=== PATIENT | male | born 1965 | race Caucasian/White ===

== ENCOUNTER 2018-05-27 08:09 | Emergency (ER) | payer MEDICAID, SELFPAY ==
[2018-05-27 08:10] VITALS: BP 185/105; PULSE 107; RESP 16; TEMP 36.8; O2SAT 99; BMI 22.3
--- NOTE | 2018-05-27 08:27 | ED.DCSUM_ITS ---
- ER Visit Summary Date of Service: 05/27/18 Chief Complaint: Bumps on ankle and elbows History of Present Illness: The patient is a 52 M who presents because of bumps on his ankle and elbows for approximate 1 week. He denies any other complaints or symptoms. He does have history of hypertension. He has not seen a physician in 4 years. He has not taken any medication in 2 years. He states his doctor is affiliated with the [facility]. He denies fever, chills night sweats. Denies weight gain or weight loss. He denies any ocular, visual or auditory symptoms. He denies chest pain, palpitations orthopnea PND. He denies dyspnea or dyspnea on exertion. Does have cough. He denies abdominal pain, nausea vomiting diarrhea. Denies constipation. He denies any dysuria, frequency, urgency or hematuria. He denies any myalgias, arthralgias. He denies back pain or neck pain. Physical Examination: Blood pressure is 185/105 and heart rate is 105. Patient appears in no distress. Head is atraumatic normocephalic. Pupils are equal round reactive. Extraocular muscles are intact. TMs are pearly white with landmarks noted. Nares patent with no drainage. Posterior pharynx without erythema or exudate. Uvula is midline. There is no dysphonia or dysphasia. Trachea is midline. There is no stridor with auscultation of the neck. Heart is regular without murmur, gallop or rub. S1 and S2 are normal. Lungs are clear to auscultation with good movement of air bilaterally. Abdomen is soft nontender with no palpable cell mass. There is no abdominal bruit. Patient is alert and oriented ?3. Motor is 5 over 5. Sensory is intact. DTRs are symmetric with no clonus or Babinski sign. Cranial 2 through 12 are intact. Cerebellar testing is normal. Patient does have fine bumps. His findings are consistent with folliculitis. He apparently has been in a hot tub. He has not been in the public hot tub, however. Test Results: BMP is remarkable slight elevation in CO2 of 33. UA is unremarkable. Emergency Department Course and Treatment: Because he has not seen a physician in 4 years and blood pressure is elevated will obtain a BMP and UA to evaluate for endorgan injury. And if creatinine is elevated will not prescribe TREMAYNE inhibitor. Treatment Plan: Prescription for lisinopril 10 mg and follow-up in 1-2 weeks [facility] Disposition: Discharged to home Impression: 1. Hypertension asymptomatic secondary noncompliance 2. Folliculitis This note was generated with [employer] dictation software. It may contain incorrect words, spelling, and punctuation that were not noted in review of the chart prior to signing ED Disposition - Plan for ED Patient: Disposition: Home or Assisted Living Chief Complaint: Lower Extremity Injury Instructions: ED HTN Established, ED Folliculitis Prescriptions: Lisinopril [Zestril] 10 mg PO DAILY #30 tab Dicloxacillin Sodium 500 mg PO Q6H 7 Days #28 cap [facility] Provider[facility] - 1-2 Weeks
[2018-05-27 08:42] LABS: Bacteria 0 SEEN /hpf (None Seen); Mucous, Urine 0 SEEN /hpf (<or=2+)
[2018-05-27 08:46] LABS: Color, Urine Yellow (Yellow); Glucose, Dipstick Normal (Normal); Ketone-Dipstick Negative (Negative); Leukocyte Esterase-Dipstick 25 /ul (Negative); Nitrite-Dipstick Negative (Negative); Occult Blood-Urine Negative /ul (Negative); Protein-Dipstick Negative (Negative); Urine Bilirubin Dipstick Negative (Negative); Urine Clarity Clear (Clear); Urine Urobilinogen Normal (Normal)
[2018-05-27 08:51] LABS: Anion Gap 7 (5-15); BUN 7 mg/dL (7-18); BUN/Creat Ratio 9.4 RATIO (10-20); Calcium,Total 9.7 mg/dL (8.5-10.1); Chloride 101 mmol/L (98-107); Creatinine, Serum 0.74 mg/dL (0.70-1.30); EST Glomerular Filtration Rate 116 mL/min (>60); Est Glom Filt Rate - Afr Amer 140 mL/min (>60); Estimated Creatinine Clearance 95.18 ml/min; Glucose 101 mg/dL (74-106); Potassium 3.9 mmol/L (3.5-5.1); Sodium Level 141 mmol/L (136-145)
[2018-05-27] MEDS: Lisinopril 10 MG Tablet PO (08:51)
[2018-05-27 09:04] LABS: White Blood Cells 0-5 SEEN /hpf (0-5)
[2018-05-27 09:05] LABS: Red Blood Cells-Urine 0 SEEN /hpf (0-5); Squamous Epithelial Cells - UA 0-5 SEEN /hpf (0-5)
== END 2018-05-27 09:29 | disposition home or self-care (01) ==
PROVIDERS: Emergency Provider Emergency Medicine
DX: I10 Essential (primary) hypertension (principal); Z91.14 Patient's other noncompliance with medication regimen; L73.9 Follicular disorder, unspecified; R05 Cough; Z72.0 Tobacco use
CPT/HCPCS: 80048; 81001; 99283

== ENCOUNTER 2022-08-26 13:40 | Inpatient (IN) | payer OTHER, SELFPAY ==
[2022-08-26] VITALS (15 sets, daily range): BP systolic 94–112; BP diastolic 49–63; PULSE 71–91; RESP 16–20; TEMP 36.6–37.9; O2SAT 94–100; BMI 22.3; BMI 20.8
--- NOTE | 2022-08-26 14:32 | EX.ED.DYSGE1 ---
HPI History of Present Illness Chief Complaint: Dizziness Narrative Narrative: 56-year-old male with no documented past medical history. Here for shortness of breath, dizziness for last 3 weeks. The patient states he has been having exertional shortness of breath accompanied by dizziness for the last several weeks. He states his symptoms are constant, severe, worse with exertion. Denies any chest pain. The patient denies recent surgery in the last 4 weeks or immobilization in the last 3 days, denies previous diagnosis of DVT or PE, hemoptysis, unilateral leg swelling or malignancy with treatment the last 6 months. No estrogen use noted. Patient notes he drinks alcohol daily, drinks vodka, approximately 20% of a bottle per day. Denies any vomiting or diarrhea. Denies any bleeding diathesis. Patient notes he takes aspirin but no blood thinners. Denies any melena or hematochezia. PFSH PFSH Medical History no medical history Home Medications dicloxacillin 500 mg capsule 500 mg PO Q6H 7 days #28 caps 05/27/18 [Rx Last Taken Unknown] lisinopril 10 mg tablet 10 mg PO DAILY #30 tabs 05/27/18 [Rx Last Taken Unknown] Allergy/AdvReac Type Severity Reaction Status Date / Time No Known Allergies Allergy Verified 08/26/22 13:42 Surgical History no surgical history Social History Smoking Status: Current every day smoker tobacco type: cigarettes ROS ROS ED ROS Narrative Constitutional: Denies fever HEENT: Denies sore throat Neck: Denies neck pain Cardiovascular: Denies chest pain, syncope, endorses dizziness Respiratory: Endorses shortness of breath GI: Denies nausea vomiting or abdominal pain : Denies changes in urinary habits Musculoskeletal: Denies muscle or joint pain Neurologic: Denies numbness weakness or loss of sensation Skin denies rash EXAM Physical Exam Narrative Exam Narrative: Nursing triage notes reviewed, Vital signs reviewed Constitutional: please see mdm HENT: MMM Eyes: Pupils equal round and reactive to light, Extraocular muscles intact Neck: No stridor, no JVD, full neck ROM Lungs: Clear to auscultation, No wheezing or rales. No increased work of breathing, no conversational dyspnea, no accessory muscle use, no nasal flaring. No respiratory distress noted Heart: Regular rate and rhythm, No murmurs, No rubs and No gallops, 2+ distal pulses (radial, femoral, posterior tibial) in all extremities Abdomen: Soft, there is no tenderness, rigidity, rebound or guarding, no obvious peritoneal signs, no palpable pulsatile abdominal masses, no auscultated abdominal bruit : No CVAT Extremities: No edema Neuro: Alert and oriented x3, neuro exam at baseline, cranial nerves II through XII are intact. No pain with extraocular muscle movement. There is negative test of skew. Normal speech. 5 of 5 strength in upper and lower extremities in flexion extension. Intact sensation to light touch in upper and lower extremity dermatomes. No truncal or extremity ataxia. No dysdiadochokinesia. Normal gait. 2+ reflexes. No meningeal signs. Negative Babinski. NIH of 0 Skin: No rash or lesions noted Const Vital Signs: 08/26/22 13:40 08/26/22 13:58 08/26/22 15:19 Temperature 97.8 F Temperature Source Temporal Pulse Rate 87 Respiratory Rate 18 Respiratory Effort Short of Breath Respiratory Pattern Normal Blood Pressure 112/49 L Blood Pressure Mean 70 Pulse Ox 100 Oxygen Delivery Method Room Air Room Air MDM MDM MDM Narrative Medical decision making narrative: 56-year-old male here for dizziness, dyspnea. The patient was initially hemodynamically stable, afebrile, nontoxic-appearing. Exam with No focal cardiopulmonary without focal neurologic deficits. No focal cardiopulmonary abnormalities noted on exam. Rectal exam without obvious melena. I obtained a broad lab and imaging work-up to further elucidate the etiology of the patient's complaints. Specifically ACS, arrhythmia, pneumonia, myocardial ischemia, anemia, electrolyte abnormalities, dehydration. CBC with severe anemia. BMP with hypokalemia likely secondary to daily alcohol abuse. Replaced hypokalemia orally. At this point is sent for type and screen prepared for 3 unit blood transfusion called to hospitalist for admission. Risk and benefits of blood transfusion were discussed with the patient. He agreed to have blood transfusion. EKG without evidence of myocardial ischemia or arrhythmia. Troponin unremarkable. BNP mildly elevated consistent with volume overload. Discussed with hospitalist who accepted the patient's case. Patient be admitted for anemia, blood transfusion and monitoring. Lab Data Attestation: I reviewed the patient's lab results. Lab results narrative: CBC without leukocytosis, severe anemia, no thrombocytopenia BMP without evidence of significant electrolyte abnormalities, no anion gap, no acute kidney injury Troponin is negative, no evidence of myocardial ischemia. Labs: Laboratory Results - last 24 hr 08/26/22 08/26/22 08/26/22 15:27 15:27 15:27 WBC 7.6 RBC 1.93 L Hgb 4.4 L* Hct 16.0 L MCV 82.9 MCH 22.8 L MCHC 27.5 L RDW Std Deviation 64.7 H RDW Coeff of Shauna 21.7 H Plt Count 343 MPV 10.0 Immature Gran % (Auto) 0.800 Neut % (Auto) 87.5 H Lymph % (Auto) 5.1 L [place] % (Auto) 6.0 Eos % (Auto) 0.1 Baso % (Auto) 0.5 Absolute Neuts (auto) 6.7 Absolute Lymphs (auto) 0.39 L Nucleated RBC % 0.3 Differential Comment SCANNED Diff Path Review May foll Polychromasia RARE Hypochromasia 3+ Anisocytosis 2+ Target Cells 1+ Schistocytes RARE Sodium 135 L Potassium 2.9 L Chloride 95 L Carbon Dioxide 25.0 Anion Gap 15 BUN 12 Creatinine 0.72 Estim Creat Clear Calc 93.27 Est GFR (MDRD) Af Amer 143 Est GFR (MDRD) Non-Af 118 BUN/Creatinine Ratio 16.6 Glucose 71 L Calcium 8.9 Troponin I High Sens 15 B-Natriuretic Peptide 177.0 H Radiography Diagnostic Testing: Clinical Impression(s) from Imaging Studies Chest X-Ray 08/26/22 15:30 IMPRESSION: Increased markings at the left lung base suggestive of atelectasis and/or early infiltrate. Follow-up recommended. Electronically Signed: Freddy Perez MD at 15:50 EDT , EKG Initial EKG: Comments: EKG with normal sinus rhythm, left axis deviation, no STEMI Discharge Plan Triage Chief Complaint: Dizziness ED Provider: Meek Keating Dx/Rx/DC Orders Clinical Impression: Anemia, Alcohol abuse, Acute hypokalemia Prescriptions: No Action dicloxacillin 500 MG capsule 500 mg PO Q6H 7 Days Qty: 28 0RF lisinopril 10 MG tablet 10 mg PO DAILY Qty: 30 0RF [facility] [[facility] Provider] -
--- NOTE | 2022-08-26 14:58 | EKG12_ITS ---
Test Reason : DIZZY Blood Pressure : / mmHG Vent. Rate : 081 BPM Atrial Rate : 081 BPM P-R Int : 160 ms QRS Dur : 094 ms QT Int : 414 ms P-R-T Axes : 046 -05 009 degrees QTc Int : 480 ms Normal sinus rhythm Nonspecific ST abnormality Prolonged QT Abnormal ECG Confirmed by MERVAT TERRY, HERBERT ([id number]), school photograph editor RYLEE DOW ([id number]) on 08/30/2022 2:42:12 P M Referred By: Confirmed By:BASSEM CROWELL MD
[2022-08-26] MEDS: 0.9% Normal Saline 1,000 ML 1000 ML IV (15:27)
[2022-08-26] MEDS: Aspirin 81 MG TAB.CHEW 324 MG PO (15:27)
--- NOTE | 2022-08-26 15:30 | RAD_ITS ---
STUDY: X-RAY CHEST REASON FOR EXAM: Male, 56 years old. Chest pain TECHNIQUE: Single AP portable view of the chest. COMPARISON: None. FINDINGS: EKG electrodes are seen. Hyperinflation. Increased markings at the left lung base suggestive of a either atelectasis and/or infiltrate. There is no demonstrated pleural abnormality. Normal size heart. Normal mediastinum and jorge. There is prominence of the pulmonary hilar arteries without peripheral pulmonary vascular congestion, suggesting pulmonary hypertension. Normal visualized aortic arch and descending thoracic aorta. Normal visualized thoracic spine. Normal visualized ribs, clavicles, and shoulders. There is no demonstrated abnormality of the visualized soft tissue structures of the upper abdomen. RAD/Chest 1 View (Portable) IMPRESSION: Increased markings at the left lung base suggestive of atelectasis and/or early infiltrate. Follow-up recommended. Electronically Signed: Freddy Perez MD at 15:50 EDT ,
[2022-08-26 15:50] LABS: Absolute Lymphocyte Count 0.39 X10^3/uL (0.83-4.51); Absolute Neutrophil Count 6.7 X10^3/uL (2.0-7.7); Basophil# 0.04 X10^3/uL; Basophil% 0.5 % (0-1); Eosinophil# 0.01 X10^3/uL; Eosinophils% 0.1 % (0-5); Lymphocyte # 0.39 X10^3/ul (0.83-4.51); Lymphocyte % 5.1 % (19-41); Mean Corp Hgb Conc 27.5 g/dL (32-36); Mean Corpuscular Hgb 22.8 pg (27.0-32.0); Mean Corpuscular Volume 82.9 fL (80-94); Monocyte# 0.46 X10^3/uL; NRBC Flagged by Analyzer 0.3 % (0-5); Neutrophil # 6.67 X10^3/uL (2.7-7.7); Neutrophil % 87.5 % (47-70); POSITIVE COUNT YES; POSITIVE DIFFERENTIAL YES; POSITIVE MORPHOLOGY YES; Platelet Count 343 K/mm3 (150-450); RBC Distribution Width CV 21.7 % (11.6-14.6); RBC Distribution Width SD 64.7 fl (35.1-43.9); Red Blood Count 1.93 M/mm3 (4.6-6.2); White Blood Count 7.6 K/mm3 (4.4-11.0)
[2022-08-26 16:01] LABS: Differential Indicated SCAN CRITERIA MET; Hemoglobin 4.4 g/dL (13.0-16.5)
[2022-08-26 16:08] LABS: Anion Gap 15 (5-15); BUN 12 mg/dL (7-18); BUN/Creat Ratio 16.6 RATIO (10-20); Calcium,Total 8.9 mg/dL (8.5-10.1); Chloride 95 mmol/L (98-107); Creatinine, Serum 0.72 mg/dL (0.70-1.30); EST Glomerular Filtration Rate 118 mL/min (>60); Est Glom Filt Rate - Afr Amer 143 mL/min (>60); Estimated Creatinine Clearance 93.27 ml/min; Glucose 71 mg/dL (74-106); Potassium 2.9 mmol/L (3.5-5.1); Sodium Level 135 mmol/L (136-145); Troponin-I HS 15 pg/mL (3.0-78.0)
[2022-08-26 16:18] LABS: Anisocytosis 2+; Differential Comment SCANNED; Hypochromasia 3+; Polychromasia RARE; Schistocytes RARE
[2022-08-26 16:19] LABS: Target Cells 1+
[2022-08-26] MEDS: Potassium Chloride Oral Tablet 20 MEQ 40 MEQ PO (17:01)
[2022-08-26 18:26] LABS: Ferritin 11 ng/mL (26-388); Iron 29 ug/dL (65-175); Iron Binding Capacity,Total 443 ug/dL (250-450)
--- NOTE | 2022-08-26 18:27 | PCM.HP.STD ---
HPI - General General Date of Admission: 08/26/22 HPI Narrative MARVIN IZQUIERDO, is a 56 M who presents to the hospital with lightheadedness and shortness of breath. He is found to be severely anemic with a hemoglobin of 4.4. He denies any signs of a GI bleed, he denies any hematemesis or bright or dark red blood in his stools. Hemoccult in the ER was unremarkable. He does have a significant current history of alcoholism, he drinks a pint of vodka every day and he has no interest in going through rehab at this time. He currently states that he feels fine as long as is not trying to move, that elicits the shortness of breath and the dizziness. [facility] Medical History (Updated 08/26/22 @ 18:06 by Clarissa Harmon RN) Alcohol abuse Anemia Hypertension Smoker Substance abuse Medical History no medical history Home Medications dicloxacillin 500 mg capsule 500 mg PO Q6H 7 days #28 caps 05/27/18 [Rx Last Taken Unknown] lisinopril 10 mg tablet 10 mg PO DAILY #30 tabs 05/27/18 [Rx Last Taken Unknown] Allergy/AdvReac Type Severity Reaction Status Date / Time No Known Allergies Allergy Verified 08/26/22 13:42 Family History (Updated 08/26/22 @ 18:[address] Memo Gamez MD) Other Heart disease Surgical History no surgical history no surgical history Social History Smoking Status: Current every day smoker tobacco type: cigarettes ROS Constitutional Constitutional: Denies chills, fatigue, fever(s) or malaise Eyes Eyes: Denies blurry vision ENT HEENT: Denies headache(s) or nasal discharge Cardiovascular Cardiovascular: Reports lightheadedness; Denies chest pain, dyspnea on exertion or syncope Respiratory/Chest Respiratory/Chest: Reports shortness of breath with exertion; Denies cough or shortness of breath at rest Gastrointestinal Gastrointestinal: Denies constipation, diarrhea, nausea or vomiting Genitourinary Genitourinary: Denies dysuria Neurologic Neurologic: Reports dizziness; Denies focal weakness, numbness or tremor(s) Psychiatric Psychiatric: Denies anxiety or depression Vital Signs Vital Signs Vital Signs: 08/26/22 13:40 08/26/22 13:58 08/26/22 15:19 Temperature 97.8 F Temperature Source Temporal Pulse Rate 87 Respiratory Rate 18 Respiratory Effort Short of Breath Respiratory Pattern Normal Blood Pressure 112/49 L Blood Pressure Mean 70 Blood Pressure Source Blood Pressure Position Blood Pressure Location Pulse Ox 100 Oxygen Delivery Method Room Air Room Air 08/26/22 15:40 08/26/22 17:40 08/26/22 17:56 Temperature 98.3 F Temperature Source Temporal Pulse Rate 71 71 Respiratory Rate 18 16 16 Respiratory Effort Respiratory Pattern Blood Pressure 107/57 L 107/57 L Blood Pressure Mean 73 73 Blood Pressure Source Blood Pressure Position Blood Pressure Location Pulse Ox 95 94 Oxygen Delivery Method Room Air Room Air 08/26/22 18:21 Temperature 100.0 F H Temperature Source Oral Pulse Rate 86 Respiratory Rate 17 Respiratory Effort Respiratory Pattern Blood Pressure 100/56 L Blood Pressure Mean 70 Blood Pressure Source Monitor Blood Pressure Position Semi-Fowlers Blood Pressure Location Right Arm Pulse Ox 97 Oxygen Delivery Method Room Air Weight Weight: 121 lb 4.068 oz Body Mass Index (BMI) 20.8 Physical Exam Narrative And general: Alert, Oriented x3, Cooperative, No apparent distress HEENT: Atraumatic, PERRLA, EOMI, Normocephalic, pale Oral: Moist Mucosa Neck: Supple, No JVD Lungs: Clear to auscultation, Normal air movement, No rhonchi, No wheeze, No rales Cardiovascular: Regular rate, Regular Rhythm, Normal S1, Normal S2, No murmurs Abdomen: Soft, Non Tender, Non-Distended, No Hepato-splenomegaly Extremities: No edema, Capillary Refill Less than 3 Seconds Skin: No rashes, No breakdown Musculoskeletal: No Tenderness to Palpation of Joints or Extremities Neurological: Cranial nerves II-XII grossly intact, Motor Exam 5/5 strength throughout, Sensory exam intact to light touch and pain Psych/Mental Status: Normal Affect, Appropriate Results Lab / Micro Data Result Diagrams: 08/26/22 15:27 08/26/22 15:27 Labs: Laboratory Results - last 24 hr 08/26/22 15:27: WBC 7.6, RBC 1.93 L, Hgb 4.4 L*, Hct 16.0 L, MCV 82.9, MCH 22.8 L, MCHC 27.5 L, RDW Std Deviation 64.7 H, RDW Coeff of Shauna 21.7 H, Plt Count 343, MPV 10.0, Immature Gran % (Auto) 0.800, Neut % (Auto) 87.5 H, Lymph % (Auto) 5.1 L, [place] % (Auto) 6.0, Eos % (Auto) 0.1, Baso % (Auto) 0.5, Absolute Neuts (auto) 6.7, Absolute Lymphs (auto) 0.39 L, Nucleated RBC % 0.3, Differential Comment SCANNED, Diff Path Review May foll, Polychromasia RARE, Hypochromasia 3+, Anisocytosis 2+, Target Cells 1+, Schistocytes RARE 08/26/22 15:27: Sodium 135 L, Potassium 2.9 L, Chloride 95 L, Carbon Dioxide 25.0, Anion Gap 15, BUN 12, Creatinine 0.72, Estim Creat Clear Calc 93.27, Est GFR (MDRD) Af Amer 143, Est GFR (MDRD) Non-Af 118, BUN/Creatinine Ratio 16.6, Glucose 71 L, Calcium 8.9, Troponin I High Sens 15 08/26/22 15:27: B-Natriuretic Peptide 177.0 H 08/26/22 15:27: Iron 29 L, TIBC 443, Ferritin 11 L, Folate 5.10 08/26/22 16:10: Blood Type O POSITIVE, Antibody Screen NEGATIVE 08/26/22 16:10: Crossmatch See Detail Micro: Microbiology 08/26/22 16:35 Stool Stool Occult Blood ([facility]ER) - Final Radiology Impression Chest X-Ray 08/26/22 15:30 IMPRESSION: Increased markings at the left lung base suggestive of atelectasis and/or early infiltrate. Follow-up recommended. Electronically Signed: Freddy Perez MD at 15:50 EDT , Assessment & Plan Assessment/Plan (1) Anemia: (2) Alcohol abuse: PLAN: Plan 1. Anemia likely iron deficiency versus marrow toxicity from alcohol abuse ? No signs of a GI bleed, he denies any GI bleeding and Hemoccult was negative ? We will continue with twice daily PPI at this time ? Folic acid is normal, vitamin B12 is pending ? Iron studies show a low iron with elevated/normal TIBC and a low ferritin ? We will continue with 3 units of blood transfusion today we will follow-up CBC in the morning 2. Alcohol abuse ? She drinks a pint of vodka a day ? She has no interest in rehab ? We will continue with the [facility] protocols with Ativan DVT: SCDs Charges/Coding Visit Charges Inpatient E&M: 03612 Init Hosp L2
[2022-08-26 19:17] LABS: Vitamin B12 571 pg/mL (211-911)
[2022-08-26] MEDS: MELATONIN 3 MG TABLET PO (21:00)
[2022-08-27] VITALS (19 sets, daily range): BP systolic 109–136; BP diastolic 62–72; PULSE 69–79; RESP 14–20; TEMP 36.9–37.7; O2SAT 96–100
--- NOTE | 2022-08-27 01:56 | NURSING ---
Pt vitals were taken at 2343 , 0043 and blood ended 0140 for second bag of blood. Pt vitals remained stable. Error occurred with TAR and didn't save vitals when documented at those times.
[2022-08-27 07:24] LABS: Anion Gap 9 (5-15); BUN 12 mg/dL (7-18); Calcium,Total 8.8 mg/dL (8.5-10.1); Chloride 95 mmol/L (98-107); Creatinine, Serum 0.75 mg/dL (0.70-1.30); EST Glomerular Filtration Rate 113 mL/min (>60); Est Glom Filt Rate - Afr Amer 137 mL/min (>60); Estimated Creatinine Clearance 83.52 ml/min; Glucose 95 mg/dL (74-106); Potassium 3.5 mmol/L (3.5-5.1); Sodium Level 132 mmol/L (136-145)
[2022-08-27 08:05] LABS: AST(SGOT) 44 U/L (15-37); Alanine Aminotransfer ALT/SGPT 42 U/L (16-61); Albumin, Serum 3.1 g/dL (3.2-5.0); Alkaline Phosphatase 77 U/L (45-117); Bilirubin, Direct 0.36 mg/dL (0.00-0.30); Globulin 3.3 g/dL (2.2-4.2); Protein, Total 6.4 g/dL (6.4-8.2)
[2022-08-27 08:53] LABS: Absolute Lymphocyte Count 0.62 X10^3/uL (0.83-4.51); Absolute Neutrophil Count 5.2 X10^3/uL (2.0-7.7); Basophil# 0.03 X10^3/uL; Basophil% 0.4 % (0-1); Eosinophil# 0.04 X10^3/uL; Eosinophils% 0.5 % (0-5); Hematocrit 26.4 % (40-54); Hemoglobin 8.6 g/dL (13.0-16.5); Lymphocyte # 0.62 X10^3/ul (0.83-4.51); Lymphocyte % 8.5 % (19-41); Mean Corp Hgb Conc 32.6 g/dL (32-36); Mean Corpuscular Hgb 26.7 pg (27.0-32.0); Mean Platelet Vol. 10.1 fl (6.2-12.0); Monocyte# 1.31 X10^3/uL; NRBC Flagged by Analyzer 0.4 % (0-5); Neutrophil # 5.24 X10^3/uL (2.7-7.7); Neutrophil % 72.1 % (47-70); Platelet Count 261 K/mm3 (150-450); RBC Distribution Width CV 16.9 % (11.6-14.6); Red Blood Count 3.22 M/mm3 (4.6-6.2); White Blood Count 7.3 K/mm3 (4.4-11.0)
[2022-08-27] MEDS: 0.9% Saline Lock 10 ML Syringe IV ×2 (09:06→20:41)
--- NOTE | 2022-08-27 10:19 | PCM.PN.HOSP ---
Subjective Subjective Follow-up on acute severe anemia/chronic alcohol abuse: Patient was seen and examined. He denied any hematochezia or melena. He was transfused 3 units of packed RBCs. Repeat hemoglobin is 8.6. Denies any chest pain or dizziness or palpitations. Objective Data Objective Data Vital Signs: Vital Signs Temp Pulse Resp BP Pulse Ox O2 Del Method 99.1 F 70 14 136/68 H 96 Room Air 08/27/22 08:33 08/27/22 08:51 08/27/22 08:33 08/27/22 08:33 08/27/22 08:33 08/27/22 08:33 Oxygen Delivery Method Room Air Weight: 55 kg Body Mass Index (BMI) 20.8 Intake & Output: Intake and Output for Last 24 Hours 08/25/22 08/26/22 08/27/22 23:59 23:59 23:59 Intake Total 1510 / 1510 1150 / 1150 Balance 1510 / 1510 1150 / 1150 Lab / Micro Data Result Diagrams: 08/27/22 08:40 08/27/22 04:17 Labs: Laboratory Results - last 24 hr 08/26/22 15:27: WBC 7.6, RBC 1.93 L, Hgb 4.4 L*, Hct 16.0 L, MCV 82.9, MCH 22.8 L, MCHC 27.5 L, RDW Std Deviation 64.7 H, RDW Coeff of Shauna 21.7 H, Plt Count 343, MPV 10.0, Immature Gran % (Auto) 0.800, Neut % (Auto) 87.5 H, Lymph % (Auto) 5.1 L, [place] % (Auto) 6.0, Eos % (Auto) 0.1, Baso % (Auto) 0.5, Absolute Neuts (auto) 6.7, Absolute Lymphs (auto) 0.39 L, Nucleated RBC % 0.3, Differential Comment SCANNED, Diff Path Review May foll, Polychromasia RARE, Hypochromasia 3+, Anisocytosis 2+, Target Cells 1+, Schistocytes RARE 08/26/22 15:27: Sodium 135 L, Potassium 2.9 L, Chloride 95 L, Carbon Dioxide 25.0, Anion Gap 15, BUN 12, Creatinine 0.72, Estim Creat Clear Calc 93.27, Est GFR (MDRD) Af Amer 143, Est GFR (MDRD) Non-Af 118, BUN/Creatinine Ratio 16.6, Glucose 71 L, Calcium 8.9, Troponin I High Sens 15 08/26/22 15:27: B-Natriuretic Peptide 177.0 H 08/26/22 15:27: Vitamin B12 571 08/26/22 15:27: Iron 29 L, TIBC 443, Ferritin 11 L, Folate 5.10 08/26/22 16:10: Blood Type O POSITIVE, Antibody Screen NEGATIVE 08/26/22 16:10: Crossmatch See Detail 08/27/22 04:17: Sodium 132 L, Potassium 3.5, Chloride 95 L, Carbon Dioxide 28.0, Anion Gap 9, BUN 12, Creatinine 0.75, Estim Creat Clear Calc 83.52, Est GFR (MDRD) Af Amer 137, Est GFR (MDRD) Non-Af 113, BUN/Creatinine Ratio 16.0, Glucose 95, Calcium 8.8 08/27/22 04:17: Sodium Cancelled, Potassium Cancelled, Chloride Cancelled, Carbon Dioxide Cancelled, Anion Gap Cancelled, BUN Cancelled, Creatinine Cancelled, Est GFR (MDRD) Af Amer Cancelled, Est GFR (MDRD) Non-Af Cancelled, BUN/Creatinine Ratio Cancelled, Glucose Cancelled, Calcium Cancelled, Total Bilirubin 1.20 H, Direct Bilirubin 0.36 H, AST 44 H, ALT 42, Alkaline Phosphatase 77, Total Protein 6.4, Albumin 3.1 L, Globulin 3.3, Albumin/Globulin Ratio Cancelled 08/27/22 08:40: WBC 7.3, RBC 3.22 L, Hgb 8.6 L, Hct 26.4 L, MCV 82.0, MCH 26.7 L, MCHC 32.6 D, RDW Std Deviation 50.0 H, RDW Coeff of Shauna 16.9 H, Plt Count 261, MPV 10.1, Immature Gran % (Auto) 0.500, Neut % (Auto) 72.1 H, Lymph % (Auto) 8.5 L, [place] % (Auto) 18.0 H, Eos % (Auto) 0.5, Baso % (Auto) 0.4, Absolute Neuts (auto) 5.2, Absolute Lymphs (auto) 0.62 L, Nucleated RBC % 0.4 Micro: Microbiology 08/26/22 16:35 Stool Stool Occult Blood ([facility]) - Final Radiography Diagnostic Testing: Radiology Impression Chest X-Ray 08/26/22 15:30 IMPRESSION: Increased markings at the left lung base suggestive of atelectasis and/or early infiltrate. Follow-up recommended. Electronically Signed: Freddy Perez MD at 15:50 EDT , Physical Exam Narrative Physical exam: General: Alert, Oriented x3, Cooperative, No apparent distress HEENT: Atraumatic Oral: Moist Mucosa Neck: Supple Lungs: Diminished to auscultation Cardiovascular: HS I+II, regular, no murmurs Abdomen: Bowel Sounds Present, Soft, Non Tender Extremities: No edema Skin: No rashes, No breakdown Neurological: Grossly intact Psych/Mental Status: Appropriate Assessment & Plan Assessment/Plan (1) Anemia: (2) Alcohol abuse: (3) Acute hypokalemia: PLAN: Plan 1. Acute severe symptomatic anemia, iron deficiency anemia,unclear etiology for now FOBT is negative. Vitamin B12, folate are unremarkable s/p 3 units of pRBCs; repeat Hb is 8.6 Will consult GI, continue on IV PPI twice daily 2. Hypokalemia, replaced, recheck in am 3. Chronic alcohol abuse, continue to monitor for withdrawal 4. Hypertension, controlled, continue on atenolol 5. DVT PPx- SCDs Charges/Coding Visit Charges Inpatient E&M: 38759 Subs Hosp L2
--- NOTE | 2022-08-27 10:35 | CASEMGMT ---
RN DEANNA Face to Face with patient for initial transition planning/care coordination assessment. RN CM introduced self and role at [facility]. Patient lying in bed, alert and oriented. Patient willing to participate in assessment and is able to answer all questions appropriately. Care providers, pharmacy, and demographics verified. Patient wishes to discharge home, denies need for home health at this time. Patient states he has no further needs or concerns at this time. CM to follow for discharge planning needs that may arise. PCP: Nadia Segura at [facility] Specialists: none Preferred Pharmacy: [place], [facility] retail at discharge [place] Living Will/HPOA: none LNOK: none Living Arrangements: Patient lives alone in a mobile home with 3 steps and railing to enter the home. Patient states he is independent at home. Transportation: self, [facility] van DME/HHC: Patient denies DME in the home. Patient denies previous HHC or SNF. Disposition Plan: Patient to discharge home with family support and follow-up plans in place. Karla KAMARA, RN, CM
[2022-08-27 15:14] LABS: Pathologist Review Reviewed
--- NOTE | 2022-08-27 18:05 | CON.PCM_ITS ---
Assessment & Plan Assessment/Plan (1) Anemia: PLAN: The differential diagnosis for his anemia does include acute on chronic blood loss anemia secondary to angiodysplasia, neoplasia, peptic ulcer disease, telangiectasia, gastric antral vascular ectasia, Gaurav's erosions. He should undergo an upper and lower endoscopy and possible capsule endoscopy. He was explained alternatives, risk, benefits include not withstanding bleeding, in fection, sepsis, perforation, need for emergent . He will have an ASA of 1. HPI Consult Data Date of Consult: 08/27/22 HPI Narrative HPI Narrative: MARVIN IZQUIERDO, is a 56 M who presents with no documented past medical history.? Here for shortness of breath, dizziness for last 3 weeks.? The patient states he has been having exertional shortness of breath accompanied by dizziness for the last several weeks.? He states his symptoms are constant, severe, worse with exertion.? Denies any chest pain.? The patient denies recent surgery in the last 4 weeks or immobilization in the last 3 days, denies previous diagnosis of DVT or PE, hemoptysis, unilateral leg swelling or malignancy with treatment the last 6 months.? No estrogen use noted .? Patient notes he drinks alcohol daily, drinks vodka, approximately 20% of a bottle per day.? Denies any vomiting or diarrhea.? Denies any bleeding diathesis. ? Patient notes he takes aspirin but no blood thinners.? Denies any melena or hematochezia. He has no previous diagnosis of cirrhosis. In the ED he was noted to have a hemoglobin of 4.4 and received 4 units of packed red blood cell transfusion his hemoglobin is up to 8.7. [facility] Medical History (Updated 08/26/22 @ 18:06 by Clarissa Harmon RN) Alcohol abuse Anemia Hypertension Smoker Substance abuse Medical History no medical history Home Medications atenolol 25 mg tablet 25 mg PO DAILY BP 08/27/22 [History Last Taken 08/26/22 25 mg] Allergy/AdvReac Type Severity Reaction Status Date / Time No Known Allergies Allergy Verified 08/26/22 13:42 Family History (Updated 08/26/22 @ 18:[address] Memo Gamez MD) Other Heart disease Surgical History no surgical history Social History Smoking Status: Current every day smoker tobacco type: cigarettes ROS Constitutional Constitutional: Denies chills, fatigue, fever(s) or malaise Eyes Eyes: Denies blurry vision ENT HEENT: Denies headache(s) or nasal discharge Cardiovascular Cardiovascular: Reports lightheadedness; Denies chest pain, dyspnea on exertion or syncope Respiratory/Chest Respiratory/Chest: Reports shortness of breath with exertion; Denies cough or s hortness of breath at rest Gastrointestinal Gastrointestinal: Denies constipation, diarrhea, nausea or vomiting Genitourinary Genitourinary: Denies dysuria Neurologic Neurologic: Reports dizziness; Denies focal weakness, numbness or tremor(s) Psychiatric Psychiatric: Denies anxiety or depression Physical Exam Narrative Physical exam: General: Alert, Oriented x3, Cooperative, No apparent distress HEENT: Atraumatic Oral: Moist Mucosa Neck: Supple Lungs: Diminished to auscultation Cardiovascular: HS I+II, regular, no murmurs Abdomen: Bowel Sounds Present, Soft, Non Tender Extremities: No edema Skin: No rashes, No breakdown Neurological: Grossly intact Psych/Mental Status: Appropriate Lab / Micro Data Result Diagrams: 08/27/22 08:40 08/27/22 04:17 Labs: Laboratory Results - last 24 hr 08/26/22 15:27: Diff Path Review Reviewed 08/26/22 15:27: Vitamin B12 571 08/26/22 15:27: Iron 29 L, TIBC 443, Ferritin 11 L, Folate 5.10 08/26/22 16:10: Crossmatch See Detail 08/27/22 04:17: Sodium 132 L, Potassium 3.5, Chloride 95 L, Carbon Dioxide 28.0, Anion Gap 9, BUN 12, Creatinine 0.75, Estim Creat Clear Calc 83.52, Est GFR (MDRD) Af Amer 137, Est GFR (MDRD) Non-Af 113, BUN/Creatinine Ratio 16.0, Glucose 95, Calcium 8.8 08/27/22 04:17: Sodium Cancelled, Potassium Cancelled, Chloride Cancelled, Carbon Dioxide Cancelled, Anion Gap Cancelled, BUN Cancelled, Creatinine Cancelled, Est GFR (MDRD) Af Amer Cancelled, Est GFR (MDRD) Non-Af Cancelled, BUN/Creatinine Ratio Cancelled, Glucose Cancelled, Calcium Cancelled, Total Bilirubin 1.20 H, Direct Bilirubin 0.36 H, AST 44 H, ALT 42, Alkaline Phosphatase 77, Total Protein 6.4, Albumin 3.1 L, Globulin 3.3, Albumin/Globulin Ratio Cancelled 08/27/22 08:40: WBC 7.3, RBC 3.22 L, Hgb 8.6 L, Hct 26.4 L, MCV 82.0, MCH 26.7 L , MCHC 32.6 D, RDW Std Deviation 50.0 H, RDW Coeff of Shauna 16.9 H, Plt Count 261, MPV 10.1, Immature Gran % (Auto) 0.500, Neut % (Auto) 72.1 H, Lymph % (Auto) 8.5 L, [place] % (Auto) 18.0 H, Eos % (Auto) 0.5, Baso % (Auto) 0.4, Absolute Neuts (auto) 5.2, Absolute Lymphs (auto) 0.62 L, Nucleated RBC % 0.4 Micro: Microbiology 08/26/22 16:35 Stool Stool Occult Blood (SAWYER) - Final Charges/Coding Visit Charges Inpatient E&M: 21393 Init Hosp L2
--- NOTE | 2022-08-27 18:05 | NURSING ---
Reviewed charting with Sunitha Short RN
[2022-08-27] MEDS: DiphenhydrAMINE 25 MG Capsule PO (18:26)
[2022-08-27] MEDS: Polyethylene Glycol 3350 BOWEL PREP PO (20:33)
[2022-08-27] MEDS: Bisacodyl 5 MG Tablet 20 MG PO (20:34)
[2022-08-28] VITALS (21 sets, daily range): BP systolic 119–147; BP diastolic 64–98; PULSE 61–85; RESP 14–18; TEMP 36.6–37.7; O2SAT 96–100; BMI 20.8
--- NOTE | 2022-08-28 | GASB_PTH ---
PATIENT: MARVIN IZQUIERDO LOC: [facility] U#:[id number] AGE/SX: 56/M ROOM: [facility] RE08/26/[address]: Dr. Jeri Rosas MD : 1965 BED: 1 DIS: 08/29/2022 SPEC #: [id number] RECD: 08/29/22 07:08 STATUS: SHADIA STALLWORTH #: [id number] MOISÉS: 08/28/22 00:[address]: Adam Rea DEPT: SURGICAL PATHOLOGY RECD BY: Richy Lopez ENTERED: 08/29/22 08:48 SP TYPE: Gastric Bx OTHR DR: MD Dr. Memo Valles MD [facility] Tissues: A - Gastric mucous membrane B - Duodenum, NOS C - Sigmoid colon biopsy Procedures: Surgery Specimen Level IV Comments: @ Ordering doctor for SUIV edited from to @ by MARY at 08/29/22936 @ Submitting doctor edited from to @ by RGOOD at 08/29/2237 HEADER OPERATION: Colonoscopy, EGD with gold probe cautery and biopsies (MAC) PRE-OP DIAGNOSIS: Anemia TISSUE SUBMITTED: A ? Gastric antral ulcer biopsy, B ? Duodenum biopsy, C ? Sigmoid polyp biopsy MICROSCOPIC DIAGNOSIS A. Gastric antral ulcer, biopsy: Mild chronic gastritis and mild architectural change. See comment. B. Duodenum, biopsy: Gastric metaplasia. C. Sigmoid colon polyp, biopsy: Fragments of tubular adenoma. AM:tiara 08/30/2022 COMMENT A. A distinct ulceration is not identified. Clinical correlation is suggested. The results of immunohistochemistry for Helicobacter pylori will be reported separately ([id number]). MICROSCOPIC DESCRIPTION Slides are reviewed. GROSS DESCRIPTION A - Received in fixative is one container labeled with the patient's name and designated gastric ulcer. The specimen consists of two irregular fragments of light edward soft tissue that in aggregate measure 0.6 x 0.6 x 0.1 cm. The specimen is totally submitted in one cassette. B - Received in fixative is one container labeled with the patient's name and designated duodenum biopsy. The specimen consists of multiple irregular fragments of light edward soft tissue that in aggregate measure 1 x 0.3 x 0.1 cm. The specimen is totally submitted in one cassette. C - Received in fixative is one container labeled with the patient's name and designated sigmoid polyp biopsy. The specimen consists of two irregular fragments of light edward soft tissue that in aggregate measure 0.5 x 0.3 x 0.1 cm. The specimen is totally submitted in one cassette. / AM:tiara 08/29/2022 TC:3 CPT: 03300 x3
--- NOTE | 2022-08-28 05:02 | NURSING ---
Documentation reviewed with Nani KAT
[2022-08-28 05:34] LABS: Absolute Lymphocyte Count 1.12 X10^3/uL (0.83-4.51); Absolute Neutrophil Count 3.6 X10^3/uL (2.0-7.7); Basophil# 0.02 X10^3/uL; Basophil% 0.3 % (0-1); Eosinophil# 0.12 X10^3/uL; Hemoglobin 8.8 g/dL (13.0-16.5); Lymphocyte # 1.12 X10^3/ul (0.83-4.51); Lymphocyte % 18.8 % (19-41); Mean Corp Hgb Conc 31.4 g/dL (32-36); Mean Corpuscular Hgb 25.9 pg (27.0-32.0); Mean Corpuscular Volume 82.4 fL (80-94); Mean Platelet Vol. 10.6 fl (6.2-12.0); Monocyte# 1.05 X10^3/uL; Monocyte% 17.6 % (0-10); NRBC Flagged by Analyzer 0 % (0-5); Neutrophil # 3.61 X10^3/uL (2.7-7.7); Neutrophil % 60.8 % (47-70); Platelet Count 293 K/mm3 (150-450); RBC Distribution Width CV 17.2 % (11.6-14.6); RBC Distribution Width SD 50.5 fl (35.1-43.9)
[2022-08-28 05:54] LABS: Anion Gap 10 (5-15); BUN 6 mg/dL (7-18); BUN/Creat Ratio 10.3 RATIO (10-20); Calcium,Total 9.1 mg/dL (8.5-10.1); Chloride 100 mmol/L (98-107); Creatinine, Serum 0.58 mg/dL (0.70-1.30); EST Glomerular Filtration Rate 151 mL/min (>60); Est Glom Filt Rate - Afr Amer 183 mL/min (>60); Glucose 106 mg/dL (74-106); Potassium 3.2 mmol/L (3.5-5.1); Sodium Level 137 mmol/L (136-145)
[2022-08-28 06:23] LABS: International Normalized Ratio 1.1; Prothrombin Time (Protime)PT. 13.5 SECONDS (11.7-14.9)
[2022-08-28 06:24] LABS: Partial Thromboplast Time 30.2 Seconds (24.1-36.2)
[2022-08-28] MEDS: Potassium Chloride Oral Tablet 20 MEQ 40 MEQ PO (08:26)
[2022-08-28] MEDS: Atenolol 25 MG Tablet PO (08:27)
--- NOTE | 2022-08-28 15:24 | NURSING ---
Updated pre-op checklist. Patient off floor for procedure @ 1415.
[2022-08-28] MEDS: Lactated Ringers 1,000 ML 15 ML IV (16:30)
--- NOTE | 2022-08-28 16:39 | PCM.PN.HOSP ---
Subjective Subjective Follow-up on acute severe anemia/chronic alcohol abuse: Patient was seen and examined. Patient is going for EGD and colonoscopy today. He denied any new complaints. Objective Data Objective Data Vital Signs: Vital Signs Temp Pulse Resp BP Pulse Ox O2 Del Method 99.8 F H 65 18 140/77 H 98 Room Air 08/28/22 14:52 08/28/22 15:39 08/28/22 14:52 08/28/22 14:52 08/28/22 14:52 08/28/22 14:52 Oxygen Delivery Method Room Air Weight: 55 kg Body Mass Index (BMI) 20.8 Intake & Output: Intake and Output for Last 24 Hours 08/26/22 08/27/22 08/28/22 23:59 23:59 23:59 Intake Total 1510 / 1510 1870 / 3870 2160 / 2160 Balance 1510 / 1510 1870 / 3870 2160 / 2160 Lab / Micro Data Result Diagrams: 08/28/22 04:01 08/28/22 04:01 Labs: Laboratory Results - last 24 hr 08/28/22 04:01: PT 13.5, INR 1.1, APTT 30.2 08/28/22 04:01: WBC 6.0, RBC 3.40 L, Hgb 8.8 L, Hct 28.0 L, MCV 82.4, MCH 25.9 L, MCHC 31.4 L, RDW Std Deviation 50.5 H, RDW Coeff of Shauna 17.2 H, Plt Count 293, MPV 10.6, Immature Gran % (Auto) 0.500, Neut % (Auto) 60.8, Lymph % (Auto) 18.8 L, [place] % (Auto) 17.6 H, Eos % (Auto) 2.0, Baso % (Auto) 0.3, Absolute Neuts (auto) 3.6, Absolute Lymphs (auto) 1.12, Nucleated RBC % 0 08/28/22 04:01: Sodium 137, Potassium 3.2 L, Chloride 100, Carbon Dioxide 27.0, Anion Gap 10, BUN 6 L, Creatinine 0.58 L, Estim Creat Clear Calc 108.00, Est GFR (MDRD) Af Amer 183, Est GFR (MDRD) Non-Af 151, BUN/Creatinine Ratio 10.3, Glucose 106, Calcium 9.1 Micro: Microbiology 08/26/22 16:35 Stool Stool Occult Blood (SAWYER) - Final Physical Exam Narrative Physical exam: General: Alert, Oriented x3, Cooperative, No apparent distress HEENT: Atraumatic Oral: Moist Mucosa Neck: Supple Lungs: Diminished to auscultation Cardiovascular: HS I+II, regular, no murmurs Abdomen: Bowel Sounds Present, Soft, Non Tender Extremities: No edema Skin: No rashes, No breakdown Neurological: Grossly intact Psych/Mental Status: Appropriate Assessment & Plan Assessment/Plan (1) Anemia: (2) Alcohol abuse: (3) Acute hypokalemia: PLAN: Plan 1. Acute severe symptomatic anemia, iron deficiency anemia,unclear etiology for now FOBT is negative. Vitamin B12, folate are unremarkable s/p 3 units of pRBCs; repeat Hb is 8.8 GI consulted?going for EGD and colonoscopy Continue on IV PPI twice daily 2. Hypokalemia, replaced, recheck in am 3. Chronic alcohol abuse, continue to monitor for withdrawal 4. Hypertension, controlled, continue on atenolol 5. DVT PPx- SCDs Charges/Coding Visit Charges Inpatient E&M: 87886 Subs Hosp L2
--- NOTE | 2022-08-28 16:45 | IMM_PTH ---
PATIENT: MARVIN IZQUIERDO LOC: [facility] U#:[id number] AGE/SX: 56/M ROOM: [facility] RE08/26/[address]: Dr. Jeri Rosas MD : 1965 BED: 1 DIS: 08/29/2022 SPEC #: [id number] RECD: 08/29/22 09:35 STATUS: SHADIA REQ #: [id number] MOISÉS: 08/28/22 16:[address]: Adam Rea DEPT: IMMUNOHISTOCHEMISTRY RECD BY: Galina Maguire ENTERED: 08/29/22 09:36 SP TYPE: IMMUNO OTHR DR: MD Dr. Memo Valles MD [facility] Tissues: A - Stomach, NOS Procedures: H Pylori (initial) PHYSICIAN & INSTITUTION [place] [address] SPECIMEN INFORMATION: Tissue Source: A ? Gastric antral ulcer Clinical Info: Anemia Specimen Number: [id number] CPT code: 70503 METHODOLOGY: Deparaffinized sections of prefer/formalin-fixed tissue or PAP/DQ stained slides are incubated with monoclonal/polyclonal antibodies/oligonucleotide probes. Localization is made via biotin free immunoperoxidase method. Appropriate controls are performed and reacted as expected. Results on target cell population are indicated in the following table: RESULTS: ANTIBODY / CLONE RESULT Block A H Pylori (polyclonal) negative These tests were developed and their performance characteristics determined by [facility]. They may not have been cleared or approved by the U.S. Food and Drug Administration. The FDA has determined that such clearance or approval is not necessary. The above immunohistochemical/dualISH markers are ordered and reviewed by the Pathologist. INTERPRETATION: A. Gastric antral ulcer, biopsy: Negative for Helicobacter pylori organisms. AM:tiara 08/30/2022
--- NOTE | 2022-08-28 17:25 | OP.EGD_ITS ---
Patient Name: Dylan Mendoza Procedure Date: 08/28/2022 3:22 PM Date of : 1965 Age: 56 Procedure: Upper GI endoscopy Indications: Iron deficiency anemia Providers: Adam Rea DO Medicines: Monitored Anesthesia Care Patient Profile: This is a 56 year old male. Refer to note in patient chart for documentation of history and physical. Patient has symptoms shortness of breath and fatigue and discovered to have a hemoglobin of 4.4. Complications: No immediate complications. Procedure: Pre-Anesthesia Assessment: - Prior to the procedure, a History and Physical was performed, and patient medications and allergies were reviewed. The patient is competent. The risks and benefits of the procedure and the sedation options and risks were discussed with the patient. All questions were answered and informed consent was obtained. Patient identification and proposed procedure were verified by the physician in the pre-procedure area. Mental Status Examination: alert and oriented. Airway Examination: normal oropharyngeal airway and neck mobility. Respiratory Examination: clear to auscultation. CV Examination: normal. Prophylactic Antibiotics: The patient does not require prophylactic antibiotics. Prior Anticoagulants: The patient has taken no previous anticoagulant or antiplatelet agents. ASA Grade Assessment: III - A patient with severe systemic disease. After reviewing the risks and benefits, the patient was deemed in satisfactory condition to undergo the procedure. The anesthesia plan was to use monitored anesthesia care (MAC). Immediately prior to administration of medications, the patient was re-assessed for adequacy to receive sedatives. The heart rate, respiratory rate, oxygen saturations, blood pressure, adequacy of pulmonary ventilation, and response to care were monitored throughout the procedure. The physical status of the patient was re-assessed after the procedure. After obtaining informed consent, the endoscope was passed under direct vision. Throughout the procedure, the patient's blood pressure, pulse, and oxygen saturations were monitored continuously. The pediatric colonoscope was introduced through the mouth, and advanced to the second part of duodenum. The upper GI endoscopy was accomplished without difficulty. The patient tolerated the procedure well. Scope In: 4:50:21 PM Scope Out: 4:59:20 PM Total Procedure Duration Time 0 hours 8 minutes 59 seconds Findings: The examined esophagus was normal. One 5 mm bleeding angiodysplastic lesion was found on the greater curvature of the stomach. Coagulation for hemostasis using heater probe was successful. Estimated blood loss was minimal. One non-bleeding cratered gastric ulcer with no stigmata of bleeding was found in the gastric antrum. The lesion was 6 mm in largest dimension. Biopsies were taken with a cold forceps for histology. Verification of patient identification for the specimen was done. Estimated blood loss was minimal. Patchy moderate inflammation characterized by congestion (edema), erosions and granularity was found in the duodenal bulb and in the first portion of the duodenum. Biopsies were taken with a cold forceps for histology. Verification of patient identification for the specimen was done. Estimated blood loss was minimal. Impression: - Normal esophagus. 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 Treated with a heater probe. - Non-bleeding gastric ulcer with no stigmata of bleeding. Biopsied. - Duodenitis. Biopsied. Recommendation: - [facility]. - Resume regular diet today. - Use Protonix (pantoprazole) 40 mg PO BID for 8 weeks. -Check IgA level and celiac profile as his duodenum is suspicious for villous atrophy secondary to celiac disease which would also explain iron deficiency anemia. - Continue present medications. Procedure Code(s): --- Professional --- 68524, 59, Esophagogastroduodenoscopy, flexible, transoral; with control of bleeding, any method 24894, 51, Esophagogastroduodenoscopy, flexible, transoral; with biopsy, single or multiple CPT copyright 2017 [employer]. All rights reserved. The codes documented in this report are preliminary and upon senior mechanical technician review may be revised to meet current compliance requirements. Adam Rea DO 08/28/2022 5:25:24 PM This report has been signed electronically. Number of Addenda: 0 Note Initiated On: 08/28/2022 3:22 PM
--- NOTE | 2022-08-28 17:25 | OP.CCLET_ITS ---
08/28/2022 [facility] Re : Upper GI endoscopy procedure for Dylan [facility] This procedure was performed on Sunday, August 28, 2022. My impressions and recommendations are as follows: Impressions : - Normal esophagus. 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 Treated with a heater probe. - Non-bleeding gastric ulcer with no stigmata of bleeding. Biopsied. - Duodenitis. Biopsied. Recommendations : - [facility]. - Resume regular diet today. - Use Protonix (pantoprazole) 40 mg PO BID for 8 weeks. -Check IgA level and celiac profile as his duodenum is suspicious for villous atrophy secondary to celiac disease which would also explain iron deficiency anemia. - Continue present medications. My findings are described in the full procedure note, which is enclosed. If I can be of further assistance, please feel free to contact me at . Sincerely, Adam Rea, 08/28/2022 5:25:24 PM This report has been signed electronically.
--- NOTE | 2022-08-28 17:51 | OP.CCLET_ITS ---
08/28/2022 [facility] Re : Colonoscopy procedure for Dylan [facility] This procedure was performed on Sunday, August 28, 2022. My impressions and recommendations are as follows: Impressions : - One 5 mm polyp in the sigmoid colon, removed with a cold biopsy forceps and removed with a cold snare. Resected and retrieved. 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 Treated with a heater probe. Recommendations : - [facility]. - Resume previous diet. - Continue present medications. - Await pathology results. - Repeat colonoscopy in 5 years for surveillance. My findings are described in the full procedure note, which is enclosed. If I can be of further assistance, please feel free to contact me at . Sincerely, Adam Friend, 08/28/2022 5:50:55 PM This report has been signed electronically.
--- NOTE | 2022-08-28 17:51 | OP.COLON_ITS ---
Patient Name: Dylan Mendoza Procedure Date: 08/28/2022 4:59 PM Date of : 1965 Age: 56 Procedure: Colonoscopy Indications: Iron deficiency anemia Providers: Adam Rea DO Medicines: Monitored Anesthesia Care Patient Profile: This is a 56 year old male. Refer to note in patient chart for documentation of history and physical. Patient has symptoms. This is a 56 year old male. Last Colonoscopy: more than 10 years ago. Complications: No immediate complications. Procedure: Pre-Anesthesia Assessment: - Prior to the procedure, a History and Physical was performed, and patient medications and allergies were reviewed. The patient is competent. The risks and benefits of the procedure and the sedation options and risks were discussed with the patient. All questions were answered and informed consent was obtained. Patient identification and proposed procedure were verified by the physician in the pre-procedure area. Mental Status Examination: alert and oriented. Airway Examination: normal oropharyngeal airway and neck mobility. Respiratory Examination: clear to auscultation. CV Examination: normal. Prophylactic Antibiotics: The patient does not require prophylactic antibiotics. Prior Anticoagulants: The patient has taken no previous anticoagulant or antiplatelet agents. ASA Grade Assessment: III - A patient with severe systemic disease. After reviewing the risks and benefits, the patient was deemed in satisfactory condition to undergo the procedure. The anesthesia plan was to use monitored anesthesia care (MAC). Immediately prior to administration of medications, the patient was re-assessed for adequacy to receive sedatives. The heart rate, respiratory rate, oxygen saturations, blood pressure, adequacy of pulmonary ventilation, and response to care were monitored throughout the procedure. The physical status of the patient was re-assessed after the procedure. After I obtained informed consent, the scope was passed under direct vision. Throughout the procedure, the patient's blood pressure, pulse, and oxygen saturations were monitored continuously. The pediatric colonoscope was introduced through the anus and advanced to the cecum, identified by appendiceal orifice and ileocecal valve. The colonoscopy was performed without difficulty. The patient tolerated the procedure well. The quality of the bowel preparation was good. Scope In: 5:03:13 PM Scope Out: 5:15:50 PM Total Procedure Duration Time 0 hours 12 minutes 37 seconds Findings: The perianal and digital rectal examinations were normal. A 5 mm polyp was found in the sigmoid colon. The polyp was sessile. The polyp was removed with a cold biopsy forceps. The polyp was removed with a cold snare. Resection and retrieval were complete. Verification of patient identification for the specimen was done. Estimated blood loss was minimal. The distal ileum contained two small angiodysplastic lesions with bleeding. Coagulation for hemostasis using heater probe was successful. Estimated blood loss was minimal. Impression: - One 5 mm polyp in the sigmoid colon, removed with a cold biopsy forceps and removed with a cold snare. Resected and retrieved. 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 Treated with a heater probe. Recommendation: - [facility]. - Resume previous diet. - Continue present medications. - Await pathology results. - Repeat colonoscopy in 5 years for surveillance. Procedure Code(s): --- Professional --- 67257, 59, Colonoscopy, flexible; with control of bleeding, any method 43289, Colonoscopy, flexible; with removal of tumor(s), polyp(s), or other lesion(s) by snare technique CPT copyright 2017 [employer]. All rights reserved. The codes documented in this report are preliminary and upon fisher sponge hooking review may be revised to meet current compliance requirements. Adam Rea DO 08/28/2022 5:50:55 PM This report has been signed electronically. Number of Addenda: 0 Note Initiated On: 08/28/2022 4:59 PM
--- NOTE | 2022-08-28 18:55 | NURSING ---
Reviewed charting with Sunitha Short RN
[2022-08-29] VITALS (7 sets, daily range): BP systolic 115–136; BP diastolic 72–78; PULSE 60–83; RESP 15–16; TEMP 36.9–37.2; O2SAT 96–97
[2022-08-29 06:04] LABS: Absolute Lymphocyte Count 1.06 X10^3/uL (0.83-4.51); Absolute Neutrophil Count 6.2 X10^3/uL (2.0-7.7); Basophil# 0.03 X10^3/uL; Basophil% 0.4 % (0-1); Eosinophil# 0.18 X10^3/uL; Eosinophils% 2.1 % (0-5); Hematocrit 28.5 % (40-54); Hemoglobin 8.7 g/dL (13.0-16.5); Lymphocyte # 1.06 X10^3/ul (0.83-4.51); Lymphocyte % 12.6 % (19-41); Mean Corp Hgb Conc 30.5 g/dL (32-36); Mean Corpuscular Volume 85.1 fL (80-94); Mean Platelet Vol. 10.2 fl (6.2-12.0); Monocyte# 0.99 X10^3/uL; Monocyte% 11.7 % (0-10); NRBC Flagged by Analyzer 0 % (0-5); Neutrophil # 6.15 X10^3/uL (2.7-7.7); Neutrophil % 72.8 % (47-70); Platelet Count 288 K/mm3 (150-450); RBC Distribution Width CV 17.7 % (11.6-14.6); RBC Distribution Width SD 54.4 fl (35.1-43.9); Red Blood Count 3.35 M/mm3 (4.6-6.2); White Blood Count 8.4 K/mm3 (4.4-11.0)
[2022-08-29 06:48] LABS: AST(SGOT) 36 U/L (15-37); Alanine Aminotransfer ALT/SGPT 40 U/L (16-61); Albumin, Serum 3.2 g/dL (3.2-5.0); Alkaline Phosphatase 69 U/L (45-117); Anion Gap 7 (5-15); BUN 4 mg/dL (7-18); BUN/Creat Ratio 5.8 RATIO (10-20); Bilirubin, Direct 0.19 mg/dL (0.00-0.30); Calcium,Total 9.1 mg/dL (8.5-10.1); Chloride 103 mmol/L (98-107); Creatinine, Serum 0.69 mg/dL (0.70-1.30); EST Glomerular Filtration Rate 124 mL/min (>60); Est Glom Filt Rate - Afr Amer 150 mL/min (>60); Estimated Creatinine Clearance 90.78 ml/min; Globulin 3.4 g/dL (2.2-4.2); Glucose 113 mg/dL (74-106); Potassium 3.8 mmol/L (3.5-5.1); Protein, Total 6.6 g/dL (6.4-8.2); Sodium Level 135 mmol/L (136-145)
[2022-08-29] MEDS: Atenolol 25 MG Tablet PO (09:52)
[2022-08-29] MEDS: 0.9% Saline Lock 10 ML Syringe IV (09:52)
--- NOTE | 2022-08-29 11:26 | PCM.DC ---
Discharge Instructions Diet Discharge Diet: - (Gluten free diet) Activity Discharge Activity: Return to Normal Activity Follow Up Care Test Results: Test results from this visit will be discussed in further detail at your follow-up appointment, if applicable. Discharge Plan Admission Admit Date/Time: 08/26/22 16:49 Primary Reason for Your Visit: Acute severe anemia Attending Provider: Jeri Rosas Primary Care Provider: [facility] Consulting Providers: Memo Gamez Instructions Additional Instructions / Restrictions: Continue on oral iron with stool softners. You are strongly advised to be on a gluten free diet. Follow-up with your PCP within 1 week. Follow-up with Dr. Rea in 3 weeks Discharge Orders/Prescriptions Prescriptions: New pantoprazole 40 mg tablet,delayed release (DR/EC) 40 mg PO BID 30 Days Qty: 60 0RF ferrous sulfate [Iron (ferrous sulfate)] 325 mg (65 mg iron) tablet 325 mg PO BID 30 Days Qty: 60 0RF ascorbic acid (vitamin C) [Vitamin C] 500 mg tablet 500 mg PO DAILY 30 Days Qty: 30 0RF sennosides-docusate sodium [Senokot-S] 8.6-50 mg tablet 1 tab-cap PO BID PRN (Reason: constipation) 30 Days Qty: 60 0RF Continued atenolol 25 mg Tablet 25 mg PO DAILY Referrals / Follow Up: [facility] [Primary Care Provider] - In 1 Week Disposition Disposition (needs filled in before D/C Order can be placed): Home, Self Care
--- NOTE | 2022-08-29 11:34 | DS.PCM_ITS ---
Providers Date of Admission: 08/26/22 Date of Discharge: 08/29/22 Primary Care Physician: [facility] Consultations 08/27/22 08:17 Consult: Gastroenterology Routine Consulting Provider: [facility] Reason for Consult: Acute iron def anemia/probable GI bleed EMERGENT Consult: No MD Notified: Yes Date Notified: 08/27/22 Time Notified: 09:07 Method of Notification: Text Reason For Visit: GI BLEED Diagnosis Discharge Diagnosis (1) Anemia: Status: Acute Code(s): D64.9 - Anemia, unspecified (2) Alcohol abuse: Status: Acute Code(s): F10.10 - Alcohol abuse, uncomplicated (3) Acute hypokalemia: Status: Acute Code(s): E87.6 - Hypokalemia Plan 1. Acute severe symptomatic anemia, iron deficiency anemia,unclear etiology 2. Hypokalemia 3. Chronic alcohol abuse 4. Hypertension Medications at Discharge Home Medications atenolol 25 mg tablet 25 mg PO DAILY BP 08/27/22 ascorbic acid (vitamin C) 500 mg tablet (Vitamin C) 500 mg PO DAILY 30 days #30 tabs 08/29/22 ferrous sulfate 325 mg (65 mg iron) tablet (Iron (ferrous sulfate)) 325 mg PO BID 30 days #60 tabs 08/29/22 pantoprazole 40 mg tablet,delayed release 40 mg PO BID 30 days #60 tabs 08/29/22 sennosides 8.6 mg-docusate sodium 50 mg tablet (Senokot-S) 1 tab-cap PO BID PRN constipation 30 days #60 tabs 08/29/22 Hospital Course Operations None Procedures Colonoscopy (08/28/22) and EGD (08/28/22) Summary of Care Provided Minutes Spent on Discharge: 40 Hospital Course: 56-year-old male with past medical history of chronic alcohol abuse who comes in with complaints of lightheadedness and shortness of breath. Patient was found to be severely anemic with hemoglobin of 4.4 in the ED. He denied any hematemesis, hematochezia or melena stools. Stool for occult blood in the ED was unremarkable. Patient was admitted to the [facility] floor and was transfused with 3 units of pa cked RBCs. His iron profile was indicated of iron deficiency anemia. GI was consulted. He underwent EGD on 08/28/2022 which showed 1 bleeding angiodysplastic lesion in the stomach, treated with a heater probe. Nonbleeding gastric ulcer with no stigmata of bleeding, biopsied, duodenitis, biopsied. Patient was felt to have features in the duodenum suspicious for villous atrophy secondary to celiac disease. 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 Celiac disease profile and IgA levels were taken. Patient will need to follow- up with GI in the outpatient within 3 weeks. He received IV Venofer x1. He was discharged on PPI twice daily. He was asked to follow-up with his primary care doctor within 1 week. He was strongly advised to stop drinking alcohol. He was discharged home also on oral iron with stool softeners. Physical Exam Narrative Physical exam: General: Alert, Oriented x3, Cooperative HEENT: Atraumatic Oral: Moist Mucosa Neck: Supple Lungs: Diminished to auscultation Cardiovascular: HS I+II, regular, no murmurs Abdomen: Bowel Sounds Present, Soft, Non Tender Extremities: No edema Skin: No rashes, No breakdown Neurological: Grossly intact Psych/Mental Status: Appropriate Weight / BMI Weight Weight: 55 kg Body Mass Index (BMI) 20.8 ABG / Lab / Microbiology Data Result Diagrams: 08/29/22 05:45 08/29/22 05:45 Laboratory: Laboratory Results - last 24 hr 08/29/22 05:45: Sodium 135 L, Potassium 3.8, Chloride 103, Carbon Dioxide 25.0, Anion Gap 7, BUN 4 L, Creatinine 0.69 L, Estim Creat Clear Calc 90.78, Est GFR (MDRD) Af Amer 150, Est GFR (MDRD) Non-Af 124, BUN/Creatinine Ratio 5.8 L, Glucose 113 H, Calcium 9.1, Total Bilirubin 0.40, Direct Bilirubin 0.19, AST 36, ALT 40, Alkaline Phosphatase 69, Total Protein 6.6, Albumin 3.2, Globulin 3.4 08/29/22 05:45: WBC 8.4, RBC 3.35 L, Hgb 8.7 L, Hct 28.5 L, MCV 85.1, MCH 26.0 L , MCHC 30.5 L, RDW Std Deviation 54.4 H, RDW Coeff of Shauna 17.7 H, Plt Count 288, MPV 10.2, Immature Gran % (Auto) 0.400, Neut % (Auto) 72.8 H, Lymph % (Auto) 12.6 L, [place] % (Auto) 11.7 H, Eos % (Auto) 2.1, Baso % (Auto) 0.4, Absolute Neuts (auto) 6.2, Absolute Lymphs (auto) 1.06, Nucleated RBC % 0 Microbiology: Microbiology 08/26/22 16:35 Stool Stool Occult Blood ([facility]) - Final D/C Instructions Discharge Diet: - (Gluten free diet) Meaningful Use Info Meaningful Use Diagnoses (Choose all that apply): None applicable Discharge Plan Admission Admit Date/Time: 08/26/22 16:49 Primary Reason for Your Visit: Acute severe anemia Attending Provider: Jeri Rosas Primary Care Provider: [place] Consulting Providers: Memo Gamez Instructions Additional Instructions / Restrictions: Continue on oral iron with stool softners. You are strongly advised to be on a gluten free diet. Follow-up with your PCP within 1 week. Follow-up with Dr. Rea in 3 weeks Discharge Orders/Prescriptions Prescriptions: New pantoprazole 40 mg tablet,delayed release (DR/EC) 40 mg PO BID 30 Days Qty: 60 0RF ferrous sulfate [Iron (ferrous sulfate)] 325 mg (65 mg iron) tablet 325 mg PO BID 30 Days Qty: 60 0RF ascorbic acid (vitamin C) [Vitamin C] 500 mg tablet 500 mg PO DAILY 30 Days Qty: 30 0RF sennosides-docusate sodium [Senokot-S] 8.6-50 mg tablet 1 tab-cap PO BID PRN (Reason: constipation) 30 Days Qty: 60 0RF Continued atenolol 25 mg Tablet 25 mg PO DAILY Referrals / Follow Up: Adam Rea DO [Med Staff - Active Staff] - See Referral Note (within 3 weeks ) [facility] [Primary Care Provider] - In 1 Week Disposition Disposition (needs filled in before D/C Order can be placed): Home, Self Care Charges/Coding Visit Charges Inpatient E&M: 27700 Disch Hosp
--- NOTE | 2022-08-29 11:49 | CASEMGMT ---
Pt states no concerns with going home at time of discharge. Pt has been independent in room. Lupis KAT CM
[2022-08-30 15:08] LABS: Endomysial Antibody IgA Negative (Negative)
[2022-08-30 15:15] LABS: Immunoglobulin A 379 mg/dL (90-386)
[2022-08-31 09:48] LABS: Immunoglobulin A 389 mg/dL (90-386); t-Transglutaminase IgA <2 U/mL (0-3)
== END 2022-08-29 14:21 | disposition home or self-care (01) | DRG 379 ==
LOC: ED 16:43 → PCU 17:19
PROVIDERS: Anesthesiology; Internal Medicine Gastroenterology; Admitting Provider Family Medicine; Emergency Provider Emergency Medicine; Visit Provider Internal Medicine
PROC: 0DJD8ZZ Inspection of Lower Intestinal Tract, Via Natural or Artificial Opening Endoscopic (ICD-10-PCS; CPT 45378; principal; 2022-08-28 16:40)
DX: K31.811 Angiodysplasia of stomach and duodenum with bleeding (principal); K55.21 Angiodysplasia of colon with hemorrhage; E87.6 Hypokalemia; F10.10 Alcohol abuse, uncomplicated; D50.9 Iron deficiency anemia, unspecified; D12.5 Benign neoplasm of sigmoid colon; F17.210 Nicotine dependence, cigarettes, uncomplicated; I10 Essential (primary) hypertension; K29.80 Duodenitis without bleeding; K29.50 Unspecified chronic gastritis without bleeding; K31.A0 Gastric intestinal metaplasia, unspecified; Y90.9 Presence of alcohol in blood, level not specified; K25.9 Gastric ulcer, unspecified as acute or chronic, without hemorrhage or perforation; K90.0 Celiac disease; Z79.899 Other long term (current) drug therapy
CPT/HCPCS: 36415; 71045; 80048; 80076; 82274; 82607; 82728; 82746; 82784; 83516; 83540; 83550; 83880; 84484; 85025; 85610; 85730; 86255; 86850; 86900; 86901; 86920; 88305; 88342; 93005; 99285; J7040; J7050; J7120; P9016; A4216; J2405; J2916

== ENCOUNTER → 2023-04-01 | Outpatient (CLI) | payer OTHER, SELFPAY ==
--- NOTE | 2023-04-01 06:47 | CT_ITS ---
STUDY: CT CHEST, ABDOMEN T PELVIS WITH CONTRAST REASON FOR EXAM: Male, 57 years old. WEIGHT LOSS RADIATION DOSAGE (If Supplied By Facility): CTDIvol = ( 7.58 ) mGy, DLP = ( 486.74 ) mGycm TECHNIQUE: Transaxial imaging was performed following intravenous administration of Oral and amp; IV Gastrografin and amp; 75mL Isovue-370. Multiplanar coronal and sagittal images were reformatted. Individualized dose optimization techniques were used for this CT. COMPARISON: FINDINGS: CHEST The lungs are normal. There is no demonstrated pleural abnormality. There are calcifications of the coronary arteries. Normal mediastinum. Normal hilar regions. Normal unenhanced pulmonary arteries. There are peripheral calcifications of the aorta arch and descending thoracic aorta. There are multi-level degenerative changes of the thoracic spine. ABDOMEN There is decreased attenuation of the liver consistent with steatosis. There is a well-circumscribed round calcific appearing focus within the left hepatic lobe which may reflect a granuloma or may be vascular. Normal gallbladder and extrahepatic biliary system. Normal spleen. Normal pancreas. Normal bilateral adrenal glands. There are right renal cysts. Normal left kidney. Normal visualized stomach. Normal small intestine. Normal colon. The appendix is visualized and appears normal. There is diffuse atherosclerotic calcification of the abdominal aorta, without a demonstrated aneurysm. Normal inferior vena cava. Normal retroperitoneum. PELVIS Normal urinary bladder. There is no pelvic fluid. There is no pelvic lymphadenopathy or mass lesion. There is diffuse atherosclerotic calcification of the pelvic arteries. Normal abdominal wall. There are diffuse degenerative changes of the visualized lumbar spine. CT/CT Chest, Abd, Pel w/Contrast IMPRESSION: Fatty infiltration of the liver. Atherosclerosis. Degenerative changes of the thoracic and lumbar spine. Electronically Signed: Kiarra Guerrero MD at 11:34 EDT ,
[2023-04-01 10:30] LABS: CREATININE FINGERSTICK < 0.90 mg/dL (0.70-1.30); EGFR FINGERSTICK > 60 mL/min (>60)
== END | disposition home or self-care (01) ==
DX: R63.4 Abnormal weight loss (principal)
CPT/HCPCS: 71260; 74177; Q9967

== ENCOUNTER 2023-07-14 09:02 | Emergency (ER) | payer OTHER, SELFPAY ==
[2023-07-14 09:03] VITALS: BP 152/103; PULSE 105; RESP 22; TEMP 36.4; O2SAT 99; BMI 20.6
--- NOTE | 2023-07-14 10:00 | EX.ED.DYSGE1 ---
HPI History of Present Illness Chief Complaint: Shortness of Breath Informant: patient Onset/Context/Timing Onset: Days Context: Gradual Onset Timing: Continuous Quality: Off balance Location: Generalized Worsened by: Standing, movement Relieved by: Sitting Narrative Narrative: Patient presents with lightheaded feeling that has been getting worse over the past few days. Patient states he feels off balance. Patient states it is worse with standing and movement. Patient states it is better with sitting. Patient admits to some rhinorrhea and a mild cough. Patient denies any sputum production. Patient denies any fevers or chills. Patient denies any headaches. Patient denies any hearing changes or tinnitus. Patient states she has been having a flareup of his eczema which has been causing him to scratch to the point that he starts having some bleeding. [facility] Medical History Alcohol abuse Anemia Hypertension Smoker Substance abuse Home Medications atenolol 25 mg tablet 25 mg PO DAILY BP 08/27/22 [History Last Taken 08/26/22 25 mg] ascorbic acid (vitamin C) 500 mg tablet (Vitamin C) 500 mg PO DAILY 30 days #30 tabs 08/29/22 [Rx Last Taken Unknown] ferrous sulfate 325 mg (65 mg iron) tablet (Iron (ferrous sulfate)) 325 mg PO BID 30 days #60 tabs 08/29/22 [Rx Last Taken Unknown] pantoprazole 40 mg tablet,delayed release 40 mg PO BID 30 days #60 tabs 08/29/22 [Rx Last Taken Unknown] sennosides 8.6 mg-docusate sodium 50 mg tablet (Senokot-S) 1 tab-cap PO BID PRN constipation 30 days #60 tabs 08/29/22 [Rx Last Taken Unknown] diazepam 2 mg tablet 2 mg PO TID PRN PRN Vertigo #10 TABLETS 07/14/23 [Rx Last Taken Unknown] Allergy/AdvReac Type Severity Reaction Status Date / Time No Known Allergies Allergy Verified 08/26/22 13:42 Family History Other Heart disease Social History Smoking Status: Current every day smoker tobacco type: cigarettes ROS ROS ED Constitutional Constitutional ED: Denies chills or fever(s) Eyes Eyes: Denies blurry vision or change in vision ENT ENT ED: Reports rhinorrhea; Denies sore throat Cardiovascular Cardiovascular: Denies chest pain or palpitations Respiratory/Chest Respiratory/Chest: Reports cough; Denies dyspnea Gastrointestinal Gastrointestinal: Denies nausea or vomiting Genitourinary Genitourinary ED: Denies dysuria or hematuria Musculoskeletal Musculoskeletal: Reports back pain and neck pain Integumentary Reports rash; Denies abscess Neurologic Neurologic: Denies headache(s) or weakness Allergic/Immunologic Allergic/Immunologic ED: Denies mouth swelling or urticaria EXAM Physical Exam Const Vital Signs: 07/14/23 09:03 07/14/23 10:35 07/14/23 11:21 Temperature 97.6 F L Temperature Source Temporal Pulse Rate 105 H Pulse Rate [Lying] 70 Pulse Rate [Sitting (for 1 minute prior to obtaining)] 78 Pulse Rate [Standing (for 1 minute prior to obtaining)] 60 Respiratory Rate 22 H Respiratory Effort Normal Blood Pressure 152/103 H Blood Pressure [Lying] 154/86 H Blood Pressure [Sitting (for 1 minute prior to obtaining)] 158/89 H Blood Pressure [Standing (for 1 minute prior to obtaining)] 159/86 H Blood Pressure Mean 119 Blood Pressure Mean [Lying] 108 Blood Pressure Mean [Sitting (for 1 minute prior to obtaining)] 112 Blood Pressure Mean [Standing (for 1 minute prior to obtaining)] 110 Pulse Ox 99 Oxygen Delivery Method Room Air Room Air Positive well nourished and well developed General Appearance ED: well developed and NAD HEENT Reports moist mucous membranes Eyes PERRL and EOMs intact bilaterally Eyes Narrative: There is some mild nystagmus with right lateral gaze. Neck supple and no JVD Resp normal respiratory effort and clear to auscultation bilaterally Cardio regular rate, regular rhythm and no murmurs GI normal to inspection, nondistended, normoactive bowel sounds and non-tender Palpation: soft Extremity normal to inspection General Extremety ED: Negative for edema or tenderness General Extremity: Negative for edema Neuro oriented x3, CN's II-XII intact bilaterally and no sensory deficits noted Sensorium / Orientation: alert Motor Exam: strength 5/5 throughout Psych mental status grossly normal MDM MDM MDM Narrative Medical decision making narrative: Differential diagnosis includes anemia, dehydration, electrolyte abnormality, stroke, intracranial bleeding, vertigo, and labyrinthitis. CBC will be obtained to assess for leukocytosis and anemia. Basic metabolic profile will be obtained to assess for electrolyte abnormality and renal function. CT scan of the brain will be obtained to assess for stroke and intracranial bleeding. Lab Data Attestation: I reviewed the patient's lab results. Lab results narrative: CBC was reviewed. There is a stable anemia with a hemoglobin of 10.5 and hematocrit 32.9. Platelets were normal. Basic metabolic profile was reviewed and was within normal limits. COVID-19 rapid antigen was reviewed and was within normal limits. Influenza A and influenza B antigens were reviewed and were within normal limits. Labs: Laboratory Results - last 24 hr 07/14/23 10:15 WBC 3.7 L RBC 3.59 L Hgb 10.5 L Hct 32.9 L MCV 91.6 MCH 29.2 MCHC 31.9 L RDW Std Deviation 75.4 H RDW Coeff of Shauna 22.5 H Plt Count 260 MPV 9.4 Immature Gran % (Auto) 0.500 Neut % (Auto) 64.5 Lymph % (Auto) 19.0 [place] % (Auto) 9.5 Eos % (Auto) 5.7 H Baso % (Auto) 0.8 Absolute Neuts (auto) 2.4 Absolute Lymphs (auto) 0.70 L Nucleated RBC % 0 Differential Comment SCANNED Hypochromasia 1+ Anisocytosis 2+ Microcytosis 1+ Macrocytosis 1+ Target Cells RARE Sodium 140 Potassium 3.5 Chloride 108 H Carbon Dioxide 25.0 Anion Gap 7 BUN 9 Creatinine 0.76 Estim Creat Clear Calc 80.71 Est GFR (MDRD) Af Amer 135 Est GFR (MDRD) Non-Af 111 BUN/Creatinine Ratio 11.9 Glucose 144 H Calcium 8.8 Radiography Diagnostic Testing: Clinical Impression(s) from Imaging Studies Brain CT 07/14/23 10:04 IMPRESSION: Chronic involutional changes of the brain. A lacuna is seen in the insular cortex of the right temporal lobe. Electronically Signed: Freddy Perez MD at 11:23 EDT , CT scan of the brain was obtained. There is no acute intracranial abnormality. This was interpreted by the radiologist and was also independently reviewed by myself. Treatment and Re-Evaluation :: Patient was given IV fluids and meclizine here. Orthostatic vital signs were reviewed and were within normal limits. Patient states he still felt somewhat lightheaded on reevaluation. Patient drove himself to the emergency department. Patient wants to go home. Patient was given a prescription for Valium to take as needed for dizziness. Patient was instructed to follow-up with his primary care physician in 5 to 7 days. Patient understood and was agreeable with the plan. All questions were answered. Discharge Plan Triage Chief Complaint: Shortness of Breath ED Provider: Nolan Redman Dx/Rx/DC Orders Clinical Impression: Lightheadedness, Vertigo Instructions: ED Vertigo, Unspecified Prescriptions: New diazepam [diazepam] 2 mg tablet 2 mg PO TID PRN PRN (Reason: Vertigo) Qty: 10 0RF No Action atenolol 25 mg Tablet 25 mg PO DAILY pantoprazole 40 mg tablet,delayed release (DR/EC) 40 mg PO BID 30 Days Qty: 60 0RF ferrous sulfate [Iron (ferrous sulfate)] 325 mg (65 mg iron) tablet 325 mg PO BID 30 Days Qty: 60 0RF ascorbic acid (vitamin C) [Vitamin C] 500 mg tablet 500 mg PO DAILY 30 Days Qty: 30 0RF sennosides-docusate sodium [Senokot-S] 8.6-50 mg tablet 1 tab-cap PO BID PRN (Reason: constipation) 30 Days Qty: 60 0RF [facility] [Primary [facility] Provider[facility] - 3-5 Days Disposition Disposition: Home, Self Care
--- NOTE | 2023-07-14 10:04 | CT_ITS ---
STUDY: CT BRAIN WITHOUT CONTRAST REASON FOR EXAM: Male, 57 years old. Headache. Lightheadedness. RADIATION DOSAGE (If Supplied By Facility): CTDIvol = ( 44.99 ) mGy, DLP = ( 779.24 ) mGycm TECHNIQUE: Transaxial CT imaging of the brain was performed without administration of intravenous contrast material. Individualized dose optimization techniques were used for this CT. COMPARISON: No relevant priors. FINDINGS: Normal soft tissue structures. Normal calvarium. There is mild cerebral atrophy with widening of the extra-axial spaces and ventricular dilatation. Normal white matter tracts of the cerebral hemispheres. Small lacunae in the anterior cortex of the right temporal lobe. The age of this cannot be determined on a single examination. Normal brainstem. Normal cerebellum. There is no intracranial hemorrhage. There are no findings of an acute ischemic infarction. Atherosclerotic calcification of the cavernous portions of the internal carotid arteries bilaterally. Normal visualized paranasal sinuses. CT/Brain/Head without Contrast IMPRESSION: Chronic involutional changes of the brain. A lacuna is seen in the insular cortex of the right temporal lobe. Electronically Signed: Freddy Perez MD at 11:23 EDT ,
[2023-07-14 10:26] LABS: Absolute Neutrophil Count 2.4 X10^3/uL (2.0-7.7); Basophil# 0.03 X10^3/uL; Basophil% 0.8 % (0-1); Eosinophil# 0.21 X10^3/uL; Eosinophils% 5.7 % (0-5); Hematocrit 32.9 % (40-54); Hemoglobin 10.5 g/dL (13.0-16.5); Mean Corp Hgb Conc 31.9 g/dL (32-36); Mean Corpuscular Hgb 29.2 pg (27.0-32.0); Mean Corpuscular Volume 91.6 fL (80-94); Mean Platelet Vol. 9.4 fl (6.2-12.0); Monocyte# 0.35 X10^3/uL; Monocyte% 9.5 % (0-10); NRBC Flagged by Analyzer 0 % (0-5); Neutrophil # 2.37 X10^3/uL (2.7-7.7); Neutrophil % 64.5 % (47-70); POSITIVE MORPHOLOGY YES; Platelet Count 260 K/mm3 (150-450); RBC Distribution Width CV 22.5 % (11.6-14.6); RBC Distribution Width SD 75.4 fl (35.1-43.9); Red Blood Count 3.59 M/mm3 (4.6-6.2); White Blood Count 3.7 K/mm3 (4.4-11.0)
[2023-07-14] MEDS: Meclizine HCl 25 MG Tablet PO (10:31)
[2023-07-14] MEDS: 0.9% Normal Saline (1000mL) 1,000 ML 1000 ML IV (10:32)
[2023-07-14 10:35] VITALS: O2SAT 99
[2023-07-14 10:35] LABS: Differential Indicated SCAN CRITERIA MET
[2023-07-14 10:41] LABS: Anion Gap 7 (5-15); BUN 9 mg/dL (7-18); BUN/Creat Ratio 11.9 RATIO (10-20); Calcium,Total 8.8 mg/dL (8.5-10.1); Chloride 108 mmol/L (98-107); Creatinine, Serum 0.76 mg/dL (0.70-1.30); EST Glomerular Filtration Rate 111 mL/min (>60); Est Glom Filt Rate - Afr Amer 135 mL/min (>60); Estimated Creatinine Clearance 80.71 ml/min; Glucose 144 mg/dL (74-106); Potassium 3.5 mmol/L (3.5-5.1); Sodium Level 140 mmol/L (136-145)
[2023-07-14 11:04] LABS: Anisocytosis 2+; Differential Comment SCANNED; Hypochromasia 1+; Macrocytosis 1+; Microcytosis 1+
[2023-07-14 11:05] LABS: Target Cells RARE
[2023-07-14 11:21] VITALS: BP 154/86; BP 158/89; BP 159/86; PULSE 60; PULSE 70; PULSE 78
[2023-07-14 13:00] VITALS: RESP 16
== END 2023-07-14 13:21 | disposition home or self-care (01) ==
PROVIDERS: Emergency Provider Emergency Medicine; Visit Provider Emergency Medicine
DX: R42 Dizziness and giddiness (principal); F17.210 Nicotine dependence, cigarettes, uncomplicated
CPT/HCPCS: 70450; 80048; 85025; 87428; 99284

== ENCOUNTER 2025-05-25 10:28 | Observation (INO) | payer OTHER, SELFPAY ==
[2025-05-25] VITALS (11 sets, daily range): BP systolic 148–170; BP diastolic 73–101; PULSE 97–133; RESP 10–28; TEMP 36.6–38; O2SAT 91–98; BMI 20.5; BMI 20.3
--- NOTE | 2025-05-25 10:53 | CT_ITS ---
EXAM: BRAIN/HEAD WITHOUT CONTRAST CLINICAL HISTORY: 59 y/o M with LIGHTHEADEDNESS, FALL. COMPARISON: CT head 07/14/2023. TECHNIQUE: Routine CT imaging of the head without IV contrast. Additional multiplanar reformats were obtained. Dose reduction techniques were used including intermediate exposure control (AEC),iterative reconstruction technique, and/or mA and/or KV dose adjustments based on patient's size. FINDINGS: The ventricles, sulci and cisterns are normal for patient age. There is no evidence of acute intracranial hemorrhage or herniation. There is no midline shift, mass effect, or extra-axial collection. Mild scattered supratentorial white matter hypodensities, compatible with patient age. 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 The griffin and white matter interfaces are otherwise maintained. The orbits, visualized paranasal sinuses and mastoids are unremarkable. No acute calvarial fracture or scalp hematoma. CT/Brain/Head without Contrast IMPRESSION: No acute intracranial findings. Chronic findings as described. Reading Location: [id number]
--- NOTE | 2025-05-25 10:54 | EKG12_ITS ---
Test Reason : Blood Pressure : */* mmHG Vent. Rate : 106 BPM Atrial Rate : 106 BPM P-R Int : 146 ms QRS Dur : 90 ms QT Int : 352 ms P-R-T Axes : 61 -9 54 degrees QTcB Int : 467 ms Sinus tachycardia Otherwise normal ECG Confirmed by MERVAT TERRY, HERBERT ([id number]), newspaper copy editor GREGG BLOOM ([id number]) on 05/27/2025 1:14:30 PM Referred By: Confirmed By: HERBERT CROWELL MD
[2025-05-25] MEDS: 0.9% Normal Saline (1000mL) 1,000 ML 1000 ML IV (11:40)
--- NOTE | 2025-05-25 11:55 | RAD_ITS ---
PROCEDURE: CHEST PA AND LATERAL 05/25/2025 REASON FOR EXAM: LIGHTHEADEDNESS TECHNIQUE: CHEST PA AND LATERAL COMPARISON: CT chest, abdomen and pelvis 04/01/2023. Chest radiograph 08/26/2022. FINDINGS: Hardware: None. Heart: The heart size is normal. Mediastinum: The mediastinal contour is unremarkable. Lungs: Bibasilar atelectasis/scarring. No focal consolidation, pleural effusion or pneumothorax. Bones: Degenerative changes are identified within the thoracic spine. RAD/Chest PA and Lateral IMPRESSION: NO ACUTE FINDINGS. Reading Location: [id number]
--- NOTE | 2025-05-25 11:57 | EX.ED.DYSGE1 ---
HPI History of Present Illness Chief Complaint: Dizziness Narrative Narrative: Chief complaint and HPI: Episodic lightheadedness. 59-year-old male with past medical history of HTN, GERD presents for evaluation of episodic lightheadedness. [facility] Patient states over the last several days he has been having episodic lightheadedness with presyncopal symptoms. He states that it mostly occurs when he changes position. He states yesterday shortly after ambulating after a seating position he developed tunnel vision, lightheadedness, and fell. Did hit his head. Not on blood thinners. Denies any trauma from the fall. States at baseline he has bilateral swollen ankles which he [facility]. He denies any fever, chills, shortness of breath, chest pain, Bao pain, nausea, vomiting, dysuria. States overall he is a poor diet. Currently has bedbugs. Review of systems: See HPI Medications: As listed on the chart Allergies: As listed on the chart PFSH: Per chart Vital signs: As listed on the chart. Reviewed. Physical exam: Gen: A&O x3, NAD, bedbugs on the bed Head: Normocephalic, atraumatic Eyes: No sclera icterus, conjunctiva clear, PERRL ENT: Mildly dry mucous membranes face atraumatic, Neck: Trachea midline, No JVD, full range of motion, nontender CV: RRR, no murmurs, minimal nonpitting bilateral ankle/feet edema Resp: Lungs CTA BL, no w/r/c GI: Abd soft, non-distended, non-tender, no r/r/g Musc: Full ROM, no deformity, no midline spinal tenderness, no bony step-off Skin: Warm, dry Neuro: Alert, oriented, grossly intact, sensation intact Psych: Cooperative, appropriate mood and affect [facility] Medical History Alcohol abuse Anemia Hypertension Smoker Substance abuse Home Medications ?Medication ?Instructions ?Recorded ?Last Taken ?Type atenolol 25 mg tablet 25 mg PO DAILY BP 08/27/22 08/26/22 History 25 mg ascorbic acid (vitamin C) 500 mg 500 mg PO DAILY 30 days #30 tabs 08/29/22 Unknown Rx tablet (Vitamin C) ferrous sulfate 325 mg (65 mg 325 mg PO BID 30 days #60 tabs 08/29/22 Unknown Rx iron) tablet (Iron (ferrous sulfate)) pantoprazole 40 mg tablet,delayed 40 mg PO BID 30 days #60 tabs 08/29/22 Unknown Rx release sennosides 8.6 mg-docusate sodium 1 tab-cap PO BID PRN constipation 08/29/22 Unknown Rx 50 mg tablet (Senokot-S) 30 days #60 tabs diazepam 2 mg tablet 2 mg PO TID PRN PRN Vertigo #10 07/14/23 Unknown Rx TABLETS Allergy/AdvReac Type Severity Reaction Status Date / Time No Known Allergies Allergy Verified 05/25/25 10:31 Family History Other Heart disease Social History Smoking Status: Current every day smoker tobacco type: cigarettes EXAM Physical Exam Const Vital Signs: 05/25/25 10:29 05/25/25 11:45 05/25/25 12:11 Temperature 97.9 F Temperature Source Oral Pulse Rate 133 H 106 H 105 H Pulse Rate [Lying] Pulse Rate [Sitting (for 1 minute prior to obtaining)] Respiratory Rate 18 28 H 22 H Blood Pressure 161/101 H 170/95 H 155/73 H Blood Pressure [Lying] Blood Pressure [Sitting (for 1 minute prior to obtaining)] Blood Pressure Mean 121 120 100 Blood Pressure Mean [Lying] Blood Pressure Mean [Sitting (for 1 minute prior to obtaining)] Pulse Ox 91 98 95 Oxygen Delivery Method Room Air Room Air 05/25/25 12:18 05/25/25 13:00 05/25/25 14:00 Temperature Temperature Source Pulse Rate 102 H 111 H Pulse Rate [Lying] 101 H Pulse Rate [Sitting (for 1 minute prior to obtaining)] 117 H Respiratory Rate 14 20 H Blood Pressure 160/92 H 154/90 H Blood Pressure [Lying] 155/94 H Blood Pressure [Sitting (for 1 minute prior to obtaining)] 163/97 H Blood Pressure Mean 114 111 Blood Pressure Mean [Lying] 114 Blood Pressure Mean [Sitting (for 1 minute prior to obtaining)] 119 Pulse Ox 97 95 Oxygen Delivery Method Room Air Room Air 05/25/25 15:00 05/25/25 15:16 05/25/25 16:00 Temperature 98 F Temperature Source Pulse Rate 104 H 116 H 117 H Pulse Rate [Lying] Pulse Rate [Sitting (for 1 minute prior to obtaining)] Respiratory Rate 10 L 17 21 H Blood Pressure 155/100 H 155/100 H 159/93 H Blood Pressure [Lying] Blood Pressure [Sitting (for 1 minute prior to obtaining)] Blood Pressure Mean 118 118 115 Blood Pressure Mean [Lying] Blood Pressure Mean [Sitting (for 1 minute prior to obtaining)] Pulse Ox 96 98 95 Oxygen Delivery Method Room Air Room Air MDM MDM MDM Narrative Medical decision making narrative: 59-year-old male with past medical history of HTN, GERD presents for evaluation of episodic lightheadedness. [facility] Patient states over the last several days he has been having episodic lightheadedness with presyncopal symptoms. He states that it mostly occurs when he changes position. He states yesterday shortly after ambulating after a seating position he developed tunnel vision, lightheadedness, and fell. Did hit his head. Not on blood thinners. Denies any trauma from the fall. States at baseline he has bilateral swollen ankles which he [facility]. On presentation, patient was found to have bedbugs. He was decontaminated. Differential diagnosis includes but is not limited to orthostatic hypotension, dehydration, KATIE, electrolyte abnormality, UTI, PE, intracranial abnormality or bleed. EKG and chest x-ray reviewed see below. CT of the head shows no acute intracranial abnormality. Patient does have chronic changes for his age. He is stable previous infarcts. CBC without leukocytosis. Patient is stable anemia with hemoglobin of 12.1. D-dimer elevated 1.21. Cannot rule out PE. CTA chest ordered. BMP relatively unremarkable except for mild dehydration without KATIE. Troponin x 2 negative. BNP unremarkable. UA negative for UTI but positive for ketones, again consistent with mild dehydration. CTA of the chest negative for PE. Acute fractures of the left femoral neck, left inferior scapula and left lateral ribs. Numerous groundglass and part solid/part groundglass pulmonary nodules throughout the bilateral lungs. Findings are most compatible with pneumonitis/pneumonia however cannot rule out neoplasm. Will need follow-up CT scan. Patient is not endorsing any infectious type symptoms. He denies any fever, chills, URI symptoms, Cough. Not consistent with pneumonia. Denies any vomiting. Physical exam is not consistent with acute trauma. He has full range of motion of the left upper extremity. No swelling or tenderness. He has no tenderness to the left side of the chest or back. No ecchymosis. Suspect this is likely chronic in nature. Will get x-ray of the humerus to assess. X-ray of the humerus was personally viewed interpreted by me, ED physician. No acute fracture or dislocation. Radiology in agreement. Patient denies any alcohol or illicit drugs however HPI is not adding up to physical exam and complaints. Will add urine drug screen and alcohol level. Alcohol level elevated at 222. Urine drug screen positive for marijuana. On reevaluation, patient still endorsing lightheadedness. He is tachycardic. He refuses to ambulate due to his lightheadedness. Symptoms may be secondary to alcohol withdrawal as he later admitted to the hospitalist that he has not drank alcohol in almost 24 hours. Also made changes in his home medication. Given patient's inability to ambulate with frequent falls and tachycardia, he will warrant admission for continued observation. EKG: Interpreted by me/EM physician: EKG shows sinus tachycardia without acute ischemic changes. Heart rate 106 Diagnostic: Interpreted by me/EM physician: Chest x-ray without pneumonia, effusion, cardiomegaly, pneumothorax. Radiology in agreement. Impression: 1. Presyncope/lightheadedness 2. Fall 3. Tachycardia, multifactorial may be secondary to stopping Coreg versus alcohol withdrawal 4. Alcohol intoxication with history of alcohol abuse Lab Data Labs: Laboratory Results - last 24 hr 05/25/25 05/25/25 05/25/25 11:45 13:15 14:00 WBC 8.2 RBC 3.67 L Hgb 12.1 L Hct 36.0 L MCV 98.1 H MCH 33.0 H MCHC 33.6 RDW Std Deviation 64.7 H RDW Coeff of Shauna 17.8 H Plt Count 296 MPV 9.6 Immature Gran % (Auto) 0.500 Neut % (Auto) 74.8 H Lymph % (Auto) 12.3 L [place] % (Auto) 9.5 Eos % (Auto) 2.3 Baso % (Auto) 0.6 Absolute Neuts (auto) 6.2 Absolute Lymphs (auto) 1.01 Nucleated RBC % 0 D-Dimer Quant (PE/DVT) 1.21 H* Sodium 141 Potassium 3.6 Chloride 98 Carbon Dioxide 22.4 Anion Gap 20 H BUN 4 Creatinine 0.61 L Estim Creat Clear Calc 97.91 Est GFR (MDRD) Non-Af 109 BUN/Creatinine Ratio 6.4 L Glucose 81 Calcium 9.3 Troponin T High Sens 8 Troponin T Hi Sens 2 Hr 9 NT pro BNP II < 36 Urine Color Yellow Urine Clarity Clear Urine pH 6.0 Ur Specific [place] 1.020 Urine Protein 30 H Urine Glucose (UA) Normal Urine Ketones 50 H Urine Occult Blood Negative Urine Nitrite Negative Urine Bilirubin Negative Urine Urobilinogen Normal Ur Leukocyte Esterase Negative Urine RBC 0 SEEN Urine WBC 0 SEEN Ur Squamous Epith Cells 0 SEEN Urine Bacteria 0 SEEN Urine Mucus 0 SEEN Urine Opiates Screen NEGATIVE U Buprenorphine Qual NEGATIVE Ur Oxycodone Screen NEGATIVE Urine Methadone Screen NEGATIVE Urine Fentanyl Screen NEGATIVE Ur Barbiturates Screen NEGATIVE Ur Phencyclidine Scrn NEGATIVE Ur Amphetamines Screen NEGATIVE U Benzodiazepines Scrn NEGATIVE Urine Cocaine Screen NEGATIVE U Cannabinoids Screen PRESUMPTIVE POSITIVE Ethyl Alcohol 222.0 H Radiography Diagnostic Testing: Clinical Impression(s) from Imaging Studies Brain CT 05/25/25 10:53 IMPRESSION: No acute intracranial findings. Chronic findings as described. Reading Location: [facility] Chest X-Ray 05/25/25 11:55 IMPRESSION: NO ACUTE FINDINGS. Reading Location: [facility] Chest CTA 05/25/25 12:13 IMPRESSION: 1. No large central pulmonary embolism. 2. Acute fractures of the left humeral neck, left inferior scapula and left lateral ribs. 3. Numerous ground-glass and part solid, part ground-glass pulmonary nodules throughout the bilateral lungs. Findings are most compatible with pneumonitis/pneumonia, however pulmonary neoplasm could appear similar. Follow-up chest CT in 2-3 months is recommended to evaluate for stability/resolution. PET-CT will not be beneficial as infection and neoplasm both demonstrate FDG avidity. Reading Location: [facility] Humerus X-Ray 05/25/25 14:20 IMPRESSION: No acute fracture or dislocations. Mild degenerative changes of the left shoulder. No acute soft tissue abnormalities. Peripheral IV is noted within the antecubital fossa; otherwise no radiographic foreign body. Reading Location: [facility] [address] Discharge Plan Triage Chief Complaint: Dizziness ED Provider: Radu Martinez Dx/Rx/DC Orders Prescriptions: No Action atenolol 25 mg Tablet 25 mg PO DAILY pantoprazole 40 mg tablet,delayed release (DR/EC) 40 mg PO BID 30 Days Qty: 60 0RF ferrous sulfate [Iron (ferrous sulfate)] 325 mg (65 mg iron) tablet 325 mg PO BID 30 Days Qty: 60 0RF ascorbic acid (vitamin C) [Vitamin C] 500 mg tablet 500 mg PO DAILY 30 Days Qty: 30 0RF sennosides-docusate sodium [Senokot-S] 8.6-50 mg tablet 1 tab-cap PO BID PRN (Reason: constipation) 30 Days Qty: 60 0RF diazepam [diazepam] 2 mg tablet 2 mg PO TID PRN PRN (Reason: Vertigo) Qty: 10 0RF [facility] [place] [facility]errals[place] [facility] [Primary Care Provider] - Print Language: Singaporean
[2025-05-25 11:58] LABS: Hematocrit 36.0 % (40-54); Hemoglobin 12.1 g/dL (13.0-16.5); Immature Granulocytes Count 0.040 X10^3/uL (0.0-0.0); Mean Corp Hgb Conc 33.6 g/dL (32-36); Mean Corpuscular Volume 98.1 fL (80-94); Mean Platelet Vol. 9.6 fl (6.2-12.0); NRBC Flagged by Analyzer 0 % (0-5); Platelet Count 296 K/mm3 (150-450); RBC Distribution Width CV 17.8 % (11.6-14.6); RBC Distribution Width SD 64.7 fl (35.1-43.9); Red Blood Count 3.67 M/mm3 (4.6-6.2); White Blood Count 8.2 K/mm3 (4.4-11.0)
[2025-05-25 12:11] LABS: D-Dimer Quantitative (DVT/PE) 1.21 FEU/ug/m (0.27-0.49)
--- NOTE | 2025-05-25 12:12 | ED.RN ---
Critical D dimer of 1.21. Dr. Rain notified.
--- NOTE | 2025-05-25 12:13 | CT_ITS ---
PROCEDURE: CTA CHEST W/WO CONTRAST 05/25/2025 REASON FOR EXAM: PE TECHNIQUE: CTA axial imaging of the chest with intravenous contrast. Coronal and Sagittal reconstruction series were provided. 3D, 3D post processing, 3D reconstructions, Maximum intensity projection (MIPs) Volume rendering and Shaded surface rendering was provided. PATIENT PREPARATION: Per protocol CONTRAST: Isovue 370 VOLUME: 100mL One or more dose reduction techniques were used (e.g., Automated exposure control, adjustment of the mA and/or kV according to patient size, use of iterative reconstruction technique). RADIATION DOSE SUMMARY: DLP: 200 mGycm COMPARISON: CT chest, abdomen and pelvis 04/01/2023. FINDINGS: Hardware: None. Lymph nodes: No axillary, mediastinal or hilar lymphadenopathy. Visualization of the left axilla is limited by patient positioning. Heart: The heart is normal in size without pericardial effusion. The great vessels are normal in caliber. Moderate coronary artery, aortic valvular and thoracic aortic calcifications. Aberrant right subclavian artery, a normal variant. Pulmonary Vessels: No central filling defect within the segmental pulmonary arteries. Visualization of the more distal pulmonary arteries is limited by motion artifact. Lungs and Airways: The central airways are patent. Numerous scattered tiny ground-glass and part solid part ground-glass pulmonary nodules throughout the bilateral lungs, greatest in the inferior right upper lobe (for example series 2, image 141). Mild bronchiectasis. Emphysema and scattered areas of scarring. No pleural effusion or pneumothorax. Upper Abdomen: Hepatic steatosis. Left adrenal gland hyperplasia. Calcific plaque of the abdominal aorta. Bones: Acute, mildly comminuted fracture of the left humeral neck, left inferior scapular body (sagittal image 264), and left lateral ribs. Mild thoracic spondylosis. CT/CTA Chest W/WO Contrast IMPRESSION: 1. No large central pulmonary embolism. 2. Acute fractures of the left humeral neck, left inferior scapula and left lat eral ribs. 3. Numerous ground-glass and part solid, part ground-glass pulmonary nodules th roughout the bilateral lungs. Findings are most compatible with pneumonitis/pneumonia, however pulmonary neoplasm could appear similar. Follow-up chest CT in 2-3 months is recommended to evaluate for stability/resolution. PET-CT will not be beneficia l as infection and neoplasm both demonstrate FDG avidity. Reading Location: [facility]
[2025-05-25 12:23] LABS: Troponin T High Sensitivity 8 ng/L (<=22)
[2025-05-25 12:25] LABS: Anion Gap 20 (5-15); BUN 4 mg/dL (4-19); BUN/Creat Ratio 6.4 RATIO (10-20); Calcium,Total 9.3 mg/dL (7.6-11.0); Carbon Dioxide 22.4 mmol/L (21.0-32.0); Chloride 98 mmol/L (98-108); Estimated Creatinine Clearance 97.91 ml/min (50-250); Glucose 81 mg/dL (70-99); Potassium 3.6 mmol/L (3.3-5.1)
[2025-05-25 12:26] LABS: Pro- Brain NATRIURETIC PEPTIDE < 36 pg/mL (<=900)
[2025-05-25 13:58] LABS: Troponin T High Sens 2 HR 9 ng/L (<=22)
[2025-05-25 14:06] LABS: Mucous, Urine 0 SEEN /hpf (<or=2+); Red Blood Cells-Urine 0 SEEN /hpf (0-5); Squamous Epithelial Cells - UA 0 SEEN /hpf (0-5)
[2025-05-25 14:17] LABS: Color, Urine Yellow (Yellow); Glucose, Dipstick Normal (Normal); Ketone-Dipstick 50 mg/dl (Negative); Leukocyte Esterase-Dipstick Negative /ul (Negative); Nitrite-Dipstick Negative (Negative); Occult Blood-Urine Negative /ul (Negative); Protein-Dipstick 30 mg/dl (Negative); Specific Gravity, Urine 1.020 (1.002-1.030); Urine Bilirubin Dipstick Negative (Negative)
--- NOTE | 2025-05-25 14:20 | RAD_ITS ---
PROCEDURE: HUMERUS MIN 2 VIEWS 05/25/2025 REASON FOR EXAM: FRACTURE TECHNIQUE: HUMERUS MIN 2 VIEWS COMPARISON: None RAD/Humerus min 2 Views IMPRESSION: No acute fracture or dislocations. Mild degenerative changes of the left shoul mirta. No acute soft tissue abnormalities. Peripheral IV is noted within the antecubi oliverio fossa; otherwise no radiographic foreign body. Reading Location: [id number]
--- NOTE | 2025-05-25 15:18 | ED.RN ---
per dr. yeboah do not need to move IV.
[2025-05-25 15:19] LABS: Barbiturate Urine NEGATIVE (< 200 ng/mL); Benzodiazepine Urine NEGATIVE (< 200 ng/mL); PCP Urine NEGATIVE (< 25 ng/mL); THC Urine PRESUMPTIVE POSITIVE (< 50 ng/mL)
[2025-05-25 15:35] LABS: Alcohol, Blood (Medical)-Serum 222.0 mg/dL (<=10.0)
--- NOTE | 2025-05-25 16:09 | HP.PCM.HOS_ITS ---
HPI - General General Date of Admission: 05/25/25 Date of Service: 05/25/25 Chief Complaint: lightheadedness HPI Narrative MARVIN IZQUIERDO, is a 59-year-old male history of GERD, hypertension, alcohol use presented [facility] 05/25/2025 with several days of episodic lightheadedness that occur mostly with changes in position. Yesterday shortly after getting up from a seated position and ambulating he developed tunnel vision, lightheadedness, and subsequently fell. Denies hitting his head or any trauma from the fall. At baseline has swollen ankles [facility] Patient has a poor diet, there is a bedbug noted in the ED. In the ED temp 97.9, heart rate initially 133 with blood pressure 161/101, respiratory rate 18 pulse ox 91% on room air. Orthostats unable to be obtained due to patient being too concerned to stand. CBC in the ED with white blood cell count 8.2, hemoglobin 12.1. BMP with a sodium of 141, potassium 3.6, normal bicarb, anion gap reported at 20, BUN of 4 and creatinine 0.61. Troponin of 9 and proBNP less than 36. Brain CT with chronic findings but no acute findings. Chest x-ray with no acute findings. D-dimer 1.21 so patient had CTA which revealed fractures of left humeral neck, left inferior scapula, and left lateral ribs as well as numerous groundglass and part solid pulmonary nodules throughout bilateral lungs which could be pneumonitis/pneumonia but cannot rule out neoplasm and follow-up CT in 2 to 3 months was recommended. UA not suggestive of infection. Patient had no bruising or pain over any of the areas that reported fractures it was felt that these were more likely chronic in nature. Hospitalist contacted for admission. Patient evaluated at bedside, reports that he stopped his blood pressure medicine with a dose of 3.1253 days ago because he thought it was causing the swelling in his legs and since that time has been dizzy and lightheaded when he stands up to move around. Does not think this was happening before then. Did have syncopal episode yesterday when he stood up to move and he woke up on the ground, denies falling on his left side or any specific trauma. Denies any chest pain, shortness of breath, cough. Notes that he has some swelling in his lower extremities that he has been [facility] with and has been very bothersome to him. Of note patient has escalated his drinking recently and will drink up to half a gallon of vodka a day. Last drink was yesterday. He denies any focal tenderness on his arm, shoulder, or rib cage. Notes that he will intermittently get some pain in his ribs on both sides from trauma to ribs multiple times but this has not changed in the past 24 hours and is not having any right now [facility] Medical History Alcohol abuse Anemia Hypertension Smoker Substance abuse Home Medications ?Medication ?Instructions ?Recorded ?Last Taken ?Type atenolol 25 mg tablet 25 mg PO DAILY BP 08/27/22 1 History 25 mg ascorbic acid (vitamin C) 500 mg 500 mg PO DAILY 30 da ys #30 tabs 08/29/22 Unknown Rx tablet (Vitamin C) ferrous sulfate 325 mg (65 mg 325 mg PO BID 30 days #6 0 tabs 08/29/22 Unknown Rx iron) tablet (Iron (ferrous sulfate)) pantoprazole 40 mg tablet,delayed 40 mg PO BID 30 days #60 tabs 08/29/22 Unknown Rx release sennosides 8.6 mg-docusate sodium 1 tab-cap PO BID PRN constipation 08/29/22 Unknown Rx 50 mg tablet (Senokot-S) 30 days #60 tabs diazepam 2 mg tablet 2 mg PO TID PRN PRN Vertigo #10 07/14/23 Unknown Rx TABLETS Allergy/AdvReac Type Severity Reaction Status Date / Time No Known Allergies Allergy Verified 05/25/25 10:31 Family History Other Heart disease Social History Smoking Status: Current every day smoker tobacco type: cigarettes ROS ROS Narrative General: Denies fever/chills HENT: Denies headache, denies stuffy nose, denies sore throat EYES: Denies changes in vision Resp: Denies cough, denies shortness of breath Cardiac: Denies chest pain GI: Denies abdominal pain, denies changes in bowel, denies nausea/vomiting : Denies changes in urination Extremity: Some bilateral lower extremity swelling MSK: Denies weakness Neuro: Denies any numbness/tingling, lightheaded when he stands up Heme: Denies any bleeding or bruising Skin: Denies rashes Psychiatric: No complaints voiced Vital Signs Vital Signs Vital Signs: 05/25/25 10:29 05/25/25 11:45 05/25/25 12:11 Temperature 97.9 F Temperature Source Oral Pulse Rate 133 H 106 H 105 H Pulse Rate [Lying] Pulse Rate [Sitting (for 1 minute prior to obtaining)] Respiratory Rate 18 28 H 22 H Blood Pressure 161/101 H 170/95 H 155/73 H Blood Pressure [Lying] Blood Pressure [Sitting (for 1 minute prior to obtaining)] Blood Pressure Mean 121 120 100 Blood Pressure Mean [Lying] Blood Pressure Mean [Sitting (for 1 minute prior to obtaining)] Pulse Ox 91 98 95 Oxygen Delivery Method Room Air Room Air 05/25/25 12:18 05/25/25 13:00 05/25/25 14:00 Temperature Temperature Source Pulse Rate 102 H 111 H Pulse Rate [Lying] 101 H Pulse Rate [Sitting (for 1 minute prior to obtaining)] 117 H Respiratory Rate 14 20 H Blood Pressure 160/92 H 154/90 H Blood Pressure [Lying] 155/94 H Blood Pressure [Sitting (for 1 minute prior to obtaining)] 163/97 H Blood Pressure Mean 114 111 Blood Pressure Mean [Lying] 114 Blood Pressure Mean [Sitting (for 1 minute prior to obtaining)] 119 Pulse Ox 97 95 Oxygen Delivery Method Room Air Room Air 05/25/25 15:00 05/25/25 15:16 Temperature 98 F Temperature Source Pulse Rate 104 H 116 H Pulse Rate [Lying] Pulse Rate [Sitting (for 1 minute prior to obtaining)] Respiratory Rate 10 L 17 Blood Pressure 155/100 H 155/100 H Blood Pressure [Lying] Blood Pressure [Sitting (for 1 minute prior to obtaining)] Blood Pressure Mean 118 118 Blood Pressure Mean [Lying] Blood Pressure Mean [Sitting (for 1 minute prior to obtaining)] Pulse Ox 96 98 Oxygen Delivery Method Room Air Weight Weight: 54.431 kg Body Mass Index (BMI) 20.5 Physical Exam Narrative General: Alert, oriented, no apparent distress HEENT: Atraumatic, normocephalic Eyes: Anicteric, normal conjunctiva, extraocular movements grossly intact Neck: Supple Respiratory: normal respiratory effort Cardiovascular: Low-grade sinus tachycardia GI: Soft, nontender, nondistended Extremities: Trace bilateral lower extremity edema Musculoskeletal: Moving all extremities, does not have any focal tenderness on palpating arm, rib cage, shoulder/scapula. Noted with deep palpation may be a little bit in mid humerus but he said it was not pain he just noticed it more, no focal tenderness over ribs but when palpating whole rib cage said maybe he noticed it hurt a little bit however when palpating right side of rib cage he noted the same exact feeling, no pain whatsoever over shoulder or scapula Neuro: No overt focal neurological deficits, does appear shaky and tremulous Skin: No rashes appreciated, no bruising appreciated over humerus or ribs Psych: Cooperative Results Lab / Micro Data 05/25/25 11:45 05/25/25 11:45 Labs: Laboratory Results - last 24 hr 05/25/25 11:45: WBC 8.2, RBC 3.67 L, Hgb 12.1 L, Hct 36.0 L, MCV 98.1 H, MCH 33.0 H, MCHC 33.6, RDW Std Deviation 64.7 H, RDW Coeff of Shauna 17.8 H, Plt Count 296, MPV 9.6, Immature Gran % (Auto) 0.500, Neut % (Auto) 74.8 H, Lymph % (Auto) 12.3 L, [place] % (Auto) 9.5, Eos % (Auto) 2.3, Baso % (Auto) 0.6, Absolute Neuts (auto) 6.2, Absolute Lymphs (auto) 1.01, Nucleated RBC % 0, D-Dimer Quant (PE/DVT) 1.21 H*, Sodium 141, Potassium 3.6, Chloride 98, Carbon Dioxide 22.4, A nion Gap 20 H, BUN 4, Creatinine 0.61 L, Estim Creat Clear Calc 97.91, Est GFR (MDRD) Non-Af 109, BUN/Creatinine Ratio 6.4 L, Glucose 81, Calcium 9.3, Troponin T High Sens 8, NT pro BNP II < 36, Ethyl Alcohol 222.0 H 05/25/25 13:15: Troponin T Hi Sens 2 Hr 9 05/25/25 14:00: Urine Color Yellow, Urine Clarity Clear, Urine pH 6.0, Ur Specific [place] 1.020, Urine Protein 30 H, Urine Glucose (UA) Normal, Urine Ketones 50 H, Urine Occult Blood Negative, Urine Nitrite Negative, Urine Bilirubin Negative, Urine Urobilinogen Normal, Ur Leukocyte Esterase Negative, Urine RBC 0 SEEN, Urine WBC 0 SEEN, Ur Squamous Epith Cells 0 SEEN, Urine Bacteria 0 SEEN, Urine Mucus 0 SEEN, Urine Opiates Screen NEGATIVE, U Buprenorphine Qual NEGATIVE, Ur Oxycodone Screen NEGATIVE, Urine Methadone Screen NEGATIVE, Urine Fentanyl Screen NEGATIVE, Ur Barbiturates Screen NEGATIVE, Ur Phencyclidine Scrn NEGATIVE, Ur Amphetamines Screen NEGATIVE, U Benzodiazepines Scrn NEGATIVE, Urine Cocaine Screen NEGATIVE, U Cannabinoids Screen PRESUMPTIVE POSITIVE Imaging Radiology Impression Brain CT 05/25/25 10:53 IMPRESSION: No acute intracranial findings. Chronic findings as described. Reading Location: [facility] Chest X-Ray 05/25/25 11:55 IMPRESSION: NO ACUTE FINDINGS. Reading Location: [facility] Chest CTA 05/25/25 12:13 IMPRESSION: 1. No large central pulmonary embolism. 2. Acute fractures of the left humeral neck, left inferior scapula and left lateral ribs. 3. Numerous ground-glass and part solid, part ground-glass pulmonary nodules throughout the bilateral lungs. Findings are most compatible with pneumonitis/pneumonia, however pulmonary neoplasm could appear similar. Follow-up chest CT in 2-3 months is recommended to evaluate for stability/resolution. PET-CT will not be beneficial as infection and neoplasm both demonstrate FDG avidity. Reading Location: [facility] Humerus X-Ray 05/25/25 14:20 IMPRESSION: No acute fracture or dislocations. Mild degenerative changes of the left shoulder. No acute soft tissue abnormalities. Peripheral IV is noted within the antecubital fossa; otherwise no radiographic foreign body. Reading Location: [facility] Assessment & Plan Assessment/Plan (1) Syncope: PLAN: Plan #Syncopal episode w/ additional lightheadedness and presyncope -admit to telemetry -EGK sinus tach w/ rate 106, no acute ischemic changes -CT head chronic changes but no acute process - Unable to complete orthostatic vital signs as patient is concerned about standing -will obtain echo -Check TSH - Patient does note that the symptoms started after he stopped what sounded to be a low-dose of Coreg, query if he may be getting excessively tachycardic when he is up ambulating and that is causing his symptoms though cannot say definitively, workup as above, will consider restarting a beta-cristhian pending clinical course, think he is presently increasingly tachycardic due to alcohol withdrawal - Will hydrate patient with IV fluids, given his excessive alcohol intake suspect that he is relatively dehydrated, also seems to have poor p.o. intake - Will start thiamine and folate - Check B12 # Alcohol use disorder - Patient reports drinking up to half gallon of vodka a day, noted his last drink was yesterday however alcohol level at 1145 was 222 so either he has not drank since yesterday and had an even higher alcohol level or he did drink earlier today - Does not want detox however suspect his increasing blood pressure and heart rate are due to alcohol withdrawal - Will give a dose of Ativan and start CIWA with Ativan coverage # Rib, humerus, scapular fracture -Seen on CTA however patient with no corresponding pain or bruising as queried chronicity -There was no point tenderness on palpation, he noted some soreness on both sides of ribs but they were equal, no point tenderness over humerus and no pain in scapula -Patient does report multiple falls when he is drunk and history of hurting his ribs so given unclear chronicity - X-ray of humerus also did not note fracture #GERD -Continue PPI #Hypertension - May need to add back the low-dose of what sounded to be Coreg, will obtain echo and further workup as above first # Abnormal CT findings - No cough or shortness of breath/respiratory complaints that would make one think patient had pneumonia - Will need repeat CT scan in 2 to 3 months # Bedbugs - Patient reportedly decontaminated in the ED #Tobacco use -Advise cessation -Nicotine replacement available if desired #DVT ppx: SCDs Valencia Wen MD Charges/Coding Visit Charges Inpatient E&M: 23040 Init Hosp L2
--- NOTE | 2025-05-25 16:25 | PCA ---
[facility]ED [facility] AND FAXED [facility] INFO
--- NOTE | 2025-05-25 16:49 | CASEMGMT ---
Care Management Face to Face with patient for initial transition planning/care coordination assessment in the ED.? This lead technical writer introduced self and role at [facility]. Patient alert and oriented. Patient willing to participate in assessment and is able to answer all questions appropriately.? Care providers, pharmacy, and demographics verified. Admitting Diagnosis: ?Dizziness Other diagnosis history: ?Anemia, hypertension, substance abuse PCP[facility] [place] Specialists: ?none Preferred Pharmacy: [facility], [facility] pharmacy for hand picker Insurance: [place] Prescription Benefit: ?yes Living Will/HPOA: ?does not have completed LNOK: ?Cousin in [place], does not know name.? Living Arrangements: Lives alone in a mobile home, reports to being independent with ADLs and IADLs Transportation: ?patient drives DME: ?None HHC: ?None SNF/Rehab: ?None Community Resources: ?None Behavioral Health History: ?None Patient goals: Patient wishes to discharge home, denies need for home health care at this time. Patient denies any further needs or concerns at this time. Disposition Plan: admission to acute; RN CM/SW to follow for discharge planning needs that may arise. Tammi Fields, [employer], [employer]
--- NOTE | 2025-05-25 17:22 | ECHOD_ITS ---
Reason For Study Reason For Study: Near Syncope Procedure This was a 2D Doppler, Color Flow transthoracic echocardiogram. Exam performed portable in patient room. Left Ventricle Normal LV size. The estimated ejection fraction is 60 %. No regional wall motion abnormalities noted. Right Ventricle Normal RV size. Normal systolic function. Atria The left and right atria are normal. No doppler evidence for ASD. Mitral Valve There is no mitral valve stenosis. Trivial mitral valve insufficiency. Tricuspid Valve There is no tricuspid stenosis. Unable to estimate RV systolic pressure due to insufficient tricuspid regurgitant envelope. Aortic Valve Trisinus/trileaflet aortic valve. There is no aortic stenosis. No aortic valve insufficiency. Pulmonic Valve There is no pulmonic valvular stenosis. No pulmonic valve insufficiency. Great Vessels Normal sized aortic root. Pericardium/Pleural No pericardial effusion. MMode/2D Measurements & Calculations LVIDd: 4.3 cm IVSd: 1.1 cm Ao root diam: 3.4 cm LVIDs: 3.0 cm LVPWd: 1.2 cm RVDd: 3.6 cm FS: 30.4 % LAV(MOD-bp): 45.4 ml LVAd ap4: 22.5 cm2 LVAd ap2: 22.2 cm2 LAV(MOD-bp) Indexed: 28.8 ml/m2 LVLd ap4: 7.4 cm LVLd ap2: 7.6 cm LAV(MOD-sp2): 45.0 ml EDV(MOD-sp4): 56.8 ml EDV(MOD-sp2): 54.2 ml LAV(MOD-sp4): 39.2 ml EDV(sp4-el): 58.0 ml EDV(sp2-el): 54.8 ml LVAs ap4: 12.3 cm2 LVAs ap2: 12.0 cm2 LVLs ap4: 6.2 cm LVLs ap2: 6.5 cm ESV(MOD-sp4): 21.7 ml ESV(MOD-sp2): 19.2 ml ESV(sp4-el): 20.8 ml ESV(sp2-el): 18.9 ml EF(MOD-sp4): 61.7 % EF(MOD-sp2): 64.6 % EF(sp4-el): 64.1 % SV(MOD-sp4): 35.1 ml SV(MOD-sp2): 35.0 ml SV(sp4-el): 37.2 ml SI(MOD-sp4): 22.2 ml/m2 SI(MOD-sp2): 22.2 ml/m2 LA A4 area: 16.8 cm2 LA dimension(2D): 3.4 cm RA A4 area: 13.6 cm2 TAPSE: 2.2 cm Doppler Measurements & Calculations MV E max jd: 81.2 cm/sec Lat Peak E' Jd: 13.4 cm/sec Med Peak E' Jd: 9.1 cm/sec MV A max jd: 101.8 cm/sec E/E' lat: 6.0 E/E' med: 8.9 MV E/A: 0.80 Ao V2 max: 182.0 cm/sec LV V1 max: 124.3 cm/sec PA V2 max: 105.7 cm/sec Ao max P.3 mmHg LV V1 max P.2 mmHg Ao V2 mean: 124.0 cm/sec LV V1 mean P.0 mmHg Ao mean P.0 mmHg LV V1 mean: 96.1 cm/sec Ao V2 VTI: 35.4 cm LV V1 VTI: 26.3 cm AV (velocity ratio): 0.74 ECHO/Echo Complete Interpretation Summary The estimated ejection fraction is 60 %. Trivial mitral valve insufficiency. Ordering Physician: Valencia Wen Referring Physician: [facility] Performed By: Anabell Ariza RDCS
[2025-05-25] MEDS: 0.9% Normal Saline (1000mL) 1,000 ML 75 ML IV (18:16)
[2025-05-25] MEDS: MELATONIN 10 MG TABLET PO (23:28)
[2025-05-26] VITALS (7 sets, daily range): BP systolic 139–170; BP diastolic 76–93; PULSE 86–101; RESP 12–18; TEMP 36.8–37.6; O2SAT 95–98; BMI 20.7
[2025-05-26 06:20] LABS: Hematocrit 28.8 % (40-54); Hemoglobin 10.0 g/dL (13.0-16.5); Immature Granulocytes Count 0.040 X10^3/uL (0.0-0.0); Mean Corp Hgb Conc 34.7 g/dL (32-36); Mean Corpuscular Volume 96.6 fL (80-94); Mean Platelet Vol. 10.1 fl (6.2-12.0); NRBC Flagged by Analyzer 0 % (0-5); Platelet Count 189 K/mm3 (150-450); RBC Distribution Width CV 17.2 % (11.6-14.6); RBC Distribution Width SD 60.3 fl (35.1-43.9); Red Blood Count 2.98 M/mm3 (4.6-6.2); White Blood Count 6.5 K/mm3 (4.4-11.0)
[2025-05-26] MEDS: hydrOXYzine PAM 25 MG Capsule PO (06:41)
[2025-05-26] MEDS: 0.9% Normal Saline (1000mL) 1,000 ML 75 ML IV (06:42)
[2025-05-26 07:05] LABS: AST(SGOT) 65 U/L (<=37); Alanine Aminotransfer ALT/SGPT 36 U/L (<=46); Albumin, Serum 3.5 g/dL (3.4-4.8); Alkaline Phosphatase 123 U/L (40-129); Anion Gap 16 (5-15); BUN 5 mg/dL (4-19); BUN/Creat Ratio 9.3 RATIO (10-20); Calcium,Total 8.6 mg/dL (7.6-11.0); Carbon Dioxide 21.8 mmol/L (21.0-32.0); Chloride 96 mmol/L (98-108); Estimated Creatinine Clearance 120.48 ml/min (50-250); Globulin 2.6 g/dL (2.2-4.2); Glucose 87 mg/dL (70-99); Potassium 4.1 mmol/L (3.3-5.1); Vitamin B12 363 pg/mL (180-914)
[2025-05-26] MEDS: Thiamine Hydrochloride 100 MG Tablet PO (10:06)
--- NOTE | 2025-05-26 11:54 | PN_ITS ---
Subjective Subjective Patient seen and examined with his nurse by is bedside. He compalined of pain in his feet. He denied any clavicular or LUE pain despte the fractures. He denied any shakes or tremors. Review of systems is otherwise negative. Objective Data Objective Data Vital Signs: Vital Signs Temp Pulse Resp BP Pulse Ox O2 Del Method 98.7 F 101 H 16 139/76 H 98 Room Air 05/26/25 09:51 05/26/25 09:51 05/26/25 09:51 05/26/25 09:51 05/26/25 09:51 05/26/25 09:55 Oxygen Delivery Method Room Air Weight: 121 lb 0.54 oz Body Mass Index (BMI) 20.7 Intake & Output: Intake and Output for Last 24 Hours 05/24/25 05/25/25 05/26/25 23:59 23:59 23:59 Intake Total 1340 / 1340 932.5 / 932.5 Output Total 550 / 550 175 / 175 Balance 790 / 790 757.5 / 757.5 Lab / Micro Data 05/26/25 05:50 05/26/25 05:50 Labs: Laboratory Results - last 24 hr 05/25/25 11:45: WBC 8.2, RBC 3.67 L, Hgb 12.1 L, Hct 36.0 L, MCV 98.1 H, MCH 33.0 H, MCHC 33.6, RDW Std Deviation 64.7 H, RDW Coeff of Shauna 17.8 H, Plt Count 296, MPV 9.6, Immature Gran % (Auto) 0.500, Neut % (Auto) 74.8 H, Lymph % (Auto) 12.3 L, [place] % (Auto) 9.5, Eos % (Auto) 2.3, Baso % (Auto) 0.6, Absolute Neuts (auto) 6.2, Absolute Lymphs (auto) 1.01, Nucleated RBC % 0, D-Dimer Quant (PE/DVT) 1.21 H*, Sodium 141, Potassium 3.6, Chloride 98, Carbon Dioxide 22.4, A nion Gap 20 H, BUN 4, Creatinine 0.61 L, Estim Creat Clear Calc 97.91, Est GFR (MDRD) Non-Af 109, BUN/Creatinine Ratio 6.4 L, Glucose 81, Calcium 9.3, Troponin T High Sens 8, NT pro BNP II < 36, Ethyl Alcohol 222.0 H 05/25/25 13:15: Troponin T Hi Sens 2 Hr 9 05/25/25 14:00: Urine Color Yellow, Urine Clarity Clear, Urine pH 6.0, Ur Specific [place] 1.020, Urine Protein 30 H, Urine Glucose (UA) Normal, Urine Ketones 50 H, Urine Occult Blood Negative, Urine Nitrite Negative, Urine Bilirubin Negative, Urine Urobilinogen Normal, Ur Leukocyte Esterase Negative, Urine RBC 0 SEEN, Urine WBC 0 SEEN, Ur Squamous Epith Cells 0 SEEN, Urine Bacteria 0 SEEN, Urine Mucus 0 SEEN, Urine Opiates Screen NEGATIVE, U Buprenorphine Qual NEGATIVE, Ur Oxycodone Screen NEGATIVE, Urine Methadone Screen NEGATIVE, Urine Fentanyl Screen NEGATIVE, Ur Barbiturates Screen NEGATIVE, Ur Phencyclidine Scrn NEGATIVE, Ur Amphetamines Screen NEGATIVE, U Benzodiazepines Scrn NEGATIVE, Urine Cocaine Screen NEGATIVE, U Cannabinoids Screen PRESUMPTIVE POSITIVE 05/26/25 05:50: WBC 6.5, RBC 2.98 L, Hgb 10.0 L, Hct 28.8 L, MCV 96.6 H, MCH 33.6 H, MCHC 34.7, RDW Std Deviation 60.3 H, RDW Coeff of Shauna 17.2 H, Plt Count 189, MPV 10.1, Immature Gran % (Auto) 0.600, Neut % (Auto) 75.7 H, Lymph % (Auto) 11.9 L, [place] % (Auto) 10.9 H, Eos % (Auto) 0.6, Baso % (Auto) 0.3, Absolute Neuts (auto) 4.9, Absolute Lymphs (auto) 0.77 L, Nucleated RBC % 0, Sodium 134, Potassium 4.1, Chloride 96 L, Carbon Dioxide 21.8, Anion Gap 16 H, BUN 5, Creatinine 0.50 L, Estim Creat Clear Calc 120.48, Est GFR (MDRD) Non-Af 116, BUN/Creatinine Ratio 9.3 L, Glucose 87, Calcium 8.6, Total Bilirubin 0.71, AST 65 H, ALT 36, Alkaline Phosphatase 123, Total Protein 6.1, Albumin 3.5, Globulin 2.6, Albumin/Globulin Ratio 1.3, Vitamin B12 363, TSH 2.020 05/26/25 08:33: POC Glucose 122 H Radiography Diagnostic Testing: Radiology Impression Brain CT 05/25/25 10:53 IMPRESSION: No acute intracranial findings. Chronic findings as described. Reading Location: [facility] Chest X-Ray 05/25/25 11:55 IMPRESSION: NO ACUTE FINDINGS. Reading Location: [facility] Chest CTA 05/25/25 12:13 IMPRESSION: 1. No large central pulmonary embolism. 2. Acute fractures of the left humeral neck, left inferior scapula and left lateral ribs. 3. Numerous ground-glass and part solid, part ground-glass pulmonary nodules throughout the bilateral lungs. Findings are most compatible with pneumonitis/pneumonia, however pulmonary neoplasm could appear similar. Follow-up chest CT in 2-3 months is recommended to evaluate for stability/resolution. PET-CT will not be beneficial as infection and neoplasm both demonstrate FDG avidity. Reading Location: [facility] Humerus X-Ray 05/25/25 14:20 IMPRESSION: No acute fracture or dislocations. Mild degenerative changes of the left shoulder. No acute soft tissue abnormalities. Peripheral IV is noted within the antecubital fossa; otherwise no radiographic foreign body. Reading Location: [facility] Echocardiogram 05/25/25 17:22 Interpretation Summary The estimated ejection fraction is 60 %. Trivial mitral valve insufficiency. Ordering Physician: Valencia Wen Referring Physician: [facility] Performed By: Anabell Ariza RDCS Physical Exam Const alert, oriented x3 and no apparent distress General Appearance: cooperative HEENT normocephalic, head/scalp atraumatic, moist oral mucous membranes and oropharynx normal Eyes PERRL and EOMs intact bilaterally Neck no lymphadenopathy and supple Lymph Lymphatic: no lymphedema noted Resp normal respiratory effort, normal air movement and clear to auscultation bilaterally Cardio regular rate, regular rhythm, S1 normal heart sound, S2 normal heart sound and no murmurs GI normal to inspection, nondistended, normoactive bowel sounds, soft to palpation, non-tender and non-distended Extremity normal capillary refill, no clubbing, cyanosis or edema and no calf tenderness General Extremity: no tenderness to palpation of joints or extremities Skin General Skin Exam: no breakdown Neuro CN's II-XII intact bilaterally, no focal motor deficits and no sensory deficits noted Motor Exam: strength 5/5 throughout and general weakness Psych thought process normal and cooperative Appearance: appropriate Assessment & Plan Assessment/Plan (1) Syncope: (2) Alcohol abuse: PLAN: Plan #Syncope due to lightheadedness * Patient passed out yesterday after getting up from a seated position. He developed tunnel vision and lightheadedness and fell. * D-dimer was elevated but CT of the chest was negative. CTA chest revealed fractures of the left humeral neck, left inferior scapula and left lateral ribs as well as numerous groundglass and part solid pulmonary nodules throughout the bilateral lungs * Patient currently denies any dizziness or lightheadedness. PT OT on board. Fall precautions. * 2D echo done today showed EF of 60% with trivial mitral valve insufficiency. Check orthostatics. #Humeral and clavicular as well as left rib fractures: Due to mechanical fall. Patient currently has no pain or immobility from these. PT OT on board. Fall precautions. #History of alcohol use disorder and at risk of withdrawal * He drinks up to half a gallon of vodka daily. His last drink was the day of admission. Denies any current withdrawal symptoms. On alcohol withdrawal protocol with phenobarbital. * Monitor CIWA score. Adjunctive meds for symptomatic relief. * On thiamine, folic acid and Multi-Avtar. #Hypertension: * On atenolol but says is not taking it anymore. On clonidine as needed. The CIWA protocol which would help with elevated blood pressure which is as high as 170/84 but has mainly been in the 140s and 150s systolic. If remains elevated will add on all BP meds. #DVT prophylaxis: SCDs. Charges/Coding Visit Charges Inpatient E&M: 43942 Subs Hosp L2
[2025-05-26] MEDS: MELATONIN 10 MG TABLET PO (22:27)
[2025-05-27 04:54] VITALS: BP 158/99; PULSE 91; RESP 18; TEMP 37.4; O2SAT 96; BMI 20.1
[2025-05-27 07:08] LABS: Hematocrit 31.1 % (40-54); Hemoglobin 10.7 g/dL (13.0-16.5); Immature Granulocytes Count 0.040 X10^3/uL (0.0-0.0); Mean Corp Hgb Conc 34.4 g/dL (32-36); Mean Corpuscular Volume 96.9 fL (80-94); Mean Platelet Vol. 10.3 fl (6.2-12.0); NRBC Flagged by Analyzer 0 % (0-5); Platelet Count 192 K/mm3 (150-450); RBC Distribution Width CV 16.8 % (11.6-14.6); RBC Distribution Width SD 60.4 fl (35.1-43.9); Red Blood Count 3.21 M/mm3 (4.6-6.2); White Blood Count 7.0 K/mm3 (4.4-11.0)
[2025-05-27 08:35] LABS: Anion Gap 13 (5-15); BUN 5 mg/dL (4-19); BUN/Creat Ratio 10.0 RATIO (10-20); Calcium,Total 9.1 mg/dL (7.6-11.0); Carbon Dioxide 23.9 mmol/L (21.0-32.0); Chloride 99 mmol/L (98-108); Estimated Creatinine Clearance 114.67 ml/min (50-250); Glucose 106 mg/dL (70-99); Potassium 3.9 mmol/L (3.3-5.1)
[2025-05-27 09:00] VITALS: BP 160/105; PULSE 102; RESP 16; TEMP 37.2; O2SAT 99
[2025-05-27] MEDS: Thiamine Hydrochloride 100 MG Tablet PO (09:04)
--- NOTE | 2025-05-27 09:38 | DCINST_ITS ---
Discharge Instructions DC O2, CPAP, BIPAP needs Home O2 Discharge instructions: No Dressing / Incision Discharge Activity: Return to Normal Activity Weight Bearing Status: Weight bearing as tolerated Dressing / Incision Call your doctor if you observe: Fever of 101 or Higher, Shortness of breath and Swelling in the ankles Follow Up Care Test Results: Test results from this visit will be discussed in further detail at your follow- up appointment, if applicable. Discharge Plan Admission Admit Date/Time: 05/25/25 16:10 Primary Reason for Your Visit: mechanical fall Attending Provider: Sheron Dumont Primary Care Provider: [place] Consulting Providers: Valencia Wen Instructions Patient Instructions: ED Mechanical Fall Discharge Orders/Prescriptions Prescriptions: New acetaminophen 325 mg Tablet 650 mg PO Q6H PRN PRN (Reason: Pain 1-10 Or Fever >100.7) Qty: 30 0RF Continued atenolol 25 mg Tablet 25 mg PO DAILY pantoprazole 40 mg tablet,delayed release (DR/EC) 40 mg PO BID 30 Days Qty: 60 0RF ferrous sulfate [Iron (ferrous sulfate)] 325 mg (65 mg iron) tablet 325 mg PO BID 30 Days Qty: 60 0RF ascorbic acid (vitamin C) [Vitamin C] 500 mg tablet 500 mg PO DAILY 30 Days Qty: 30 0RF sennosides-docusate sodium [Senokot-S] 8.6-50 mg tablet 1 tab-cap PO BID PRN (Reason: constipation) 30 Days Qty: 60 0RF diazepam 2 mg tablet 2 mg PO TID PRN PRN (Reason: Vertigo) Qty: 10 0RF Referrals / Follow Up: [facility] [Primary Care Provider] - Within 1 Week Disposition Disposition (needs filled in before D/C Order can be placed): Home, Self Care
--- NOTE | 2025-05-27 09:39 | DS.PCM_ITS ---
Providers Date of Admission: 05/25/25 Date of Discharge: 05/27/25 [facility] Care Physician: [facility] Reason For Visit: [facility]YNCOPE Diagnosis Discharge Diagnosis (1) Syncope: Status: Acute Code(s): R55 - Syncope and collapse (2) Alcohol abuse: Status: Acute Code(s): F10.10 - Alcohol abuse, uncomplicated Plan #Syncope due to lightheadedness * Patient passed out yesterday after getting up from a seated position. He developed tunnel vision and lightheadedness and fell. * D-dimer was elevated but CT of the chest was negative. CTA chest revealed fractures of the left humeral neck, left inferior scapula and left lateral ribs as well as numerous groundglass and part solid pulmonary nodules throughout the bilateral lungs * Patient currently denies any dizziness or lightheadedness. PT OT on board. Fall precautions. * 2D echo done today showed EF of 60% with trivial mitral valve insufficiency. Check orthostatics. #Humeral and clavicular as well as left rib fractures: Due to mechanical fall. Patient currently has no pain or immobility from these. PT OT on board. Fall precautions. #History of alcohol use disorder and at risk of withdrawal * He drinks up to half a gallon of vodka daily. His last drink was the day of admission. Denies any current withdrawal symptoms. On alcohol withdrawal protocol with phenobarbital. * Monitor CIWA score. Adjunctive meds for symptomatic relief. * On thiamine, folic acid and Multi-Avtar. #Hypertension: * On atenolol but says is not taking it anymore. On clonidine as needed. The CIWA protocol which would help with elevated blood pressure which is as high as 170/84 but has mainly been in the 140s and 150s systolic. If remains elevated will add on all BP meds. #DVT prophylaxis: SCDs. Medications at Discharge Home Medications atenolol 25 mg tablet 25 mg PO DAILY BP 08/27/22 ascorbic acid (vitamin C) 500 mg tablet (Vitamin C) 500 mg PO DAILY 30 days #30 tabs 08/29/22 ferrous sulfate 325 mg (65 mg iron) tablet (Iron (ferrous sulfate)) 325 mg PO BID 30 days #60 tabs 08/29/22 pantoprazole 40 mg tablet,delayed release 40 mg PO BID 30 days #60 tabs 08/29/22 sennosides 8.6 mg-docusate sodium 50 mg tablet (Senokot-S) 1 tab-cap PO BID PRN constipation 30 days #60 tabs 08/29/22 diazepam 2 mg tablet 2 mg PO TID PRN PRN Vertigo #10 TABLETS 07/14/23 acetaminophen 325 mg tablet 650 mg (2 x 325 mg) PO Q6H PRN PRN Pain 1-10 Or Fever >100.7 #30 tabs 05/27/25 Hospital Course Operations None Procedures 2-D Echocardiogram Summary of Care Provided Minutes Spent on Discharge: 42 Hospital Course: Patient is a 59-year-old male with a past medical history as outlined including chronic alcohol use disorder who was admitted to the ED on 05/25/2025 with complaint of lightheadedness which mostly occurred with change in position. He states he developed tunnel vision and lightheadedness and then subsequently fell. He denies hitting his head. He also complained of swollen ankles at baseline and [facility] of the brain showed no acute intracranial pathology. Chemistry showed sodium of 141 potassium of 3.6. Creatinine was 0.61. Chest x-ray showed no acute cardiopulmonary findings. D- dimer was 1.21 CT of the chest that showed no evidence of PE but did show fractures of the left humeral neck, left inferior scapula and left lateral ribs as well as numerous groundglass and part solid pulmonary nodules throughout the bilateral lungs with recommendation for follow-up CT in 2 to 3 months. Urinalysis showed no evidence of UTI. Patient did not even have any pain in his arm or left flank and did not feel like he had fractured any bones. He was admitted to be managed for syncope with resultant rib fractures and left humeral fracture. He admitted to drinking about half a gallon of vodka daily. He was also started on alcohol withdrawal protocol per [facility] protocol. He had 2D echo which showed EF of 60% with no regional wall motion abnormalities. He felt much better and he did not have any lightheadedness or syncope recurring during this admission. Labs and vitals reviewed. Home meds reviewed and reconciled. Physical Exam Const alert, oriented x3 and no apparent distress General Appearance: cooperative and comfortable Orientation / Consciousness: awake HEENT normocephalic, head/scalp atraumatic, hearing grossly normal bilaterally, moist oral mucous membranes and oropharynx normal Mouth: oral and palatal mucosa normal Eyes PERRL, EOMs intact bilaterally and conjunctivae normal Neck no lymphadenopathy and supple Lymph Lymphatic: no lymphadenopathy noted and no lymphedema noted Resp normal respiratory effort, normal air movement, no retractions, no use of accessory muscles and clear to auscultation bilaterally Cardio regular rate, regular rhythm, S1 normal heart sound, S2 normal heart sound and no murmurs GI normal to inspection, nondistended, normoactive bowel sounds, soft to palpation, non-tender and non-distended Extremity normal to inspection, full ROM, normal capillary refill, no clubbing, cyanosis or edema and no calf tenderness General Extremity: no tenderness to palpation of joints or extremities Skin no rashes or lesions noted General Skin Exam: no breakdown Neuro oriented x3, CN's II-XII intact bilaterally, moves all extremities, no focal motor deficits and no sensory deficits noted Sensorium / Orientation: awake Motor Exam: strength 5/5 throughout and general weakness Psych thought process normal and cooperative Appearance: appropriate Weight / BMI Weight Weight: 117 lb 8.102 oz Body Mass Index (BMI) 20.1 ABG / Lab / Microbiology Data 05/27/25 06:34 05/27/25 06:34 Laboratory: Laboratory Results - last 24 hr 05/27/25 06:34: WBC 7.0, RBC 3.21 L, Hgb 10.7 L, Hct 31.1 L, MCV 96.9 H, MCH 33.3 H, MCHC 34.4, RDW Std Deviation 60.4 H, RDW Coeff of Shauna 16.8 H, Plt Count 192, MPV 10.3, Immature Gran % (Auto) 0.600, Neut % (Auto) 77.1 H, Lymph % (Auto) 11.6 L, [place] % (Auto) 9.0, Eos % (Auto) 1.4, Baso % (Auto) 0.3, Absolute Neuts (auto) 5.4, Absolute Lymphs (auto) 0.81 L, Nucleated RBC % 0, Sodium 135, Potassium 3.9, Chloride 99, Carbon Dioxide 23.9, Anion Gap 13, BUN 5, Creatinine 0.51 L, Estim Creat Clear Calc 114.67, Est GFR (MDRD) Non-Af 115, BUN/Creatinine Ratio 10.0, Glucose 106 H, Calcium 9.1 Radiography Diagnostic Testing: Radiology Impression Echocardiogram 05/25/25 17:22 Interpretation Summary The estimated ejection fraction is 60 %. Trivial mitral valve insufficiency. Ordering Physician: Valencia Wen Referring Physician: [facility] Performed By: Anabell Ariza RDCS D/C Instructions Discharge Activity: Return to Normal Activity Weight Bearing Status: Weight bearing as tolerated Call your doctor if you observe: Fever of 101 or Higher, Shortness of breath and Swelling in the ankles DC O2, CPAP, BIPAP Needs Home O2 Discharge instructions: No DC home with Oxygen: No Meaningful Use Info Meaningful Use Meaningful Use Diagnoses (Choose all that apply): None applicable Discharge Plan Admission Admit Date/Time: 05/25/25 16:10 Primary Reason for Your Visit: mechanical fall Attending Provider: Sheron Dumont Primary Care Provider: [facility] Consulting Providers: Valencia Wen Instructions Patient Instructions: ED Mechanical Fall Discharge Orders/Prescriptions Prescriptions: New acetaminophen 325 mg Tablet 650 mg PO Q6H PRN PRN (Reason: Pain 1-10 Or Fever >100.7) Qty: 30 0RF Continued atenolol 25 mg Tablet 25 mg PO DAILY pantoprazole 40 mg tablet,delayed release (DR/EC) 40 mg PO BID 30 Days Qty: 60 0RF ferrous sulfate [Iron (ferrous sulfate)] 325 mg (65 mg iron) tablet 325 mg PO BID 30 Days Qty: 60 0RF ascorbic acid (vitamin C) [Vitamin C] 500 mg tablet 500 mg PO DAILY 30 Days Qty: 30 0RF sennosides-docusate sodium [Senokot-S] 8.6-50 mg tablet 1 tab-cap PO BID PRN (Reason: constipation) 30 Days Qty: 60 0RF diazepam 2 mg tablet 2 mg PO TID PRN PRN (Reason: Vertigo) Qty: 10 0RF Referrals / Follow Up: [facility] [Primary Care Provider] - Within 1 Week Disposition Disposition (needs filled in before D/C Order can be placed): Home, Self Care Charges/Coding Visit Charges Inpatient E&M: 19216 Disch Hosp >30min
--- NOTE | 2025-05-27 10:09 | CASEMGMT ---
Social Work SW did meet w/pt prior to d/c. Pt did well with therapy. Pt does not anticipate any homegoing needs, is ready to leave as he has an appt to get to today. Pt states he wants to figure out his blood pressure medication and [facility] SW did ask pt about his alcohol use. Pt denies this being an issue, states that he drinks due to his back pain, and stops when he has had enough. Pt declined any substance abuse/MH information or referrals. Pt states his doctor at the [facility] is already on his case about his alcohol use. No further social service/discharge needs anticipated, pt home today. ARNOLDO Amado
[2025-05-27 10:15] VITALS: BP 151/92
== END 2025-05-27 09:38 | disposition home or self-care (01) ==
LOC: ED 16:12 → PCU 16:29
PROVIDERS: Admitting Provider Internal Medicine; Emergency Provider Surgery; Visit Provider Student in an Organized Health Care Education/Training Program
DX: R55 Syncope and collapse (principal); M79.671 Pain in right foot; K21.9 Gastro-esophageal reflux disease without esophagitis; M79.672 Pain in left foot; S42.292A Other displaced fracture of upper end of left humerus, initial encounter for closed fracture; F10.120 Alcohol abuse with intoxication, uncomplicated; I10 Essential (primary) hypertension; S42.102A Fracture of unspecified part of scapula, left shoulder, initial encounter for closed fracture; B88.0 Other acariasis; Z79.899 Other long term (current) drug therapy; F17.210 Nicotine dependence, cigarettes, uncomplicated; M79.89 Other specified soft tissue disorders; E86.0 Dehydration; Y90.7 Blood alcohol level of 200-239 mg/100 ml; W19.XXXA Unspecified fall, initial encounter
CPT/HCPCS: 36415; 70450; 71046; 71275; 73060; 80048; 80053; 80307; 81001; 82077; 82607; 82962; 83880; 84443; 84484; 85025; 85379; 93005; 93306; 96360; 96361; 97161; 97165; 99221; 99285; 99406; Q9967; A4216; G0378

== ENCOUNTER 2025-06-02 19:02 | Emergency (ER) | payer OTHER, SELFPAY ==
[2025-06-02 19:04] VITALS: BP 135/94; PULSE 93; RESP 18; TEMP 37.2; O2SAT 96; BMI 20.4
--- NOTE | 2025-06-02 19:13 | ED.RN ---
pt states he drank half a bottle of vodka today and has a buzz on. states the neighbors called the squad because he wasn't feeling well. pt states he needs a blook transfusion. unclear response of why he believes a blood transfusion is necessary. will continue to monitor.
--- NOTE | 2025-06-02 19:31 | EKG12_ITS ---
Test Reason : WEAKNESS Blood Pressure : */* mmHG Vent. Rate : 90 BPM Atrial Rate : 90 BPM P-R Int : 172 ms QRS Dur : 92 ms QT Int : 408 ms P-R-T Axes : 52 -26 57 degrees QTcB Int : 499 ms Normal sinus rhythm QTcB >= 480 msec Abnormal ECG Confirmed by BUZZ TERRY, TALITA ([id number]), scientific editor GREGG BLOOM ([id number]) on 06/06/2025 7:02:04 AM Referred By: RYANNE Confirmed By: TALITA GERBER MD
--- NOTE | 2025-06-02 19:34 | EX.ED.DYSGE1 ---
HPI History of Present Illness Chief Complaint: Weakness Narrative Narrative: 59-year-old male presents via EMS with alcohol intoxication, and episodic lightheadedness and dizziness. He states he thinks he is a blood transfusion. He has a history of anemia. He states he was in the emergency department previously last week and they took 19 vials of blood. Sometimes is worse with standing. He states his neighbors called EMS. [facility] Medical History Anemia Substance abuse Alcohol abuse Smoker Hypertension Home Medications ?Medication ?Instructions ?Recorded ?Last Taken ?Type atenolol 25 mg tablet 25 mg PO DAILY BP 08/27/22 08/26/22 History 25 mg ascorbic acid (vitamin C) 500 mg 500 mg PO DAILY 30 days #30 tabs 08/29/22 Unknown Rx tablet (Vitamin C) ferrous sulfate 325 mg (65 mg 325 mg PO BID 30 days #60 tabs 08/29/22 Unknown Rx iron) tablet (Iron (ferrous sulfate)) pantoprazole 40 mg tablet,delayed 40 mg PO BID 30 days #60 tabs 08/29/22 Unknown Rx release sennosides 8.6 mg-docusate sodium 1 tab-cap PO BID PRN constipation 08/29/22 Unknown Rx 50 mg tablet (Senokot-S) 30 days #60 tabs diazepam 2 mg tablet 2 mg PO TID PRN PRN Vertigo #10 07/14/23 Unknown Rx TABLETS acetaminophen 325 mg tablet 650 mg (2 x 325 mg) PO Q6H PRN PRN 05/27/25 Unknown Rx Pain 1-10 Or Fever >100.7 #30 tabs Allergy/AdvReac Type Severity Reaction Status Date / Time No Known Allergies Allergy Verified 06/02/25 19:10 Family History Other Heart disease Social History Smoking Status: Heavy Smoker (>10/day) ROS ROS ED ROS Narrative Review of systems positive for lightheadedness and dizziness. No chest pain or shortness of breath. No nausea or vomiting. Positive alcohol intake. EXAM Physical Exam Narrative Exam Narrative: Afebrile. Vital signs noted. Nontoxic-appearing. Cardiovascular examination regular rate and rhythm. Lungs are clear to auscultation bilaterally. Abdomen is soft and nontender with positive bowel sounds. No guarding or rebound. Neurological examination nonfocal, nonlateralizing. Curled up in position, but awakens upon examination and is talkative and interactive. Noted alcohol intoxication. Const Vital Signs: 06/02/25 19:04 06/02/25 19:11 06/02/25 21:03 Temperature 98.9 F Temperature Source Oral Pulse Rate 93 92 Respiratory Rate 18 20 H Respiratory Effort Normal Respiratory Pattern Normal Blood Pressure 135/94 H 116/72 Blood Pressure Mean 107 86 Pulse Ox 96 96 Oxygen Delivery Method Room Air Room Air MDM MDM MDM Narrative Medical decision making narrative: I reviewed the patient's prior records. Previously had been seen and had bedbugs. [id number] glucose 95. Will check a CBC and CMP to see if he is anemic requiring transfusions. I will also check an alcohol level. I reviewed his laboratory work and he has a normal white count of 11.0 and hemoglobin 12.6. I do not feel he needs a blood transfusion like the patient claimed he did. Platelet count 377. Sodium normal 136 with potassium 4.6, chloride slightly low at 94. BUN of 7 creatinine 0.63. Ethyl alcohol is elevated at 355. Patient was seen ambulating in the ED but as he has severely elevated alcohol level, he will be observed in the emergency department until he tayo up. He will be bolused normal saline as well. This may be the infusion that he needs. When compared to prior labs from his prior visit, his alcohol level was only in the 200s. At this point in time, patient will be signed out to the overnight physician Dr. Mendoza who will continue observation and make final disposition on the patient which I anticipate his discharge. Patient is in stable condition. History & Record Review Discussion w/independent historian: Patient Additional record(s) reviewed:: Prior labs (Elevated alcohol in the 200s.) Lab Data Attestation: I reviewed the patient's lab results. Labs: Laboratory Results - last 24 hr 06/02/25 06/02/25 19:08 19:20 WBC 11.0 RBC 3.82 L Hgb 12.6 L Hct 38.4 L MCV 100.5 H MCH 33.0 H MCHC 32.8 RDW Std Deviation 65.6 H RDW Coeff of Shauna 17.6 H Plt Count 377 MPV 9.3 Immature Gran % (Auto) 0.500 Neut % (Auto) 83.0 H Lymph % (Auto) 8.4 L [place] % (Auto) 7.1 Eos % (Auto) 0.3 Baso % (Auto) 0.7 Absolute Neuts (auto) 9.1 H Absolute Lymphs (auto) 0.92 Nucleated RBC % 0 Sodium 136 Potassium 4.6 Chloride 94 L Carbon Dioxide 16.7 L Anion Gap 26 H BUN 7 Creatinine 0.63 L Estim Creat Clear Calc 93.87 Est GFR (MDRD) Non-Af 108 BUN/Creatinine Ratio 11.1 Glucose 101 H Calcium 9.3 Total Bilirubin 0.33 AST 206 H ALT 92 H Alkaline Phosphatase 124 Total Protein 8.1 Albumin 4.6 Globulin 3.5 Albumin/Globulin Ratio 1.3 Ethyl Alcohol 355.0 H* POC Glucose 95 Discharge Plan Triage Chief Complaint: Weakness ED Provider: Michael Saldivar Dx/Rx/DC Orders Clinical Impression: Acute alcohol intoxication, Alcohol abuse, Lightheadedness Instructions: ED Dizziness, Uncertain Cause, ED Alcohol Intoxication, ED Alcohol Abuse Prescriptions: No Action atenolol 25 mg Tablet 25 mg PO DAILY pantoprazole 40 mg tablet,delayed release (DR/EC) 40 mg PO BID 30 Days Qty: 60 0RF ferrous sulfate [Iron (ferrous sulfate)] 325 mg (65 mg iron) tablet 325 mg PO BID 30 Days Qty: 60 0RF ascorbic acid (vitamin C) [Vitamin C] 500 mg tablet 500 mg PO DAILY 30 Days Qty: 30 0RF sennosides-docusate sodium [Senokot-S] 8.6-50 mg tablet 1 tab-cap PO BID PRN (Reason: constipation) 30 Days Qty: 60 0RF diazepam 2 mg tablet 2 mg PO TID PRN PRN (Reason: Vertigo) Qty: 10 0RF acetaminophen 325 mg Tablet 650 mg PO Q6H PRN PRN (Reason: Pain 1-10 Or Fever >100.7) Qty: 30 0RF [facility] - As soon as possible Print Language: Kenyan
[2025-06-02 20:19] LABS: AST(SGOT) 206 U/L (<=37); Alanine Aminotransfer ALT/SGPT 92 U/L (<=46); Albumin, Serum 4.6 g/dL (3.4-4.8); Alkaline Phosphatase 124 U/L (40-129); Anion Gap 26 (5-15); BUN 7 mg/dL (4-19); BUN/Creat Ratio 11.1 RATIO (10-20); Calcium,Total 9.3 mg/dL (7.6-11.0); Carbon Dioxide 16.7 mmol/L (21.0-32.0); Chloride 94 mmol/L (98-108); Estimated Creatinine Clearance 93.87 ml/min (50-250); Globulin 3.5 g/dL (2.2-4.2); Glucose 101 mg/dL (70-99); Potassium 4.6 mmol/L (3.3-5.1)
[2025-06-02 20:58] LABS: Hematocrit 38.4 % (40-54); Hemoglobin 12.6 g/dL (13.0-16.5); Immature Granulocytes Count 0.060 X10^3/uL (0.0-0.0); Mean Corp Hgb Conc 32.8 g/dL (32-36); Mean Corpuscular Volume 100.5 fL (80-94); Mean Platelet Vol. 9.3 fl (6.2-12.0); NRBC Flagged by Analyzer 0 % (0-5); POSITIVE MORPHOLOGY YES; Platelet Count 377 K/mm3 (150-450); RBC Distribution Width CV 17.6 % (11.6-14.6); RBC Distribution Width SD 65.6 fl (35.1-43.9); Red Blood Count 3.82 M/mm3 (4.6-6.2); White Blood Count 11.0 K/mm3 (4.4-11.0)
[2025-06-02 20:59] LABS: Alcohol, Blood (Medical)-Serum 355.0 mg/dL (<=10.0)
[2025-06-02 21:03] VITALS: BP 116/72; PULSE 92; RESP 20; O2SAT 96
[2025-06-02 21:07] LABS: Differential Indicated SCAN CRITERIA MET
[2025-06-02] MEDS: 0.9% Normal Saline (1000mL) 1,000 ML 999 ML IV (22:21)
[2025-06-02 22:25] LABS: Anisocytosis 2+; Differential Comment SCANNED
[2025-06-02 22:26] LABS: Polychromasia 1+
[2025-06-02 23:00] VITALS: BP 111/67; PULSE 87
[2025-06-03 00:48] VITALS: BP 113/69; PULSE 85; RESP 18; TEMP 36.7; O2SAT 99
== END 2025-06-03 00:49 | disposition home or self-care (01) ==
PROVIDERS: Emergency Provider Emergency Medicine; Visit Provider Emergency Medicine
DX: R53.1 Weakness (principal); F10.129 Alcohol abuse with intoxication, unspecified; I10 Essential (primary) hypertension; R42 Dizziness and giddiness; Y90.8 Blood alcohol level of 240 mg/100 ml or more
CPT/HCPCS: 80053; 82077; 82962; 85025; 93005; 96360; 99285; A4216

== ENCOUNTER 2025-06-18 13:17 | Emergency (ER) | payer OTHER, SELFPAY ==
[2025-06-18 13:19] VITALS: BP 135/85; PULSE 127; RESP 16; TEMP 37.3; O2SAT 96; BMI 20.7
--- NOTE | 2025-06-18 13:30 | RAD_ITS ---
PROCEDURE: HIP, UNI W/ PELVIS 2-3 VIEWS 06/18/2025 REASON FOR EXAM: INJURY/PAIN TECHNIQUE: HIP, UNI W/ PELVIS 2-3 VIEWS Laterality: Right COMPARISON: None FINDINGS: Bones: No acute bony abnormalities Joints: No dislocations. Soft tissues: No soft tissue abnormalities. RAD/HIP, UNI W/ Pelvis 2-3 Views IMPRESSION: No acute bony abnormalities. Reading Location: [id number]
--- NOTE | 2025-06-18 13:37 | EDS_ITS ---
HPI History of Present Illness Chief Complaint: Fall Detail of Chief Complaint: Patient fell from porch injuring his left hip. Informant: patient Onset/Context/Timing Onset: Yesterday Mechanism/Context: Blunt Injury and Fall Location of pain/injuries: Left hip Quality of Pain: Dull and Aching Location: Left greater trochanteric region Current Severity: Mild Maximum Severity: Severe Worsened by: Movement and unable to walk Relieved by: Nothing Associated Symptoms Associated Symptoms: Positive for Parasthesias, Weakness, Loss of function and Inability to ambulate; Negative for Loss of consciousness or Amnesia Narrative Narrative: Patient is a 59-year-old male. He apparently was at a libertarian drinking. He is covered in shaving cream. He states that the woman he was with was into it so he was into it. Somehow when she was putting shaving cream on him he fell off the porch. Patient is in the same close he was wearing yesterday. Has not been able to get up from the ground or walk. He denies headache. Denies double vision, blurred vision loss of vision. Eyes thomas ears decreased hearing. Has trouble with his speech or swallowing. He denies chest pain or shortness of breath. He denies low back pain. He denies abdominal pain. He localizes pain to the left greater trochanteric region. There is a bruise noted in the area. Prior similar symptoms: No Recent Illness/Hospitalization: No PFSH PFS Medical History Alcohol abuse Anemia Substance abuse Alcohol abuse Smoker Hypertension Home Medications ?Medication ?Instructions ?Recorded ?Last Taken ?Type atenolol 25 mg tablet 25 mg PO DAILY BP 08/27/22 0 06/17/25 History Allergy/AdvReac Type Severity Reaction Status Date / Time No Known Allergies Allergy Verified 06/18/25 13:19 Family History Other Heart disease Social History (Updated 06/18/25 @ 13:[address] Sarwat Dodson MD) Smoking Status: Heavy Smoker (>10/day) alcohol intake: current ROS ROS ED Constitutional Constitutional ED: Denies chills, fever(s), subjective or sweats Eyes Eyes: Denies blurry vision or change in vision ENT ENT ED: Denies ear pain, rhinorrhea or sore throat Cardiovascular Cardiovascular: Denies chest pain or palpitations Respiratory/Chest Respiratory/Chest: Denies cough or dyspnea Gastrointestinal Gastrointestinal: Denies abdominal pain, nausea or vomiting Genitourinary Genitourinary ED: Reports other Details: There is no blood noted. Patient is presently wearing a diaper. Musculoskeletal Musculoskeletal: Denies arthralgias or myalgias Integumentary Reports other Details: Redness bruising near the left greater trochanteric region. ; Denies rash Neurologic Neurologic: Denies headache(s) or paresthesias Endocrine Endocrinology: Denies cold intolerance or heat intolerance Hematologic/Lymphatic Hematologic/Lymphatic: Denies easy bleeding or easy bruising EXAM Physical Exam Const Vital Signs: 06/18/25 13:19 06/18/25 13:25 Temperature 99.1 F Temperature Source Oral Pulse Rate 127 H Respiratory Rate 16 Respiratory Effort Normal Non-Labored Respiratory Depth Normal Respiratory Pattern Normal Blood Pressure 135/85 H Blood Pressure Mean 101 Pulse Ox 96 Oxygen Delivery Method Room Air Positive well nourished and well developed General Appearance ED: well developed and NAD HEENT Reports TM's clear HEENT Narrative: No clinical findings of basilar skull fracture or head trauma. atraumatic; Negative for tenderness Nose: Negative for septum abnormal Tympanic Membrane ED: Yes TM's clear Eyes PERRL and EOMs intact bilaterally General Eye ED: Yes other Other Details: No nystagmus. No subconjunctival hemorrhage. Neck full ROM General: Negative for tenderness Chest Wall inspection of chest normal and palpation of chest normal Resp normal respiratory effort and clear to auscultation bilaterally Cardio regular rhythm, S1 normal heart sound, S2 normal heart sound and no murmurs Rate: regular rate GI normal to inspection, nondistended, normoactive bowel sounds, non-tender, non- distended and no masses Back/Spine no thoracic nor lumbar tenderness Extremity Extremity Narrative: Patient has pain in the groin left greater trochanteric region with logrolling of his left lower extremity. He does have a distal pulse. There is no evidence of trauma to the knee or ankle. Patient has an abrasion noted proximal lateral left elbow. There is no point tenderness over the lateral medial epicondyle, olecranon process or radial head with supination pronation. Axillary, median, radial and ulnar function intact. Neuro oriented x3, CN's II-XII intact bilaterally, moves all extremities, no focal motor deficits, no sensory deficits noted and No gait normal Sarah Coma Scale: document GCS findings Spontaneous Obeys Commands Oriented 15 Sensorium / Orientation: alert Psych mental status grossly normal and thought process normal Skin Skin Narrative: Abrasion left upper extremity and bruising left hip region MDM MDM MDM Narrative Medical decision making narrative: Since there is no obvious findings of hip fracture we will obtain an x-ray. If the x-ray reveals a fracture we will obtain EKG appropriate blood work for preoperative restratification and admission Lab Data Labs: Laboratory Results - last 24 hr 06/18/25 13:55 Sodium 143 Potassium 4.0 Chloride 103 Carbon Dioxide 22.8 Anion Gap 17 H BUN 5 Creatinine 0.62 L Estim Creat Clear Calc 97.16 Est GFR (MDRD) Non-Af 109 BUN/Creatinine Ratio 7.8 L Glucose 97 Calcium 9.3 Radiography Chest X-Ray - ED: Read by ED Physician (Three-view x-ray of the left hip was independent reviewed interpreted by me as negative. Nurse was asked to ambulate the patient. Furthermore there is no evidence of fracture of the pelvis. X-ray was interpreted by me at 1349. X-rays interpreted by me at 1349.) and - (X-ray interpreted by me at 1348.) Diagnostic Testing: Clinical Impression(s) from Imaging Studies Hip/Pelvis X-Ray 06/18/25 13:30 IMPRESSION: No acute bony abnormalities. Reading Location: [facility] Treatment and Re-Evaluation Narrative: Patient was able to put weight on his leg. He complained of pain. This is probably due to his bruise since there is no evidence of fracture. Patient was reassessed at 1505. He is received his 500 cc bolus. Does not have an urge to urinate. His heart rate did improve. Heart rate is approximately 110. Additional bolus was ordered. Plan is to discharge after second bolus. Patient has received total of 20 cc/kg. Discharge Plan Triage Chief Complaint: Fall ED Provider: Sarwat Dodson Dx/Rx/DC Orders Clinical Impression: Contusion of hip, left, Abrasion of elbow, left, Sinus tachycardia, Dehydration, moderate, Injury due to fall Instructions: ED Abrasion, ED Hip Contusion Prescriptions: No Action atenolol 25 mg Tablet 25 mg PO DAILY [facility] - 1 Week if not improving Print Language: Greenlandic Disposition Disposition: Home, Self Care
[2025-06-18] MEDS: 0.9% Normal Saline (500mL Bag) 500 ML 1000 ML IV ×2 (14:03→15:32)
--- NOTE | 2025-06-18 14:09 | ED.RN ---
Attempted to ambulate Pt. Pt able to bear some weight on left foot but unable to take more than a few limping steps stating that it is too painful to walk on it.
--- OUTSIDE RECORDS SUMMARY | 2025-06-18 14:13 | XMS RPT_ITS | CCD ---
Author Organization [facility] Care Team Providers Care Buggyman Name Role Phone TIARRA TERRY, DR MARY Sharma Primary Care Physician [place], [place] Primary Care Provider Dr. Meek Moralez Emergency Provider Dr. Memo Gamez Admit Provider Dr. Memo Gamez Attending Provider Dr. Memo Gamez Other Provider Dr. Jeri Rosas Attending Provider Dr. Jeri Rosas Other Provider Friend, Dr. Medina Attending Provider KERRY TERRY, DR RIP Harp Admitting [place] PAYNE MD, DR RIP Harp Attending [place] huynh [facility] Primary Care Unavailable [facility] Primary Care Unavailable TOM ANDERSON MD Attending Unavail BRIAN Nathan MD Attending MARY Tavares MD Primary Care Unavailable BRIAN WALKER MD Referring Unavailable [place], [place] Primary Care Provider Dr. Radu Martinez DO Emergency Provider Dr. Valencia Wen MD Admit Provider Dr. Valencia Wen MD Attending Provider Dr. Valencia Wen MD Other Provider Tim TERRY, Dr. Sheron Werner Attending Provider [place], [place] Primary Care Provider Unavailquique Fong MD, Dr. Nicole Attending Provider Dr. Sheron Dumont MD Other Provider Michael Saldivar MD Emergency Provider Michael Saldivar Attending [facility] [place] Primary [place] [facility] Unavailable Corey Fong Attending [facility], [facility] Unavailable WenValencia Admitting Unavailable Wen, Valencia Consulting Unavailable Valencia Wen Attending Unavailable Sheron Dumont Attending Unavailable Sheron Dumont Consulting [facility] Unavailable Sheron Dumont Attending Unavailable WenValencia Admitting Unavailable [place], Valencia Consulting Unavailable Medications Current Medications Medication Drug Class(es) Dates Sig (Normalized) Sig (Original) acetaminophen 325 mg oral tablet (2 sources) Start: 05-27-2025 Acetaminophen 325 mg Tablet Active 650 mg PO EVERY 6 HOURS NEEDED as needed for Pain 1-10 Or Fever >100.7 30 0 May 27, 2025 12:00am albuterol MDI (90 mcg/inh) CFC free inhalation aerosol (1 source) Start: 12-31-2023 take 2 puff(s) by inhalation every six hours albuterol MDI (90 mcg/inh) CFC free inhalation aerosol 2 puff(s), Inhalation, q6h, # 8.5 gram(s), 0 Refill(s) Start Date: 12/31/23 Status: Ordered ascorbic acid 500 mg oral tablet (6 sources) Vitamin C Start: 08-29-2022 take 1 tablet by mouth once daily Ascorbic Acid (Vitamin C) (Vitamin C) 500 mg tablet Active 500 mg PO DAILY 30 30 0 August 29, 2022 12:00am atenolol 50 mg oral tablet (9 sources) beta-Adrenergic Cristhian Start: 12-31-2023 End: 01-14-2024 atenolol 50 mg oral tablet Dose : 50 mg = 1 tab(s), Oral, qDay, # 14 tab(s), 0 Refill(s) Start Date: 12/31/23 Stop Date: 01/14/24 Status: Ordered Start: 08-27-2022 take 1 tablet by mouth once da monica Atenolol 25 mg Tablet Active 25 mg PO DAILY August 27, 2022 12:00am BP Start: 09-17-2014 atenolol Oral, qDay Start Date: 09/17/14 Status: Ordered benzonatate 100 mg oral capsule (1 source) Non-narcotic Antitussive Start: 12-31-2023 End: 01-07-2024 Teskeyanna Perles 100 mg oral capsule Dose : 100 mg = 1 cap(s), Oral, TID, X 7 day(s), # 21 cap(s), 0 Refill(s), 01/07/24 6:11:00 PM EST Start Date: 12/31/23 Stop Date: 01/07/24 Status: Ordered diazePAM 2 mg oral tablet (4 sources) Benzodiazepine Start: 07-14-2023 take 1 tablet by mouth three times daily as needed Diazepam 2 mg tablet Active 2 mg PO 3 TIMES DAILY NEEDED as needed for Vertigo 10 July 14, 2023 12:00am dicloxacillin 500 mg oral capsule (1 source) Penicillin-class Antibacterial Start: 05-27-2018 take 500 mg by mouth every six hours Dicloxacillin Active 500 MG PO EVERY 6 HOURS 28 May 27, 2018 12:00am docusate sodium 50 mg / sennosides, halfway 8.6 mg oral tablet (6 sources) Start: 08-29-2022 Sennosides-Docusat e Sodium (Senokot-S) 8.6-50 mg tablet Active 1 NMA PO TWICE A DAY as needed for constipation 60 30 0 August 29, 2022 11:30am ferrous sulfate 325 mg oral tablet (6 sources) Start: 08-29-2022 take 1 tablet by mouth twice daily Ferrous Sulfate (Iron (Ferrous Sulfate)) 325 mg (65 mg iron) tablet Active 325 mg PO TWICE A DAY 60 30 0 August 29, 2022 12:00am lisinopril 10 mg oral tablet (1 source) Angiotensin Converting Enzyme Inhibitor Start: 05-27-2018 take 10 mg by mouth once daily Lisinopril Active 10 MG PO DAILY May 27, 2018 12:00am omeprazole 20 mg delayed release oral capsule (1 source) Proton Pump Inhibitor Start: 09-17-2014 omeprazole 20 mg oral delayed release capsule (NF) Dose : 20 mg = 1 cap(s), Oral, BIDAC Start Date: 09/17/14 Status: Ordered ondansetron 4 mg oral tablet (1 source) Serotonin-3 Receptor Antagonist Start: 12-31-2023 End: 01-03-2024 Zofran 4 mg oral tablet Dose : 4 mg = 1 tab(s), Oral, q6h, PRN As needed for nausea and vomiting, X 3 day(s), # 12 tab(s), 0 Refill(s), 01/03/24 6:11:00 PM EST Start Date: 12/31/23 Stop Date: 01/03/24 Status: Ordered pantoprazole 40 mg delayed release oral tablet (6 sources) Proton Pump Inhibitor Start: 08-29-2022 take 1 tablet by mouth twice daily Pantoprazole 40 mg tablet,delayed release (DR/EC) Active 40 mg PO TWICE A DAY 60 30 0 August 29, 2022 12:00am Completed/Discontinued Medications Medication Drug Class(es) Dates Sig (Normalized) Sig (Original) dicyclomine hydrochloride 20 mg oral tablet (1 source) Anticholinergic Start: 09-17-2014 End: 09-22-2014 Bentyl 20 mg oral tablet Dose : 20 mg = 1 tab(s), PO, QID, PRN as needed for abd pain, # 20 tab(s), 0 Refill(s) Start Date: 09/17/14 Stop Date: 09/22/14 Status: Ordered Labetalol (1 source) beta-Adrenergic Cristhian Start: 12-31-2023 End: 12-31-2023 labetalol Start: 12/31/23 6:15:00 PM EST, Dose = 20 mg, = 4 mL, IV Push, Once, Stop: 12/31/23 6:28:30 PM EST, 12/31/23 18:08:00 EST Start Date: 12/31/23 Stop Date: 12/31/23 Status: Completed Problems Problem Classification Problem Date Documented Da te Episodic/Chronic Alcohol-related disorders (12 sources) Alcohol abuse; Translations: [Alcohol abuse, uncomplicated] Onset: 05-27-2025 Chronic Alcohol-related disorders (1 source) Alcohol use, unspecified with intoxication, unspecified; Translations: [Acute alcoholic intoxication] 06-02-2025 Episodic Conditions associated with dizziness or vertigo (10 sources) Lightheadedness; Translations: [Dizziness and giddiness] Onset: 06-15-2025 07-14-2023 Episodic Deficiency and other anemia (7 sources) Anemia; Translations: [Anemia, unspecified] 08-26-2022 Episodic Deficiency and other anemia (2 sources) Anemia, unspecified; Translations: [Anemia, unspecified] Episodic Essential hypertension (2 sources) Hypertensive disorder 09-17-2014 Chronic Fluid and electrolyte disorders (9 sources) Acute hypokalemia; Translations: [Hypokalemia] Episodic Gastroduodenal ulcer (except hemorrhage) (2 sources) Peptic ulcer 09-17-2014 Chronic Malaise and fatigue (1 source) Weakness; Translations: [Weakness] Onset: 06-10-2025 Episodic Syncope (5 sources) Syncope; Translations: [Syncope and collapse] Onset: 05-27-2025 05-25-2025 Episodic Viral infection (1 source) Viral disease; Translations: [Other viral agents as the cause of diseases classified elsewhere] Onset: 08-15-2022 Episodic Results Test Name Value Interpretation Reference Range Facility Basic Metabolic Profile (BMP )on 06-03-2025 BUN Normal 4-19 [facility] Comment on above: Result Comment: Canc elled via OM: Order cancelled - Patient discharged Performed By: #### L 100.0100, L500.2500 #### [facility] [address] [facility] [address] BUN/CRE Normal 10-20 [facility] Comment on above: Result Comment: Canc elled via OM: Order cancelled - Patient discharged Performed By: #### L 100.0100, L500.2500 #### [facility] [address] [place], [address] Calcium Normal 7.6-11.0 [facility] Comment on above: Result Comment: Canc elled via OM: Order cancelled - Patient discharged Performed By: #### L 100.0100, L500.2500 #### [facility] [address] [facility] [address] CL Normal 98-108 [facility] Comment on above: Result Comment: Canc elled via OM: Order cancelled - Patient discharged Performed By: #### L 100.0100, L500.2500 #### [facility] [address] [place], [address] CO2 Normal 21.0-32.0 [facility] Comment on above: Result Comment: Canc elled via OM: Order cancelled - Patient discharged Performed By: #### L 100.0100, L500.2500 #### [facility] [address] [place], [address] CREAT,SERUM Normal 0.70-1.20 [facility] Comment on above: Result Comment: Canc elled via OM: Order cancelled - Patient discharged Performed By: #### L 100.0100, L500.2500 #### [facility] [address] [place], [address] eGFR Normal >60 [facility] Comment on above: Result Comment: Canc elled via OM: Order cancelled - Patient discharged Performed By: #### L 100.0100, L500.2500 #### [facility] [address] [place], [address] GAP Normal 5-15 [facility] Comment on above: Result Comment: Canc elled via OM: Order cancelled - Patient discharged Performed By: #### L 100.0100, L500.2500 #### [facility] [address] [place], [address] GLU Normal 70-99 [facility] Comment on above: Result Comment: Canc elled via OM: Order cancelled - Patient discharged Performed By: #### L 100.0100, L500.2500 #### [facility] [address] [place], [address] Potassium Normal 3.3-5.1 [facility] Comment on above: Result Comment: Canc elled via OM: Order cancelled - Patient discharged Performed By: #### L 100.0100, L500.2500 #### [facility] [address] [place], [address] Basic Metabolic Profile (BMP) Normal 133-145 [facility] Comment on above: Result Comment: Canc elled via OM: Order cancelled - Patient discharged Performed By: #### L 100.0100, L500.2500 #### [facility] [address] [place], [address] CBC W/Diff, Automatedon 08-0 Absolute Neut Normal 2.0-7.7 [facility] Comment on above: Result Comment: Canc elled via OM: Order cancelled - Patient discharged Performed By: #### L 100.0100, L500.2500 #### [facility] [address] [place], [address] HCT Normal 40-54 [facility] Comment on above: Result Comment: Canc elled via OM: Order cancelled - Patient discharged Performed By: #### L 100.0100, L500.2500 #### [facility] [address] [place], [address] HGB Normal 13.0-16.5 [facility] Comment on above: Result Comment: Canc elled via OM: Order cancelled - Patient discharged Performed By: #### L 100.0100, L500.2500 #### [facility] [address] [place], [address] MCH Normal 27.0-32.0 [facility] Comment on above: Result Comment: Canc elled via OM: Order cancelled - Patient discharged Performed By: #### L 100.0100, L500.2500 #### [facility] [address] [place], [address] MCHC Normal 32-36 [facility] Comment on above: Result Comment: Canc elled via OM: Order cancelled - Patient discharged Performed By: #### L 100.0100, L500.2500 #### [facility] [address] [place], [address] MCV Normal 80-94 [facility] Comment on above: Result Comment: Canc elled via OM: Order cancelled - Patient discharged Performed By: #### L 100.0100, L500.2500 #### [facility] [address] [place], [address] NEUT% Normal 47-70 [facility] Comment on above: Result Comment: Canc elled via OM: Order cancelled - Patient discharged Performed By: #### L 100.0100, L500.2500 #### [facility] [address] [place], [address] PLT Normal 150-450 [facility] Comment on above: Result Comment: Canc elled via OM: Order cancelled - Patient discharged Performed By: #### L 100.0100, L500.2500 #### [facility] [address] [place], [address] RBC Normal 4.6-6.2 [facility] Comment on above: Result Comment: Canc elled via OM: Order cancelled - Patient discharged Performed By: #### L 100.0100, L500.2500 #### [facility] [address] [place], [address] RDW CV Normal 11.6-14.6 [facility] Comment on above: Result Comment: Canc elled via OM: Order cancelled - Patient discharged Performed By: #### L 100.0100, L500.2500 #### [facility] [address] [place], [address] RDW SD Normal 35.1-43.9 [facility] Comment on above: Result Comment: Canc elled via OM: Order cancelled - Patient discharged Performed By: #### L 100.0100, L500.2500 #### [facility] [address] [place], [address] WBC Normal 4.4-11.0 [facility] Comment on above: Result Comment: Canc elled via OM: Order cancelled - Patient discharged Performed By: #### L 100.0100, L500.2500 #### [facility] [address] [place], [address] 12 Lead EKGon 06-02-2025 12 Lead EKG [facility] [address] [place] [address] 12 Lead EKG 06/02/251946 MR#: [id number] Acct: [id number] Name: MARVIN IZQUIERDO Rep #: [id number] : 1965 59 From: Michael Ervin MD Attending Dr: Status: DEP ER Ordering Dr: Michael Saldivar MD Date: 06/02/25 Location: ED Sex: M C Admitted: Test Reason : WEAKNESS Blood Pressure : */* mmHG Vent. Rate : 90 BPM Atrial Rate : 90 BPM P-R Int : 172 ms QRS Dur : 92 ms QT Int : 408 ms P-R-T Axes : 52 -26 57 degrees QTcB Int : 499 ms Normal sinus rhythm QTcB >= 480 msec Abnormal ECG Confirmed by MICHAEL ERVIN MD ([id number]), supervising editor trailer GREGG BLOOM ([id number]) on 06/06/2025 7:02:04 AM Referred By: RYANNE Confirmed By: MICHAEL ERVIN MD 06/06/25 0702 Date Michael Ervin MD CC: Dr. Michael Saldivar MD; [facility] Signed Normal [facility] Absolute lymphocyte countOrd ered By: Michael Saldivar on 06-02-2025 Lymphocytes Auto (Unsp spec) [#/Vol] 0.92 10*3/uL 0.83-4.51 [facility] Absolute neutrophil countOrd ered By: Michael Saldivar on 06-02-2025 Neutrophils (Bld) [#/Vol] 9.1 10*3/uL High 2.0-7.7 [facility] Alcohol, Blood (Medical)-Ser umon 06-02-2025 SERUM ETOH 355.0 mg/dL Invalid Interpretation Code <=10.0 [facility] Comment on above: Result Comment: Crit ical Result(s) Called at: 2057 by: DAVID LOZANO TO FELIPA DAVISON??Results read back by same. This test is for medical purposes only. The legal definition of intoxication varies according to local law. Performed By: #### L 100.0100, L500.2500 #### [facility] [address] [place], [address] Anion gap in Serum or Plasma Ordered By: Michael Saldivar on 06-02-2025 Anion gap [Moles/Vol] 26 mmol/L High 5-15 [facility] Automated lymphocyte count a s percentage of total leukocytesOrdered By: Michael Saldivar on 06-02-2025 Lymphocytes/100 WBC Auto (Unsp spec) 8.4 % Low 19-41 [facility] BUN/creatinine ratioOrdered By: Michael Saldivar on 06-02-2025 Urea nitrogen/Creatinine [Mass ratio] 11.1 mg/mg 10-20 [facility] Basic Metabolic Profile (BMP )on 06-02-2025 BUN Normal 4-19 [facility] Comment on above: Result Comment: Canc elled via OM: Order cancelled - Patient discharged Performed By: #### L 100.0100, L500.2500 #### [facility] [address] [place], [address] BUN/CRE Normal 10-20 [facility] Comment on above: Result Comment: Canc elled via OM: Order cancelled - Patient discharged Performed By: #### L 100.0100, L500.2500 #### [facility] [address] [place], [address] Calcium Normal 7.6-11.0 [facility] Comment on above: Result Comment: Canc elled via OM: Order cancelled - Patient discharged Performed By: #### L 100.0100, L500.2500 #### [facility] [address] [place], [address] CL Normal 98-108 [facility] Comment on above: Result Comment: Canc elled via OM: Order cancelled - Patient discharged Performed By: #### L 100.0100, L500.2500 #### [facility] [address] [place], [address] CO2 Normal 21.0-32.0 [facility] Comment on above: Result Comment: Canc elled via OM: Order cancelled - Patient discharged Performed By: #### L 100.0100, L500.2500 #### [facility] [address] [place], [address] CREAT,SERUM Normal 0.70-1.20 [facility] Comment on above: Result Comment: Canc elled via OM: Order cancelled - Patient discharged Performed By: #### L 100.0100, L500.2500 #### [facility] [address] [place], [address] eGFR Normal >60 [facility] Comment on above: Result Comment: Canc elled via OM: Order cancelled - Patient discharged Performed By: #### L 100.0100, L500.2500 #### [facility] [address] [place], [address] GAP Normal 5-15 [facility] Comment on above: Result Comment: Canc elled via OM: Order cancelled - Patient discharged Performed By: #### L 100.0100, L500.2500 #### [facility] [address] [place], [address] GLU Normal 70-99 [facility] Comment on above: Result Comment: Canc elled via OM: Order cancelled - Patient discharged Performed By: #### L 100.0100, L500.2500 #### [facility] [address] [place], [address] Potassium Normal 3.3-5.1 [facility] Comment on above: Result Comment: Canc elled via OM: Order cancelled - Patient discharged Performed By: #### L 100.0100, L500.2500 #### [facility] [address] [place], [address] Basic Metabolic Profile (BMP) Normal 133-145 [facility] Comment on above: Result Comment: Canc elled via OM: Order cancelled - Patient discharged Performed By: #### L 100.0100, L500.2500 #### [facility] [address] [place], [address] Basophil percentageOrdered B y: Michael Saldivar on 06-02-2025 Basophils/100 WBC (Bld) 0.7 % 0-1 [facility] Bedside Glucoseon 06-02-2025 FINGERSTICK GLU 95 mg/dL Normal 74-106 [facility] Comment on above: Result Comment: LOUIE DEJESUS OF PATIENT CARE PER NURSING PROTOCOL Performed By: #### L 501.080 #### [facility] [address] [place], [address] Bilirubin, totalOrdered By: Michael Saldivar on 06-02-2025 Bilirubin [Mass/Vol] 0.33 mg/dL 0.00-1.30 [facility] Blood manual differential co mment interpretation (narrative result)Ordered By: Michael Saldivar on 06-02-2025 Manual differential comment Daryl (Bld) [Interp] SCANNED [facility] Blood polychromasia detectio n by light microscopyOrdered By: Michael Saldivar on 06-02-2025 Polychromasia LM Ql (Bld) 1+ [facility] CBC W/Diff, Automatedon - POLYCHROMASIA 1+ Normal [facility] Comment on above: Performed By: #### L 100.0100, L500.2500 #### [facility] [address] [place], [address] Anisocytosis Ql (Bld) 2+ Normal [facility] Comment on above: Performed By: #### L 100.0100, L500.2500 #### [facility] [address] [place], [address] PLT EST ADEQUATE Normal ADEQ [facility] Comment on above: Performed By: #### L 100.0100, L500.2500 #### [facility] [address] [place], [address] SMEAR COMMENT SCANNED Normal [facility] Comment on above: Performed By: #### L 100.0100, L500.2500 #### [facility] [address] [place], [address] Absolute Neut Normal 2.0-7.7 [facility] Comment on above: Result Comment: Canc elled via OM: Order cancelled - Patient discharged Performed By: #### L 100.0100, L500.2500 #### [facility] [address] [place], [address] HCT Normal 40-54 [facility] Comment on above: Result Comment: Canc elled via OM: Order cancelled - Patient discharged Performed By: #### L 100.0100, L500.2500 #### [facility] [address] [place], [address] HGB Normal 13.0-16.5 [facility] Comment on above: Result Comment: Canc elled via OM: Order cancelled - Patient discharged Performed By: #### L 100.0100, L500.2500 #### [facility] [address] [place], [address] MCH Normal 27.0-32.0 [facility] Comment on above: Result Comment: Canc elled via OM: Order cancelled - Patient discharged Performed By: #### L 100.0100, L500.2500 #### [facility] [address] [place], [address] MCHC Normal 32-36 [facility] Comment on above: Result Comment: Canc elled via OM: Order cancelled - Patient discharged Performed By: #### L 100.0100, L500.2500 #### [facility] [address] [place], [address] MCV Normal 80-94 [facility] Comment on above: Result Comment: Canc elled via OM: Order cancelled - Patient discharged Performed By: #### L 100.0100, L500.2500 #### [facility] [address] [place], [address] NEUT% Normal 47-70 [facility] Comment on above: Result Comment: Canc elled via OM: Order cancelled - Patient discharged Performed By: #### L 100.0100, L500.2500 #### [facility] [address], [address] PLT Normal 150-450 [facility] Comment on above: Result Comment: Canc elled via OM: Order cancelled - Patient discharged Performed By: #### L 100.0100, L500.2500 #### [facility] [address] [place], [address] RBC Normal 4.6-6.2 [facility] Comment on above: Result Comment: Canc elled via OM: Order cancelled - Patient discharged Performed By: #### L 100.0100, L500.2500 #### [facility] [address] [place], [address] RDW CV Normal 11.6-14.6 [facility] Comment on above: Result Comment: Canc elled via OM: Order cancelled - Patient discharged Performed By: #### L 100.0100, L500.2500 #### [facility] [address] [place], [address] RDW SD Normal 35.1-43.9 [facility] Comment on above: Result Comment: Canc elled via OM: Order cancelled - Patient discharged Performed By: #### L 100.0100, L500.2500 #### [facility] [address] [place], [address] WBC Normal 4.4-11.0 [facility] Comment on above: Result Comment: Canc elled via OM: Order cancelled - Patient discharged Performed By: #### L 100.0100, L500.2500 #### [facility] [address] [place], [address] Carbon dioxide, total [Moles /volume] in Central venous bloodOrdered By: Michael Saldivar on 06-02-2025 CO2 [Moles/Vol] 16.7 mmol/L Low 21.0-32.0 [facility] Chloride assayOrdered By: Juan A Saldivar on 06-02-2025 Chloride [Moles/Vol] 94 mmol/L Low 98-108 [facility] Comprehensive Metabolic Prof ilon 06-02-2025 Albumin [Mass/Vol] 4.6 g/dL Normal 3.4-4.8 [facility] Comment on above: Performed By: #### L 100.0100, L500.2500 #### [facility] [address] [place], [address] Albumin/Globulin [Mass ratio] 1.3 {ratio} Normal 0.9-2.4 [facility] Comment on above: Performed By: #### L 100.0100, L500.2500 #### [facility] [address] [place], [address] ALK PHOS 124 U/L Normal 40-129 [facility] Comment on above: Performed By: #### L 100.0100, L500.2500 #### [facility] [address] [place], [address] ALT [Catalytic activity/Vol] 92 U/L High <=46 [facility] Comment on above: Performed By: #### L 100.0100, L500.2500 #### [facility] [address] [place], [address] AST [Catalytic activity/Vol] 206 U/L High <=37 [facility] Comment on above: Performed By: #### L 100.0100, L500.2500 #### [facility] [address] [place], [address] Bilirubin [Mass/Vol] 0.33 mg/dL Normal 0.00-1.30 [facility] Comment on above: Performed By: #### L 100.0100, L500.2500 #### [facility] [address] [place], [address] BUN/CRE 11.1 RATIO Normal 10-20 [facility] Comment on above: Performed By: #### L 100.0100, L500.2500 #### [facility] [address] [place], [address] Calcium [Mass/Vol] 9.3 mg/dL Normal 7.6-11.0 [facility] Comment on above: Performed By: #### L 100.0100, L500.2500 #### [facility] [address] [place], [address] Chloride [Moles/Vol] 94 mmol/L Low 98-108 [facility] Comment on above: Performed By: #### L 100.0100, L500.2500 #### [facility] [address] [place], [address] CO2 [Moles/Vol] 16.7 mmol/L Low 21.0-32.0 [facility] Comment on above: Performed By: #### L 100.0100, L500.2500 #### [facility] [address] [place], [address] Creatinine [Mass/Vol] 0.63 mg/dL Low 0.70-1.20 [facility] Comment on above: Performed By: #### L 100.0100, L500.2500 #### [facility] [address] [place], [address] ECRCL 93.87 ml/min Normal 50-250 [facility] Comment on above: Performed By: #### L 100.0100, L500.2500 #### [facility] [address] [place], [address] GAP 26 High 5-15 [facility] Comment on above: Performed By: #### L 100.0100, L500.2500 #### [facility] [address] [place], [address] GFR/1.73 sq M.predicted among non-blacks MDRD (S/P/Bld) [Vol rate/Area] 108 mL/min/{1.73_m2} Normal >60 [facility] Comment on above: Result Comment: mL/m in/1.73m2 CKD-EPI Creatinine Equation (2020) Performed By: #### L 100.0100, L500.2500 #### [facility] [address] [place], [address] Globulin (S) [Mass/Vol] 3.5 g/dL Normal 2.2-4.2 [facility] Comment on above: Performed By: #### L 100.0100, L500.2500 #### [facility] [address] [place], [address] Glucose [Mass/Vol] 101 mg/dL High 70-99 [facility] Comment on above: Performed By: #### L 100.0100, L500.2500 #### [facility] [address] [place], [address] Potassium [Moles/Vol] 4.6 mmol/L Normal 3.3-5.1 [facility] Comment on above: Performed By: #### L 100.0100, L500.2500 #### [facility] [address] [place], [address] Sodium [Moles/Vol] 136 mmol/L Normal 133-145 [facility] Comment on above: Performed By: #### L 100.0100, L500.2500 #### [facility] [address] [place], [address] T PROT 8.1 g/dL Normal 5.9-8.4 [facility] Comment on above: Performed By: #### L 100.0100, L500.2500 #### [facility] [address] [place], [address] Urea nitrogen [Mass/Vol] 7 mg/dL Normal 4-19 [facility] Comment on above: Performed By: #### L 100.0100, L500.2500 #### [facility] [address] [place], [address] Emergency Department Summary on 06-02-2025 Emergency Department Summary [facility] Medical Records Department [address] [place] [address] Emergency Department Summary 06/02/25 MR#: [id number] Acct: [id number] Name: MARVIN IZQUIERDO Rep #: [id number] : 1965 59 From: Michael Saldivar MD PCP: [facility] Status:REG ER Location: ED ADDENDUM by Yunier Mendoza DO on 06/03/25 at 0038 The patient was signed out to me while awaiting improvement secondary to his alcohol use. The patient was reevaluated at approximately 12:30 AM and at this time he is clinically sober. He is able to ambulate with a steady gait and talking in complete sentences without slurred speech. Therefore his vitals are stable and his workup shows no clinically significant findings or need for blood transfusion there is no need for further intervention in the ER. The patient at this time is clinically sober and he is going to be picked up by a sober responsible adult. Therefore he is safe for discharge 06/03/25 0038 Cosigner Signature (if applicable): cc: [facility] * Signed ADDENDUM by Dr. Michael Saldivar MD on 06/02/25 at 2206 EKG obtained and interpreted by myself independently as normal sinus rhythm at [address] changes. No STEMI. 06/02/252205 Cosigner Signature (if applicable): cc: [facility] * Signed HPI History of Present Illness Chief Complaint: Weakness Narrative Narrative: 59-year-old male presents via EMS with alcohol intoxication, and episodic lightheadedness and dizziness. He states he thinks he is a blood transfusion. He has a history of anemia. He states he was in the emergency department previously last week and they took 19 vials of blood. Sometimes is worse with standing. He states his neighbors called EMS. [facility] Medical History Anemia Substance abuse Alcohol abuse Smoker Hypertension Home Medications ???Medication ???Instructions ???Recorded ???Last Taken ???Type atenolol 25 mg tablet 25 mg PO DAILY BP 08/27/22 2 History 25 mg ascorbic acid (vitamin C) 500 mg 500 mg PO DAILY 30 days #30 tabs 1 Unknown Rx tablet (Vitamin C) ferrous sulfate 325 mg (65 mg 325 mg PO BID 30 days #60 tabs Unknown Rx iron) tablet (Iron (ferrous sulfate)) pantoprazole 40 mg tablet,delayed 40 mg PO BID 30 days #60 tabs Unknown Rx release sennosides 8.6 mg-docusate sodium 1 tab-cap PO BID PRN constipation 08/29/22 Unknown Rx 50 mg tablet (Senokot-S) 30 days #60 tabs diazepam 2 mg tablet 2 mg PO TID PRN PRN Vertigo #10 Unknown Rx TABLETS acetaminophen 325 mg tablet 650 mg (2 x 325 mg) PO Q6H PRN PRN 05/27/25 Unknown Rx Pain 1-10 Or Fever >100.7 #30 tabs Allergy/AdvReac Type Severity Reaction Status Date / Time No Known Allergies Allergy Verified 06/02/25 19:10 Family History Other Heart disease Social History Smoking Status: Heavy Smoker (>10/day) ROS ROS ED ROS Narrative Review of systems positive for lightheadedness and dizziness. No chest pain or shortness of breath. No nausea or vomiting. Positive alcohol intake. EXAM Physical Exam Narrative Exam Narrative: Afebrile. Vital signs noted. Nontoxic-appearing. Cardiovascular examination regular rate and rhythm. Lungs are clear to auscultation bilaterally. Abdomen is soft and nontender with positive bowel sounds. No guarding or rebound. Neurological examination nonfocal, nonlateralizing. Curled up in position, but awakens upon examination and is talkative and interactive. Noted alcohol intoxication. Const Vital Signs: 06/02/25 19:04 06/02/25 19:11 06/02/25 21:03 Temperature 98.9 F Temperature Source Oral Pulse Rate 93 92 Respiratory Rate 18 20 H Respiratory Effort Normal Respiratory Pattern Normal Blood Pressure 135/94 H 116/72 Blood Pressure Mean 107 86 Pulse Ox 96 96 Oxygen Delivery Method Room Air Room Air MDM MDM MDM Narrative Medical decision making narrative: I reviewed the patient's prior records. Previously had been seen and had bedbugs. [id number] glucose 95. Will check a CBC and CMP to see if he is anemic requiring transfusions. I will also check an alcohol level. I reviewed his laboratory work and he has a normal white count of 11.0 and hemoglobin 12.6. I do not feel he needs a blood transfusion like the patient claimed he did. Platelet count 377. Sodium normal 136 with potassium 4.6, chloride slightly low at 94. BUN of 7 creatinine 0.63. Ethyl alcohol is elevated at 355. Patient was seen ambulating in the ED but as he has severely elevated alcohol level, he will be observed in the emergency departme (more content not included)... Normal [facility] Eosinophil percentageOrdered By: Michael Saldivar on 06-02-2025 Eosinophils/100 WBC (Bld) 0.3 % 0-5 [facility] Erythrocyte distribution wid th ratioOrdered By: Michael Saldivar on 06-02-2025 Erythrocyte distribution width (RBC) [Ratio] 17.6 % High 11.6-14.6 [facility] Erythrocyte distribution wid th standard deviationOrdered By: Michael Saldivar on 06-02-2025 Erythrocyte distribution width (RBC) [Ratio] 65.6 fl High 35.1-43.9 [facility] Glomerular filtration rate ( GFR) estimation/1.73 sq m using serum, plasma, or whole bOrdered By: Michael Saldivar on 06-02-2025 GFR/1.73 sq M.predicted among non-blacks MDRD (S/P/Bld) [Vol rate/Area] 108 mL/min/{1.73_m2} >60 [facility] Comment on above: mL/min/1.73m2 CKD-EP I Creatinine Equation (2020) [facility] deOrdered By: ED PROVIDER on 06-02-2025 Glucose [Mass/Vol] 95 mg/dL 74-106 [facility] Comment on above: MANAGEMENT OF PATIEN T CARE PER NURSING PROTOCOL Hematocrit Auto (Bld) [Volum e fraction]Ordered By: Michael Saldivar on 06-02-2025 Hematocrit (Bld) [Volume fraction] 38.4 % Low 40-54 [facility] Hemoglobin measurementOrdere d By: Michael Saldivar on 06-02-2025 Hemoglobin (Bld) [Mass/Vol] 12.6 g/dL Low 13.0-16.5 [facility] Immature granulocytes/100 WB C Auto (Bld)Ordered By: Michael Saldivar on 06-02-2025 Immature granulocytes/100 WBC (Bld) 0.500 % 0.0-0.9 [facility] Comment on above: IG% - Immature Granu locytes (promyelocytes, myelocytes and metamyelocytes) > 1% indicates that a LEFT SHIFT is Present. Laboratory - Chemistry and C hemistry - challengeOrdered By: Michael Saldivar on 06-02-2025 AST [Catalytic activity/Vol] 206 U/L High <38 [facility] - Hematology and Cell countsOrdered By: Michael Saldivar on 06-02-2025 Anisocytosis Ql (Bld) 2+ [facility] MCV (mean corpuscular volume ) determinationOrdered By: Michael Saldivar on 06-02-2025 MCV (RBC) [Entitic vol] 100.5 fL High 80-94 [facility] Mean corpuscular hemoglobin (MCH) determinationOrdered By: Michael Saldivar on 06-02-2025 MCH (RBC) [Entitic mass] 33.0 pg High 27.0-32.0 [facility] Mean corpuscular hemoglobin concentration (MCHC) determinationOrdered By: Michael Saldivar on 06-02-2025 MCHC (RBC) [Mass/Vol] 32.8 g/dL 32-36 [facility] Mean platelet volume determi nationOrdered By: Michael Saldivar on 06-02-2025 Platelet mean volume (Bld) [Entitic vol] 9.3 fL 6.2-12.0 [facility] Monocyte percentageOrdered B y: Michael Saldivar on 06-02-2025 Monocytes/100 WBC (Bld) 7.1 % 0-10 [facility] Neutrophil percentageOrdered By: Michael Saldivar on 06-02-2025 Neutrophils/100 WBC (Bld) 83.0 % High 47-70 [facility] Nucleated red blood cell per centageOrdered By: Michael Saldivar on 06-02-2025 Nucleated RBC/100 WBC (Bld) [Ratio] 0 % 0-5 [facility] Platelet countOrdered By: Juan A Saldivar on 06-02-2025 Platelets (Bld) [#/Vol] 377 10*3/uL 150-450 [facility] Platelet estimateOrdered By: Michael Saldivar on 06-02-2025 Platelets LM Ql (Bld) ADEQUATE ADEQ [facility] Potassium measurement (mass/ volume)Ordered By: Michael Saldivar on 06-02-2025 Potassium (Unsp spec) [Mass/Vol] 4.6 mmol/L 3.3-5.1 [facility] RBC Auto (Bld) [#/Vol]Ordere d By: Michael Saldivar on 06-02-2025 RBC (Bld) [#/Vol] 3.82 10*6/uL Low 4.6-6.2 [facility] Serum creatinine measurement (mass/volume)Ordered By: Michael Saldivar on 06-02-2025 Creatinine [Mass/Vol] 0.63 mg/dL Low 0.70-1.20 [facility] Serum globulin measurementOr dered By: Michael Saldivar on 06-02-2025 Globulin (S) [Mass/Vol] 3.5 g/dL 2.2-4.2 [facility] Serum glucose measurement (m ass/volume)Ordered By: Michael Saldivar on 06-02-2025 Glucose [Mass/Vol] 101 mg/dL High 70-99 [facility] Serum or plasma alanine warren otransferase (ALT) measurementOrdered By: Michael Saldivar on 06-02-2025 ALT [Catalytic activity/Vol] 92 U/L High <47 [facility] Serum or plasma albumin becka urement (mass/volume)Ordered By: Michael Saldivar on 06-02-2025 Albumin [Mass/Vol] 4.6 g/dL 3.4-4.8 [facility] Serum or plasma albumin/glob ulin mass ratioOrdered By: Michael Saldivar on 06-02-2025 Albumin/Globulin [Mass ratio] 1.3 {ratio} 0.9-2.4 [facility] Serum or plasma alkaline chanel sphatase measurementOrdered By: Michael Saldivar on 06-02-2025 ALP [Catalytic activity/Vol] 124 U/L 40-129 [facility] Serum or plasma calcium bekca urement (mass/volume)Ordered By: Michael Saldivar on 06-02-2025 Calcium [Mass/Vol] 9.3 mg/dL 7.6-11.0 [facility] Serum or plasma ethanol becka urement (mass/volume)Ordered By: Michael Saldivar on 06-02-2025 Ethanol [Mass/Vol] 355.0 mg/dL High <10.1 [facility] Comment on above: Critical Result(s) C alled at: 2057 by: DAVID LOZANO TO FELIPA DAVISON Results read back by same.This test is for medical purposes only. The legal definition of intoxication varies according to local law. Serum or plasma urea nitroge n measurement (mass/volume)Ordered By: Michael Saldivar on 06-02-2025 Urea nitrogen [Mass/Vol] 7 mg/dL 4-19 [facility] Sodium levelOrdered By: Michael Saldivar on 06-02-2025 Sodium [Moles/Vol] 136 mmol/L 133-145 [facility] Total proteinOrdered By: Kyleigh Saldivar on 06-02-2025 Protein [Mass/Vol] 8.1 g/dL 5.9-8.4 [facility] White blood cell (WBC) count Ordered By: Michael Saldivar on 06-02-2025 WBC (Bld) [#/Vol] 11.0 10*3/uL 4.4-11.0 [facility] Basic Metabolic Profile (BMP )on 06-01-2025 BUN Normal 4-19 [facility] Comment on above: Result Comment: Canc elled via OM: Order cancelled - Patient discharged Performed By: #### L 100.0100, L500.2500 #### [facility] [address] [place], [address] BUN/CRE Normal 10-20 [facility] Comment on above: Result Comment: Canc elled via OM: Order cancelled - Patient discharged Performed By: #### L 100.0100, L500.2500 #### [facility] [address] [place], [address] Calcium Normal 7.6-11.0 [facility] Comment on above: Result Comment: Canc elled via OM: Order cancelled - Patient discharged Performed By: #### L 100.0100, L500.2500 #### [facility] [address] [place], [address] CL Normal 98-108 [facility] Comment on above: Result Comment: Canc elled via OM: Order cancelled - Patient discharged Performed By: #### L 100.0100, L500.2500 #### [facility] [address] [place], [address] CO2 Normal 21.0-32.0 [facility] Comment on above: Result Comment: Canc elled via OM: Order cancelled - Patient discharged Performed By: #### L 100.0100, L500.2500 #### [facility] [address] [place], [address] CREAT,SERUM Normal 0.70-1.20 [facility] Comment on above: Result Comment: Canc elled via OM: Order cancelled - Patient discharged Performed By: #### L 100.0100, L500.2500 #### [facility] [address] [place], [address] eGFR Normal >60 [facility] Comment on above: Result Comment: Canc elled via OM: Order cancelled - Patient discharged Performed By: #### L 100.0100, L500.2500 #### [facility] [address] [place], [address] GAP Normal 5-15 [facility] Comment on above: Result Comment: Canc elled via OM: Order cancelled - Patient discharged Performed By: #### L 100.0100, L500.2500 #### [facility] [address] [place], [address] GLU Normal 70-99 [facility] Comment on above: Result Comment: Canc elled via OM: Order cancelled - Patient discharged Performed By: #### L 100.0100, L500.2500 #### [facility] [address] [place], [address] Potassium Normal 3.3-5.1 [facility] Comment on above: Result Comment: Canc elled via OM: Order cancelled - Patient discharged Performed By: #### L 100.0100, L500.2500 #### [facility] [address] [place], [address] Basic Metabolic Profile (BMP) Normal 133-145 [facility] Comment on above: Result Comment: Canc elled via OM: Order cancelled - Patient discharged Performed By: #### L 100.0100, L500.2500 #### [facility] [address] [place], [address] CBC W/Diff, Automatedon 07-3 0-2024 Absolute Neut Normal 2.0-7.7 [facility] Comment on above: Result Comment: Canc elled via OM: Order cancelled - Patient discharged Performed By: #### L 100.0100, L500.2500 #### [facility] [address] [place], [address] HCT Normal 40-54 [facility] Comment on above: Result Comment: Canc elled via OM: Order cancelled - Patient discharged Performed By: #### L 100.0100, L500.2500 #### [facility] [address] [place], [address] HGB Normal 13.0-16.5 [facility] Comment on above: Result Comment: Canc elled via OM: Order cancelled - Patient discharged Performed By: #### L 100.0100, L500.2500 #### [facility] [address] [place], [address] MCH Normal 27.0-32.0 [facility] Comment on above: Result Comment: Canc elled via OM: Order cancelled - Patient discharged Performed By: #### L 100.0100, L500.2500 #### [facility] [address] [place], [address] MCHC Normal 32-36 [facility] Comment on above: Result Comment: Canc elled via OM: Order cancelled - Patient discharged Performed By: #### L 100.0100, L500.2500 #### [facility] [address] [place], [address] MCV Normal 80-94 [facility] Comment on above: Result Comment: Canc elled via OM: Order cancelled - Patient discharged Performed By: #### L 100.0100, L500.2500 #### [facility] [address] [place], [address] NEUT% Normal 47-70 [facility] Comment on above: Result Comment: Canc elled via OM: Order cancelled - Patient discharged Performed By: #### L 100.0100, L500.2500 #### [facility] [address] [place], [address] PLT Normal 150-450 [facility] Comment on above: Result Comment: Canc elled via OM: Order cancelled - Patient discharged Performed By: #### L 100.0100, L500.2500 #### [facility] [address] [place], [address] RBC Normal 4.6-6.2 [facility] Comment on above: Result Comment: Canc elled via OM: Order cancelled - Patient discharged Performed By: #### L 100.0100, L500.2500 #### [facility] [address] [place], [address] RDW CV Normal 11.6-14.6 [facility] Comment on above: Result Comment: Canc elled via OM: Order cancelled - Patient discharged Performed By: #### L 100.0100, L500.2500 #### [facility] [address] [place], [address] RDW SD Normal 35.1-43.9 [facility] Comment on above: Result Comment: Canc elled via OM: Order cancelled - Patient discharged Performed By: #### L 100.0100, L500.2500 #### [facility] [address] [place], [address] WBC Normal 4.4-11.0 [facility] Comment on above: Result Comment: Canc elled via OM: Order cancelled - Patient discharged Performed By: #### L 100.0100, L500.2500 #### [facility] [address] [place], [address] Basic Metabolic Profile (BMP )on 05-31-2025 BUN Normal 4-19 [facility] Comment on above: Result Comment: Canc elled via OM: Order cancelled - Patient discharged Performed By: #### L 500.2500, L100.0100 #### [facility] [address] [place], [address] BUN/CRE Normal 10-20 [facility] Comment on above: Result Comment: Canc elled via OM: Order cancelled - Patient discharged Performed By: #### L 500.2500, L100.0100 #### [facility] [address] [place], [address] Calcium Normal 7.6-11.0 [facility] Comment on above: Result Comment: Canc elled via OM: Order cancelled - Patient discharged Performed By: #### L 500.2500, L100.0100 #### [facility] [address] [place], [address] CL Normal 98-108 [facility] Comment on above: Result Comment: Canc elled via OM: Order cancelled - Patient discharged Performed By: #### L 500.2500, L100.0100 #### [facility] [address] [place], [address] CO2 Normal 21.0-32.0 [facility] Comment on above: Result Comment: Canc elled via OM: Order cancelled - Patient discharged Performed By: #### L 500.2500, L100.0100 #### [facility] [address] [place], [address] CREAT,SERUM Normal 0.70-1.20 [facility] Comment on above: Result Comment: Canc elled via OM: Order cancelled - Patient discharged Performed By: #### L 500.2500, L100.0100 #### [facility] [address] [place], [address] eGFR Normal >60 [facility] Comment on above: Result Comment: Canc elled via OM: Order cancelled - Patient discharged Performed By: #### L 500.2500, L100.0100 #### [facility] [address] [place], [address] GAP Normal 5-15 [facility] Comment on above: Result Comment: Canc elled via OM: Order cancelled - Patient discharged Performed By: #### L 500.2500, L100.0100 #### [facility] [address] [place], [address] GLU Normal 70-99 [facility] Comment on above: Result Comment: Canc elled via OM: Order cancelled - Patient discharged Performed By: #### L 500.2500, L100.0100 #### [facility] [address] [place], [address] Potassium Normal 3.3-5.1 [facility] Comment on above: Result Comment: Canc elled via OM: Order cancelled - Patient discharged Performed By: #### L 500.2500, L100.0100 #### [facility] [address] [place], [address] Basic Metabolic Profile (BMP) Normal 133-145 [facility] Comment on above: Result Comment: Canc elled via OM: Order cancelled - Patient discharged Performed By: #### L 500.2500, L100.0100 #### [facility] [address] [place], [address] CBC W/Diff, Automatedon 07-2 Absolute Neut Normal 2.0-7.7 [facility] Comment on above: Result Comment: Canc elled via OM: Order cancelled - Patient discharged Performed By: #### L 100.0100, L500.2500 #### [facility] [address] [place], [address] HCT Normal 40-54 [facility] Comment on above: Result Comment: Canc elled via OM: Order cancelled - Patient discharged Performed By: #### L 100.0100, L500.2500 #### [facility] [address] [place], [address] HGB Normal 13.0-16.5 [facility] Comment on above: Result Comment: Canc elled via OM: Order cancelled - Patient discharged Performed By: #### L 100.0100, L500.2500 #### [facility] [address] [place], [address] MCH Normal 27.0-32.0 [facility] Comment on above: Result Comment: Canc elled via OM: Order cancelled - Patient discharged Performed By: #### L 100.0100, L500.2500 #### [facility] [address] [place], [address] MCHC Normal 32-36 [facility] Comment on above: Result Comment: Canc elled via OM: Order cancelled - Patient discharged Performed By: #### L 100.0100, L500.2500 #### [facility] [address] [place], [address] MCV Normal 80-94 [facility] Comment on above: Result Comment: Canc elled via OM: Order cancelled - Patient discharged Performed By: #### L 100.0100, L500.2500 #### [facility] [address] [place], [address] NEUT% Normal 47-70 [facility] Comment on above: Result Comment: Canc elled via OM: Order cancelled - Patient discharged Performed By: #### L 100.0100, L500.2500 #### [facility] [address] [place], [address] PLT Normal 150-450 [facility] Comment on above: Result Comment: Canc elled via OM: Order cancelled - Patient discharged Performed By: #### L 100.0100, L500.2500 #### [facility] [address] [place], [address] RBC Normal 4.6-6.2 [facility] Comment on above: Result Comment: Canc elled via OM: Order cancelled - Patient discharged Performed By: #### L 100.0100, L500.2500 #### [facility] [address] [place], [address] RDW CV Normal 11.6-14.6 [facility] Comment on above: Result Comment: Canc elled via OM: Order cancelled - Patient discharged Performed By: #### L 100.0100, L500.2500 #### [facility] [address] [place], [address] RDW SD Normal 35.1-43.9 [facility] Comment on above: Result Comment: Canc elled via OM: Order cancelled - Patient discharged Performed By: #### L 100.0100, L500.2500 #### [facility] [address] [place], [address] WBC Normal 4.4-11.0 [facility] Comment on above: Result Comment: Canc elled via OM: Order cancelled - Patient discharged Performed By: #### L 100.0100, L500.2500 #### [facility] [address] [place], [address] Basic Metabolic Profile (BMP )on 05-30-2025 BUN Normal 4-19 [facility] Comment on above: Result Comment: Canc elled via OM: Order cancelled - Patient discharged Performed By: #### L 100.0100, L500.2500 #### [facility] [address] [place], [address] BUN/CRE Normal 10-20 [facility] Comment on above: Result Comment: Canc elled via OM: Order cancelled - Patient discharged Performed By: #### L 100.0100, L500.2500 #### [facility] [address] [place], [address] Calcium Normal 7.6-11.0 [facility] Comment on above: Result Comment: Canc elled via OM: Order cancelled - Patient discharged Performed By: #### L 100.0100, L500.2500 #### [facility] [address] [place], [address] CL Normal 98-108 [facility] Comment on above: Result Comment: Canc elled via OM: Order cancelled - Patient discharged Performed By: #### L 100.0100, L500.2500 #### [facility] [address] [place], [address] CO2 Normal 21.0-32.0 [facility] Comment on above: Result Comment: Canc elled via OM: Order cancelled - Patient discharged Performed By: #### L 100.0100, L500.2500 #### [facility] [address] [place], [address] CREAT,SERUM Normal 0.70-1.20 [facility] Comment on above: Result Comment: Canc elled via OM: Order cancelled - Patient discharged Performed By: #### L 100.0100, L500.2500 #### [facility] [address] [place], [address] eGFR Normal >60 [facility] Comment on above: Result Comment: Canc elled via OM: Order cancelled - Patient discharged Performed By: #### L 100.0100, L500.2500 #### [facility] [address] [place], [address] GAP Normal 5-15 [facility] Comment on above: Result Comment: Canc elled via OM: Order cancelled - Patient discharged Performed By: #### L 100.0100, L500.2500 #### [facility] [address] [place], [address] GLU Normal 70-99 [facility] Comment on above: Result Comment: Canc elled via OM: Order cancelled - Patient discharged Performed By: #### L 100.0100, L500.2500 #### [facility] [address] [place], [address] Potassium Normal 3.3-5.1 [facility] Comment on above: Result Comment: Canc elled via OM: Order cancelled - Patient discharged Performed By: #### L 100.0100, L500.2500 #### [facility] [address] [place], [address] Basic Metabolic Profile (BMP) Normal 133-145 [facility] Comment on above: Result Comment: Canc elled via OM: Order cancelled - Patient discharged Performed By: #### L 100.0100, L500.2500 #### [facility] [address] [place], [address] CBC W/Diff, Automatedon 07- Absolute Neut Normal 2.0-7.7 [facility] Comment on above: Result Comment: Canc elled via OM: Order cancelled - Patient discharged Performed By: #### L 100.0100, L500.2500 #### [facility] [address] [place], [address] HCT Normal 40-54 [facility] Comment on above: Result Comment: Canc elled via OM: Order cancelled - Patient discharged Performed By: #### L 100.0100, L500.2500 #### [facility] [address] [place], [address] HGB Normal 13.0-16.5 [facility] Comment on above: Result Comment: Canc elled via OM: Order cancelled - Patient discharged Performed By: #### L 100.0100, L500.2500 #### [facility] [address] [place], [address] MCH Normal 27.0-32.0 [facility] Comment on above: Result Comment: Canc elled via OM: Order cancelled - Patient discharged Performed By: #### L 100.0100, L500.2500 #### [facility] [address] [place], [address] MCHC Normal 32-36 [facility] Comment on above: Result Comment: Canc elled via OM: Order cancelled - Patient discharged Performed By: #### L 100.0100, L500.2500 #### [facility] [address] [place], [address] MCV Normal 80-94 [facility] Comment on above: Result Comment: Canc elled via OM: Order cancelled - Patient discharged Performed By: #### L 100.0100, L500.2500 #### [facility] [address] [place], [address] NEUT% Normal 47-70 [facility] Comment on above: Result Comment: Canc elled via OM: Order cancelled - Patient discharged Performed By: #### L 100.0100, L500.2500 #### [facility] [address] [place], [address] PLT Normal 150-450 [facility] Comment on above: Result Comment: Canc elled via OM: Order cancelled - Patient discharged Performed By: #### L 100.0100, L500.2500 #### [facility] [address] [place], [address] RBC Normal 4.6-6.2 [facility] Comment on above: Result Comment: Canc elled via OM: Order cancelled - Patient discharged Performed By: #### L 100.0100, L500.2500 #### [facility] [address] [place], [address] RDW CV Normal 11.6-14.6 [facility] Comment on above: Result Comment: Canc elled via OM: Order cancelled - Patient discharged Performed By: #### L 100.0100, L500.2500 #### [facility] [address] [place], [address] RDW SD Normal 35.1-43.9 [facility] Comment on above: Result Comment: Canc elled via OM: Order cancelled - Patient discharged Performed By: #### L 100.0100, L500.2500 #### [facility] [address] [place], [address] WBC Normal 4.4-11.0 [facility] Comment on above: Result Comment: Canc elled via OM: Order cancelled - Patient discharged Performed By: #### L 100.0100, L500.2500 #### [facility] [address] [place], [address] Basic Metabolic Profile (BMP )on 05-29-2025 BUN Normal 4-19 [facility] Comment on above: Result Comment: Canc elled via OM: Order cancelled - Patient discharged Performed By: #### L 100.0100, L500.2500 #### [facility] [address] [place], [address] BUN/CRE Normal 10-20 [facility] Comment on above: Result Comment: Canc elled via OM: Order cancelled - Patient discharged Performed By: #### L 100.0100, L500.2500 #### [facility] [address] [place], [address] Calcium Normal 7.6-11.0 [facility] Comment on above: Result Comment: Canc elled via OM: Order cancelled - Patient discharged Performed By: #### L 100.0100, L500.2500 #### [facility] [address] [place], [address] CL Normal 98-108 [facility] Comment on above: Result Comment: Canc elled via OM: Order cancelled - Patient discharged Performed By: #### L 100.0100, L500.2500 #### [facility] [address] [place], [address] CO2 Normal 21.0-32.0 [facility] Comment on above: Result Comment: Canc elled via OM: Order cancelled - Patient discharged Performed By: #### L 100.0100, L500.2500 #### [facility] [address] [place], [address] CREAT,SERUM Normal 0.70-1.20 [facility] Comment on above: Result Comment: Canc elled via OM: Order cancelled - Patient discharged Performed By: #### L 100.0100, L500.2500 #### [facility] [address] [place], [address] eGFR Normal >60 [facility] Comment on above: Result Comment: Canc elled via OM: Order cancelled - Patient discharged Performed By: #### L 100.0100, L500.2500 #### [facility] [address] [place], [address] GAP Normal 5-15 [facility] Comment on above: Result Comment: Canc elled via OM: Order cancelled - Patient discharged Performed By: #### L 100.0100, L500.2500 #### [facility] [address] [place], [address] GLU Normal 70-99 [facility] Comment on above: Result Comment: Canc elled via OM: Order cancelled - Patient discharged Performed By: #### L 100.0100, L500.2500 #### [facility] [address] [place], [address] Potassium Normal 3.3-5.1 [facility] Comment on above: Result Comment: Canc elled via OM: Order cancelled - Patient discharged Performed By: #### L 100.0100, L500.2500 #### [facility] [address] [place], [address] Basic Metabolic Profile (BMP) Normal 133-145 [facility] Comment on above: Result Comment: Canc elled via OM: Order cancelled - Patient discharged Performed By: #### L 100.0100, L500.2500 #### [facility] [address] [place], [address] CBC W/Diff, Automatedon 07-2 Absolute Neut Normal 2.0-7.7 [facility] Comment on above: Result Comment: Canc elled via OM: Order cancelled - Patient discharged Performed By: #### L 100.0100, L500.2500 #### [facility] [address] [place], [address] HCT Normal 40-54 [facility] Comment on above: Result Comment: Canc elled via OM: Order cancelled - Patient discharged Performed By: #### L 100.0100, L500.2500 #### [facility] [address] [place], [address] HGB Normal 13.0-16.5 [facility] Comment on above: Result Comment: Canc elled via OM: Order cancelled - Patient discharged Performed By: #### L 100.0100, L500.2500 #### [facility] [address] [place], [address] MCH Normal 27.0-32.0 [facility] Comment on above: Result Comment: Canc elled via OM: Order cancelled - Patient discharged Performed By: #### L 100.0100, L500.2500 #### [facility] [address] [place], [address] MCHC Normal 32-36 [facility] Comment on above: Result Comment: Canc elled via OM: Order cancelled - Patient discharged Performed By: #### L 100.0100, L500.2500 #### [facility] [address] [place], [address] MCV Normal 80-94 [facility] Comment on above: Result Comment: Canc elled via OM: Order cancelled - Patient discharged Performed By: #### L 100.0100, L500.2500 #### [facility] [address] [place], [address] NEUT% Normal 47-70 [facility] Comment on above: Result Comment: Canc elled via OM: Order cancelled - Patient discharged Performed By: #### L 100.0100, L500.2500 #### [facility] [address] [place], [address] PLT Normal 150-450 [facility] Comment on above: Result Comment: Canc elled via OM: Order cancelled - Patient discharged Performed By: #### L 100.0100, L500.2500 #### [facility] [address] [place], [address] RBC Normal 4.6-6.2 [facility] Comment on above: Result Comment: Canc elled via OM: Order cancelled - Patient discharged Performed By: #### L 100.0100, L500.2500 #### [facility] [address] [place], [address] RDW CV Normal 11.6-14.6 [facility] Comment on above: Result Comment: Canc elled via OM: Order cancelled - Patient discharged Performed By: #### L 100.0100, L500.2500 #### [facility] [address] [place], [address] RDW SD Normal 35.1-43.9 [facility] Comment on above: Result Comment: Canc elled via OM: Order cancelled - Patient discharged Performed By: #### L 100.0100, L500.2500 #### [facility] [address] [place], [address] WBC Normal 4.4-11.0 [facility] Comment on above: Result Comment: Canc elled via OM: Order cancelled - Patient discharged Performed By: #### L 100.0100, L500.2500 #### [facility] [address] [place], [address] Basic Metabolic Profile (BMP )on 05-28-2025 BUN Normal 4-19 [facility] Comment on above: Result Comment: Canc elled via OM: Order cancelled - Patient discharged Performed By: #### L 100.0100, L500.2500 #### [facility] [address] [place], [address] BUN/CRE Normal 10-20 [facility] Comment on above: Result Comment: Canc elled via OM: Order cancelled - Patient discharged Performed By: #### L 100.0100, L500.2500 #### [facility] [address] [place], [address] Calcium Normal 7.6-11.0 [facility] Comment on above: Result Comment: Canc elled via OM: Order cancelled - Patient discharged Performed By: #### L 100.0100, L500.2500 #### [facility] [address] [place], [address] CL Normal 98-108 [facility] Comment on above: Result Comment: Canc elled via OM: Order cancelled - Patient discharged Performed By: #### L 100.0100, L500.2500 #### [facility] [address] [place], [address] CO2 Normal 21.0-32.0 [facility] Comment on above: Result Comment: Canc elled via OM: Order cancelled - Patient discharged Performed By: #### L 100.0100, L500.2500 #### [facility] [address] [place], [address] CREAT,SERUM Normal 0.70-1.20 [facility] Comment on above: Result Comment: Canc elled via OM: Order cancelled - Patient discharged Performed By: #### L 100.0100, L500.2500 #### [facility] [address] [place], [address] eGFR Normal >60 [facility] Comment on above: Result Comment: Canc elled via OM: Order cancelled - Patient discharged Performed By: #### L 100.0100, L500.2500 #### [facility] [address] [place], [address] GAP Normal 5-15 [facility] Comment on above: Result Comment: Canc elled via OM: Order cancelled - Patient discharged Performed By: #### L 100.0100, L500.2500 #### [facility] [address] [place], [address] GLU Normal 70-99 [facility] Comment on above: Result Comment: Canc elled via OM: Order cancelled - Patient discharged Performed By: #### L 100.0100, L500.2500 #### [facility] [address] [place], [address] Potassium Normal 3.3-5.1 [facility] Comment on above: Result Comment: Canc elled via OM: Order cancelled - Patient discharged Performed By: #### L 100.0100, L500.2500 #### [facility] [address] [place], [address] Basic Metabolic Profile (BMP) Normal 133-145 [facility] Comment on above: Result Comment: Canc elled via OM: Order cancelled - Patient discharged Performed By: #### L 100.0100, L500.2500 #### [facility] [address] [place], [address] CBC W/Diff, Automatedon 07-2 -2024 Absolute Neut Normal 2.0-7.7 [facility] Comment on above: Result Comment: Canc elled via OM: Order cancelled - Patient discharged Performed By: #### L 100.0100, L500.2500 #### [facility] [address] [place], [address] HCT Normal 40-54 [facility] Comment on above: Result Comment: Canc elled via OM: Order cancelled - Patient discharged Performed By: #### L 100.0100, L500.2500 #### [facility] [address] [place], [address] HGB Normal 13.0-16.5 [facility] Comment on above: Result Comment: Canc elled via OM: Order cancelled - Patient discharged Performed By: #### L 100.0100, L500.2500 #### [facility] [address] [place], [address] MCH Normal 27.0-32.0 [facility] Comment on above: Result Comment: Canc elled via OM: Order cancelled - Patient discharged Performed By: #### L 100.0100, L500.2500 #### [facility] [address] [place], [address] MCHC Normal 32-36 [facility] Comment on above: Result Comment: Canc elled via OM: Order cancelled - Patient discharged Performed By: #### L 100.0100, L500.2500 #### [facility] [address] [place], [address] MCV Normal 80-94 [facility] Comment on above: Result Comment: Canc elled via OM: Order cancelled - Patient discharged Performed By: #### L 100.0100, L500.2500 #### [facility] [address] [place], [address] NEUT% Normal 47-70 [facility] Comment on above: Result Comment: Canc elled via OM: Order cancelled - Patient discharged Performed By: #### L 100.0100, L500.2500 #### [facility] [address] [place], [address] PLT Normal 150-450 [facility] Comment on above: Result Comment: Canc elled via OM: Order cancelled - Patient discharged Performed By: #### L 100.0100, L500.2500 #### [facility] [address] [place], [address] RBC Normal 4.6-6.2 [facility] Comment on above: Result Comment: Canc elled via OM: Order cancelled - Patient discharged Performed By: #### L 100.0100, L500.2500 #### [facility] [address] [place], [address] RDW CV Normal 11.6-14.6 [facility] Comment on above: Result Comment: Canc elled via OM: Order cancelled - Patient discharged Performed By: #### L 100.0100, L500.2500 #### [facility] [address] [place], [address] RDW SD Normal 35.1-43.9 [facility] Comment on above: Result Comment: Canc elled via OM: Order cancelled - Patient discharged Performed By: #### L 100.0100, L500.2500 #### [facility] [address] [place], [address] WBC Normal 4.4-11.0 [facility] Comment on above: Result Comment: Canc elled via OM: Order cancelled - Patient discharged Performed By: #### L 100.0100, L500.2500 #### [facility] [address] [place], [address] Absolute lymphocyte countOrd ered By: Sheron Dumont on 05-27-2025 Lymphocytes Auto (Unsp spec) [#/Vol] 0.81 10*3/uL Low 0.83-4.51 [facility] Absolute neutrophil countOrd ered By: Sheron Dumont on 05-27-2025 Neutrophils (Bld) [#/Vol] 5.4 10*3/uL 2.0-7.7 [facility] Anion gap in Serum or Plasma Ordered By: Sheron Dumont on 05-27-2025 Anion gap [Moles/Vol] 13 mmol/L 5-15 [facility] Automated lymphocyte count a s percentage of total leukocytesOrdered By: Sheron Dumont on 05-27-2025 Lymphocytes/100 WBC Auto (Unsp spec) 11.6 % Low 19-41 [facility] BUN/creatinine ratioOrdered By: Sheron Dumont on 05-27-2025 Urea nitrogen/Creatinine [Mass ratio] 10.0 mg/mg 10- [facility] Basic Metabolic Profile (BMP )on 05-27-2025 BUN/CRE 10.0 RATIO Normal - [facility] Comment on above: Performed By: #### L 100.0100, L500.2500 #### [facility] [address] [place], [address] Calcium [Mass/Vol] 9.1 mg/dL Normal 7.6-11.0 [facility] Comment on above: Performed By: #### L 100.0100, L500.2500 #### [facility] [address] [place], [address] Chloride [Moles/Vol] 99 mmol/L Normal 98-108 [facility] Comment on above: Performed By: #### L 100.0100, L500.2500 #### [facility] [address] [place], [address] CO2 [Moles/Vol] 23.9 mmol/L Normal 21.0-32.0 [facility] Comment on above: Performed By: #### L 100.0100, L500.2500 #### [facility] [address] [place], [address] Creatinine [Mass/Vol] 0.51 mg/dL Low 0.70-1.20 [facility] Comment on above: Performed By: #### L 100.0100, L500.2500 #### [facility] [address] [place], [address] ECRCL 114.67 ml/min Normal 50-250 [facility] Comment on above: Performed By: #### L 100.0100, L500.2500 #### [facility] [address] [place], [address] GAP 13 Normal 5-15 [facility] Comment on above: Performed By: #### L 100.0100, L500.2500 #### [facility] [address] [place], [address] GFR/1.73 sq M.predicted among non-blacks MDRD (S/P/Bld) [Vol rate/Area] 115 mL/min/{1.73_m2} Normal >60 [facility] Comment on above: Result Comment: mL/m in/1.73m2 CKD-EPI Creatinine Equation (2020) Performed By: #### L 100.0100, L500.2500 #### [facility] [address] [place], [address] Glucose [Mass/Vol] 106 mg/dL High 70-99 [facility] Comment on above: Performed By: #### L 100.0100, L500.2500 #### [facility] [address] [place], [address] Potassium [Moles/Vol] 3.9 mmol/L Normal 3.3-5.1 [facility] Comment on above: Performed By: #### L 100.0100, L500.2500 #### [facility] [address] [place], [address] Sodium [Moles/Vol] 135 mmol/L Normal 133-145 [facility] Comment on above: Performed By: #### L 100.0100, L500.2500 #### [facility] [address] [place], [address] Urea nitrogen [Mass/Vol] 5 mg/dL Normal 4-19 [facility] Comment on above: Performed By: #### L 100.0100, L500.2500 #### [facility] [address] [place], [address] Basophil percentageOrdered B y: Sheron Dumont on 05-27-2025 Basophils/100 WBC (Bld) 0.3 % 0-1 [facility] CBC W/Diff, Automatedon 05-04 Absolute Lymph 0.81 X10 3/uL Low 0.83-4.51 [facility] Comment on above: Performed By: #### L 100.0100, L500.2500 #### [facility] [address] [place], [address] Absolute Neut 5.4 X10 3/uL Normal 2.0-7.7 [facility] Comment on above: Performed By: #### L 100.0100, L500.2500 #### [facility] [address] [place], [address] Basophils/100 WBC (Bld) 0.3 % Normal 0-1 [facility] Comment on above: Performed By: #### L 100.0100, L500.2500 #### [facility] [address] [place], [address] Eosinophils/100 WBC (Bld) 1.4 % Normal 0-5 [facility] Comment on above: Performed By: #### L 100.0100, L500.2500 #### [facility] [address] [place], [address] Erythrocyte distribution width (RBC) [Ratio] 16.8 % High 11.6-14.6 [facility] Comment on above: Performed By: #### L 100.0100, L500.2500 #### [facility] [address] [place], [address] Hematocrit (Bld) [Volume fraction] 31.1 % Low 40-54 [facility] Comment on above: Performed By: #### L 100.0100, L500.2500 #### [facility] [address] [place], [address] Hemoglobin (Bld) [Mass/Vol] 10.7 g/dL Low 13.0-16.5 [facility] Comment on above: Performed By: #### L 100.0100, L500.2500 #### [facility] [address] [place], [address] IG% 0.600 Normal 0.0-0.9 [facility] Comment on above: Result Comment: IG% - Immature Granulocytes (promyelocytes, myelocytes and metamyelocytes) > 1% indicates that a LEFT SHIFT is Present. Performed By: #### L 100.0100, L500.2500 #### [facility] [address] [place], [address] Lymphocytes/100 WBC (Bld) 11.6 % Low 19-41 [facility] Comment on above: Performed By: #### L 100.0100, L500.2500 #### [facility] [address] [place], [address] MCH (RBC) [Entitic mass] 33.3 pg High 27.0-32.0 [facility] Comment on above: Performed By: #### L 100.0100, L500.2500 #### [facility] [address] [place], [address] MCHC (RBC) [Mass/Vol] 34.4 g/dL Normal 32-36 [facility] Comment on above: Performed By: #### L 100.0100, L500.2500 #### [facility] [address] [place], [address] MCV (RBC) [Entitic vol] 96.9 fL High 80-94 [facility] Comment on above: Performed By: #### L 100.0100, L500.2500 #### [facility] [address] [place], [address] Monocytes/100 WBC (Bld) 9.0 % Normal 0-10 [facility] Comment on above: Performed By: #### L 100.0100, L500.2500 #### [facility] [address] [place], [address] Neutrophils/100 WBC (Bld) 77.1 % High 47-70 [facility] Comment on above: Performed By: #### L 100.0100, L500.2500 #### [facility] [address] [place], [address] Nucleated RBC (Bld) [#/Vol] 0 10*3/uL Normal 0-5 [facility] Comment on above: Performed By: #### L 100.0100, L500.2500 #### [facility] [address] [place], [address] Platelet mean volume (Bld) [Entitic vol] 10.3 fL Normal 6.2-12.0 [facility] Comment on above: Performed By: #### L 100.0100, L500.2500 #### [facility] [address] [place], [address] Platelets (Bld) [#/Vol] 192 10*3/uL Normal 150-450 [facility] Comment on above: Performed By: #### L 100.0100, L500.2500 #### [facility] [address] [place], [address] RBC (Bld) [#/Vol] 3.21 10*6/uL Low 4.6-6.2 [facility] Comment on above: Performed By: #### L 100.0100, L500.2500 #### [facility] [address] [place], [address] RDW SD 60.4 fl High 35.1-43.9 [facility] Comment on above: Performed By: #### L 100.0100, L500.2500 #### [facility] [address] [place], [address] WBC (Bld) [#/Vol] 7.0 10*3/uL Normal 4.4-11.0 [facility] Comment on above: Performed By: #### L 100.0100, L500.2500 #### [facility] [address] [place], [address] Carbon dioxide, total [Moles /volume] in Central venous bloodOrdered By: Sheron Dumont on 05-27-2025 CO2 [Moles/Vol] 23.9 mmol/L 21.0-32.0 [facility] Chloride assayOrdered By: Shila Dumont on 05-27-2025 Chloride [Moles/Vol] 99 mmol/L 98-108 [facility] Discharge Instructionon 05-04 Discharge Instruction [facility] Medical Records Department [address] [place] [address] Instructions for Home/Discharge Instructions 05/27/25 0938 MR#: [id number] Acct: [id number] Name: MARVIN IZQUIERDO Rep #: [id number] : 1965 59 From: Sheron Dumont MD PCP: [place] [facility] Status:ADM ABRAM Discharge Instructions DC O2, CPAP, BIPAP needs Home O2 Discharge instructions: No Dressing / Incision Discharge Activity: Return to Normal Activity Weight Bearing Status: Weight bearing as tolerated Dressing / Incision Call your doctor if you observe: Fever of 101 or Higher, Shortness of breath and Swelling in the ankles Follow Up Care Test Results: Test results from this visit will be discussed in further detail at your follow-up appointment, if applicable. Discharge Plan Admission Admit Date/Time: 05/25/25 16:10 Primary Reason for Your Visit: mechanical fall Attending Provider: Sheron Dumont Primary Care Provider: [facility] Consulting Providers: Valencia Wen Instructions Patient Instructions: ED Mechanical Fall Discharge Orders/Prescriptions Prescriptions: New acetaminophen 325 mg Tablet 650 mg PO Q6H PRN PRN (Reason: Pain 1-10 Or Fever >100.7) Qty: 30 0RF Continued atenolol 25 mg Tablet 25 mg PO DAILY pantoprazole 40 mg tablet,delayed release (DR/EC) 40 mg PO BID 30 Days Qty: 60 0RF ferrous sulfate [Iron (ferrous sulfate)] 325 mg (65 mg iron) tablet 325 mg PO BID 30 Days Qty: 60 0RF ascorbic acid (vitamin C) [Vitamin C] 500 mg tablet 500 mg PO DAILY 30 Days Qty: 30 0RF sennosides-docusate sodium [Senokot-S] 8.6-50 mg tablet 1 tab-cap PO BID PRN (Reason: constipation) 30 Days Qty: 60 0RF diazepam 2 mg tablet 2 mg PO TID PRN PRN (Reason: Vertigo) Qty: 10 0RF Referrals / Follow Up: [facility] [Primary Care Provider] - Within 1 Week Disposition Disposition (needs filled in before D/C Order can be placed): Home, Self Care 05/27/25 0910 Sheron Dumont MD CC: Dr. Valencia Wen MD; [facility] Signed Normal [facility] Eosinophil percentageOrdered By: Sheron Dumont on 05-27-2025 Eosinophils/100 WBC (Bld) 1.4 % 0-5 [facility] Erythrocyte distribution wid th ratioOrdered By: Sheron Dumont on 05-27-2025 Erythrocyte distribution width (RBC) [Ratio] 16.8 % High 11.6-14.6 [facility] Erythrocyte distribution wid th standard deviationOrdered By: Sheron Dumont on 05-27-2025 Erythrocyte distribution width (RBC) [Ratio] 60.4 fl High 35.1-43.9 [facility] Glomerular filtration rate ( GFR) estimation/1.73 sq m using serum, plasma, or whole bOrdered By: Sheron Dumont on 05-27-2025 GFR/1.73 sq M.predicted among non-blacks MDRD (S/P/Bld) [Vol rate/Area] 115 mL/min/{1.73_m2} >60 [facility] Comment on above: mL/min/1.73m2 CKD-EP I Creatinine Equation (2020) Hematocrit Auto (Bld) [Volum e fraction]Ordered By: Sheron Dumont on 05-27-2025 Hematocrit (Bld) [Volume fraction] 31.1 % Low 40-54 [facility] Hemoglobin measurementOrdere d By: Sheron Dumont on 05-27-2025 Hemoglobin (Bld) [Mass/Vol] 10.7 g/dL Low 13.0-16.5 [facility] Immature granulocytes/100 WB C Auto (Bld)Ordered By: Sheron Dumont on 05-27-2025 Immature granulocytes/100 WBC (Bld) 0.600 % 0.0-0.9 [facility] Comment on above: IG% - Immature Granu locytes (promyelocytes, myelocytes and metamyelocytes) > 1% indicates that a LEFT SHIFT is Present. MCV (mean corpuscular volume ) determinationOrdered By: Sheron Dumont on 05-27-2025 MCV (RBC) [Entitic vol] 96.9 fL High 80-94 [facility] Mean corpuscular hemoglobin (MCH) determinationOrdered By: Sheron Dumont on 05-27-2025 MCH (RBC) [Entitic mass] 33.3 pg High 27.0-32.0 [facility] Mean corpuscular hemoglobin concentration (MCHC) determinationOrdered By: Sheron Dumont on 05-27-2025 MCHC (RBC) [Mass/Vol] 34.4 g/dL 32-36 [facility] Mean platelet volume determi nationOrdered By: Sheron Dumont on 05-27-2025 Platelet mean volume (Bld) [Entitic vol] 10.3 fL 6.2-12.0 [facility] Monocyte percentageOrdered B y: Sheron Dumont on 05-27-2025 Monocytes/100 WBC (Bld) 9.0 % 0-10 [facility] Neutrophil percentageOrdered By: Sheron Dumont on 05-27-2025 Neutrophils/100 WBC (Bld) 77.1 % High 47-70 [facility] Nucleated red blood cell per centageOrdered By: Sheron Dumont on 05-27-2025 Nucleated RBC/100 WBC (Bld) [Ratio] 0 % 0-5 [facility] Platelet countOrdered By: Shila Dumont on 05-27-2025 Platelets (Bld) [#/Vol] 192 10*3/uL 150-450 [facility] Potassium measurement (mass/ volume)Ordered By: Sheron Dumont on 05-27-2025 Potassium (Unsp spec) [Mass/Vol] 3.9 mmol/L 3.3-5.1 [facility] RBC Auto (Bld) [#/Vol]Ordere d By: Sheron Dumont on 05-27-2025 RBC (Bld) [#/Vol] 3.21 10*6/uL Low 4.6-6.2 [facility] Serum creatinine measurement (mass/volume)Ordered By: Sheron Dumont on 05-27-2025 Creatinine [Mass/Vol] 0.51 mg/dL Low 0.70-1.20 [facility] Serum glucose measurement (m ass/volume)Ordered By: Sheron Dumont on 05-27-2025 Glucose [Mass/Vol] 106 mg/dL High 70-99 [facility] Serum or plasma calcium becka urement (mass/volume)Ordered By: Sheron Dumont on 05-27-2025 Calcium [Mass/Vol] 9.1 mg/dL 7.6-11.0 [facility] Serum or plasma urea nitroge n measurement (mass/volume)Ordered By: Sheron Dumont on 05-27-2025 Urea nitrogen [Mass/Vol] 5 mg/dL 4- [facility] Sodium levelOrdered By: Sheronjimmy Dumont on 05-27-2025 Sodium [Moles/Vol] 135 mmol/L 133-145 [facility] White blood cell (WBC) count Ordered By: Sheron Dumont on 05-27-2025 WBC (Bld) [#/Vol] 7.0 10*3/uL 4.4-11.0 [facility] Bedside Glucoseon 05-26-2025 FINGERSTICK GLU 122 mg/dL High 74-106 [facility] Comment on above: Result Comment: LOUIE DEJESUS OF PATIENT CARE PER NURSING PROTOCOL Performed By: #### L 501.080 #### [facility] [address] [place], [place], [id number] Bilirubin, totalOrdered By: Valencia Wen on 05-26-2025 Bilirubin [Mass/Vol] 0.71 mg/dL 0.00-1.30 [facility] CBC W/Diff, Automatedon 05-04 Absolute Lymph 0.77 X10 3/uL Low 0.83-4.51 [facility] Comment on above: Performed By: #### L 100.0100, L500.2500 #### [facility] [address] [place], [address] Absolute Neut 4.9 X10 3/uL Normal 2.0-7.7 [facility] Comment on above: Performed By: #### L 100.0100, L500.2500 #### [facility] [address] [place], [address] Basophils/100 WBC (Bld) 0.3 % Normal 0-1 [facility] Comment on above: Performed By: #### L 100.0100, L500.2500 #### [facility] [address] [place], [address] Eosinophils/100 WBC (Bld) 0.6 % Normal 0-5 [facility] Comment on above: Performed By: #### L 100.0100, L500.2500 #### [facility] [address] [place], [address] Erythrocyte distribution width (RBC) [Ratio] 17.2 % High 11.6-14.6 [facility] Comment on above: Performed By: #### L 100.0100, L500.2500 #### [facility] [address] [place], [address] Hematocrit (Bld) [Volume fraction] 28.8 % Low 40-54 [facility] Comment on above: Performed By: #### L 100.0100, L500.2500 #### [facility] [address] [place], [address] Hemoglobin (Bld) [Mass/Vol] 10.0 g/dL Low 13.0-16.5 [facility] Comment on above: Performed By: #### L 100.0100, L500.2500 #### [facility] [address] [place], [address] IG% 0.600 Normal 0.0-0.9 [facility] Comment on above: Result Comment: IG% - Immature Granulocytes (promyelocytes, myelocytes and metamyelocytes) > 1% indicates that a LEFT SHIFT is Present. Performed By: #### L 100.0100, L500.2500 #### [facility] [address] [place], [address] Lymphocytes/100 WBC (Bld) 11.9 % Low 19-41 [facility] Comment on above: Performed By: #### L 100.0100, L500.2500 #### [facility] [address] [place], [address] MCH (RBC) [Entitic mass] 33.6 pg High 27.0-32.0 [facility] Comment on above: Performed By: #### L 100.0100, L500.2500 #### [facility] [address] [place], [address] MCHC (RBC) [Mass/Vol] 34.7 g/dL Normal 32-36 [facility] Comment on above: Performed By: #### L 100.0100, L500.2500 #### [facility] [address] [place], [address] MCV (RBC) [Entitic vol] 96.6 fL High 80-94 [facility] Comment on above: Performed By: #### L 100.0100, L500.2500 #### [facility] [address] [place], [address] Monocytes/100 WBC (Bld) 10.9 % High 0-10 [facility] Comment on above: Performed By: #### L 100.0100, L500.2500 #### [facility] [address] [place], [address] Neutrophils/100 WBC (Bld) 75.7 % High 47-70 [facility] Comment on above: Performed By: #### L 100.0100, L500.2500 #### [facility] [address] [place], [address] Nucleated RBC (Bld) [#/Vol] 0 10*3/uL Normal 0-5 [facility] Comment on above: Performed By: #### L 100.0100, L500.2500 #### [facility] [address] [place], [address] Platelet mean volume (Bld) [Entitic vol] 10.1 fL Normal 6.2-12.0 [facility] Comment on above: Performed By: #### L 100.0100, L500.2500 #### [facility] [address] [place], [address] Platelets (Bld) [#/Vol] 189 10*3/uL Normal 150-450 [facility] Comment on above: Performed By: #### L 100.0100, L500.2500 #### [facility] [address] [place], [address] RBC (Bld) [#/Vol] 2.98 10*6/uL Low 4.6-6.2 [facility] Comment on above: Performed By: #### L 100.0100, L500.2500 #### [facility] [address] [place], [address] RDW SD 60.3 fl High 35.1-43.9 [facility] Comment on above: Performed By: #### L 100.0100, L500.2500 #### [facility] [address] [place], [address] WBC (Bld) [#/Vol] 6.5 10*3/uL Normal 4.4-11.0 [facility] Comment on above: Performed By: #### L 100.0100, L500.2500 #### [facility] [address] [place], [address] Comprehensive Metabolic Prof ilon 05-26-2025 Albumin [Mass/Vol] 3.5 g/dL Normal 3.4-4.8 [facility] Comment on above: Performed By: #### L 100.0100, L500.2500 #### [facility] [address] [place], [address] Albumin/Globulin [Mass ratio] 1.3 {ratio} Normal 0.9-2.4 [facility] Comment on above: Performed By: #### L 100.0100, L500.2500 #### [facility] [address] [place], [address] ALK PHOS 123 U/L Normal 40-129 [facility] Comment on above: Performed By: #### L 100.0100, L500.2500 #### [facility] [address] [place], [address] ALT [Catalytic activity/Vol] 36 U/L Normal <=46 [facility] Comment on above: Performed By: #### L 100.0100, L500.2500 #### [facility] [address] [place], [address] AST [Catalytic activity/Vol] 65 U/L High <=37 [facility] Comment on above: Performed By: #### L 100.0100, L500.2500 #### [facility] [address] [place], [address] Bilirubin [Mass/Vol] 0.71 mg/dL Normal 0.00-1.30 [facility] Comment on above: Performed By: #### L 100.0100, L500.2500 #### [facility] [address] [place], [address] BUN/CRE 9.3 RATIO Low 10-20 [facility] Comment on above: Performed By: #### L 100.0100, L500.2500 #### [facility] [address] [place], [address] Calcium [Mass/Vol] 8.6 mg/dL Normal 7.6-11.0 [facility] Comment on above: Performed By: #### L 100.0100, L500.2500 #### [facility] [address] [place], [address] Chloride [Moles/Vol] 96 mmol/L Low 98-108 [facility] Comment on above: Performed By: #### L 100.0100, L500.2500 #### [facility] [address] [place], [address] CO2 [Moles/Vol] 21.8 mmol/L Normal 21.0-32.0 [facility] Comment on above: Performed By: #### L 100.0100, L500.2500 #### [facility] [address] [place], [address] Creatinine [Mass/Vol] 0.50 mg/dL Low 0.70-1.20 [facility] Comment on above: Performed By: #### L 100.0100, L500.2500 #### [facility] [address] [place], [address] ECRCL 120.48 ml/min Normal 50-250 [facility] Comment on above: Performed By: #### L 100.0100, L500.2500 #### [facility] [address] [place], [address] GAP 16 High 5-15 [facility] Comment on above: Performed By: #### L 100.0100, L500.2500 #### [facility] [address] [place], [address] GFR/1.73 sq M.predicted among non-blacks MDRD (S/P/Bld) [Vol rate/Area] 116 mL/min/{1.73_m2} Normal >60 [facility] Comment on above: Result Comment: mL/m in/1.73m2 CKD-EPI Creatinine Equation (2020) Performed By: #### L 100.0100, L500.2500 #### [facility] [address] [place], [address] Globulin (S) [Mass/Vol] 2.6 g/dL Normal 2.2-4.2 [facility] Comment on above: Performed By: #### L 100.0100, L500.2500 #### [facility] [address] [place], [address] Glucose [Mass/Vol] 87 mg/dL Normal 70-99 [facility] Comment on above: Performed By: #### L 100.0100, L500.2500 #### [facility] [address] [place], [address] Potassium [Moles/Vol] 4.1 mmol/L Normal 3.3-5.1 [facility] Comment on above: Performed By: #### L 100.0100, L500.2500 #### [facility] [address] [place], [address] Sodium [Moles/Vol] 134 mmol/L Normal 133-145 [facility] Comment on above: Performed By: #### L 100.0100, L500.2500 #### [facility] [address] [place], [address] T PROT 6.1 g/dL Normal 5.9-8.4 [facility] Comment on above: Performed By: #### L 100.0100, L500.2500 #### [facility] [address] [place], [address] Urea nitrogen [Mass/Vol] 5 mg/dL Normal 4-19 [facility] Comment on above: Performed By: #### L 100.0100, L500.2500 #### [facility] [address] [place], [address] Echocardiogram study reportO rdered By: Corey Fong on 05-26-2025 Study report [facility] [address] [place] [address] Echo Complete 05/26/25 0703 MR#: [id number] Acct: [id number] Name: MARVIN IZQUIERDO Rep #:[id number] : 1965 59 From: Corey salmon MD Attending Dr: Dr. Sheron Dumont MD Status: ADM ABRAM Ordering Dr: Valencia Wen MD Date: Location: [facility] Sex: M C Admitted: 05/25/25 Reason For Study Reason For Study: Near Syncope Procedure This was a 2D Doppler, Color Flow transthoracic echocardiogram. Exam performed portable in patient room. Left Ventricle Normal LV size. The estimated ejection fraction is 60 %. No regional wall motionabnormalities noted. Right Ventricle Normal RV size. Normal systolic function. Atria The left and right atria are normal. No doppler evidence for ASD. Mitral Valve There is no mitral valve stenosis. Trivial mitral valve insufficiency. Tricuspid Valve There is no tricuspid stenosis. Unable to estimate RV systolic pressure due to insufficient tricuspid regurgitant envelope. Aortic Valve Trisinus/trileaflet aortic valve. There is no aortic stenosis. No aortic valve insufficiency. Pulmonic Valve There is no pulmonic valvular stenosis. No pulmonic valve insufficiency. Great Vessels Normal sized aortic root. Pericardium/Pleural No pericardial effusion. MMode/2D Measurements & Calculations LVIDd: 4.3 cm IVSd: 1.1 cm Ao root diam: 3.4 cm LVIDs: 3.0 cm LVPWd: 1.2 cm RVDd: 3.6 cm FS: 30.4 % LAV(MOD-bp): 45.4 ml LVAd ap4: 22.5 cm2 LVAd ap2: 22.2 cm2 LAV(MOD-bp) Indexed: 28.8 ml/m2 LVLd ap4: 7.4 cm LVLd ap2: 7.6 cm LAV(MOD-sp2): 45.0 ml EDV(MOD-sp4): 56.8 ml EDV(MOD-sp2): 54.2 ml LAV(MOD-sp4): 39.2 ml EDV(sp4-el): 58.0 ml EDV(sp2-el): 54.8 ml LVAs ap4: 12.3 cm2 LVAs ap2: 12.0 cm2 LVLs ap4: 6.2 cm LVLs ap2: 6.5 cm ESV(MOD-sp4): 21.7 ml ESV(MOD-sp2): 19.2 ml ESV(sp4-el): 20.8 ml ESV(sp2-el): 18.9 ml EF(MOD-sp4): 61.7 % EF(MOD-sp2): 64.6 % EF(sp4-el): 64.1 % SV(MOD-sp4): 35.1 ml SV(MOD-sp2): 35.0 ml SV(sp4-el): 37.2 ml SI(MOD-sp4): 22.2 ml/m2 SI(MOD-sp2): 22.2 ml/m2 LA A4 area: 16.8 cm2 LA dimension(2D): 3.4 cm RA A4 area: 13.6 cm2 ____ TAPSE: 2.2 cm Doppler Measurements & Calculations MV E max jeaneth: 81.2 cm/sec Lat Peak E' Jeaneth: 13.4 cm/sec Med Peak E' Jeaneth: 9.1 cm/sec MV A max jeaneth: 101.8 cm/sec E/E' lat: 6.0 E/E' med: 8.9 MV E/A: 0.80 Ao V2 max: 182.0 cm/sec LV V1 max: 124.3 cm/sec PA V2 max: 105.7 cm/sec Ao max P.3 mmHg LV V1 max P.2 mmHg Ao V2 mean: 124.0 cm/sec LV V1 mean P.0 mmHg Ao mean P.0 mmHg LV V1 mean: 96.1 cm/sec Ao V2 VTI: 35.4 cm LV V1 VTI: 26.3 cm AV (velocity ratio): 0.74 ECHO/Echo Complete Interpretation Summary The estimated ejection fraction is 60 %. Trivial mitral valve insufficiency. Ordering Physician: Valencia Wen Referring Physician: [facility] Performed By: Anabell Ariza RDCS 05/26/25 112 Date _ Corey Fong MD CC: Dr. Sheron Dumont MD; Dr. Valencia Wen MD; [facility] ~ Date Dictated: 05/26/25702 Date Transcribed: 05/26/251121 [employer] Professor: Signed [facility] Work Phone: [facility] deOrdered By: Sheron Dumont on 05-26-2025 Glucose [Mass/Vol] 122 mg/dL High 74-106 [facility] Comment on above: MANAGEMENT OF PATIEN T CARE PER NURSING PROTOCOL Laboratory - Chemistry and C hemistry - challengeOrdered By: Valencia Wen on 05-26-2025 AST [Catalytic activity/Vol] 65 U/L High <38 [facility] Serum globulin measurementOr dered By: Valencia Wen on 05-26-2025 Globulin (S) [Mass/Vol] 2.6 g/dL 2.2-4.2 [facility] Serum or plasma alanine warren otransferase (ALT) measurementOrdered By: Valencia Wen on 05-26-2025 ALT [Catalytic activity/Vol] 36 U/L <47 [facility] Serum or plasma albumin becka urement (mass/volume)Ordered By: Valencia Wen on 05-26-2025 Albumin [Mass/Vol] 3.5 g/dL 3.4-4.8 [facility] Serum or plasma albumin/glob ulin mass ratioOrdered By: Valencia Wen on 05-26-2025 Albumin/Globulin [Mass ratio] 1.3 {ratio} 0.9-2.4 [facility] Serum or plasma alkaline chanel sphatase measurementOrdered By: Valencia Wen on 05-26-2025 ALP [Catalytic activity/Vol] 123 U/L 40-129 [facility] TSH DL <= 0.005 mIU/L QnOrde red By: Valencia Wen on 05-26-2025 TSH Qn 2.020 uIU/mL 0.300-4.200 [facility] Thyroid Stim Hormone (TSH)on 05-26-2025 TSH 2.020 uIU/mL Normal 0.300-4.200 [facility] Comment on above: Performed By: #### L 100.0100, L500.2500 #### [facility] [address] [place], [address] Total proteinOrdered By: Thu Wen on 05-26-2025 Protein [Mass/Vol] 6.1 g/dL 5.9-8.4 [facility] Vitamin B12on 05-26-2025 Cobalamin (Vitamin B12) [Mass/Vol] 363 pg/mL Normal 180-914 [facility] Comment on above: Performed By: #### L 100.0100, L500.2500 #### [facility] [address] [place], [place], [address] Vitamin B12 ser/plasOrdered By: Valencia Wen on 05-26-2025 Cobalamin (Vitamin B12) [Mass/Vol] 363 pg/mL 180-914 [facility] 12 Lead EKGon 05-25-2025 12 Lead EKG Cardi[facility] Services [address] [place] [address] 12 Lead EKG 05/25/25 1141 MR#: [id number] Acct: [id number] Name: MARVIN IZQUIERDO Mitra Rep #: [id number] : 1965 59 From: Corey Fong MD Attending Dr: Dr. Sheron Dumont MD Status: NATHEN VALVERDE Ordering Dr: Radu Martinez DO Date: 5 Location: [facility] Sex: M C Admitted: 05/25/25 Test Reason : Blood Pressure : */* mmHG Vent. Rate : 106 BPM Atrial Rate : 106 BPM P-R Int : 146 ms QRS Dur : 90 ms QT Int : 352 ms P-R-T Axes : 61 -9 54 degrees QTcB Int : 467 ms Sinus tachycardia Otherwise normal ECG Confirmed by MERVAT TERRY, PENG ([id number]), supervising editor trailer GREGG BLOOM ([id number]) on 05/27/2025 1:14:30 PM Referred By: Confirmed By: PENG FONG MD 05/27/25 1314 Date Corey Fong MD CC: Dr. Radu Martinez DO; Dr. Sheron Dumont MD; [facility] Signed Normal [facility] Absolute lymphocyte countOrd ered By: Radu Martinez on 05-25-2025 Lymphocytes Auto (Unsp spec) [#/Vol] 1.01 10*3/uL 0.83-4.51 [facility] Absolute neutrophil countOrd ered By: Radu Martinez on 05-25-2025 Neutrophils (Bld) [#/Vol] 6.2 10*3/uL 2.0-7.7 [facility] Alcohol, Blood (Medical)-Ser umon 05-25-2025 SERUM ETOH 222.0 mg/dL High <=10.0 [facility] Comment on above: Result Comment: This test is for medical purposes only. The legal definition of intoxication varies according to local law. Performed By: #### L 100.0100, L500.2500 #### [facility] [address] [place], [place], [id number] Amphetamine detection with 1 000 ng/mL as cutoffOrdered By: Radu Martinez on 05-25-2025 Amphetamines Screen method >1000 ng/mL Ql (U) Negative < 200 ng/mL [facility] Anion gap in Serum or Plasma Ordered By: Radu Martinez on 05-25-2025 Anion gap [Moles/Vol] 20 mmol/L High 5-15 [facility] Automated lymphocyte count a s percentage of total leukocytesOrdered By: Radu ChoAmaya on 05-25-2025 Lymphocytes/100 WBC Auto (Unsp spec) 12.3 % Low 19-41 [facility] BUN/creatinine ratioOrdered By: Radu Martinez on 05-25-2025 Urea nitrogen/Creatinine [Mass ratio] 6.4 mg/mg Low 10-20 [facility] Basic Metabolic Profile (BMP )on 05-25-2025 BUN/CRE 6.4 RATIO Low 10-20 [facility] Comment on above: Performed By: #### L 100.0100, L500.2500 #### [facility] [address] [place], [address] Calcium [Mass/Vol] 9.3 mg/dL Normal 7.6-11.0 [facility] Comment on above: Performed By: #### L 100.0100, L500.2500 #### [facility] [address] [place], [address] Chloride [Moles/Vol] 98 mmol/L Normal 98-108 [facility] Comment on above: Performed By: #### L 100.0100, L500.2500 #### [facility] [address] [place], [address] CO2 [Moles/Vol] 22.4 mmol/L Normal 21.0-32.0 [facility] Comment on above: Performed By: #### L 100.0100, L500.2500 #### [facility] [address] [place], [address] Creatinine [Mass/Vol] 0.61 mg/dL Low 0.70-1.20 [facility] Comment on above: Performed By: #### L 100.0100, L500.2500 #### [facility] [address] [place], [address] ECRCL 97.91 ml/min Normal 50-250 [facility] Comment on above: Performed By: #### L 100.0100, L500.2500 #### [facility] [address] [place], [address] GAP 20 High 5-15 [facility] Comment on above: Performed By: #### L 100.0100, L500.2500 #### [facility] [address] [place], [address] GFR/1.73 sq M.predicted among non-blacks MDRD (S/P/Bld) [Vol rate/Area] 109 mL/min/{1.73_m2} Normal >60 [facility] Comment on above: Result Comment: mL/m in/1.73m2 CKD-EPI Creatinine Equation (2020) Performed By: #### L 100.0100, L500.2500 #### [facility] [address] [place], [address] Glucose [Mass/Vol] 81 mg/dL Normal 70-99 [facility] Comment on above: Performed By: #### L 100.0100, L500.2500 #### [facility] [address] [place], [address] Potassium [Moles/Vol] 3.6 mmol/L Normal 3.3-5.1 [facility] Comment on above: Performed By: #### L 100.0100, L500.2500 #### [facility] [address] [place], [address] Sodium [Moles/Vol] 141 mmol/L Normal 133-145 [facility] Comment on above: Performed By: #### L 100.0100, L500.2500 #### [facility] [address] [place], [address] Urea nitrogen [Mass/Vol] 4 mg/dL Normal 4-19 [facility] Comment on above: Performed By: #### L 100.0100, L500.2500 #### [facility] [address] [place], [address] Basophil percentageOrdered B y: Radu Martinez on 05-25-2025 Basophils/100 WBC (Bld) 0.6 % 0-1 [facility] Bilirubin Test strip Ql (U)O rdered By: Radu Martinez on 05-25-2025 Bilirubin Ql (U) Negative Negative [facility] Brain/Head without Contrasto n 05-25-2025 Brain/Head without Contrast Imaging Services [address] [place], [place] [address] Brain/Head without Contrast MR#: [id number] Acct: [id number] Name: MARVIN IZQUIERDO Rep #: [id number] : 1965 M 59 From: Maura Casas nd, MD PCP: [facility] Status: REG ER Study: Brain/Head without Contrast Date of Exam: 05/04 01/25 Exam# [id number] Ordering Dr: Radu Martinez DO EXAM: BRAIN/HEAD WITHOUT CONTRAST CLINICAL HISTORY: 59 y/o M with LIGHTHEADEDNESS, FALL. COMPARISON: CT head 07/14/2023. TECHNIQUE: Routine CT imaging of the head without IV contrast. Additional multiplanar reformats were obtained. Dose reduction techniques were used including intermediate exposure control (AEC),iterative reconstruction technique, and/or mA and/or KV dose adjustments based on patient's size. FINDINGS: The ventricles, sulci and cisterns are normal for patient age. There is no evidence of acute intracranial hemorrhage or herniation. There is no midline shift, mass effect, or extra-axial collection. Mild scattered supratentorial white matter hypodensities, compatible with patient age. 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 The griffin and white matter interfaces are otherwise maintained. The orbits, visualized paranasal sinuses and mastoids are unremarkable. No acute calvarial fracture or scalp hematoma. CT/Brain/Head without Contrast IMPRESSION: No acute intracranial findings. Chronic findings as described. Reading Location: [id number] CC: [facility] Professor: Signed Normal [facility] CBC W/Diff, Automatedon 07-2 Absolute Lymph 1.01 X10 3/uL Normal 0.83-4.51 [facility] Comment on above: Performed By: #### L 100.0100, L500.2500 #### [facility] [address] [place], [address] Absolute Neut 6.2 X10 3/uL Normal 2.0-7.7 [facility] Comment on above: Performed By: #### L 100.0100, L500.2500 #### [facility] [address] [place], [address] Basophils/100 WBC (Bld) 0.6 % Normal 0-1 [facility] Comment on above: Performed By: #### L 100.0100, L500.2500 #### [facility] [address] [place], [address] Eosinophils/100 WBC (Bld) 2.3 % Normal 0-5 [facility] Comment on above: Performed By: #### L 100.0100, L500.2500 #### [facility] [address] [place], [address] Erythrocyte distribution width (RBC) [Ratio] 17.8 % High 11.6-14.6 [facility] Comment on above: Performed By: #### L 100.0100, L500.2500 #### [facility] [address] [place], [address] Hematocrit (Bld) [Volume fraction] 36.0 % Low 40-54 [facility] Comment on above: Performed By: #### L 100.0100, L500.2500 #### [facility] [address] [place], [address] Hemoglobin (Bld) [Mass/Vol] 12.1 g/dL Low 13.0-16.5 [facility] Comment on above: Performed By: #### L 100.0100, L500.2500 #### [facility] [address] [place], [address] IG% 0.500 Normal 0.0-0.9 [facility] Comment on above: Result Comment: IG% - Immature Granulocytes (promyelocytes, myelocytes and metamyelocytes) > 1% indicates that a LEFT SHIFT is Present. Performed By: #### L 100.0100, L500.2500 #### [facility] [address] [place], [address] Lymphocytes/100 WBC (Bld) 12.3 % Low 19-41 [facility] Comment on above: Performed By: #### L 100.0100, L500.2500 #### [facility] [address] [place], [address] MCH (RBC) [Entitic mass] 33.0 pg High 27.0-32.0 [facility] Comment on above: Performed By: #### L 100.0100, L500.2500 #### [facility] [address] [place], [address] MCHC (RBC) [Mass/Vol] 33.6 g/dL Normal 32-36 [facility] Comment on above: Performed By: #### L 100.0100, L500.2500 #### [facility] [address] [place], [address] MCV (RBC) [Entitic vol] 98.1 fL High 80-94 [facility] Comment on above: Performed By: #### L 100.0100, L500.2500 #### [facility] [address] [place], [address] Monocytes/100 WBC (Bld) 9.5 % Normal 0-10 [facility] Comment on above: Performed By: #### L 100.0100, L500.2500 #### [facility] [address] [place], [address] Neutrophils/100 WBC (Bld) 74.8 % High 47-70 [facility] Comment on above: Performed By: #### L 100.0100, L500.2500 #### [facility] [address] [place], [address] Nucleated RBC (Bld) [#/Vol] 0 10*3/uL Normal 0-5 [facility] Comment on above: Performed By: #### L 100.0100, L500.2500 #### [facility] [address] [place], [address] Platelet mean volume (Bld) [Entitic vol] 9.6 fL Normal 6.2-12.0 [facility] Comment on above: Performed By: #### L 100.0100, L500.2500 #### [facility] [address] [place], [address] Platelets (Bld) [#/Vol] 296 10*3/uL Normal 150-450 [facility] Comment on above: Performed By: #### L 100.0100, L500.2500 #### [facility] [address] [place], [address] RBC (Bld) [#/Vol] 3.67 10*6/uL Low 4.6-6.2 [facility] Comment on above: Performed By: #### L 100.0100, L500.2500 #### [facility] [address] [place], [address] RDW SD 64.7 fl High 35.1-43.9 [facility] Comment on above: Performed By: #### L 100.0100, L500.2500 #### [facility] [address] [place], [address] WBC (Bld) [#/Vol] 8.2 10*3/uL Normal 4.4-11.0 [facility] Comment on above: Performed By: #### L 100.0100, L500.2500 #### [facility] [address] [place], [address] CTA Chest W/WO Contraston CTA Chest W/WO Contrast [facility] Imaging Services [address] [place] [address] CTA Chest W/WO Contrast MR#: [id number] Acct: [id number] Name: MARVIN IZQUIERDO Rep #: [id number] : 1965 M 59 From: Maura Casas nd, MD PCP: [facility] Status: REG ER Study: CTA Chest W/WO Contrast Date of Exam: 05/25/25 Exam# [id number] Ordering Dr: Radu Martinez DO PROCEDURE: CTA CHEST W/WO CONTRAST 05/25/2025 REASON FOR EXAM: PE TECHNIQUE: CTA axial imaging of the chest with intravenous contrast. Coronal and Sagittal reconstruction series were provided. 3D, 3D post processing, 3D reconstructions, Maximum intensity projection (MIPs) Volume rendering and Shaded surface rendering was provided. PATIENT PREPARATION: Per protocol CONTRAST: Isovue 370 VOLUME: 100mL One or more dose reduction techniques were used (e.g., Automated exposure control, adjustment of the mA and/or kV according to patient size, use of iterative reconstruction technique). RADIATION DOSE SUMMARY: DLP: 200 mGycm COMPARISON: CT chest, abdomen and pelvis 04/01/2023. FINDINGS: Hardware: None. Lymph nodes: No axillary, mediastinal or hilar lymphadenopathy. Visualization of the left axilla is limited by patient positioning. Heart: The heart is normal in size without pericardial effusion. The great vessels are normal in caliber. Moderate coronary artery, aortic valvular and thoracic aortic calcifications. Aberrant right subclavian artery, a normal variant. Pulmonary Vessels: No central filling defect within the segmental pulmonary arteries. Visualization of the more distal pulmonary arteries is limited by motion artifact. Lungs and Airways: The central airways are patent. Numerous scattered tiny ground-glass and part solid part ground-glass pulmonary nodules throughout the bilateral lungs, greatest in the inferior right upper lobe (for example series 2, image 141). Mild bronchiectasis. Emphysema and scattered areas of scarring. No pleural effusion or pneumothorax. Upper Abdomen: Hepatic steatosis. Left adrenal gland hyperplasia. Calcific plaque of the abdominal aorta. Bones: Acute, mildly comminuted fracture of the left humeral neck, left inferior scapular body (sagittal image 264), and left lateral ribs. Mild thoracic spondylosis. CT/CTA Chest W/WO Contrast IMPRESSION: 1. No large central pulmonary embolism. 2. Acute fractures of the left humeral neck, left inferior scapula and left lateral ribs. 3. Numerous ground-glass and part solid, part ground-glass pulmonary nodules throughout the bilateral lungs. Findings are most compatible with pneumonitis/pneumonia, however pulmonary neoplasm could appear similar. Follow-up chest CT in 2-3 months is recommended to evaluate for stability/resolution. PET-CT will not be beneficial as infection and neoplasm both demonstrate FDG avidity. Reading Location: [id number] CC: Dr. Radu Martinez, DO; [facility] Farm Management Professor: Signed [facility] Carbon dioxide, total [Moles /volume] in Central venous bloodOrdered By: Radu Martinez on 05-25-2025 CO2 [Moles/Vol] 22.4 mmol/L 21.0-32.0 [facility] Chest PA and Lateralon 05-25 Chest PA and Lateral Imaging Services [address] [place] [address] Chest PA and Lateral MR#: [id number] Acct: [id number] Name: IZQUIERDOMARVIN Mitra Rep #: [id number] : 1965 M 59 From: Maura Casas nd, MD PCP: [facility] Status: REG ER Study: Chest PA and Lateral Date of Exam: 05/25/25 Exam# [id number] Ordering Dr: Radu Martinez DO PROCEDURE: CHEST PA AND LATERAL 05/25/2025 REASON FOR EXAM: LIGHTHEADEDNESS TECHNIQUE: CHEST PA AND LATERAL COMPARISON: CT chest, abdomen and pelvis 04/01/2023. Chest radiograph 08/26/2022. FINDINGS: Hardware: None. Heart: The heart size is normal. Mediastinum: The mediastinal contour is unremarkable. Lungs: Bibasilar atelectasis/scarring. No focal consolidation, pleural effusion or pneumothorax. Bones: Degenerative changes are identified within the thoracic spine. RAD/Chest PA and Lateral IMPRESSION: NO ACUTE FINDINGS. Reading Location: [id number] CC: Dr. Radu Martinez DO; [facility] Farm Management Professor: Signed [facility] Chloride assayOrdered By: Andrew Martinez on 05-25-2025 Chloride [Moles/Vol] 98 mmol/L 98-108 [facility] D-Dimer Quantitative (DVT/PE )on 05-25-2025 D-DIMER QUANT 1.21 FEU/ug/m Invalid Interpretation Code 0.27-0.49 [facility] Comment on above: Result Comment: D-Di nicolas ELEVATED (>0.49): Additional studies and clinical assessments are indicated to conclude diagnosis of: Deep Vein Thrombosis (DVT) or Pulmonary Embolism (PE) CRITICAL VALUE CALLED TO LISA KAT (ER) 05/25/25 1211 Jerry Harding. RESULTS READ BACK BY SAME. Performed By: #### L 100.0100, L500.2500 #### [facility] [address] [place], [address] Echo Completeon 05-25-2025 Echo Complete [facility] Cardiovascular Services [address] [facility] [place] [address] Echo Complete 05/26/25 0703 MR#: [id number] Acct: [id number] Name: MARVIN IZQUIERDO Rep #: [id number] : 1965 59 From: Corey Fong MD Attending Dr: Dr. Sheron Dumont MD Status: AD M ABRAM Ordering Dr: Valencia Wen MD Date: 05/25/25 Location: [facility] Sex: M C Admitted: 05/25/25 Reason For Study Reason For Study: Near Syncope Procedure This was a 2D Doppler, Color Flow transthoracic echocardiogram. Exam performed portable in patient room. Left Ventricle Normal LV size. The estimated ejection fraction is 60 %. No regional wall motion abnormalities noted. Right Ventricle Normal RV size. Normal systolic function. Atria The left and right atria are normal. No doppler evidence for ASD. Mitral Valve There is no mitral valve stenosis. Trivial mitral valve insufficiency. Tricuspid Valve There is no tricuspid stenosis. Unable to estimate RV systolic pressure due to insufficient tricuspid regurgitant envelope. Aortic Valve Trisinus/trileaflet aortic valve. There is no aortic stenosis. No aortic valve insufficiency. Pulmonic Valve There is no pulmonic valvular stenosis. No pulmonic valve insufficiency. Great Vessels Normal sized aortic root. Pericardium/Pleural No pericardial effusion. MMode/2D Measurements Calculations LVIDd: 4.3 cm IVSd: 1.1 cm Ao root diam: 3.4 cm LVIDs: 3.0 cm LVPWd: 1.2 cm RVDd: 3.6 cm FS: 30.4 % LAV(MOD-bp): 45.4 ml LVAd ap4: 22.5 cm2 LVAd ap2: 22.2 cm2 LAV(MOD-bp) Indexed: 28.8 ml/m2 LVLd ap4: 7.4 cm LVLd ap2: 7.6 cm LAV(MOD-sp2): 45.0 ml EDV(MOD-sp4): 56.8 ml EDV(MOD-sp2): 54.2 ml LAV(MOD-sp4): 39.2 ml EDV(sp4-el): 58.0 ml EDV(sp2-el): 54.8 ml LVAs ap4: 12.3 cm2 LVAs ap2: 12.0 cm2 LVLs ap4: 6.2 cm LVLs ap2: 6.5 cm ESV(MOD-sp4): 21.7 ml ESV(MOD-sp2): 19.2 ml ESV(sp4-el): 20.8 ml ESV(sp2-el): 18.9 ml EF(MOD-sp4): 61.7 % EF(MOD-sp2): 64.6 % EF(sp4-el): 64.1 % SV(MOD-sp4): 35.1 ml SV(MOD-sp2): 35.0 ml SV(sp4-el): 37.2 ml SI(MOD-sp4): 22.2 ml/m2 SI(MOD-sp2): 22.2 ml/m2 LA A4 area: 16.8 cm2 LA dimension(2D): 3.4 cm RA A4 area: 13.6 cm2 TAPSE: 2.2 cm Doppler Measurements Calculations MV E max jeaneth: 81.2 cm/sec Lat Peak E' Jeaneth: 13.4 cm/sec Med Peak E' Jeaneth: 9.1 cm/sec MV A max jeaneth: 101.8 cm/sec E/E' lat: 6.0 E/E' med: 8.9 MV E/A: 0.80 Ao V2 max: 182.0 cm/sec LV V1 max: 124.3 cm/sec PA V2 max: 105.7 cm/sec Ao max P.3 mmHg LV V1 max P.2 mmHg Ao V2 mean: 124.0 cm/sec LV V1 mean P.0 mmHg Ao mean P.0 mmHg LV V1 mean: 96.1 cm/sec Ao V2 VTI: 35.4 cm LV V1 VTI: 26.3 cm AV (velocity ratio): 0.74 ECHO/Echo Complete Interpretation Summary The estimated ejection fraction is 60 %. Trivial mitral valve insufficiency. Ordering Physician: Valencia Wen Referring Physician: [facility] Performed By: Anabell Ariza RDCS 05/26/25 1122 Date Corey Fong MD CC: Dr. Sheron Dumont MD; Dr. 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 59-year-old male with past medical history of HTN, GERD presents for evaluation of episodic lightheadedness. Patient follows with the [facility]. Patient states over the last several days he has been having episodic lightheadedness with presyncopal symptoms. He states that it mostly occurs when he changes position. He states yesterday shortly after ambulating after a seating position he developed tunnel vision, lightheadedness, and fell. Did hit his head. Not on blood thinners. Denies any trauma from the fall. States at baseline he has bilateral swollen [facility] He denies any fever, chills, shortness of breath, chest pain, Bao pain, nausea, vomiting, dysuria. States overall he is a poor diet. Currently has bedbugs. Review of systems: See HPI Medications: As listed on the chart Allergies: As listed on the chart PFSH: Per chart Vital signs: As listed on the chart. Reviewed. Physical exam: Gen: A O x3, NAD, bedbugs on the bed Head: Normocephalic, atraumatic Eyes: No sclera icterus, conjunctiva clear, PERRL ENT: Mildly dry mucous membranes face atraumatic, Neck: Trachea midline, No JVD, full range of motion, nontender CV: RRR, no murmurs, minimal nonpitting bilateral ankle/feet edema Resp: Lungs CTA BL, no w/r/c GI: Abd soft, non-distended, non-tender, no r/r/g Musc: Full ROM, no deformity, no midline spinal tenderness, no bony step-off Skin: Warm, dry Neuro: Alert, oriented, grossly intact, sensation intact Psych: Cooperative, appropriate mood and affect [facility] Medical History Alcohol abuse Anemia Hypertension Smoker Substance abuse Home Medications ???Medication ???Instructions ???Recorded ???Last Taken ???Type atenolol 25 mg tablet 25 mg PO DAILY BP 08/27/22 2 History 25 mg ascorbic acid (vitamin C) 500 mg 500 mg PO DAILY 30 days #30 tabs 1 Unknown Rx tablet (Vitamin C) ferrous sulfate 325 mg (65 mg 325 mg PO BID 30 days #60 tabs Unknown Rx iron) tablet (Iron (ferrous sulfate)) pantoprazole 40 mg tablet,delayed 40 mg PO BID 30 days #60 tabs Unknown Rx release sennosides 8.6 mg-docusate sodium 1 tab-cap PO BID PRN constipation 08/29/22 Unknown Rx 50 mg tablet (Senokot-S) 30 days #60 tabs diazepam 2 mg tablet 2 mg PO TID PRN PRN Vertigo #10 Unknown Rx TABLETS Allergy/AdvReac Type Severity Reaction Status Date / Time No Known Allergies Allergy Verified 05/25/25 10:31 Family History Other Heart disease Social History Smoking Status: Current every day smoker tobacco type: cigarettes EXAM Physical Exam Const Vital Signs: 05/25/25 10:29 05/25/25 11:45 05/25/25 12:11 Temperature 97.9 F Temperature Source Oral Pulse Rate 133 H 106 H 105 H Pulse Rate [Lying] Pulse Rate [Sitting (for 1 minute prior to obtaining)] Respiratory Rate 18 28 H 22 H Blood Pressure 161/101 H 170/95 H 155/73 H Blood Pressure [Lying] Blood Pressure [Sitting (for 1 minute prior to obtaining)] Blood Pressure Mean 121 120 100 Blood Pressure Mean [Lying] Blood Pressure Mean [Sitting (for 1 minute prior to obtaining)] Pulse Ox 91 98 95 Oxygen Delivery Method Room Air Room Air 05/25/25 12:18 05/25/25 13:00 05/25/25 14:00 Temperature Temperature Source Pulse Rate 102 H 111 H Pulse Rate [Lying] 101 H Pulse Rate [Sitting (for 1 minute prior to obtaining)] 117 H Respiratory Rate 14 20 H Blood Pressure 160/92 H 154/90 H Blood Pressure [Lying] 155/94 H Blood Pressure [Sitting (for 1 minute prior to obtaining)] 163/97 H Blood Pressure Mean 114 111 Blood Pressure Mean [Lying] 114 Blood Pressure Mean [Sitting (for 1 minute prior to obtaining)] 119 Pulse Ox 97 95 Oxygen Delivery Method Room Air Room Air 05/25/25 15:00 05/25/25 15:16 05/25/25 16:00 Temperature 98 F Temperature Source Pulse Rate 104 H 116 H 117 H Pulse Rate [Lying] Pulse Rate [Sitting (for 1 minute prior to obtaining)] Respiratory Rate 10 L 17 21 H Blood Pressure 155/100 H 155/100 H 159/93 H Blood Pressure [Lying] Blood Pressure [Sitting (for 1 minute prior to obtaining)] Blood Pressure Mean 11 (more content not included)... [facility] Eosinophil percentageOrdered By: Radu Martinez on 05-25-2025 Eosinophils/100 WBC (Bld) 2.3 % 0-5 [facility] Erythrocyte distribution wid th ratioOrdered By: Radu Juan on 05-25-2025 Erythrocyte distribution width (RBC) [Ratio] 17.8 % High 11.6-14.6 [facility] Erythrocyte distribution wid th standard deviationOrdered By: Radu Long on 05-25-2025 Erythrocyte distribution width (RBC) [Ratio] 64.7 fl High 35.1-43.9 [facility] Glomerular filtration rate ( GFR) estimation/1.73 sq m using serum, plasma, or whole bOrdered By: Radu Martinez on 05-25-2025 GFR/1.73 sq M.predicted among non-blacks MDRD (S/P/Bld) [Vol rate/Area] 109 mL/min/{1.73_m2} >60 [facility] Comment on above: mL/min/1.73m2 CKD-EP I Creatinine Equation (2020) H AND P Exam - [facility] 05-25-2025 H&P Exam - Hospitalist [facility] Medical Records Department [address] [place] [address] H P Exam - Hospitalist 05/25/25 1609 MR#: [id number] Acct: [id number] Name: MARVIN IZQUIERDO Rep #: [id number] : 1965 59 From: Valencia Wen MD PCP: [facility] Status:ADM ABRAM Location: U [id number] HPI - General General Date of Admission: 05/25/25 Date of Service: 05/25/25 Chief Complaint: lightheadedness HPI Narrative MARVIN IZQUIERDO, is a 59-year-old male history of GERD, hypertension, alcohol use presented [facility] 05/25/2025 with several days of episodic lightheadedness that occur mostly with changes in position. Yesterday shortly after getting up from a seated position and ambulating he developed tunnel vision, lightheadedness, and subsequently fell. Denies hitting his head or any trauma from the fall. At baseline has swollen ankles [facility] Patient has a poor diet, there is a bedbug noted in the ED. In the ED temp 97.9, heart rate initially 133 with blood pressure 161/101, respiratory rate 18 pulse ox 91% on room air. Orthostats unable to be obtained due to patient being too concerned to stand. CBC in the ED with white blood cell count 8.2, hemoglobin 12.1. BMP with a sodium of 141, potassium 3.6, normal bicarb, anion gap reported at 20, BUN of 4 and creatinine 0.61. Troponin of 9 and proBNP less than 36. Brain CT with chronic findings but no acute findings. Chest x-ray with no acute findings. D-dimer 1.21 so patient had CTA which revealed fractures of left humeral neck, left inferior scapula, and left lateral ribs as well as numerous groundglass and part solid pulmonary nodules throughout bilateral lungs which could be pneumonitis/pneumonia but cannot rule out neoplasm and follow-up CT in 2 to 3 months was recommended. UA not suggestive of infection. Patient had no bruising or pain over any of the areas that reported fractures it was felt that these were more likely chronic in nature. Hospitalist contacted for admission. Patient evaluated at bedside, reports that he stopped his blood pressure medicine with a dose of 3.1253 days ago because he thought it was causing the swelling in his legs and since that time has been dizzy and lightheaded when he stands up to move around. Does not think this was happening before then. Did have syncopal episode yesterday when he stood up to move and he woke up on the ground, denies falling on his left side or any specific trauma. Denies any chest pain, shortness of breath, cough. Notes that he has some swelling in his lower extremities that he has been following for the [facility] with and has been very bothersome to him. Of note patient has escalated his drinking recently and will drink up to half a gallon of vodka a day. Last drink was yesterday. He denies any focal tenderness on his arm, shoulder, or rib cage. Notes that he will intermittently get some pain in his ribs on both sides from trauma to ribs multiple times but this has not changed in the past 24 hours and is not having any right now [facility] Medical History Alcohol abuse Anemia Hypertension Smoker Substance abuse Home Medications ???Medication ???Instructions ???Recorded ???Last Taken ???Type atenolol 25 mg tablet 25 mg PO DAILY BP 08/27/22 2 History 25 mg ascorbic acid (vitamin C) 500 mg 500 mg PO DAILY 30 days #30 tabs 1 Unknown Rx tablet (Vitamin C) ferrous sulfate 325 mg (65 mg 325 mg PO BID 30 days #60 tabs Unknown Rx iron) tablet (Iron (ferrous sulfate)) pantoprazole 40 mg tablet,delayed 40 mg PO BID 30 days #60 tabs Unknown Rx release sennosides 8.6 mg-docusate sodium 1 tab-cap PO BID PRN constipation 08/29/22 Unknown Rx 50 mg tablet (Senokot-S) 30 days #60 tabs diazepam 2 mg tablet 2 mg PO TID PRN PRN Vertigo #10 Unknown Rx TABLETS Allergy/AdvReac Type Severity Reaction Status Date / Time No Known Allergies Allergy Verified 05/25/25 10:31 Family History Other Heart disease Social History Smoking Status: Current every day smoker tobacco type: cigarettes ROS ROS Narrative General: Denies fever/chills HENT: Denies headache, denies stuffy nose, denies sore throat EYES: Denies changes in vision Resp: Denies cough, denies shortness of breath Cardiac: Denies chest pain GI: Denies abdominal pain, denies changes in bowel, denies nausea/vomiting : Denies changes in urination Extremity: Some bilateral lower extremity swelling MSK: Denies weakness Neuro: Denies any numbness/tingling, lightheaded when he stands up Heme: Denies any bleeding or bruising Skin: Denies rashes Psychiatric: No complaints voiced Vit (more content not included)... Normal [facility] Hematocrit Auto (Bld) [Volum e fraction]Ordered By: Radu Martinez on 05-25-2025 Hematocrit (Bld) [Volume fraction] 36.0 % Low 40-54 [facility] Hemoglobin measurementOrdere d By: Radu Martinez on 05-25-2025 Hemoglobin (Bld) [Mass/Vol] 12.1 g/dL Low 13.0-16.5 [facility] Humerus min 2 Viewson 2024 Humerus min 2 Views [facility] [address] [place] [address] Humerus min 2 Views MR#: [id number] Acct: [id number] Name: IZQUIERDOMARVIN ARAUJO Mitra Rep #: [id number] : 1965 [place] 59 From: Sridevi Manriquez PCP: [facility] Status: REG ER Study: Humerus min 2 Views Date of Exam: 05/25/25 Exam# [id number] Ordering Dr: Radu Martinez DO PROCEDURE: HUMERUS MIN 2 VIEWS 05/25/2025 REASON FOR EXAM: FRACTURE TECHNIQUE: HUMERUS MIN 2 VIEWS COMPARISON: None RAD/Humerus min 2 Views IMPRESSION: No acute fracture or dislocations. Mild degenerative changes of the left shoulder. No acute soft tissue abnormalities. Peripheral IV is noted within the antecubital fossa; otherwise no radiographic foreign body. Reading Location: [facility] CC: Dr. 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 Ketones Test strip Ql (U)Ord ered By: Radu Martinez on 05-25-2025 Ketones Ql (U) 50 mg/dl High Negative [facility] L501.4021on 05-25-2025 Trop T High Sen 8 ng/L Normal <=22 [facility] Comment on above: Performed By: #### L 501.4021 #### [facility] [address] [place], [place], [address] L503.7505on 05-25-2025 proBNP < 36 Normal <=900 [facility] Comment on above: Result Comment: Hear t Failure Unlikely: < 300 pg/mL Heart Failure Likely < 50 Years: > 450 pg/mL 50-75 Years: > 900 pg/mL >75 Years: > 1800 pg/mL Performed By: #### L 100.0100, L500.2500 #### [facility] [address], [place], [id number] MCV (mean corpuscular volume ) determinationOrdered By: Radu Martinez on 05-25-2025 MCV (RBC) [Entitic vol] 98.1 fL High 80-94 [facility] Mean corpuscular hemoglobin (MCH) determinationOrdered By: Radu Martinez on 05-25-2025 MCH (RBC) [Entitic mass] 33.0 pg High 27.0-32.0 [facility] Mean corpuscular hemoglobin concentration (MCHC) determinationOrdered By: Radu Martinez on 05-25-2025 MCHC (RBC) [Mass/Vol] 33.6 g/dL 32-36 [facility] Mean platelet volume determi nationOrdered By: Radu Martinez on 05-25-2025 Platelet mean volume (Bld) [Entitic vol] 9.6 fL 6.2-12.0 [facility] Microscopic analysis of urin e for red blood cells (RBC)Ordered By: Radu Martinez on 05-25-2025 Microscopic analysis of urine for red blood cells (RBC) 0 SEEN /hpf 0-5 [facility] Monocyte percentageOrdered B y: Radu Martinez on 05-25-2025 Monocytes/100 WBC (Bld) 9.5 % 0-10 [facility] Mucus LM Ql (Urine sed)Order ed By: Radu Martinez on 05-25-2025 Mucus Ql (Urine sed) 0 SEEN /hpf [facility] Natriuretic peptide.B prohor demi N-Terminal [Mass/volume] in Serum or PlasmaOrdered By: Radu Martinez on 05-25-2025 Natriuretic peptide.B prohormone N-Terminal [Mass/Vol] < 36 pg/mL <900 [facility] Comment on above: Heart Failure Unlike ly: < 300 pg/mLHeart Failure Likely< 50 Years: > 450 pg/mL50-75 Years: > 900 pg/mL>75 Years: > 1800 pg/mL Neutrophil percentageOrdered By: Radu Martinez on 05-25-2025 Neutrophils/100 WBC (Bld) 74.8 % High 47-70 [facility] Nitrite Test strip Ql (U)Ord ered By: Radu Martinez on 05-25-2025 Nitrite Ql (U) Negative Negative [facility] No Panel InformationOrdered By: Radu Martinez on 05-25-2025 Urine Buprenorphine Qualitative Negative < 200 ng/mL [facility] Urine Oxycodone Screen Negative < 100 ng/mL [facility] Nucleated red blood cell per centageOrdered By: Radu Martinez on 05-25-2025 Nucleated RBC/100 WBC (Bld) [Ratio] 0 % 0-5 [facility] Platelet countOrdered By: Andrew Martinez on 05-25-2025 Platelets (Bld) [#/Vol] 296 10*3/uL 150-450 [facility] Potassium measurement (mass/ volume)Ordered By: Radu Martinez on 05-25-2025 Potassium (Unsp spec) [Mass/Vol] 3.6 mmol/L 3.3-5.1 [facility] Protein Test strip Ql (U)Ord ered By: Radu Martinez on 05-25-2025 Protein Ql (U) 30 mg/dl High Negative [facility] Quantitative urine opiates m easurementOrdered By: Radu Martinez on 05-25-2025 Opiates Ql (U) Negative < 300 ng/mL [facility] RBC Auto (Bld) [#/Vol]Ordere d By: Radu Martinez on 05-25-2025 RBC (Bld) [#/Vol] 3.67 10*6/uL Low 4.6-6.2 [facility] Screening urine fentanyl saima surementOrdered By: Radu Martinez on 05-25-2025 fentaNYL Screen Ql (U) Negative [facility] Serum creatinine measurement (mass/volume)Ordered By: Radu Martinez on 05-25-2025 Creatinine [Mass/Vol] 0.61 mg/dL Low 0.70-1.20 [facility] Serum glucose measurement (m ass/volume)Ordered By: Radu Martinez on 05-25-2025 Glucose [Mass/Vol] 81 mg/dL 70-99 [facility] Serum or plasma calcium becka urement (mass/volume)Ordered By: Radu Long on 05-25-2025 Calcium [Mass/Vol] 9.3 mg/dL 7.6-11.0 [facility] Serum or plasma ethanol becka urement (mass/volume)Ordered By: Radu Long on 05-25-2025 Ethanol [Mass/Vol] 222.0 mg/dL High <10.1 [facility] Comment on above: This test is for med ical purposes only. The legal definition of intoxication varies according to local law. Serum or plasma urea nitroge n measurement (mass/volume)Ordered By: Radu Martinez on 05-25-2025 Urea nitrogen [Mass/Vol] 4 mg/dL 4-19 [facility] Sodium levelOrdered By: Lul Martinez on 05-25-2025 Sodium [Moles/Vol] 141 mmol/L 133-145 [facility] Squamous epithelial cells de tection in urine sediment by light microscopyOrdered By: Radu Martinez on 05-25-2025 Epithelial cells.squamous LM Ql (Urine sed) 0 SEEN /hpf 0-5 [facility] Troponin T HS 2 HRon 025 Trop T High Sen 9 ng/L Normal <=22 [facility] Comment on above: Performed By: #### L 100.0100, L500.2500 #### [facility] [address] [place], [place], [id number] Troponin T.cardiac [Mass/vol ume] in Serum or Plasma by High sensitivity methodOrdered By: Radu Martinez on 05-25-2025 Troponin T.cardiac High sensitivity method [Mass/Vol] 9 ng/L <22 [facility] Troponin T.cardiac High sensitivity method [Mass/Vol] 8 ng/L <22 [facility] Urinalysis, Completeon 05-25 BACTERIA 0 SEEN Normal None Seen [facility] Comment on above: Order Comment: CLEAN CATCH Performed By: #### L 100.0100, L500.2500 #### [facility] [address] [place], [place], [id number] EPI,SQUAMOUS 0 SEEN Normal 0-5 [facility] Comment on above: Order Comment: CLEAN CATCH Performed By: #### L 100.0100, L500.2500 #### [facility] [address] [place], [address] Mucus Ql (Urine sed) 0 SEEN Normal [facility] Comment on above: Order Comment: CLEAN CATCH Performed By: #### L 100.0100, L500.2500 #### [facility] [address] [place], [address] RBC 0 SEEN Normal 0-5 [facility] Comment on above: Order Comment: CLEAN CATCH Performed By: #### L 100.0100, L500.2500 #### [facility] [address] [place], [address] WBC 0 SEEN Normal 0-5 [facility] Comment on above: Order Comment: CLEAN CATCH Performed By: #### L 100.0100, L500.2500 #### [facility] [address] [place], [address] Urine Drug Screen (VISTA)on 05-25-2025 AMPHETAMINES Negative Normal <1000 ng/mL [facility] Comment on above: Performed By: #### L 100.0100, L500.2500 #### [facility] [address] [place], [address] BARBITIURATES Negative Normal < 200 ng/mL [facility] Comment on above: Performed By: #### L 100.0100, L500.2500 #### [facility] [address] [place], [address] BENZODIAZIPINE Negative Normal < 200 ng/mL [facility] Comment on above: Performed By: #### L 100.0100, L500.2500 #### [facility] [address] [place], [address] BUP Ur Drug Scr Negative Normal < 200 ng/mL [facility] Comment on above: Performed By: #### L 100.0100, L500.2500 #### [facility] [address] [place], [address] COCAINE Negative Normal < 300 ng/mL [facility] Comment on above: Performed By: #### L 100.0100, L500.2500 #### [facility] [address] [facility] [address] Fentanyl Negative Normal [facility] Comment on above: Performed By: #### L 100.0100, L500.2500 #### [facility] [address] [place], [address] METHADONE Negative Normal < 300 ng/mL [facility] Comment on above: Performed By: #### L 100.0100, L500.2500 #### [facility] [address] [place] [address] OPIATES Negative Normal < 300 ng/mL [facility] Comment on above: Performed By: #### L 100.0100, L500.2500 #### [facility] [address] [place] [address] OXYCODONE Negative Normal < 100 ng/mL [facility] Comment on above: Performed By: #### L 100.0100, L500.2500 #### [facility] [address] [place] [address] PCP Negative Normal < 25 ng/mL [facility] Comment on above: Performed By: #### L 100.0100, L500.2500 #### [facility] [address] [place] [address] THC Positive Normal < 50 ng/mL [facility] Comment on above: Result Comment: If c onfirmation testing is needed, a separate order will be required to send out testing to the reference laboratory. Performed By: #### L 100.0100, L500.2500 #### [facility] [address] [place], [address] Urine benzodiazepine levelOr dered By: Radu Martinez on 05-25-2025 Benzodiazepines Ql (U) Negative < 200 ng/mL [facility] Urine clarityOrdered By: Joe Martinez on 05-25-2025 Clarity (U) Clear Clear [facility] Urine cocaine levelOrdered B y: Radu Martinez on 05-25-2025 Cocaine Ql (U) Negative < 300 ng/mL [facility] Urine color determinationOrd ered By: Radu Martinez on 05-25-2025 Color (U) Yellow Yellow [facility] Urine fabpr-6-tpszhdjayaehdf abinol (THC) measurementOrdered By: Radu Long on 05-25-2025 Cannabinoids Screen Ql (U) Positive < 50 ng/mL [facility] Comment on above: If confirmation test ing is needed, a separate order will be required to send out testing to the reference laboratory. Urine glucose detectionOrder ed By: Radu Martinez on 05-25-2025 Glucose Ql (U) Normal mg/dl Normal [facility] Urine leukocyte esterase det ection by dipstickOrdered By: Radu Martinez on 05-25-2025 Leukocyte esterase Test strip Ql (U) Negative Negative [facility] Urine pHOrdered By: Radu Conde on 05-25-2025 pH (U) 6.0 [pH] 5.0 - 8.0 [facility] Urine phencyclidine (PCP) de tectionOrdered By: Radu Martinez on 05-25-2025 Phencyclidine Ql (U) Negative < 25 ng/mL [facility] Urine sediment bacteria coun t by microscopy (number/high power field)Ordered By: Radu Martinez on 05-25-2025 Bacteria LM.HPF (Urine sed) [#/Area] 0 /[HPF] None Seen [facility] Urine specific gravity measu rementOrdered By: Radu Martinez on 05-25-2025 Specific gravity (U) [Rel density] 1.020 1.002-1.030 [facility] Urine urobilinogen measureme ntOrdered By: Radu Martinez on 05-25-2025 Urobilinogen Ql (U) Normal mg/dl Normal [facility] White blood cell (WBC) count Ordered By: Radu Martinez on 05-25-2025 WBC (Bld) [#/Vol] 8.2 10*3/uL 4.4-11.0 [facility] White blood cell countOrdere d By: Radu Martinez on 05-25-2025 White blood cell count 0 SEEN /hpf 0-5 [facility] .Auto Diffon 02-28-2024 Basophil, Absolute 0.0 10 3/mcL Normal 0.0-0.2 [facility] ([place] Comment on above: Performed By: #### CHULA Alvares, TROPHS, CBC, ADIFF, GFR, CMP, ANEU, PRO #### [address] [address] Basophils/100 WBC (Bld) 0.1 % Normal 0.0-2.5 [facility] ([place]) Comment on above: Performed By: #### CHULA Alvares, TROPHS, CBC, ADIFF, GFR, CMP, ANEU, PRO #### [address] [address] Eosinophil, Absolute 0.1 10 3/mcL Normal 0.0-0.4 [facility] ([place]) Comment on above: Performed By: #### CHULA Alvares, TROPHS, CBC, ADIFF, GFR, CMP, ANEU, PRO #### [address] [address] Eosinophils/100 WBC (Bld) 0.8 % Normal 0.0-7.0 [facility] ([place] Comment on above: Performed By: #### CHULA Alvares, TROPHS, CBC, ADIFF, GFR, CMP, ANEU, PRO #### [address] [address] Lymphocyte, Absolute 0.4 10 3/mcL Low 0.8-3.9 [facility] ([place] Comment on above: Performed By: #### CHULA Alvares, TROPHS, CBC, ADIFF, GFR, CMP, ANEU, PRO #### [address] [address] Lymphocytes/100 WBC (Bld) 4.8 % Low 10.0-50.0 [facility] ([place] Comment on above: Performed By: #### CHULA Alvares, TROPHS, CBC, ADIFF, GFR, CMP, ANEU, PRO #### [address] [address] Monocyte, Absolute 1.0 10 3/mcL Normal 0.2-1.0 [facility] ([place] Comment on above: Performed By: #### CHULA Alvares, FOSTERS, CBC, ADIFF, GFR, CMP, ANEU, PRO #### [address] [address] Monocytes/100 WBC (Bld) 11.6 % Normal 1.7-13.0 A [facility] ([place] Comment on above: Performed By: #### CHULA Alvares, MEGAN, CBC, ADIFF, GFR, CMP, ANEU, PRO #### [address] [address] Neutrophils/100 WBC (Bld) 82.7 % High 37.0-80.0 [facility] ([place] Comment on above: Performed By: #### CHULA Alvares, TROPHS, CBC, ADIFF, GFR, CMP, ANEU, PRO #### [address] [address] .GFRon 02-28-2024 GFR 95 ml/min/1.73sqm Normal [facility] ([place] Comment on above: Result Comment: GFR Population mean for , Non- Americans Ages 20-29 = 116 mL/min/1.73 sq.m. Ages 30-39 = 107 mL/min/1.73 sq.m. Ages 40-49 = 99 mL/min/1.73 sq.m. Ages 50-59 = 93 mL/min/1.73 sq.m. Ages 60-69 = 85 mL/min/1.73 sq.m. Ages 70+ = 75 mL/min/1.73 sq.m. Chronic Kidney Disease: Less than 60 mL/min/1.73 square meters End Stage Renal Disease: Less than 15 mL/min/1.73 square meters Performed By: #### M Mónica, MDW, TROPHS, CBC, ADIFF, GFR, CMP, ANEU, PRO #### [address] [address] GFR Non- 78 ml/min/1.73sqm Normal [facility] ([place] Comment on above: Result Comment: GFR Population mean for , Non- Americans Ages 20-29 = 116 mL/min/1.73 sq.m. Ages 30-39 = 107 mL/min/1.73 sq.m. Ages 40-49 = 99 mL/min/1.73 sq.m. Ages 50-59 = 93 mL/min/1.73 sq.m. Ages 60-69 = 85 mL/min/1.73 sq.m. Ages 70+ = 75 mL/min/1.73 sq.m. Chronic Kidney Disease: Less than 60 mL/min/1.73 square meters End Stage Renal Disease: Less than 15 mL/min/1.73 square meters Performed By: #### M Mónica, MDW, TROPHS, CBC, ADIFF, GFR, CMP, ANEU, PRO #### [address] [address] .MDWon 02-28-2024 Monocyte Distribution Width 22.05 High 0.00-20.00 [facility] ([place] Comment on above: Result Comment: For adults in ED, MDW>20.0 may be associated with a higher risk of sepsis during the first 12hrs of hospital admission Performed By: #### M Mónica, MDW, TROPHS, CBC, ADIFF, GFR, CMP, ANEU, PRO #### [address] [address] .NEUABSon 02-28-2024 Neutrophil, Absolute 7.3 10 3/mcL High 2.9-6.2 [facility] ([place] Comment on above: Performed By: #### CHULA Alvares, MEGAN, CBC, ADIFF, GFR, CMP, ANEU, PRO #### [address] [address] APTTon 02-28-2024 aPTT Coag (Bld) [Time] 27.8 s Normal 25.0-35.0 [facility] ([place] Comment on above: Result Comment: For Heparin anticoagulation therapy, the recommended therapeutic range is: 50.6-87.4 seconds. Patients on heparin therapy may have an extreme result. Performed By: #### CHULA Alvares, MEGAN, CBC, ADIFF, GFR, CMP, ANEU, PRO ####[place] [id number] Heparin dose (APTT) None Normal [facility] ([place]) Comment on above: Performed By: #### CHULA Alvares, MEGAN, CBC, ADIFF, GFR, CMP, ANEU, PRO ####[address] [address] CBCon 02-28-2024 Erythrocyte distribution width (RBC) [Ratio] 22.2 % High 11.5-14.5 [facility] ([place] Comment on above: Performed By: #### CHULA Alvares, MEGAN, CBC, ADIFF, GFR, CMP, ANEU, PRO #### [address] [address] Hematocrit (Bld) [Volume fraction] 26.6 % Low 42.0-52.0 [facility] ([place] Comment on above: Performed By: #### CHULA Alvares, MEGAN, CBC, ADIFF, GFR, CMP, ANEU, PRO #### [address] [address] Hgb 8.9 G/dL Low 14.0-18.0 [facility] ([place] Comment on above: Performed By: #### CHULA Alvares, FOSTERS, CBC, ADIFF, GFR, CMP, ANEU, PRO #### [address] [address] MCH (RBC) [Entitic mass] 30.2 pg Normal 27.0-31.2 [facility] ([place] Comment on above: Performed By: #### CHULA Alvares, MEGAN, CBC, ADIFF, GFR, CMP, ANEU, PRO #### [address] [address] MCHC 33.5 G/dL Normal 31.8-35.4 [facility] ([place] Comment on above: Performed By: #### CHULA Alvares, FOSTERS, CBC, ADIFF, GFR, CMP, ANEU, PRO #### [address] [address] MCV (RBC) [Entitic vol] 90.2 fL Normal 80.0-94.0 A [facility] ([place] Comment on above: Performed By: #### CHULA Alvares, MEGAN, CBC, ADIFF, GFR, CMP, ANEU, PRO #### [address] [address] Platelet 263 10 3/mcL Normal 130-400 [facility] ([place] Comment on above: Performed By: #### CHULA Alvares, MEGAN, CBC, ADIFF, GFR, CMP, ANEU, PRO #### [address] [address] Platelet mean volume (Bld) [Entitic vol] 7.3 fL Low 7.4-10.4 [facility] ([place] Comment on above: Performed By: #### CHULA Alvares, MEGAN, CBC, ADIFF, GFR, CMP, ANEU, PRO #### [address] [address] RBC 2.95 10 6/mcL Low 4.04-6.13 [facility] ([place] Comment on above: Performed By: #### CHULA Alvares, MEGAN, CBC, ADIFF, GFR, CMP, ANEU, PRO #### [address] [address] WBC 8.8 10 3/mcL Normal 4.6-10.8 [facility] ([place] Comment on above: Performed By: #### CHULA Alvares, TROPHS, CBC, ADIFF, GFR, CMP, ANEU, PRO #### [address] [address] CMPon 02-28-2024 Albumin Level 3.5 G/dL Normal 3.4-4.8 [facility] ([place] Comment on above: Performed By: #### CHULA Alvares, TROPHS, CBC, ADIFF, GFR, CMP, ANEU, PRO #### [address] [address] Albumin/Globulin [Mass ratio] 1.2 {ratio} Normal 1.1-2.5 [facility] ([place] Comment on above: Performed By: #### CHULA Alvares, MEGAN, CBC, ADIFF, GFR, CMP, ANEU, PRO #### [address] [address] ALP [Catalytic activity/Vol] 79 U/L Normal 40-135 [facility] ([place] Comment on above: Performed By: #### CHULA Alvares, MEGAN, CBC, ADIFF, GFR, CMP, ANEU, PRO #### [address] [address] ALT [Catalytic activity/Vol] 27 U/L Normal 16-63 [facility] ([place] Comment on above: Performed By: #### CHULA Alvares, MEGAN, CBC, ADIFF, GFR, CMP, ANEU, PRO #### [address] [address] AST [Catalytic activity/Vol] 32 U/L Normal 10-40 [facility] ([place] Comment on above: Performed By: #### CHULA Alvares, TROPHS, CBC, ADIFF, GFR, CMP, ANEU, PRO #### [address] [address] Bili Total 0.3 mg/dL Normal 0.2-1.0 [facility] ([place] Comment on above: Result Comment: Use of this assay is not recommended for patients undergoing treatment with eltrombopag due to the potential for falsely elevated results. Performed By: #### CHULA Alvares, TROPHS, CBC, ADIFF, GFR, CMP, ANEU, PRO #### [address] [address] BUN/Creatinine Ratio 12 ratio Normal 7-27 [facility] ([place]) Comment on above: Performed By: #### CHULA Alvares, TROPHS, CBC, ADIFF, GFR, CMP, ANEU, PRO #### [address] [address] Calcium [Mass/Vol] 8.5 mg/dL Normal 8.4-10.2 [facility] ([place]) Comment on above: Performed By: #### CHULA Alvares, TROPHS, CBC, ADIFF, GFR, CMP, ANEU, PRO #### [address] [address] Chloride [Moles/Vol] 99 mmol/L Normal 98-107 [facility] ([place] Comment on above: Performed By: #### CHULA Alvares, FOSTERS, CBC, ADIFF, GFR, CMP, ANEU, PRO #### [address] [address] CO2 [Moles/Vol] 27 mmol/L Normal 23-31 [facility] ([place] Comment on above: Performed By: #### CHULA Alvares, MEGAN, CBC, ADIFF, GFR, CMP, ANEU, PRO #### [address] [address] Creatinine [Mass/Vol] 0.98 mg/dL Normal 0.70-1.30 [facility] ([place] Comment on above: Performed By: #### CHULA Alvares, TROPHS, CBC, ADIFF, GFR, CMP, ANEU, PRO #### [address] [address] Electrolyte Balance 10.0 mEq/L Normal 4.0-15.0 [facility] ([place] Comment on above: Performed By: #### CHULA Alvares, TROPHS, CBC, ADIFF, GFR, CMP, ANEU, PRO #### [address] [address] Globulin 3.0 G/dL Normal [facility] ([place] Comment on above: Performed By: #### CHULA Alvares, TROPHS, CBC, ADIFF, GFR, CMP, ANEU, PRO #### [address] [address] Glucose [Mass/Vol] 99 mg/dL Normal 80-115 [facility] ([place]) Comment on above: Performed By: #### CHULA Alvares, FOSTERS, CBC, ADIFF, GFR, CMP, ANEU, PRO #### [address] [address] Potassium [Moles/Vol] 3.1 mmol/L Low 3.5-5.1 [facility] ([place] Comment on above: Performed By: #### CHULA Alvares, MEGAN, CBC, ADIFF, GFR, CMP, ANEU, PRO #### [address] [address] Sodium [Moles/Vol] 136 mmol/L Normal 136-145 [facility] ([place] Comment on above: Performed By: #### CHULA Alvares, MEGAN, CBC, ADIFF, GFR, CMP, ANEU, PRO #### [address] [address] Total Protein 6.5 G/dL Normal 6.4-8.2 [facility] ([place] Comment on above: Performed By: #### CHULA Alvares, MEGAN, CBC, ADIFF, GFR, CMP, ANEU, PRO #### [address] [address] Urea nitrogen [Mass/Vol] 12 mg/dL Normal 7-18 [facility] ([place] Comment on above: Performed By: #### CHULA Alvares, FOSTERS, CBC, ADIFF, GFR, CMP, ANEU, PRO #### [address] [address] [address] ABD/PELVIS W/ IV CONTRAST ONLYon 02-28-2024 CT ABD/PELVIS W/ IV CONTRAST ONLY ORIGINAL EXAMINATION: CT OF THE ABDOMEN AND PELVIS WITH CONTRAST 02/28/2024 5:42 pm TECHNIQUE: CT of the abdomen and pelvis was performed with the administration of intravenous contrast. Multiplanar reformatted images are provided for review. Automated exposure control, iterative reconstruction, and/or weight based adjustment of the mA/kV was utilized to reduce the radiation dose to as low as reasonably achievable. COMPARISON: None. HISTORY: ORDERING SYSTEM PROVIDED HISTORY: Reason for Exam: abdominal pain FINDINGS: Lower Chest: No focal consolidation. Organs: 2.3 x 2.1 cm axial plane and 1.8 cm craniocaudal heterogeneous soft tissue structure along the right lateral aspect of the pancreatic head. The medial wall of the 2nd portion of the duodenum is not well delineated from this soft tissue process. Ill-defined hypodensity 1.3 x 0.9 cm axial plane in the pancreatic head posteriorly, which could be related. Associated mild pancreatic ductal dilatation measuring 0.5 cm. Mildly dilated common bile duct proximally measuring 0.9 cm in diameter, with apparent effacement distally. Nondistended gallbladder. Small coarse calcification in the left hepatic lobe. Small right renal cysts which do not require interval follow-up. GI/Bowel: No bowel obstruction, pneumoperitoneum, or ascites. Pelvis: Unremarkable. Peritoneum/Retroperito neum: Nonaneurysmal abdominal aorta with atherosclerotic plaque. No enlarged lymph nodes. Bones/Soft Tissues: No acute osseous abnormality. IMPRESSION: Heterogeneous soft tissue predominantly along the right lateral aspect of the pancreatic head, with apparent involvement of the medial wall of the 2nd portion of the duodenum, concerning for an infiltrative process such as neoplasm. Associated pancreatic mild pancreatic ductal dilatation and effacement of the common bile duct distally. Interpreted by: Dejon Carter Preliminary Report By: Dejon Carter Electronically signed By Dejon Carter Dictated Date: 02/28/2024 5:48:53 PM Prelim Date: 02/28/2024 5:56:11 PM Sign Date: 02/28/2024 5:56:11 PM Ordering Provider: SONALI Dumont [facility] ([place]) CVFLURVon 02-28-2024 FLU A PCR Negative Normal Negative [facility] ([place]) Comment on above: Performed By: #### C VFLURV ####[address] [place], [place] [address] FLU B PCR Negative Normal Negative [facility] ([place]) Comment on above: Performed By: #### C VFLURV ####[address] [place], [place] [address] RSV PCR Negative Normal Negative [facility] ([place]) Comment on above: Performed By: #### C VFLURV ####[address] [place], [place] [address] SARS-CoV-2 (COVID-19) RNA PENNY+probe Ql (Unsp spec) Negative Normal Negative [facility] ([place]) Comment on above: Result Comment: Resu lts from the Xpert Xpress CoV-2/Flu/RSV plus test should be correlated with the clinical history, epidemiological data, and other data available to the clinical evaluating the patient. Performance of the Xpert Xpress CoV-2/Flu/RSV plus test has only been established in nasopharyngeal swab specimen. Erroneous test results might occur from improper specimen collection, failure to follow the recommended sample collection, handling and storage procedures, technical error, or sample mix-up. False negative results may occur if a virus is present at a level below the analytical limit of detection. Viral nucleic acid may persist in vivo, independent of virus viability. Detection of analyte target(s) does not imply that the corresponding virus(es) are infectious or are the causative agents for clinical symptoms. Recent patient exposure to FluMist or other live attenuated influenza vaccines may cause inaccurate positive results. Performed By: #### C VFLURV ####[address] [place], [place] [address] LIPon 02-28-2024 Lipase Level >375 High 16-77 [facility] ([place]) Comment on above: Performed By: #### CHULA Alvares, FOSTERS, CBC, ADIFF, GFR, CMP, ANEU, PRO #### [address] [place], [place] [address] MGon 02-28-2024 Magnesium [Mass/Vol] 1.2 mg/dL Low 1.8-2.4 [facility] ([place]) Comment on above: Performed By: #### CHULA Alvares, MEGAN, CBC, ADIFF, GFR, CMP, ANEU, PRO #### [id number] [place], [place] [address] PROon 02-28-2024 PT Coag (PPP) [Time] 11.2 s Normal 9.0-14.2 [facility] ([place]) Comment on above: Performed By: #### M CHULA Sales, MEGAN, CBC, ADIFF, GFR, CMP, ANEU, PRO ####[facility] [place], [place] [address] PT International Ratio 1.0 Normal [facility] ([place]) Comment on above: Result Comment: [employer] [place] [employer] (CHEST, 1992, 102:[id number]) recommended therapeutic range for oral anticoagulant therapy is: LOW RISK: Prophylaxis of venous thrombosis INR: 2.0-3.0 Treatment of pulmonary embolism 2.0-3.0 Prevention of systemic embolism 2.0-3.0 HIGH RISK: Mechanical prosthetic valves 2.5-3.5 Performed By: #### M CHULA Sales, MEGAN, CBC, ADIFF, GFR, CMP, ANEU, PRO ####[address] [place], [place] [address] TROPHSon 02-28-2024 High Sensitivity Troponin I 4 ng/L Normal 0-76 [facility] ([place]) Comment on above: Result Comment: High Sensitive Troponin I Reference Ranges: Female: 0-51 ng/L Male: 0-76 ng/L Testing performed on [employer] using a homogeneous sandwich chemiluminescent immunoassay based on [employer] technology. Performed By: #### M CHULA Sales, MEGAN, CBC, ADIFF, GFR, CMP, ANEU, PRO #### [id number] [place], [place] [address] XR CHEST 1 VIEWon 02-28-2024 XR CHEST 1 VIEW ORIGINAL EXAMINATION: ONE XRAY VIEW OF THE CHEST 02/28/2024 5:44 pm COMPARISON: Limited evaluation of the lung bases on CT abdomen pelvis performed same day, radiograph of the chest December 31, 2023 HISTORY: ORDERING SYSTEM PROVIDED HISTORY: Reason for Exam: GI bleeding FINDINGS: Cardiomediastinal silhouette is unchanged in size. Costophrenic angles are sharp. No radiographic pneumothorax. No focal consolidation. Osseous structures grossly unchanged. IMPRESSION: No focal consolidation. Interpreted by: Dejon Carter Preliminary Report By: Dejon Carter Electronically signed By Dejon Carter Dictated Date: 02/28/2024 5:47:57 PM Prelim Date: 02/28/2024 5:48:46 PM Sign Date: 02/28/2024 5:48:46 PM Ordering Provider: KEKE GONZALEZ [facility] ([place]) .GFRon 12-31-2023 GFR 142 ml/min/1.73sqm [facility] ([place]) Comment on above: Result Comment: GFR Population mean for , Non- Americans Ages 20-29 = 116 mL/min/1.73 sq.m. Ages 30-39 = 107 mL/min/1.73 sq.m. Ages 40-49 = 99 mL/min/1.73 sq.m. Ages 50-59 = 93 mL/min/1.73 sq.m. Ages 60-69 = 85 mL/min/1.73 sq.m. Ages 70+ = 75 mL/min/1.73 sq.m. Chronic Kidney Disease: Less than 60 mL/min/1.73 square meters End Stage Renal Disease: Less than 15 mL/min/1.73 square meters Performed By: #### M G, CHULA, TROPHS, CBC, ADIFF, GFR, CMP, ANEU, PRO #### [address] [address] GFR Non- 117 ml/min/1.73sqm [facility] ([place]) Comment on above: Result Comment: GFR Population mean for , Non- Americans Ages 20-29 = 116 mL/min/1.73 sq.m. Ages 30-39 = 107 mL/min/1.73 sq.m. Ages 40-49 = 99 mL/min/1.73 sq.m. Ages 50-59 = 93 mL/min/1.73 sq.m. Ages 60-69 = 85 mL/min/1.73 sq.m. Ages 70+ = 75 mL/min/1.73 sq.m. Chronic Kidney Disease: Less than 60 mL/min/1.73 square meters End Stage Renal Disease: Less than 15 mL/min/1.73 square meters Performed By: #### M G, MDW, TROPHS, CBC, ADIFF, GFR, CMP, ANEU, PRO #### [address] [place], [place] [address] .MDWon 12-31-2023 Monocyte Distribution Width See Comment Normal 0.00-20.00 [facility] ([place]) Comment on above: Result Comment: The MDW result could not be reported due to a sample abnormality that prevents the MDW from being calculated. Performed By: #### G FR, MORPH, TROPHS, CMP, DIFF, CBC, MDW ####[address] [place], [place] [address] .Manual Diffon 12-31-2023 Bands 2.0 % Normal 0.0-5.0 [facility] ([place]) Comment on above: Performed By: #### G FR, MORPH, TROPHS, CMP, DIFF, CBC, MDW ####[address] [place] [address] Basophil %, Manual 0.0 % Normal 0.0-2.5 [facility] ([place]) Comment on above: Performed By: #### G FR, MORPH, TROPHS, CMP, DIFF, CBC, MDW ####[address] [place], [place] [address] Basophil, Abs Manual 0.0 10 3/mcL Normal 0.0-0.2 [facility] ([place]) Comment on above: Performed By: #### G FR, MORPH, TROPHS, CMP, DIFF, CBC, MDW ####[address] [place], [place] [address] Eosinophil %, Manual 2.0 % Normal 0.0-7.0 [facility] ([place]) Comment on above: Performed By: #### G FR, MORPH, TROPHS, CMP, DIFF, CBC, MDW ####[address] [place], [place] [address] Eosinophil, Abs Manual 0.1 10 3/mcL Normal 0.0-0.4 [facility] ([place]) Comment on above: Performed By: #### G FR, MORPH, TROPHS, CMP, DIFF, CBC, MDW ####[address] [place], [place] [address] Lymphocyte %, Manual 9.0 % Low 10.0-50.0 [facility] ([place]) Comment on above: Performed By: #### G FR, MORPH, TROPHS, CMP, DIFF, CBC, MDW ####[address] [place], [place] [address] Lymphocyte, Abs Manual 0.5 10 3/mcL Low 0.8-3.9 [facility] ([place]) Comment on above: Performed By: #### G FR, MORPH, TROPHS, CMP, DIFF, CBC, MDW ####[address] [place], [place] [address] Monocyte %, Manual 5.0 % Normal 1.7-13.0 [facility] ([place]) Comment on above: Performed By: #### G FR, MORPH, TROPHS, CMP, DIFF, CBC, MDW ####[address] [place], [place] [address] Monocyte, Abs Manual 0.3 10 3/mcL Normal 0.2-1.0 [facility] ([place]) Comment on above: Performed By: #### G FR, MORPH, TROPHS, CMP, DIFF, CBC, MDW ####[address] [place], [place] [address] Neutrophil %, Manual 82.0 % High 37.0-80.0 [facility] ([place]) Comment on above: Performed By: #### G FR, MORPH, TROPHS, CMP, DIFF, CBC, MDW ####[address] [place], [place] [address] Neutrophil, Abs Manual 4.6 10 3/mcL Normal 2.9-6.2 [facility] ([place]) Comment on above: Performed By: #### G FR, MORPH, TROPHS, CMP, DIFF, CBC, MDW ####[address] [place], [place] [address] Nucleated RBC 0.0 /100 WBC Normal [facility] ([place]) Comment on above: Performed By: #### G FR, MORPH, TROPHS, CMP, DIFF, CBC, MDW ####[address] [place], [place] [address] .Morphon 12-31-2023 Anisocytosis Ql (Bld) 1+ Normal [facility] ([place]) Comment on above: Performed By: #### G FR, MORPH, TROPHS, CMP, DIFF, CBC, MDW ####[address] [place] [id number] Ovalocytes 1+ Normal [facility] ([place]) Comment on above: Performed By: #### G FR, MORPH, TROPHS, CMP, DIFF, CBC, MDW ####[address] [place], [place] [address] Platelet Estimate Slt Decreased Normal [facility] ([place]) Comment on above: Performed By: #### G FR, MORPH, TROPHS, CMP, DIFF, CBC, MDW ####[address] [place] [id number] Stomatocytes 1+ Normal [facility] ([place]) Comment on above: Performed By: #### G FR, MORPH, TROPHS, CMP, DIFF, CBC, MDW ####[address] [place], [place] [address] CBCon 12-31-2023 Erythrocyte distribution width (RBC) [Ratio] 22.0 % High 11.5-14.5 [facility] ([place]) Comment on above: Performed By: #### G FR, MORPH, TROPHS, CMP, DIFF, CBC, MDW ####[address] [place], [place] [address] Hematocrit (Bld) [Volume fraction] 30.4 % Low 42.0-52.0 [facility] ([place]) Comment on above: Performed By: #### G FR, MORPH, TROPHS, CMP, DIFF, CBC, MDW ####[address] [place], [place] [address] Hgb 10.0 G/dL Low 14.0-18.0 [facility] ([place]) Comment on above: Performed By: #### G FR, MORPH, TROPHS, CMP, DIFF, CBC, MDW ####[address] [place], [place] [address] MCH (RBC) [Entitic mass] 28.3 pg Normal 27.0-31.2 [facility] ([place]) Comment on above: Performed By: #### G FR, MORPH, TROPHS, CMP, DIFF, CBC, MDW ####[address] [place], [place] [address] MCHC 32.9 G/dL Normal 31.8-35.4 [facility] ([place]) Comment on above: Performed By: #### G FR, MORPH, TROPHS, CMP, DIFF, CBC, MDW ####[address] [place], [place] [address] MCV (RBC) [Entitic vol] 85.9 fL Normal 80.0-94.0 A [facility] ([place]) Comment on above: Performed By: #### G FR, MORPH, TROPHS, CMP, DIFF, CBC, MDW ####[address] [place], [place] [address] Platelet 173 10 3/mcL Normal 130-400 [facility] ([place]) Comment on above: Performed By: #### G FR, MORPH, TROPHS, CMP, DIFF, CBC, MDW ####[address] [place], [place] [address] Platelet mean volume (Bld) [Entitic vol] 7.3 fL Low 7.4-10.4 [facility] ([place]) Comment on above: Performed By: #### G FR, MORPH, TROPHS, CMP, DIFF, CBC, MDW ####[address] [place], [place] [address] RBC 3.54 10 6/mcL Low 4.04-6.13 [facility] ([place]) Comment on above: Performed By: #### G FR, MORPH, TROPHS, CMP, DIFF, CBC, MDW ####[address] [place], [place] [address] WBC 5.6 10 3/mcL Normal 4.6-10.8 [facility] ([place]) Comment on above: Performed By: #### G FR, MORPH, TROPHS, CMP, DIFF, CBC, MDW ####[address] [place], [place] [address] CMPon 12-31-2023 Albumin Level 4.2 G/dL Normal 3.4-4.8 [facility] ([place]) Comment on above: Performed By: #### G FR, MORPH, TROPHS, CMP, DIFF, CBC, MDW ####[address] [place], [place] [address] Albumin/Globulin [Mass ratio] 1.3 {ratio} Normal 1.1-2.5 [facility] ([place]) Comment on above: Performed By: #### G FR, MORPH, TROPHS, CMP, DIFF, CBC, MDW ####[address] [place], [place] [address] ALP [Catalytic activity/Vol] 115 U/L Normal 40-135 [facility] ([place]) Comment on above: Performed By: #### G FR, MORPH, TROPHS, CMP, DIFF, CBC, MDW ####[address] [place], [place] [address] ALT [Catalytic activity/Vol] 83 U/L High 16-63 [facility] ([place]) Comment on above: Performed By: #### G FR, MORPH, TROPHS, CMP, DIFF, CBC, MDW ####[address] [place], [place] [address] AST [Catalytic activity/Vol] 100 U/L High 10-40 [facility] ([place]) Comment on above: Performed By: #### G FR, MORPH, TROPHS, CMP, DIFF, CBC, MDW ####[address] [place], [place] [address] Bili Total 0.5 mg/dL Normal 0.2-1.0 [facility] ([place]) Comment on above: Result Comment: Use of this assay is not recommended for patients undergoing treatment with eltrombopag due to the potential for falsely elevated results. Performed By: #### G FR, MORPH, TROPHS, CMP, DIFF, CBC, MDW ####[address] [place], [place] [address] BUN/Creatinine Ratio 7 ratio Normal 7-27 [facility] ([place]) Comment on above: Performed By: #### G FR, MORPH, TROPHS, CMP, DIFF, CBC, MDW ####[address] [place], [place] [address] Calcium [Mass/Vol] 9.1 mg/dL Normal 8.4-10.2 [facility] ([place]) Comment on above: Performed By: #### G FR, MORPH, TROPHS, CMP, DIFF, CBC, MDW ####[address] [place], [place] [address] Chloride [Moles/Vol] 97 mmol/L Low 98-107 [facility] ([place]) Comment on above: Performed By: #### G FR, MORPH, TROPHS, CMP, DIFF, CBC, MDW ####[address] [place], [place] [address] CO2 [Moles/Vol] 25 mmol/L Normal 23-31 [facility] ([place]) Comment on above: Performed By: #### G FR, MORPH, TROPHS, CMP, DIFF, CBC, MDW ####[address] [place], [place] [address] Creatinine [Mass/Vol] 0.69 mg/dL Low 0.70-1.30 [facility] ([place]) Comment on above: Performed By: #### G FR, MORPH, TROPHS, CMP, DIFF, CBC, MDW ####[address] [place], [place] [address] Electrolyte Balance 15.0 mEq/L Normal 4.0-15.0 [facility] ([place]) Comment on above: Performed By: #### G FR, MORPH, TROPHS, CMP, DIFF, CBC, MDW ####[address] [place], [place] [address] Globulin 3.3 G/dL Normal [facility] ([place]) Comment on above: Performed By: #### G FR, MORPH, TROPHS, CMP, DIFF, CBC, MDW ####[address] [place], [place] [address] Glucose [Mass/Vol] 110 mg/dL Normal 80-115 [facility] ([place]) Comment on above: Performed By: #### G FR, MORPH, TROPHS, CMP, DIFF, CBC, MDW ####[address] [place], [place] [address] Potassium [Moles/Vol] 3.9 mmol/L Normal 3.5-5.1 [facility] ([place]) Comment on above: Performed By: #### G FR, MORPH, TROPHS, CMP, DIFF, CBC, MDW ####[address] [place], [place] [address] Sodium [Moles/Vol] 137 mmol/L Normal 136-145 [facility] ([place]) Comment on above: Performed By: #### G FR, MORPH, TROPHS, CMP, DIFF, CBC, MDW ####[address] [place], [place] [address] Total Protein 7.5 G/dL Normal 6.4-8.2 [facility] ([place]) Comment on above: Performed By: #### G FR, MORPH, TROPHS, CMP, DIFF, CBC, MDW ####[address] [place], [place] [address] Urea nitrogen [Mass/Vol] 5 mg/dL Low 7-18 [facility] ([place]) Comment on above: Performed By: #### G FR, MORPH, TROPHS, CMP, DIFF, CBC, MDW ####[address] [place], [place] [address] CVFLURVon 12-31-2023 FLU A PCR Negative Normal Negative [facility] ([place]) Comment on above: Performed By: #### C VFLURV ####[address] [place], [place] [address] FLU B PCR Negative Normal Negative [facility] ([place] Comment on above: Performed By: #### C VFLURV ####[address] [place], [place] [address] RSV PCR Negative Normal Negative [facility] ([place]) Comment on above: Performed By: #### C VFLURV ####[address] [place], [place] [address] SARS-CoV-2 (COVID-19) RNA PENNY+probe Ql (Unsp spec) Negative Normal Negative [facility] ([place]) Comment on above: Result Comment: Resu lts from the Xpert Xpress CoV-2/Flu/RSV plus test should be correlated with the clinical history, epidemiological data, and other data available to the clinical evaluating the patient. Performance of the Xpert Xpress CoV-2/Flu/RSV plus test has only been established in nasopharyngeal swab specimen. Erroneous test results might occur from improper specimen collection, failure to follow the recommended sample collection, handling and storage procedures, technical error, or sample mix-up. False negative results may occur if a virus is present at a level below the analytical limit of detection. Viral nucleic acid may persist in vivo, independent of virus viability. Detection of analyte target(s) does not imply that the corresponding virus(es) are infectious or are the causative agents for clinical symptoms. Recent patient exposure to FluMist or other live attenuated influenza vaccines may cause inaccurate positive results. Performed By: #### C VFLURV ####[address] [place], [place] [address] LABORATORYOrdered By: SYSTEM SYSTEM on 12-31-2023 Albumin BCP dye [Mass/Vol] 4.2 G/dL Normal 3.4 - 4.8 G/dL AO ADM SS Albumin/Globulin [Mass ratio] 1.3 {ratio} Normal 1.1 - 2.5 ratio AO ADM SS ALP [Catalytic activity/Vol] 115 U/L Normal 40 - 135 U/L AO ADM SS ALT With P-5'-P [Catalytic activity/Vol] 83 U/L High 16 - 63 U/L AO ADM SS Anisocytosis Ql (Bld) 1+ *NA* (12/31/23 6:04 PM) Invalid Interpretation Code AO Workflow SS AST With P-5'-P [Catalytic activity/Vol] 100 U/L High 10 - 40 U/L AO ADM SS Bands 2.0 % Normal 0.0 - 5.0 % AO Workflow SS Basophil %, Manual 0.0 % Normal 0.0 - 2.5 % AO Wo rkflow SS Basophil, Abs Manual 0.0 103/mcL Normal 0.0 - 0 .2 10^3/mcL AO Workflow SS Bilirubin [Mass/Vol] 0.5 mg/dL Normal 0.2 - 1 .0 mg/dL AO ADM SS Comment on above: Interpretive Data: U se of this assay is not recommended for patients undergoing treatment with eltrombopag due to the potential for falsely elevated results. Calcium [Mass/Vol] 9.1 mg/dL Normal 8.4 - 10. 2 mg/dL AO ADM SS Chloride [Moles/Vol] 97 mmol/L Low 98 - 10 7 mmol/L AO ADM SS CO2 [Moles/Vol] 25 mmol/L Normal 23 - 31 mmol/L AO ADM SS Creatinine [Mass/Vol] 0.69 mg/dL Low 0.70 - 1.30 mg/dL AO ADM SS Electrolyte Balance 15.0 mEq/L Normal 4.0 - 15 .0 mEq/L AO ADM SS Eosinophil %, Manual 2.0 % Normal 0.0 - 7.0 % AO Workflow SS Eosinophils (Bld) [#/Vol] 0.1 103/mcL Normal 0.0 - 0.4 10^3/mcL AO Workflow SS Erythrocyte distribution width (RBC) [Ratio] 22.0 % High 11.5 - 14.5 % AO Workflow SS GFR/1.73 sq M.predicted among blacks MDRD (S/P/Bld) [Vol rate/Area] 142 ml/min/1.73sqm Invalid Interpretation Code AO Chemistry S Comment on above: Interpretive Data: GFR Population mean for , Non- Americans Ages 20-29 = 116 mL/min/1.73 sq.m. Ages 30-39 = 107 mL/min/1.73 sq.m. Ages 40-49 = 99 mL/min/1.73 sq.m. Ages 50-59 = 93 mL/min/1.73 sq.m. Ages 60-69 = 85 mL/min/1.73 sq.m. Ages 70+ = 75 mL/min/1.73 sq.m. Chronic Kidney Disease: Less than 60 mL/min/1.73 square meters End Stage Renal Disease: Less than 15 mL/min/1.73 square meters GFR/1.73 sq M.predicted among non-blacks MDRD (S/P/Bld) [Vol rate/Area] 117 ml/min/1.73sqm Invalid Interpretation Code AO Chemistry S Comment on above: Interpretive Data: GFR Population mean for , Non- Americans Ages 20-29 = 116 mL/min/1.73 sq.m. Ages 30-39 = 107 mL/min/1.73 sq.m. Ages 40-49 = 99 mL/min/1.73 sq.m. Ages 50-59 = 93 mL/min/1.73 sq.m. Ages 60-69 = 85 mL/min/1.73 sq.m. Ages 70+ = 75 mL/min/1.73 sq.m. Chronic Kidney Disease: Less than 60 mL/min/1.73 square meters End Stage Renal Disease: Less than 15 mL/min/1.73 square meters Globulin 3.3 G/dL Invalid Interpretation Code AO ADM SS Glucose [Mass/Vol] 110 mg/dL Normal 80 - 115 mg/dL AO ADM SS Hematocrit (Bld) [Volume fraction] 30.4 % Low 42.0 - 52.0 % AO Workflow SS Hemoglobin (Bld) [Mass/Vol] 10.0 G/dL Low 14.0 - 18.0 G/dL AO Workflow SS Lymphocyte %, Manual 9.0 % Low 10.0 - 50.0 % AO Workflow SS Lymphocyte, Abs Manual 0.5 103/mcL Low 0.8 - 3.9 10^3/mcL AO Workflow SS MCH (RBC) [Entitic mass] 28.3 pg Normal 27.0 - 31.2 pg AO Workflow SS MCHC 32.9 G/dL Normal 31.8 - 35.4 G/dL AO Workflow SS MCV (RBC) [Entitic vol] 85.9 fL Normal 80.0 - 94.0 fL AO Workflow SS Monocyte %, Manual 5.0 % Normal 1.7 - 13. 0 % AO Workflow SS Monocyte distribution width Auto (Bld) [Entitic vol] See Comment Invalid Interpretation Code 0.00 - 20.00 AO Hematology S Comment on above: Result Comment: The MDW result could not be reported due to a sample abnormality that prevents the MDW from being calculated. Monocyte, Abs Manual 0.3 103/mcL Normal 0.2 - 1 .0 10^3/mcL AO Workflow SS Neutrophil %, Manual 82.0 % High 37.0 - 80.0 % AO Workflow SS Neutrophil, Abs Manual 4.6 103/mcL Normal 2.9 - 6.2 10^3/mcL AO Workflow SS Nucleated RBC 0.0 /100 WBC Invalid Interpretation Code AO Workflow SS Ovalocytes LM Ql (Bld) 1+ *NA* (12/31/23 6:04 PM) Invalid Interpretation Code AO Workflow SS Platelet Estimate Slt Decreased *NA* (12/31/23 6:04 PM) Invalid Interpretation Code AO Workflow SS Platelet mean volume (Bld) [Entitic vol] 7.3 fL Low 7.4 - 10.4 fL AO Workflow SS Platelets (Bld) [#/Vol] 173 103/mcL Normal 130 - 400 10^3/mcL AO Workflow SS Potassium [Moles/Vol] 3.9 mmol/L Normal 3.5 - 5.1 mmol/L AO ADM SS Protein [Mass/Vol] 7.5 G/dL Normal 6.4 - 8.2 G/dL AO ADM SS RBC (Bld) [#/Vol] 3.54 106/mcL Low 4.04 - 6.1 3 10^6/mcL AO Workflow SS Sodium [Moles/Vol] 137 mmol/L Normal 136 - 145 mmol/L AO ADM SS Stomatocytes 1+ *NA* (12/31/23 6:04 PM) Invalid Interpretation Code AO Workflow SS Troponin I.cardiac DL <= 0.01 ng/mL [Mass/Vol] 8.6 ng/L Normal 0.0 - 76.2 ng/L AO ADM SS Urea nitrogen [Mass/Vol] 5 mg/dL Low 7 - 18 mg/dL AO ADM SS Urea nitrogen/Creatinine [Mass ratio] 7 ratio Normal 7 - 27 ratio AO ADM SS WBC (Bld) [#/Vol] 5.6 103/mcL Normal 4.6 - 10.8 10^3/mcL AO Workflow SS LABORATORYOrdered By: Dominic Bledsoe on 12-31-2023 FLUAV RNA PENNY+probe Ql (Resp) Negative (12/31/23 6:04 PM) Normal Negative AO Auto Urine SS FLUBV RNA PENNY+probe Ql (Resp) Negative (12/31/23 6:04 PM) Normal Negative AO Auto Urine SS RSV RNA PENNY+probe Ql (Resp) Negative (12/31/23 6:04 PM) Normal Negative AO Auto Urine SS SARS-CoV-2 (COVID-19) RNA PENNY+probe Ql (Resp) Negative 3 (12/31/23 6:04 PM) Normal Negative AO Auto Urine SS Comment on above: Interpretive Data: R esults from the Xpert Xpress CoV-2/Flu/RSV plus test should be correlated with the clinical history, epidemiological data, and other data available to the clinical evaluating the patient. Performance of the Xpert Xpress CoV-2/Flu/RSV plus test has only been established in nasopharyngeal swab specimen. Erroneous test results might occur from improper specimen collection, failure to follow the recommended sample collection, handling and storage procedures, technical error, or sample mix-up. False negative results may occur if a virus is present at a level below the analytical limit of detection. Viral nucleic acid may persist in vivo, independent of virus viability. Detection of analyte target(s) does not imply that the corresponding virus(es) are infectious or are the causative agents for clinical symptoms. Recent patient exposure to FluMist or other live attenuated influenza vaccines may cause inaccurate positive results. Ebenezer 12-31-2023 Troponin I High Sensitivity 8.6 ng/L Normal 0.0-76.2 [facility] ([place]) Comment on above: Performed By: #### G FR, MORPH, TROPHS, CMP, DIFF, CBC, MDW ####[address] [place], [place] [address] XR CHEST 1 VIEWon 12-31-2023 XR CHEST 1 VIEW ORIGINAL EXAMINATION: ONE XRAY VIEW OF THE CHEST 12/31/2023 6:39 pm COMPARISON: Chest x-ray, 03/28/2023 HISTORY: ORDERING SYSTEM PROVIDED HISTORY: Reason for Exam: SOB/cough/fever FINDINGS: The cardiomediastinal contours are stable. The lungs are clear bilaterally. There is no evidence of focal consolidation, pulmonary edema, pleural effusion or pneumothorax. IMPRESSION: Stable chest with no acute cardiopulmonary process. Interpreted by: Pillo Jerez MD Preliminary Report By: Pillo Jerez MD Electronically signed By Pillo Jerez MD Dictated Date: 12/31/2023 6:43:10 PM Prelim Date: 12/31/2023 6:43:22 PM Sign Date: 12/31/2023 6:43:22 PM Ordering Provider: BRIAN WALKER [facility] ([place]) Absolute lymphocyte countOrd ered By: Nolan Redman on 07-14-2023 Lymphocytes Auto (Unsp spec) [#/Vol] 0.70 10*3/uL 0.83-4.51 [facility] Basophil percentageOrdered B y: Nolan Redman on 07-14-2023 Basophils/100 WBC (Bld) 0.8 % 0-1 [facility] Chloride [Moles/Vol] 108 mmol/L 98-107 [facility] Eosinophils/100 WBC (Bld) 5.7 % 0-5 [facility] Glucose [Mass/Vol] 144 mg/dL 74-106 [facility] Comment on above: Fasting Glucose resu lt greater than or equal to 126 mg/dL suggests DIABETES MELLITUS per A.D.A. criteria. Neutrophils (Bld) [#/Vol] 2.4 10*3/uL 2.0-7.7 [facility] Neutrophils/100 WBC (Bld) 64.5 % 47-70 [facility] Potassium [Moles/Vol] 3.5 mmol/L 3.5-5.1 [facility] Sodium [Moles/Vol] 140 mmol/L 136-145 [facility] WBC (Bld) [#/Vol] 3.7 10*3/uL 4.4-11.0 [facility] Blood erythrocytes count (nu mber/volume)Ordered By: Nolan Redman on 07-14-2023 RBC (Bld) [#/Vol] 3.59 10*6/uL 4.6-6.2 [facility] Blood hemoglobin measurement (mass/volume)Ordered By: Nolan Redman on 07-14-2023 Hemoglobin (Bld) [Mass/Vol] 10.5 g/dL 13.0-16.5 [facility] Blood lymphocytes/100 leukoc ytesOrdered By: Nolan Redman on 07-14-2023 Lymphocytes/100 WBC (Bld) 19.0 % 19-41 [facility] Blood manual differential co mment interpretation (narrative result)Ordered By: Nolan Redman on 07-14-2023 Manual differential comment Daryl (Bld) [Interp] SCANNED [facility] Blood monocytes/100 leukocyt esOrdered By: Nolan Redman on 07-14-2023 Monocytes/100 WBC (Bld) 9.5 % 0-10 [facility] Blood platelet mean volumeOr dered By: Nolan Redman on 07-14-2023 Platelet mean volume (Bld) [Entitic vol] 9.4 fL 6.2-12.0 [facility] Determination of erythrocyte mean corpuscular volume (MCV)Ordered By: Nolan Redman on 07-14-2023 MCV (RBC) [Entitic vol] 91.6 fL 80-94 [facility] Hematocrit Auto (Bld) [Volum e fraction]Ordered By: Nolan Redman on 07-14-2023 Hematocrit (Bld) [Volume fraction] 32.9 % 40-54 [facility] Hypochromatic red blood cell detectionOrdered By: Nloan Redman on 07-14-2023 Hypochromia Ql (Bld) 1+ [facility] Influenza virus A and B and SARS-CoV-2 (COVID-19) Ag panel - Upper respiratory specimOrdered By: Nolan Redman on 07-14-2023 SARS-CoV-2 (COVID-19) RNA PENNY+probe Ql (Resp) [facility] Laboratory - Chemistry and C hemistry - challengeOrdered By: Nolan Redman on 07-14-2023 CO2 [Moles/Vol] 25.0 mmol/L 21.0-32.0 [facility] Urea nitrogen/Creatinine [Mass ratio] 11.9 mg/mg 10-20 [facility] Laboratory - Hematology and Cell countsOrdered By: Nolan Redman on 07-14-2023 Anisocytosis Ql (Bld) 2+ [facility] Erythrocyte distribution width (RBC) [Entitic vol] 75.4 fL 35.1-43.9 [facility] Erythrocyte distribution width (RBC) [Ratio] 22.5 % 11.6-14.6 [facility] Immature granulocytes/100 WBC (Bld) 0.500 % 0.0-0.9 [facility] Comment on above: IG% - Immature Granu locytes (promyelocytes, myelocytes and metamyelocytes) > 1% indicates that a LEFT SHIFT is Present. MCH (RBC) [Entitic mass] 29.2 pg 27.0-32.0 [facility] Nucleated RBC/100 WBC (Bld) [Ratio] 0 % 0-5 [facility] MCHC Auto (RBC) [Mass/Vol]Or dered By: Nolan Redman on 07-14-2023 MCHC (RBC) [Mass/Vol] 31.9 g/dL 32-36 [facility] Macrocytes detectionOrdered By: Nolan Redman on 07-14-2023 Macrocytes Ql (Bld) 1+ [facility] No Panel InformationOrdered By: Nolan Redman on 07-14-2023 Estimated Creatinine Clearance Calc 80.71 ml/min [facility] Estimated GFR (MDRD) Amer 135 mL/min >60 [facility] Comment on above: GFR Calc Estimated GFR (MDRD) Non-Af Amer 111 mL/min >60 [facility] Comment on above: Non- GFR Calc Platelets bldOrdered By: Yael Redman on 07-14-2023 Platelets (Bld) [#/Vol] 260 10*3/uL 150-450 [facility] Serum or plasma calcium becka urement (mass/volume)Ordered By: Nolan Redman on 07-14-2023 Calcium [Mass/Vol] 8.8 mg/dL 8.5-10.1 [facility] Serum or plasma creatinine m easurement (mass/volume)Ordered By: Nolan Redman on 07-14-2023 Creatinine [Mass/Vol] 0.76 mg/dL 0.70-1.30 [facility] Comment on above: The validity of the calculated GFR & GFRAA in patients over 70 years has not been determined. Clinical correlation is essential. Serum or plasma urea nitroge n measurement (mass/volume)Ordered By: Nolan Redman on 07-14-2023 Urea nitrogen [Mass/Vol] 9 mg/dL 7-18 [facility] Target cell detectionOrdered By: Nolan Redman on 07-14-2023 Target cells LM Ql (Bld) RARE [facility] Thin prep Papanicolaou smear with manual screeningOrdered By: Nolan Redman on 07-14-2023 Thin prep Papanicolaou smear with manual screening 1+ [facility] Thin prep Papanicolaou smear with manual screening 7 5-15 [facility] Basophil percentageon 2022 Basophil percentage < 0.90 mg/dL 0.70-1.30 [facility] No Panel Informationon 04-01 Bedside Estimated GFR (eGFR) > 60 mL/min >60 [facility] Absolute lymphocyte counton 08-29-2022 Lymphocytes Auto (Unsp spec) [#/Vol] 1.06 10*3/uL 0.83-4.51 [facility] Work Phone: Basophil percentageon 2021 Basophils/100 WBC (Bld) 0.4 % 0-1 [facility] Work Phone: Bilirubin [Mass/Vol] 0.40 mg/dL 0.20-1.00 [facility] Work Phone: Comment on above: For patients on eltr ombopag therapy, use of Dimension [place] TBIL is not recommended. Chloride [Moles/Vol] 103 mmol/L 98-107 [facility] Work Phone: Eosinophils/100 WBC (Bld) 2.1 % 0-5 [facility] Work Phone: Glucose [Mass/Vol] 113 mg/dL 74-106 [facility] Work Phone: Comment on above: Fasting Glucose resu lt from 100 to 125 mg/dL suggests IMPAIRED HOMEOSTASIS per A.D.A. criteria. Neutrophils (Bld) [#/Vol] 6.2 10*3/uL 2.0-7.7 [facility] Work Phone: Neutrophils/100 WBC (Bld) 72.8 % 47-70 [facility] Work Phone: [phone] Potassium [Moles/Vol] 3.8 mmol/L 3.5-5.1 [facility] Work Phone: Protein [Mass/Vol] 6.6 g/dL 6.4-8.2 [facility] Work Phone: Sodium [Moles/Vol] 135 mmol/L 136-145 [facility] Work Phone: WBC (Bld) [#/Vol] 8.4 10*3/uL 4.4-11.0 [facility] Work Phone: [phone] Blood erythrocytes count (nu mber/volume)on 08-29-2022 RBC (Bld) [#/Vol] 3.35 10*6/uL 4.6-6.2 [facility]: Blood hemoglobin measurement (mass/volume)on 08-29-2022 Hemoglobin (Bld) [Mass/Vol] 8.7 g/dL 13.0-16.5 [facility] Work Phone: [phone] Blood lymphocytes/100 leukoc yteson 08-29-2022 Lymphocytes/100 WBC (Bld) 12.6 % 19-41 [facility] Work Phone: [phone] Blood monocytes/100 leukocyt eson 08-29-2022 Monocytes/100 WBC (Bld) 11.7 % 0-10 [facility] Work Phone: Blood platelet mean volumeon 08-29-2022 Platelet mean volume (Bld) [Entitic vol] 10.2 fL 6.2-12.0 [facility] Work Phone: Determination of erythrocyte mean corpuscular volume (MCV)on 08-29-2022 MCV (RBC) [Entitic vol] 85.1 fL 80-94 [facility] Work Phone: Direct bilirubinon Bilirubin.direct [Mass/Vol] 0.19 mg/dL 0.00-0.30 [facility] Work Phone: [phone] Hematocrit Auto (Bld) [Volum e fraction]on 08-29-2022 Hematocrit (Bld) [Volume fraction] 28.5 % 40-54 [facility] Work Phone: [phone] Laboratory - Chemistry and C hemistry - challengeon 08-29-2022 ALP [Catalytic activity/Vol] 69 U/L 45-117 [facility] Work Phone: ALT [Catalytic activity/Vol] 40 U/L 16-61 [facility] Work Phone: [phone] CO2 [Moles/Vol] 25.0 mmol/L 21.0-32.0 [facility] Work Phone: [phone] Globulin (S) [Mass/Vol] 3.4 g/dL 2.2-4.2 [facility] Work Phone: [phone] Urea nitrogen/Creatinine [Mass ratio] 5.8 mg/mg 10-20 [facility] Work Phone: [phone] Laboratory - Hematology and Cell countson 08-29-2022 Erythrocyte distribution width (RBC) [Entitic vol] 54.4 fL 35.1-43.9 [facility] Work Phone: [phone] Erythrocyte distribution width (RBC) [Ratio] 17.7 % 11.6-14.6 [facility] Work Phone: [phone] Immature granulocytes/100 WBC (Bld) 0.400 % 0.0-0.9 [facility] Work Phone: [phone] Comment on above: IG% - Immature Granu locytes (promyelocytes, myelocytes and metamyelocytes) > 1% indicates that a LEFT SHIFT is Present. MCH (RBC) [Entitic mass] 26.0 pg 27.0-32.0 [facility] Work Phone: [phone] Nucleated RBC/100 WBC (Bld) [Ratio] 0 % 0-5 [facility] Work Phone: [phone] MCHC Auto (RBC) [Mass/Vol]on 08-29-2022 MCHC (RBC) [Mass/Vol] 30.5 g/dL 32-36 [facility] Work Phone: [phone] Panel Informationon 08-29 Estimated Creatinine Clearance Calc 90.78 ml/min [facility] Work Phone: [phone] Estimated GFR (MDRD) Amer 150 mL/min >60 [facility] Work Phone: [phone] Comment on above: GFR Calc Estimated GFR (MDRD) Non-Af Amer 124 mL/min >60 [facility] Work Phone: Comment on above: Non- GFR Calc Platelets bldon 08-29-2022 Platelets (Bld) [#/Vol] 288 10*3/uL 150-450 [facility] Work Phone: Serum or plasma albumin becka urement (mass/volume)on 08-29-2022 Albumin [Mass/Vol] 3.2 g/dL 3.2-5.0 [facility] Work Phone: Serum or plasma calcium becka urement (mass/volume)on 08-29-2022 Calcium [Mass/Vol] 9.1 mg/dL 8.5-10.1 [facility] Work Phone: Serum or plasma creatinine m easurement (mass/volume)on 08-29-2022 Creatinine [Mass/Vol] 0.69 mg/dL 0.70-1.30 [facility] Work Phone: Comment on above: The validity of the calculated GFR & GFRAA in patients over 70 years has not been determined. Clinical correlation is essential. Serum or plasma urea nitroge n measurement (mass/volume)on 08-29-2022 Urea nitrogen [Mass/Vol] 4 mg/dL 7-18 [facility] Work Phone: [phone] Thin prep Papanicolaou smear with manual screeningon 08-29-2022 Thin prep Papanicolaou smear with manual screening 36 U/L 15-37 [facility] Work Phone: [phone] Thin prep Papanicolaou smear with manual screening 7 5-15 [facility] Work Phone: [phone] INR in Blood by Coagulation assayon 08-28-2022 INR Coag (Bld) [Relative time] 1.1 {INR} [facility] Work Phone: Laboratory - Coagulationon 1 aPTT Coag (Bld) [Time] 30.2 s 24.1-36.2 [facility] Work Phone: PT Coag (PPP) [Time] 13.5 s 11.7-14.9 [facility]: Absolute lymphocyte counton 08-26-2022 Lymphocytes Auto (Unsp spec) [#/Vol] 0.39 10*3/uL 0.83-4.51 [facility] Work Phone: Basophil percentageon 2021 Basophils/100 WBC (Bld) 0.5 % 0-1 [facility] Work Phone: Chloride [Moles/Vol] 95 mmol/L 98-107 [facility] Work Phone: Eosinophils/100 WBC (Bld) 0.1 % 0-5 [facility] Work Phone: Glucose [Mass/Vol] 71 mg/dL 74-106 [facility] Work Phone: Neutrophils (Bld) [#/Vol] 6.7 10*3/uL 2.0-7.7 [facility] Work Phone: Neutrophils/100 WBC (Bld) 87.5 % 47-70 [facility] Work Phone: Potassium [Moles/Vol] 2.9 mmol/L 3.5-5.1 [facility] Work Phone: Sodium [Moles/Vol] 135 mmol/L 136-145 [facility] Work Phone: WBC (Bld) [#/Vol] 7.6 10*3/uL 4.4-11.0 [facility] Work Phone: Blood erythrocytes count (nu mber/volume)on 08-26-2022 RBC (Bld) [#/Vol] 1.93 10*6/uL 4.6-6.2 [facility] Work Phone: Blood hemoglobin measurement (mass/volume)on 08-26-2022 Hemoglobin (Bld) [Mass/Vol] 4.4 g/dL 13.0-16.5 [facility] Work Phone: Comment on above: CRITICAL VALUE VERIF IED. CALLED TO RFSKBD64/24/22 1601 [address] Cheyanne Workman.RESULTS READ BACK BY SAME . Blood lymphocytes/100 leukoc yteson 08-26-2022 Lymphocytes/100 WBC (Bld) 5.1 % 19-41 [facility] Work Phone: Blood manual differential co mment interpretation (narrative result)on 08-26-2022 Manual differential comment Daryl (Bld) [Interp] SCANNED [facility] Work Phone: Comment on above: ANEMIA NOTEDLYMPHOPE CIARA NOTED Blood monocytes/100 leukocyt eson 08-26-2022 Monocytes/100 WBC (Bld) 6.0 % 0-10 [facility] Work Phone: Blood platelet mean volumeon 08-26-2022 Platelet mean volume (Bld) [Entitic vol] 10.0 fL 6.2-12.0 [facility] Work Phone: Blood polychromasia detectio n by light microscopyon 08-26-2022 Polychromasia LM Ql (Bld) RARE [facility] Work Phone: Blood schistocytes detection by light microscopyon 08-26-2022 Schistocytes LM Ql (Bld) [facility] Work Phone: Determination of erythrocyte mean corpuscular volume (MCV)on 08-26-2022 MCV (RBC) [Entitic vol] 82.9 fL 80-94 [facility] Work Phone: Hematocrit Auto (Bld) [Volum e fraction]on 08-26-2022 Hematocrit (Bld) [Volume fraction] 16.0 % 40-54 [facility] Work Phone: Hypochromatic red blood cell detectionon 08-26-2022 Hypochromia Ql (Bld) 3+ [facility] Work Phone: Iron measurement (mass/mass) on 08-26-2022 Iron (Unsp spec) [Mass/Mass] 29 ug/dL 65-175 [facility] Work Phone: Laboratory - Chemistry and C hemistry - challengeon 08-26-2022 CO2 [Moles/Vol] 25.0 mmol/L 21.0-32.0 [facility] Work Phone: [phone] Cobalamin (Vitamin B12) [Mass/Vol] 571 pg/mL 211-911 [facility] Work Phone: [phone] Natriuretic peptide B (Bld) [Mass/Vol] 177.0 pg/mL 0-100 [facility] Work Phone: [phone] Urea nitrogen/Creatinine [Mass ratio] 16.6 mg/mg 10-20 [facility] Work Phone: [phone] Laboratory - Hematology and Cell countson 08-26-2022 Anisocytosis Ql (Bld) 2+ [facility] Work Phone: [phone] Erythrocyte distribution width (RBC) [Entitic vol] 64.7 fL 35.1-43.9 [facility] Work Phone: [phone] Erythrocyte distribution width (RBC) [Ratio] 21.7 % 11.6-14.6 [facility] Work Phone: [phone] Immature granulocytes/100 WBC (Bld) 0.800 % 0.0-0.9 [facility] Work Phone: [phone] Comment on above: IG% - Immature Granu locytes (promyelocytes, myelocytes and metamyelocytes) > 1% indicates that a LEFT SHIFT is Present. MCH (RBC) [Entitic mass] 22.8 pg 27.0-32.0 [facility] Work Phone: [phone] Nucleated RBC/100 WBC (Bld) [Ratio] 0.3 % 0-5 [facility] Work Phone: [phone] MCHC Auto (RBC) [Mass/Vol]on 08-26-2022 MCHC (RBC) [Mass/Vol] 27.5 g/dL 32-36 [facility] Work Phone: [phone] Panel Informationon 08-26 Estimated Creatinine Clearance Calc 93.27 ml/min [facility] Work Phone: [phone] Estimated GFR (MDRD) Amer 143 mL/min >60 [facility] Work Phone: Comment on above: GFR Calc Estimated GFR (MDRD) Non-Af Amer 118 mL/min >60 [facility] Work Phone: Comment on above: Non- GFR Calc Total Iron Binding Capacity 443 ug/dL 250-450 [facility] Work Phone: Troponin I High Sensitivity 15 pg/mL 3.0-78.0 [facility] Work Phone: Comment on above: Please Note: New Marycruz t Units and Gender Specific Reference Ranges. For more information see Policy Stat Procedure [place] High Sensitivity Troponin (TNIH) and attachments. Platelets bldon 08-26-2022 Platelets (Bld) [#/Vol] 343 10*3/uL 150-450 [facility] Work Phone: Review by pathologiston 08-04 Pathologist review Daryl (Unsp spec) [Interp] Mary Kate blackwell [facility] Work Phone: Pathologist review Daryl (Unsp spec) [Interp] Reviewed [facility] Work Phone: Comment on above: Previous reported re sult: Mary Kate blackwell Edited by: RGOOD on 08/27/22:1514Normocytic anemia.Clinical correlation suggested.Daniel Bear D.O. 08/27/22 AMENDED REPORT 08/27/22 1514 PATH REV previously reported as: Mary Kate blackwell Serum or plasma calcium becka urement (mass/volume)on 08-26-2022 Calcium [Mass/Vol] 8.9 mg/dL 8.5-10.1 [facility] Work Phone: Serum or plasma creatinine m easurement (mass/volume)on 08-26-2022 Creatinine [Mass/Vol] 0.72 mg/dL 0.70-1.30 [facility] Work Phone: Comment on above: The validity of the calculated GFR & GFRAA in patients over 70 years has not been determined. Clinical correlation is essential. Serum or plasma ferritin saima surement (mass/volume)on 08-26-2022 Ferritin [Mass/Vol] 11 ng/mL 26-388 [facility] Work Phone: Serum or plasma folate measu rement (mass/volume)on 08-26-2022 Folate [Mass/Vol] 5.10 ng/mL 3.1-55.4 [facility] Work Phone: Serum or plasma urea nitroge n measurement (mass/volume)on 08-26-2022 Urea nitrogen [Mass/Vol] 12 mg/dL 7-18 [facility] Work Phone: Target cell detectionon 08-04 Target cells LM Ql (Bld) 1+ [facility] Work Phone: Thin prep Papanicolaou smear with manual screeningon 08-26-2022 Thin prep Papanicolaou smear with manual screening 15 5-15 [facility] Work Phone: LABORATORYOrdered By: Donna Blas on 08-15-2022 ADMITTED TO INTENSIVE CARE UNIT FOR CONDITION OF INTEREST:FIND:PT:^DOROTEO NT:ORD: No (08/15/22 5:17 PM) Invalid Interpretation Code AO Auto Urine SS EMPLOYED IN A HEALTHCARE SETTING:FIND:PT:^EDGAR T:ORD: No (08/15/22 5:17 PM) Invalid Interpretation Code AO Auto Urine SS FIRST TEST FOR CONDITION OF INTEREST:FIND:PT:^PATIMoi NT:ORD: No (08/15/22 5:17 PM) Invalid Interpretation Code AO Auto Urine SS FLUAV RNA PENNY+probe Ql (Upper resp) Negative (08/15/22 5:17 PM) Invalid Interpretation Code Negative AO Auto Urine SS FLUBV RNA PENNY+probe Ql (Upper resp) Negative (08/15/22 5:17 PM) Invalid Interpretation Code Negative AO Auto Urine SS HAS SYMPTOMS RELATED TO CONDITION OF INTEREST:FIND:PT:^PATIMoi NT:ORD: Yes (08/15/22 5:17 PM) Invalid Interpretation Code AO Auto Urine SS Illness or injury onset date and time [id number] Invalid Interpretation Code AO Auto Urine SS Patient was hospitalized because of this condition No (08/15/22 5:17 PM) Invalid Interpretation Code AO Auto Urine SS status Not (08/15/22 5:17 PM) Invalid Interpretation Code AO Auto Urine SS RESIDES IN A CONGREGATE CARE SETTING:FIND:PT:^EDGAR T:ORD: No (08/15/22 5:17 PM) Invalid Interpretation Code AO Auto Urine SS RSV RNA PENNY+probe Ql (Upper resp) Negative (08/15/22 5:17 PM) Invalid Interpretation Code Negative AO Auto Urine SS SARS-CoV-2 (COVID-19) RNA PENNY+probe Ql (Resp) Negative results do not preclude SARS-CoV-2 infection and should not be used as the sole basis for patient management decisions. Negative results must be combined with clinical observations, patient history, and epidemiological information.There is a risk of false negative values resulting from improperly collected, transported, or handled specimens.There is a risk of false negative values due to the presence of sequence variants in the pathogen targets of the assay, procedural errors, amplification inhibitors in specimens, or inadequate numbers of organisms for amplification.ADILENE SARS-CoV-2 Assay is a Real-Time reverse-transcriptase polymerase chain reaction (RT-PCR) based qualitative in vitro diagnostic test intended for the qualitative detection of nucleic acid from the SARS-CoV-2 in nasopharyngeal swab specimens collected from individuals suspected of COVID-19 by their healthcare provider. Testing is limited to laboratories certified under the Clinical Laboratory Improvement Amendments of 1988 (CLIA), 42 U.S.C. 263a, to perform moderate and high complexity tests. Invalid Interpretation Code AO Auto Urine SS Vital Signs Date Time Vital Sign Value Performing Clinician Facility 06-03-2025 00:48-0400 Body temperature 98.1 [degF] [facility] 06-03-2025 00:48-0400 Diastolic blood pressure 69 mm[Hg] [facility] 06-03-2025 00:48-0400 Heart rate 85 /min [facility] 06-03-2025 00:48-0400 Respiratory rate 18 /min [facility] 06-03-2025 00:48-0400 SaO2% (BldA) [Mass fraction] 99 % [facility] 06-03-2025 00:48-0400 Systolic blood pressure 113 mm[Hg] [facility] 06-02-2025 19:04-0400 Body height 162.56 cm [facility] 06-02-2025 19:04-0400 Body mass index (BMI) [Ratio] 20.4 kg/m2 [facility] 06-02-2025 19:04-0400 Body weight 53.9 kg [facility] 05-27-2025 10:15-0400 Diastolic blood pressure 92 mm[Hg] [facility] 05-27-2025 10:15-0400 Systolic blood pressure 151 mm[Hg] [facility] 05-27-2025 09:00-0400 Body temperature 98.9 [degF] [facility] 05-27-2025 09:00-0400 Heart rate 102 /min [facility] 05-27-2025 09:00-0400 Respiratory rate 16 /min [facility] 05-27-2025 09:00-0400 SaO2% (BldA) [Mass fraction] 99 % [facility] 05-27-2025 04:54-0400 Body mass index (BMI) [Ratio] 20.1 kg/m2 [facility] 05-27-2025 04:54-0400 Body weight 53.3 kg [facility] 05-26-2025 13:48-0400 Body height 162.56 cm [facility] 05-25-2025 16:00-0400 Diastolic blood pressure 93 mm[Hg] [facility] 05-25-2025 16:00-0400 Heart rate 117 /min [facility] 05-25-2025 16:00-0400 Respiratory rate 21 /min [facility] 05-25-2025 16:00-0400 SaO2% (BldA) [Mass fraction] 95 % [facility] 05-25-2025 16:00-0400 Systolic blood pressure 159 mm[Hg] [facility] 05-25-2025 15:16-0400 Body temperature 98 [degF] [facility] 05-25-2025 10:29-0400 Body height 162.56 cm [facility] 05-25-2025 10:29-0400 Body mass index (BMI) [Ratio] 20.5 kg/m2 [facility] 05-25-2025 10:29-0400 Body weight 54.43 kg [facility] 12-31-2023 19:14-0500 Diastolic Blood Pressure Non-Invasive 94 mm[Hg] BRIAN WALKER MD [facility] 12-31-2023 19:14-0500 Heart rate 94 /min BRIAN WALKER MD [facility] 12-31-2023 19:14-0500 Respiratory rate 16 /min BRIAN WALKER MD [facility] 12-31-2023 19:14-0500 Systolic Blood Pressure Non-Invasive 157 mm[Hg] BRIAN WALKER MD [facility] 12-31-2023 18:53-0500 Diastolic Blood Pressure Non-Invasive 83 mm[Hg] BRIAN WALKER MD [facility] 12-31-2023 18:53-0500 Heart rate 93 /min BRIAN WALKER MD [facility] 12-31-2023 18:53-0500 Mean blood pressure 107 mm[Hg] BRIAN WALKER MD [facility] 12-31-2023 18:53-0500 Reason For Taking VItal Signs BRIAN WALKER MD [facility] 12-31-2023 18:53-0500 Respiratory rate 16 /min BRIAN WALKER MD [facility] 12-31-2023 18:53-0500 Systolic Blood Pressure Non-Invasive 163 mm[Hg] BRIAN WALKER MD [facility] 02-28-2024 18:28-0500 Diastolic Blood Pressure Non-Invasive 86 mm[Hg] BRIAN WALKER MD [facility] [facility]23 18:28-0500 Heart rate 89 /min BRIAN WALKER MD [facility] 12-31-2023 18:28-0500 Systolic Blood Pressure Non-Invasive 169 mm[Hg] BRIAN WALKER MD [facility] 12-31-2023 18:14-0500 Heart rate 88 /min BRIAN WALKER MD [facility] 12-31-2023 18:14-0500 Respiratory rate 16 /min BRIAN WALKER MD [facility] 12-31-2023 17:55-0500 Blood Pressure Location BRIAN WALKER MD [facility] 12-31-2023 17:55-0500 Body temperature 98.06 [degF] BRIAN WALKER MD [facility] 12-31-2023 17:55-0500 Heart rate 92 /min BRIAN WALKER MD [facility] 07-14-2023 13:00-0400 Respiratory rate 16 /min [facility] 07-14-2023 11:21-0400 Diastolic blood pressure 86 mm[Hg] [facility] 07-14-2023 11:21-0400 Heart rate 60 /min [facility] 07-14-2023 11:21-0400 Systolic blood pressure 159 mm[Hg] [facility] 07-14-2023 09:03-0400 Body height 162.56 cm [facility] 07-14-2023 09:03-0400 Body mass index (BMI) [Ratio] 20.6 kg/m2 [facility] 07-14-2023 09:03-0400 Body temperature 97.6 [degF] [facility] 07-14-2023 09:03-0400 Body weight 54.52 kg [facility] 07-14-2023 09:03-0400 SaO2% (BldA) [Mass fraction] 99 % [facility] 08-29-2022 11:12-0400 Body height 162.56 cm [facility] Work Phone: 08-29-2022 11:12-0400 Body weight 55 kg [facility] Work Phone: 08-29-2022 09:51-0400 Body temperature 98.9 [degF] [facility] Work Phone: 08-29-2022 09:51-0400 Diastolic blood pressure 72 mm[Hg] [facility] Work Phone: 08-29-2022 09:51-0400 Heart rate 81 /min [facility] Work Phone: 08-29-2022 09:51-0400 Respiratory rate 16 /min [facility] Work Phone: 08-29-2022 09:51-0400 SaO2% (BldA) [Mass fraction] 97 % [facility] Work Phone: 08-29-2022 09:51-0400 Systolic blood pressure 135 mm[Hg] [facility] Work Phone: 08-28-2022 14:52-0400 Body mass index (BMI) [Ratio] 20.8 kg/m2 [facility] Work Phone: 08-26-2022 17:56-0400 Body temperature 98.3 [degF] [facility] Work Phone: 08-26-2022 17:56-0400 Diastolic blood pressure 57 mm[Hg] [facility] Work Phone: 08-26-2022 17:56-0400 Heart rate 71 /min [facility] Work Phone: 08-26-2022 17:56-0400 Respiratory rate 16 /min [facility] Work Phone: 08-26-2022 17:56-0400 SaO2% (BldA) [Mass fraction] 94 % [facility] Work Phone: 08-26-2022 17:56-0400 Systolic blood pressure 107 mm[Hg] [facility] Work Phone: 08-26-2022 17:53-0400 Body height 162.56 cm [facility] Work Phone: 08-26-2022 17:53-0400 Body mass index (BMI) [Ratio] 20.8 kg/m2 [facility] Work Phone: 08-26-2022 17:53-0400 Body weight 55 kg [facility] Work Phone: 08-15-2022 16:47-0400 Body height 162.6 cm BRIAN WALKER MD [facility] 08-15-2022 16:47-0400 Body temperature 98.78 [degF] BRIAN WALKER MD [facility] 08-15-2022 16:47-0400 Body weight 59.1 kg BRIAN WALKER MD [facility] 08-15-2022 16:47-0400 Diastolic blood pressure 55 mm[Hg] BRIAN WALKER MD [facility] 08-15-2022 16:47-0400 Heart rate 87 /min BRIAN WALKER MD [facility] 08-15-2022 16:47-0400 Respiratory rate 18 /min BRIAN WALKER MD [facility] 08-15-2022 16:47-0400 Systolic blood pressure 125 mm[Hg] BRIAN WALKER MD [facility] Encounters Encounter Date Encounter Type Care Provider Facility Start: 06-02-2025 End: 06-03-2025 Emergency department patient visit [facility] -Emergency Department Work Phone: Start: 05-27-2025 Non-patient / Non-visit Dr. Sheron Dumont MD -[facility] Work Phone: Start: 05-26-2025 Non-patient / Non-visit Dr. Sheron Dumont MD -[facility] Work Phone: Start: 05-26-2025 [facility] Facility:[facility] [place] Start: 05-26-2025 Non-patient / Non-visit Dr. Shila Fong MD -[facility] Start: 05-25-2025 End: 05-27-2025 ambulatory [facility] Facility:[facility] Start: 05-25-2025 End: 05-27-2025 Evaluation and management of inpatient Dr. Valencia Wen MD -[facility] Work Phone: Start: 05-25-2025 End: 05-27-2025 observation encounter [facility] Start: 02-28-[address] RIP PAYNE MD Facility:A Start: 02-28-2024 End: 02-28-2024 Emergency department patient visit [facility] Facility:[facility] Start: 12-31-2023 End: 12-31-2023 Emergency department patient visit BRIAN WALKER MD [facility] Start: 07-14-2023 End: 07-14-2023 Emergency department patient visit [facility]-Emergency Department Work Phone: Start: 04-01-2023 End: 04-01-2023 ambulatory [facility] Work Phone: Start: 04-01-2023 End: 04-01-2023 Patient encounter procedure [facility], [facility] Work Phone: Start: 08-28-2022 Non-patient / Non-visit [facility] Start: 08-28-2022 Non-patient / Non-visit [facility] Start: 08-27-2022 Non-patient / Non-visit [facility] Start: 08-26-2022 Non-patient / Non-visit [facility] Start: 08-26-2022 End: 08-29-2022 Evaluation and management of inpatient [facility] Start: 08-15-2022 End: 08-15-2022 Emergency department patient visit BRIAN WALKER MD [facility] Procedures Date Procedure Procedure Detail Performing Clinician Start: 06-02-2025 Estimated creatinine clearance [facility] Start: 05-27-2025 Estimated creatinine clearance [facility] Start: 05-25-2025 Plain x-ray of humerus [facility] Start: 05-25-2025 Methadone measurement, urine [facility] Start: 05-25-2025 Urnls dip stick/tabl et reagent auto microscopy [facility] Start: 05-25-2025 CT angiography of ch est with contrast [facility] Start: 05-25-2025 X-ray of chest, PA a nd lateral views [facility] Start: 05-25-2025 D-dimer assay, quantitative [facility] Comment on above: D-Dimer ELEVATED (>0 .49): Additional studies and clinicalassessments are indicated to conclude diagnosis of:Deep Vein Thrombosis (DVT) or Pulmonary Embolism (PE)CRITICAL VALUE CALLED TO LISA KAT (ER)05/25/25 1211 Jerry Harding.RESULTS READ BACK BY SAME. Start: 05-25-2025 Estimated creatinine clearance [facility] Start: 05-25-2025 CT of head without contrast [facility] Start: 07-14-2023 SARS-CoV-2 & FLU Ant igen (Rapid) Start: 07-14-2023 CT of head without contrast Start: 04-01-2023 CT of chest and abdomen Start: 08-28-[facility] Start: 08-26-2022 Plain chest X-ray Colonoscopy BRIAN Manriquez Endoscope, device (p hysical object) BRIAN WALKER MD Measurement of occul t blood in stool specimen using immunoassay Plan of Treatment Date Care Activity Detail Author Start: 06-03-2025 [facility] Start: 05-27-2025 Patient discharge [facility] Start: 05-26-2025 Referral to occupational therapist [facility] Start: 05-26-2025 Referral to service [facility] Start: 05-25-2025 Assessment of risk o f venous thromboembolism [facility] Start: 05-25-2025 Insertion of cathete r into peripheral vein [facility] Start: 05-25-2025 Measuring intake and output [facility] Start: 05-25-2025 Providing care accor ding to standard [facility] Start: 05-25-2025 Provision of activity privileges [facility] Start: 05-25-2025 Referral to service [facility] Start: 05-25-2025 [facility] Start: 05-25-2025 Following clinical p athway protocol [facility] Start: 05-25-2025 Admission procedure [facility] Start: 05-25-2025 Hospital admission, emergency, from emergency room, medical nature [facility] Start: 05-25-2025 [facility] Start: 05-25-2025 Patient referral to dietitian [facility] Start: 08-29-2022 Patient discharge [facility] Work Phone: Start: 08-27-2022 Catheterization of vein [facility] Work Phone: Start: 08-27-2022 [facility] Work Phone: Start: 08-27-2022 Care planning and pr oblem solving actions [facility] Work Phone: Start: 08-27-2022 Referral to gastroen terology service [facility] Work Phone: Start: 08-26-2022 Application of inter mittent pneumatic compression device [facility] Work Phone: Start: 08-26-2022 Ambulation without limitation [facility] Work Phone: Start: 08-26-2022 Assessment of risk o f venous thromboembolism [facility] Work Phone: Start: 08-26-2022 Insertion of cathete r into peripheral vein [facility] Work Phone: Start: 08-26-2022 Providing care accor ding to standard [facility] Work Phone: Start: 08-26-2022 [facility] Work Phone: Start: 08-26-2022 Following clinical p athway protocol [facility] Work Phone: Start: 08-26-2022 Admission procedure [facility] Work Phone: Start: 08-26-2022 Verification routine [facility] Work Phone: Start: 08-26-2022 Leukocyte reduced red blood cells [facility] Work Phone: Start: 08-26-2022 Administration of blood product [facility] Work Phone: Start: 08-26-2022 Vitamin B12 measurement [facility] Work Phone: Start: 08-26-2022 [facility] Work Phone: Ferritin [Mass/volum e] in Serum or Plasma [facility] Work Phone: Folate [Mass/volume] in Serum or Plasma [facility] Work Phone: IgA [Mass/volume] in Serum or Plasma [facility] Work Phone: Iron [Mass/mass] in Unspecified specimen [facility] Work Phone: Iron and Iron bindin g capacity panel - Serum or Plasma [facility] Work Phone: Measurement of immun oglobulin A in serum specimen [facility] Work Phone: Patient Education [facility] Work Phone: Patient referral [facility] Work Phone: Tissue transglutamin ase IgA Ab [Units/volume] in Serum [facility] Work Phone: Vitamin B12 measurement [facility] Work Phone: Payers Date Payer Category Payer Self-pay [id number] 2025 Self-pay [id number] 2023 Unknown [id number] 1965 Unknown [id number] 2.16.8 [id number] 1965 Unknown [id number] 2.16.8 [id number] 1965 Unknown [id number] 2.16.8 [id number] Unknown [id number] Unknown [id number] 2.16.8 [id number] Unknown [id number] 2.16.8 [id number] Unknown [id number] 2.16.8 [id number] Unknown [id number] 2.16.8 [id number] Unknown [id number] 2.16.8 [id number] Unknown [id number] 2.16.8 [id number] Social History Date Type Detail Facility Start: 08-15-2022 End: 06-02-2025 Tobacco smoking status Heavy tobacco smoker (finding) [facility] Sex Assigned At Sex [facility] Start: 08-26-2022 End: 07-14-2023 Tobacco smoking status NHIS Unknown if ever smoked [facility] Start: 1965 Sex Assigned At Male [facility] Start: 05-25-2025 Tobacco smoking stat us NHIS Smokes tobacco daily (finding) [facility] Goals Date Patient Goal Desired Activity /State Functional Status Date Assessment Result Facility 05-27-2025 Functional status Activity Abili ty Standby Assist [facility] Work Phone: 05-27-2025 Functional status Patient Activity Ambula marycruz [facility] Work Phone: 05-26-2025 Functional status Assistive Devices None [facility] Work Phone: 12-31-2023 Functional Status Independent [facility] 12-31-2023 Functional Status ID band on [facility] 08-29-2022 Functional status Ambulates;Up ad delaney [facility] Work Phone: 08-15-2022 [facility] Mental Status Date Assessment Result Facility 06-02-2025 Cognitive function Level Of Cons ciousness Awake;Alert;Appropriate;Follow s Commands [facility] Work Phone: 05-27-2025 Cognitive function Voice/Name [facility] Work Phone: 05-25-2025 Cognitive function Voice/Name [facility] Work Phone: 12-31-2023 Mental Status Orientation Oriented x 4 [facility] 08-28-2022 Cognitive function Voice/Name [facility] Work Phone: 08-26-2022 Cognitive function Level Of Cons ciousness Awake;Alert;Appropriate;Follow s Commands [facility] Work Phone: 08-15-2022 Mental Status Orientation Oriented x 4 [facility] Clinical Notes 08-15-2022 to 06-03-2025 Note Date & Type Note Facility 06-03-2025 Discharge summary [facility] 06-02-2025 Discharge summary Note Date/Time June 03, 2025 12:38am [facility] Medical Records Department [address] [place] [address] Emergency Department Summary 06/02/25 MR#: [id number] Acct: [id number] Name: MARVIN IZQUIERDO Rep #:[id number] : 1965 59 From: Michael Saldivar MD PCP: [facility] Status:REG ER Location: ED ADDENDUM by Yunier Mendoza DO on 06/03/25 at 0038 The patient was signed out to me while awaiting improvement secondary to his alcohol use. The patient was reevaluated at approximately 12:30 AM and at this time he is clinically sober. He is able to ambulate with a steady gait and talking in complete sentences without slurred speech. Therefore his vitals are stable and his workup shows no clinically significant findings or need for bloodtransfusion there is no need for further intervention in the ER. The patient atthis time is clinically sober and he is going to be picked up by a sober responsible adult. Therefore he is safe for discharge 06/03/25 0038<Electronically signed by Yunier Mendoza DO> Cosigner Signature (if applicable): cc: [facility] ~* Signed ADDENDUM by Dr. Michael Saldivar MD on 06/02/25 at 2206 EKG obtained and interpreted by myself independently as normal sinus rhythm at [address] changes. No STEMI. 06/02/252205<Electronically signed by Michael Saldivar MD> Cosigner Signature (if applicable): cc: [facility] ~* Signed HPI History of Present Illness Chief Complaint: Weakness Narrative Narrative: 59-year-old male presents via EMS with alcohol intoxication, and episodic lightheadedness and dizziness. He states he thinks he is a blood transfusion. He has a history of anemia. He states he was in the emergency department previously last week and they took 19 vials of blood. Sometimes is worse withstanding. He states his neighbors called EMS. [facility] Medical History Anemia Substance abuse Alcohol abuse Smoker Hypertension Home Medications ?Medication ?Instructions ?Recorded ?Last Taken ?Type atenolol 25 mg tablet 25 mg PO DAILY BP 08/27/22 1 History 25 mg ascorbic acid (vitamin C) 500 mg 500 mg PO DAILY 30 da ys #30 tabs 08/29/22 Unknown Rx tablet (Vitamin C) ferrous sulfate 325 mg (65 mg 325 mg PO BID 30 days #6 0 tabs 08/29/22 Unknown Rx iron) tablet (Iron (ferrous sulfate)) pantoprazole 40 mg tablet,delayed 40 mg PO BID 30 days #60 tabs 08/29/22 Unknown Rx release sennosides 8.6 mg-docusate sodium 1 tab-cap PO BID PRN constipation 08/29/22 Unknown Rx 50 mg tablet (Senokot-S) 30 days #60 tabs diazepam 2 mg tablet 2 mg PO TID PRN PRN Vertigo #10 07/14/23 Unknown Rx TABLETS acetaminophen 325 mg tablet 650 mg (2 x 325 mg) PO Q6H PRN PRN 05/27/25 Unknown Rx Pain 1-10 Or Fever >100.7 #30 tabs Allergy/AdvReac Type Severity Reaction Status Date / Time No Known Allergies Allergy Verified 06/02/25 19:10 Family History Other Heart disease Social History Smoking Status: Heavy Smoker (>10/day) ROS ROS ED ROS Narrative Review of systems positive for lightheadedness and dizziness. No chest pain or shortness of breath. No nausea or vomiting. Positive alcohol intake. EXAM Physical Exam Narrative Exam Narrative: Afebrile. Vital signs noted. Nontoxic-appearing. Cardiovascular examination regular rate and rhythm. Lungs are clear to auscultation bilaterally. Abdomen is soft and nontender with positive bowel sounds. No guarding or rebound. Neurological examination nonfocal, nonlateralizing. Curled up in position, but awakens upon examination and is talkative and interactive. Noted alcohol intoxication. Const Vital Signs: 06/02/25 19:04 06/02/25 19:11 06/02/25 21:03 Temperature 98.9 F Temperature Source Oral Pulse Rate 93 92 Respiratory Rate 18 20 H Respiratory Effort Normal Respiratory Pattern Normal Blood Pressure 135/94 H 116/72 Blood Pressure Mean 107 86 Pulse Ox 96 96 Oxygen Delivery Method Room Air Room Air MDM MDM MDM Narrative Medical decision making narrative: I reviewed the patient's prior records. Previously had been seen and had bedbugs. Rhtff-px-ndxt glucose 95. Will check a CBC and CMP to see if he is anemic requiring transfusions. I will also check an alcohol level. I reviewed his laboratory work and he has a normal white count of 11.0 and hemoglobin 12.6. I do not feel he needs a blood transfusion like the patient claimed he did. Platelet count 377. Sodium normal 136 with potassium 4.6, chloride slightly low at 94. BUN of 7 creatinine 0.63. Ethyl alcohol is elevated at 355. Patient was seen ambulating in the ED but as he has severely elevated alcohol level, he will be observed in the emergency department until hesobers up. He will be bolused normal saline as well. This may be the infusion that he needs. When compared to prior labs from his prior visit, his alcohol level was only in the 200s. At this point in time, patient will be signed out to the overnight physician Dr. Mendoza who will continue observation and make final disposition on the patient which I anticipate his discharge. Patient is in stable condition. History & Record Review Discussion w/independent historian: Patient Additional record(s) reviewed:: Prior labs (Elevated alcohol in the 200s.) Lab Data Attestation: I reviewed the patient's lab results. Labs: Laboratory Results - last 24 hr 06/02/25 06/02/25 19:08 19:20 WBC 11.0 RBC 3.82 L Hgb 12.6 L Hct 38.4 L MCV 100.5 H MCH 33.0 H MCHC 32.8 RDW Std Deviation 65.6 H RDW Coeff of Shauna 17.6 H Plt Count 377 MPV 9.3 Immature Gran % (Auto) 0.500 Neut % (Auto) 83.0 H Lymph % (Auto) 8.4 L [place] % (Auto) 7.1 Eos % (Auto) 0.3 Baso % (Auto) 0.7 Absolute Neuts (auto) 9.1 H Absolute Lymphs (auto) 0.92 Nucleated RBC % 0 Sodium 136 Potassium 4.6 Chloride 94 L Carbon Dioxide 16.7 L Anion Gap 26 H BUN 7 Creatinine 0.63 L Estim Creat Clear Calc 93.87 Est GFR (MDRD) Non-Af 108 BUN/Creatinine Ratio 11.1 Glucose 101 H Calcium 9.3 Total Bilirubin 0.33 AST 206 H ALT 92 H Alkaline Phosphatase 124 Total Protein 8.1 Albumin 4.6 Globulin 3.5 Albumin/Globulin Ratio 1.3 Ethyl Alcohol 355.0 H* POC Glucose 95 Discharge Plan Triage Chief Complaint: Weakness ED Provider: Michael Saldivar Dx/Rx/DC Orders Clinical Impression: Acute alcohol intoxication, Alcohol abuse, Lightheadedness Instructions: ED Dizziness, Uncertain Cause, ED Alcohol Intoxication, ED Alcohol Abuse Prescriptions: No Action atenolol 25 mg Tablet 25 mg PO DAILY pantoprazole 40 mg tablet,delayed release (DR/EC) 40 mg PO BID 30 Days Qty: 60 0RF ferrous sulfate [Iron (ferrous sulfate)] 325 mg (65 mg iron) tablet 325 mg PO BID 30 Days Qty: 60 0RF ascorbic acid (vitamin C) [Vitamin C] 500 mg tablet 500 mg PO DAILY 30 Days Qty: 30 0RF sennosides-docusate sodium [Senokot-S] 8.6-50 mg tablet 1 tab-cap PO BID PRN (Reason: constipation) 30 Days Qty: 60 0RF diazepam 2 mg tablet 2 mg PO TID PRN PRN (Reason: Vertigo) Qty: 10 0RF acetaminophen 325 mg Tablet 650 mg PO Q6H PRN PRN (Reason: Pain 1-10 Or Fever >100.7) Qty: 30 0RF [facility]errals: [facility] [Primary Care Provider] - As soon as possible Print Language: Mongolian What to do if you have Problems For any increased pain, shortness of breath, bleeding, nausea or vomiting, chestpain, or any unexpected problems, contact your Primary Care Provider. Call [facility] ([phone]) or report to the closest Emergency Room. Call 911 if necessary. 06/02/252151 <Electronically signed by Michael Saldivar MD> Cosigner Signature (if applicable): CC: [facility] ~ Signed [facility] Work Phone: [phone] 834-573507-25-2025 Discharge summary [facility] Medical Records Department [address] [place] [address] Instructions for Home/Discharge Instructions 05/27/25 0938 MR#: [id number] Acct: [id number] Name: MARVIN IZQUIERDO Rep #:[id number] : 1965 59 From: Sheron Dumont MD [facility]CP: [facility] Status:ADM [facility] Discharge Instructions DC O2, CPAP, BIPAP needs Home O2 Discharge instructions: No Dressing / Incision Discharge Activity: Return to Normal Activity Weight Bearing Status: Weight bearing as tolerated Dressing / Incision Call your doctor if you observe: Fever of 101 or Higher, Shortness of breath andSwelling in the ankles Follow Up Care Test Results: Test results from this visit will be discussed in further detail at your follow- up appointment, if applicable. Discharge Plan Admission Admit Date/Time: 05/25/25 16:10 Primary Reason for Your Visit: mechanical fall Attending Provider: Sheron Dumont Primary Care Provider: [facility] Consulting Providers: Valencia Wen Instructions Patient Instructions: ED Mechanical Fall Discharge Orders/Prescriptions Prescriptions: New acetaminophen 325 mg Tablet 650 mg PO Q6H PRN PRN (Reason: Pain 1-10 Or Fever >100.7) Qty: 30 0RF Continued atenolol 25 mg Tablet 25 mg PO DAILY pantoprazole 40 mg tablet,delayed release (DR/EC) 40 mg PO BID 30 Days Qty: 60 0RF ferrous sulfate [Iron (ferrous sulfate)] 325 mg (65 mg iron) tablet 325 mg PO BID 30 Days Qty: 60 0RF ascorbic acid (vitamin C) [Vitamin C] 500 mg tablet 500 mg PO DAILY 30 Days Qty: 30 0RF sennosides-docusate sodium [Senokot-S] 8.6-50 mg tablet 1 tab-cap PO BID PRN (Reason: constipation) 30 Days Qty: 60 0RF diazepam 2 mg tablet 2 mg PO TID PRN PRN (Reason: Vertigo) Qty: 10 0RF Referrals / Follow Up: [facility] [Primary Care Provider] - Within 1 Week Disposition Disposition (needs filled in before D/C Order can be placed): Home, Self Care 05/27/25 0939Sheron Dumont MD CC: Dr. Valencia Wen MD; [facility] ~ Signed [facility]07-25-[facility]25 [facility] Medical Records Department [address] [place] [address] Discharge Summary 05/27/25 0939 MR#: [id number] Acct: [id number] Name: MARVIN IZQUIERDO Rep #: [id number] : 1965 59 From: Sheron Dumont MD PCP: [facility] Status:DIS [facility] Location: [place] [address] Providers Date of Admission: 05/25/25 Date of Discharge: 05/27/25 Primary Care Physician: [facility] Reason For Visit: PRESYNCOPE Diagnosis Discharge Diagnosis (1) Syncope: Status: Acute Code(s): R55 - Syncope and collapse (2) Alcohol abuse: Status: Acute Code(s): F10.10 - Alcohol abuse, uncomplicated Plan #Syncope due to lightheadedness * Patient passed out yesterday after getting up from a seated position. He developed tunnel vision and lightheadedness and fell. * D-dimer was elevated but CT of the chest was negative. CTA chest revealed fractures of the left humeral neck, left inferior scapula and left lateral ribs as well as numerous groundglass and part solid pulmonary nodules throughout the bilateral lungs * Patient currently denies any dizziness or lightheadedness. PT OT on board. Fall precautions. * 2D echo done today showed EF of 60% with trivial mitral valve insufficiency. Check orthostatics. #Humeral and clavicular as well as left rib fractures: Due to mechanical fall. Patient currently has no pain or immobility from these. PT OT on board. Fall precautions. #History of alcohol use disorder and at risk of withdrawal * He drinks up to half a gallon of vodka daily. His last drink was the day of admission. Denies any current withdrawal symptoms. On alcohol withdrawal protocol with phenobarbital. * Monitor CIWA score. Adjunctive meds for symptomatic relief. * On thiamine, folic acid and Multi-Avtar. #Hypertension: * On atenolol but says is not taking it anymore. On clonidine as needed. The CIWA protocol which would help with elevated blood pressure which is as high as 170/84 but has mainly been in the 140s and 150s systolic. If remains elevated will add on all BP meds. #DVT prophylaxis: SCDs. Medications at Discharge Home Medications atenolol 25 mg tablet 25 mg PO DAILY BP 08/27/22 ascorbic acid (vitamin C) 500 mg tablet (Vitamin C) 500 mg PO DAILY 30 days #30 tabs 08/29/22 ferrous sulfate 325 mg (65 mg iron) tablet (Iron (ferrous sulfate)) 325 mg PO BID 30 days #60 tabs 08/29/22 pantoprazole 40 mg tablet,delayed release 40 mg PO BID 30 days #60 tabs 08/29/22 sennosides 8.6 mg-docusate sodium 50 mg tablet (Senokot-S) 1 tab-cap PO BID PRN constipation 30 days #60 tabs 08/29/22 diazepam 2 mg tablet 2 mg PO TID PRN PRN Vertigo #10 TABLETS 07/14/23 acetaminophen 325 mg tablet 650 mg (2 x 325 mg) PO Q6H PRN PRN Pain 1-10 Or Fever >100.7 #30 tabs 05/27/25 Hospital Course Operations None Procedures 2-D Echocardiogram Summary of Care Provided Minutes Spent on Discharge: 42 Hospital Course: Patient is a 59-year-old male with a past medical history as outlined including chronic alcohol use disorder who was admitted to the ED on 05/25/2025 with complaint of lightheadedness which mostly occurred with change in position. He states he developed tunnel vision and lightheadedness and then subsequently fell. He denies hitting his head. He also complained of swollen ankles at baseline and said usually followed up at the [facility]. CT of the brain showed no acute intracranial pathology. Chemistry showed sodium of 141 potassium of 3.6. Creatinine was 0.61. Chest x- ray showed no acute cardiopulmonary findings. D-dimer was 1.21 CT of the chest that showed no evidence of PE but did show fractures of the left humeral neck, left inferior scapula and left lateral ribs as well as numerous groundglass and part solid pulmonary nodules throughout the bilateral lungs with recommendation for follow-up CT in 2 to 3 months. Urinalysis showed no evidence of UTI. Patient did not even have any pain in his arm or left flank and did not feel like he had fractured any bones. He was admitted to be managed for syncope with resultant rib fractures and left humeral fracture. He admitted to drinking about half a gallon of vodka daily. He was also started on alcohol withdrawal protocol per [facility] protocol. He had 2D echo which showed EF of 60% with no regional wall motion abnormalities. He felt much better and he did not have any lightheadedness or syncope recurring during this admission. Labs and vitals reviewed. Home meds reviewed and reconciled. Physical Exam Const alert, oriented x3 and no apparent distress General Appearance: cooperative and comfortable Orientation / Consciousness: awake HEENT normocephalic, head/scalp atraumatic, hearing grossly normal bilaterally, moist oral mucous membranes and oropharynx normal Mouth: oral and palatal mucosa normal Eyes PERRL, EOMs intact bilaterally and conjunctivae normal Neck no l (more content not included)...[facility]07-24-2025 Progress note Author Sheron Dumont [facility] Note Date/Time May 26, 2025 4:41 pm [facility] Medical Records Department [address] [address] Progress Note 05/26/25 1154 MR#: [id number] Acct: [id number] Name: IZQUIERDOMARVIN Mitra Rep #:[id number] : 1965 59 From: Sheron Dumont MD PCP: [facility] Status:ADM ABRAM Location: [place] [address] Subjective Subjective Patient seen and examined with his nurse by is bedside. He compalined of pain inhis feet. He denied any clavicular or LUE pain despte the fractures. He denied any shakes or tremors. Review of systems is otherwise negative. Objective Data Objective Data Vital Signs: Vital Signs Temp Pulse Resp BP Pulse Ox O2 Del Method 98.7 F 101 H 16 139/76 H 98 Room Air 05/26/25 09:51 05/26/25 09:51 05/26/25 09:51 05/26/25 09:51 05/26/25 09:51 05/26/25 09:55 Oxygen Delivery Method Room Air Weight: 121 lb 0.54 oz Body Mass Index (BMI) 20.7 Intake & Output: Intake and Output for Last 24 Hours 05/24/25 05/25/25 05/26/25 23:59 23:59 23:59 Intake Total 1340 / 1340 932.5 / 932.5 Output Total 550 / 550 175 / 175 Balance 790 / 790 757.5 / 757.5 Lab / Micro Data 05/26/25 05:50 05/26/25 05:50 Labs: Laboratory Results - last 24 hr 05/25/25 11:45: WBC 8.2, RBC 3.67 L, Hgb 12.1 L, Hct 36.0 L, MCV 98.1 H, MCH 33.0 H, MCHC 33.6, RDW Std Deviation 64.7 H, RDW Coeff of Shauna 17.8 H, Plt Count 296, MPV 9.6, Immature Gran % (Auto) 0.500, Neut % (Auto) 74.8 H, Lymph % (Auto)12.3 L, [place] % (Auto) 9.5, Eos % (Auto) 2.3, Baso % (Auto) 0.6, Absolute Neuts (auto) 6.2, Absolute Lymphs (auto) 1.01, Nucleated RBC % 0, D-Dimer Quant (PE/DVT) 1.21 H*, Sodium 141, Potassium 3.6, Chloride 98, Carbon Dioxide 22.4, Anion Gap 20 H, BUN 4, Creatinine 0.61 L, Estim Creat Clear Calc 97.91, Est GFR (MDRD) Non-Af 109, BUN/Creatinine Ratio 6.4 L, Glucose 81, Calcium 9.3, TroponinT High Sens 8, NT pro BNP II < 36, Ethyl Alcohol 222.0 H 05/25/25 13:15: Troponin T Hi Sens 2 Hr 9 05/25/25 14:00: Urine Color Yellow, Urine Clarity Clear, Urine pH 6.0, Ur Specific [place] 1.020, Urine Protein 30 H, Urine Glucose (UA) Normal, Urine Ketones 50 H, Urine Occult Blood Negative, Urine Nitrite Negative, Urine Bilirubin Negative, Urine Urobilinogen Normal, Ur Leukocyte Esterase Negative, Urine RBC 0 SEEN, Urine WBC 0 SEEN, Ur Squamous Epith Cells 0 SEEN, Urine Bacteria 0 SEEN, Urine Mucus 0 SEEN, Urine Opiates Screen NEGATIVE, U Buprenorphine Qual NEGATIVE, Ur Oxycodone Screen NEGATIVE, Urine Methadone Screen NEGATIVE, Urine Fentanyl Screen NEGATIVE, Ur Barbiturates Screen NEGATIVE, Ur Phencyclidine Scrn NEGATIVE, Ur Amphetamines Screen NEGATIVE, U Benzodiazepines Scrn NEGATIVE, Urine Cocaine Screen NEGATIVE, U Cannabinoids Screen PRESUMPTIVE POSITIVE 05/26/25 05:50: WBC 6.5, RBC 2.98 L, Hgb 10.0 L, Hct 28.8 L, MCV 96.6 H, MCH 33.6 H, MCHC 34.7, RDW Std Deviation 60.3 H, RDW Coeff of Shauna 17.2 H, Plt Count 189, MPV 10.1, Immature Gran % (Auto) 0.600, Neut % (Auto) 75.7 H, Lymph % (Auto) 11.9 L, [place] % (Auto) 10.9 H, Eos % (Auto) 0.6, Baso % (Auto) 0.3, Absolute Neuts (auto) 4.9, Absolute Lymphs (auto) 0.77 L, Nucleated RBC % 0, Sodium 134, Potassium 4.1, Chloride 96 L, Carbon Dioxide 21.8, Anion Gap 16 H, BUN 5, Creatinine 0.50 L, Estim Creat Clear Calc 120.48, Est GFR (MDRD) Non-Af 116, BUN/Creatinine Ratio 9.3 L, Glucose 87, Calcium 8.6, Total Bilirubin 0.71, AST 65 H, ALT 36, Alkaline Phosphatase 123, Total Protein 6.1, Albumin 3.5, Globulin 2.6, Albumin/Globulin Ratio 1.3, Vitamin B12 363, TSH 2.020 05/26/25 08:33: POC Glucose 122 H Radiography Diagnostic Testing: Radiology Impression Brain CT 05/25/25 10:53 IMPRESSION: No acute intracranial findings. Chronic findings as described. Reading Location: [facility] Chest X-Ray 05/25/25 11:55 IMPRESSION: NO ACUTE FINDINGS. Reading Location: [facility] Chest CTA 05/25/25 12:13 IMPRESSION: 1. No large central pulmonary embolism. 2. Acute fractures of the left humeral neck, left inferior scapula and left lateral ribs. 3. Numerous ground-glass and part solid, part ground-glass pulmonary nodules throughout the bilateral lungs. Findings are most compatible with pneumonitis/pneumonia, however pulmonary neoplasm could appear similar. Follow-up chest CT in 2-3 months is recommended to evaluate for stability/resolution. PET-CT will not be beneficialas infection and neoplasm both demonstrate FDG avidity. Reading Location: [facility] Humerus X-Ray 05/25/25 14:20 IMPRESSION: No acute fracture or dislocations. Mild degenerative changes of the left shoulder. No acute soft tissue abnormalities. Peripheral IV is noted within the antecubital fossa; otherwise no radiographic foreign body. Reading Location: [facility] Echocardiogram 05/25/25 17:22 Interpretation Summary The estimated ejection fraction is 60 %. Trivial mitral valve insufficiency. Ordering Physician: Valencia Wen Referring Physician: [facility] Performed By: Anabell Ariza RDCS Physical Exam Const alert, oriented x3 and no apparent distress General Appearance: cooperative HEENT normocephalic, head/scalp atraumatic, moist oral mucous membranes and oropharynxnormal Eyes PERRL and EOMs intact bilaterally Neck no lymphadenopathy and supple Lymph Lymphatic: no lymphedema noted Resp normal respiratory effort, normal air movement and clear to auscultation bilaterally Cardio regular rate, regular rhythm, S1 normal heart sound, S2 normal heart sound and no murmurs GI normal to inspection, nondistended, normoactive bowel sounds, soft to palpation,non-tender and non-distended Extremity normal capillary refill, no clubbing, cyanosis or edema and no calf tenderness General Extremity: no tenderness to palpation of joints or extremities Skin General Skin Exam: no breakdown Neuro CN's II-XII intact bilaterally, no focal motor deficits and no sensory deficits noted Motor Exam: strength 5/5 throughout and general weakness Psych thought process normal and cooperative Appearance: appropriate Assessment & Plan Assessment/Plan (1) Syncope: (2) Alcohol abuse: PLAN: Plan #Syncope due to lightheadedness * Patient passed out yesterday after getting up from a seated position. He developed tunnel vision and lightheadedness and fell. * D-dimer was elevated but CT of the chest was negative. CTA chest revealed fractures of the left humeral neck, left inferior scapula and left lateral ribs as well as numerous groundglass and part solid pulmonary nodules throughout the bilateral lungs * Patient currently denies any dizziness or lightheadedness. PT OT on board. Fall precautions. * 2D echo done today showed EF of 60% with trivial mitral valve insufficiency. Check orthostatics. #Humeral and clavicular as well as left rib fractures: Due to mechanical fall. Patient currently has no pain or immobility from these. PT OT on board. Fall precautions. #History of alcohol use disorder and at risk of withdrawal * He drinks up to half a gallon of vodka daily. His last drink was the day of admission. Denies any current withdrawal symptoms. On alcohol withdrawal protocol with phenobarbital. * Monitor CIWA score. Adjunctive meds for symptomatic relief. * On thiamine, folic acid and Multi-Avtar. #Hypertension: * On atenolol but says is not taking it anymore. On clonidine as needed. The CIWA protocol which would help with elevated blood pressure which is as high as 170/84 but has mainly been in the 140s and 150s systolic. If remains elevated will add on all BP meds. #DVT prophylaxis: SCDs. Charges/Coding Visit Charges Inpatient E&M: 20570 Subs Hosp L2 05/26/25 1641 <Electronically signed by Sheron Dumont MD> Sheron Dumont MD Cosigner Signature (if applicable): CC: ~ Signed [facility] Work Phone: [phone] 494-763207-24-2025 Progress note [facility] Medical Records Department [address] [address] Progress Note 05/26/25 1154 MR#: [id number] Acct: [id number] Name: MARVIN IZQUIERDO Rep #:[id number] : 1965 59 From: Sheron Dumont MD PCP: [facility] Status:ADM ABRAM Location: [place] [address] Subjective Subjective Patient seen and examined with his nurse by is bedside. He compalined of pain inhis feet. He deniedany clavicular or LUE pain despte the fractures. He denied any shakes or tremors. Review of systemsis otherwise negative. Objective Data Objective Data Vital Signs: Vital Signs Temp Pulse Resp BP Pulse Ox O2 Del Method 98.7 F 101 H 16 139/76 H 98 Room Air 05/26/25 09:51 05/26/25 09:51 05/26/25 09:51 05/26/25 09:51 05/26/25 09:51 05/26/25 09:55 Oxygen Delivery Method Room Air Weight: 121 lb 0.54 oz Body Mass Index (BMI) 20.7 Intake & Output: Intake and Output for Last 24 Hours 05/24/25 05/25/25 05/26/25 23:59 23:59 23:59 Intake Total 1340 / 1340 932.5 / 932.5 Output Total 550 / 550 175 / 175 Balance 790 / 790 757.5 / 757.5 Lab / Micro Data 05/26/25 05:50 05/26/25 05:50 Labs: Laboratory Results - last 24 hr 05/25/25 11:45: WBC 8.2, RBC 3.67 L, Hgb 12.1 L, Hct 36.0 L, MCV 98.1 H, MCH 33.0 H, MCHC 33.6, RDWStd Deviation 64.7 H, RDW Coeff of Shauna 17.8 H, Plt Count 296, MPV 9.6, Immature Gran % (Auto) 0.500, Neut % (Auto) 74.8 H, Lymph % (Auto)12.3 L, [place] % (Auto) 9.5, Eos % (Auto) 2.3, Baso % (Auto) 0.6, Absolute Neuts (auto) 6.2, Absolute Lymphs (auto) 1.01, Nucleated RBC % 0, D-Dimer Quant (PE/DVT) 1.21 H*, Sodium 141, Potassium 3.6, Chloride 98, Carbon Dioxide 22.4, Anion Gap 20 H, BUN 4, Creatinine 0.61 L, Estim Creat Clear Calc 97.91, Est GFR (MDRD) Non-Af 109, BUN/Creatinine Ratio 6.4 L, Glucose 81, Calcium 9.3, TroponinT High Sens 8, NT pro BNP II < 36, Ethyl Alcohol 222.0 H 05/25/25 13:15: Troponin T Hi Sens 2 Hr 9 05/25/25 14:00: Urine Color Yellow, Urine Clarity Clear, Urine pH 6.0, Ur Specific [place] 1.020, Urine Protein 30 H, Urine Glucose (UA) Normal, Urine Ketones 50 H, Urine Occult Blood Negative, UrineNitrite Negative, Urine Bilirubin Negative, Urine Urobilinogen Normal, Ur Leukocyte Esterase Negative, Urine RBC 0 SEEN, Urine WBC 0 SEEN, Ur Squamous Epith Cells 0 SEEN, Urine Bacteria 0 SEEN, UrineMucus 0 SEEN, Urine Opiates Screen NEGATIVE, U Buprenorphine Qual NEGATIVE, Ur Oxycodone Screen NEGATIVE, Urine Methadone Screen NEGATIVE, Urine Fentanyl Screen NEGATIVE, Ur Barbiturates Screen NEGATI VE, Ur Phencyclidine Scrn NEGATIVE, Ur Amphetamines Screen NEGATIVE, U Benzodiazepines Scrn NEGATIVE, Urine Cocaine Screen NEGATIVE, U Cannabinoids Screen PRESUMPTIVE POSITIVE 05/26/25 05:50: WBC 6.5, RBC 2.98 L, Hgb 10.0 L, Hct 28.8 L, MCV 96.6 H, MCH 33.6 H, MCHC 34.7, RDWStd Deviation 60.3 H, RDW Coeff of Shauna 17.2 H, Plt Count 189, MPV 10.1, Immature Gran % (Auto) 0.600, Neut % (Auto) 75.7 H, Lymph % (Auto) 11.9 L, [place] % (Auto) 10.9 H, Eos % (Auto) 0.6, Baso % (Auto) 0.3, Absolute Neuts (auto) 4.9, Absolute Lymphs (auto) 0.77 L, Nucleated RBC % 0, Sodium 134, Potassium 4.1, Chloride 96 L, Carbon Dioxide 21.8, Anion Gap 16 H, BUN 5, Creatinine 0.50 L, Estim CreatClear Calc 120.48, Est GFR (MDRD) Non-Af 116, BUN/Creatinine Ratio 9.3 L, Glucose 87, Calcium 8.6, Total Bilirubin 0.71, AST 65 H, ALT 36, Alkaline Phosphatase 123, Total Protein 6.1, Albumin 3.5, Jeanne bulin 2.6, Albumin/Globulin Ratio 1.3, Vitamin B12 363, TSH 2.020 05/26/25 08:33: POC Glucose 122 H Radiography Diagnostic Testing: Radiology Impression Brain CT 05/25/25 10:53 IMPRESSION: No acute intracranial findings. Chronic findings as described. Reading Location: [facility] Chest X-Ray 05/25/25 11:55 IMPRESSION: NO ACUTE FINDINGS. Reading Location: [facility] Chest CTA 05/25/25 12:13 IMPRESSION: 1. No large central pulmonary embolism. 2. Acute fractures of the left humeral neck, left inferior scapula and left lateral ribs. 3. Numerous ground-glass and part solid, part ground-glass pulmonary nodules throughout the bilateral lungs. Findings are most compatible with pneumonitis/pneumonia, however pulmonary neoplasm could appear similar. Follow-up chest CT in 2-3 months is recommended to evaluate for stability/resolution. PET-CT will not be beneficialas infection and neoplasm both demonstrate FDG avidity. Reading Location: [facility] Humerus X-Ray 05/25/25 14:20 IMPRESSION: No acute fracture or dislocations. Mild degenerative changes of the left shoulder. No acute soft tissue abnormalities. Peripheral IV is noted within the antecubital fossa; otherwise no radiographic foreign body. Reading Location: [facility] Echocardiogram 05/25/25 17:22 Interpretation Summary The estimated ejection fraction is 60 %. Trivial mitral valve insufficiency. Ordering Physician: Valencia Wen Referring Physician: [facility] Performed By: Anabell Ariza RDCS Physical Exam Const alert, oriented x3 and no apparent distress General Appearance: cooperative HEENT normocephalic, head/scalp atraumatic, moist oral mucous membranes and oropharynxnormal Eyes PERRL and EOMs intact bilaterally Neck no lymphadenopathy and supple Lymph Lymphatic: no lymphedema noted Resp normal respiratory effort, normal air movement and clear to auscultation bilaterally Cardio regular rate, regular rhythm, S1 normal heart sound, S2 normal heart sound and no murmurs GI normal to inspection, nondistended, normoactive bowel sounds, soft to palpation,non-tender and non-distended Extremity normal capillary refill, no clubbing, cyanosis or edema and no calf tenderness General Extremity: no tenderness to palpation of joints or extremities Skin General Skin Exam: no breakdown Neuro CN's II-XII intact bilaterally, no focal motor deficits and no sensory deficits noted Motor Exam: strength 5/5 throughout and general weakness Psych thought process normal and cooperative Appearance: appropriate Assessment & Plan Assessment/Plan (1) Syncope: (2) Alcohol abuse: PLAN: Plan #Syncope due to lightheadedness * Patient passed out yesterday after getting up from a seated position. He developed tunnel vision and lightheadedness and fell. * D-dimer was elevated but CT of the chest was negative. CTA chest revealed fractures of the left humeral neck, left inferior scapula and left lateral ribs as well as numerous groundglass and part solid pulmonary nodules throughout the bilateral lungs * Patient currently denies any dizziness or lightheadedness. PT OT on board. Fall precautions. * 2D echo done today showed EF of 60% with trivial mitral valve insufficiency. Check orthostatics. #Humeral and clavicular as well as left rib fractures: Due to mechanical fall. Patient currently has no pain or immobility from these. PT OT on board. Fall precautions. #History of alcohol use disorder and at risk of withdrawal * He drinks up to half a gallon of vodka daily. His last drink was the day of admission. Denies anycurrent withdrawal symptoms. On alcohol withdrawal protocol with phenobarbital. * Monitor CIWA score. Adjunctive meds for symptomatic relief. * On thiamine, folic acid and Multi-Avtar. #Hypertension: * On atenolol but says is not taking it anymore. On clonidine as needed. The CIWA protocol which would help with elevated blood pressure which is as high as 170/84 but has mainly been in the 140s [id number] systolic. If remains elevated will add on all BP meds. #DVT prophylaxis: SCDs. Charges/Coding Visit Charges Inpatient E&M: 03607 Subs Hosp L2 05/26/25 1641 Sheron Dumont MD Cosigner Signature (if applicable): CC: ~ Signed [facility]07-23-2025 History and physical note Author Valencia Wen [facility] Note Date/Time May 25, 2025 5:22 pm [facility] Medical Records Department [address] [address] H&P Exam - Hospitalist 05/25/25 1609 MR#: [id number] Acct: [id number] Name: MARVIN IZQUIERDO Rep #:[id number] : 1965 59 From: Valencia Wen MD PCP: [facility] Status:ADM ABRAM Location: [place] [id number] HPI - General General Date of Admission: 05/25/25 Date of Service: 05/25/25 Chief Complaint: lightheadedness HPI Narrative MARVIN IZQUIERDO, is a 59-year-old male history of GERD, hypertension, alcohol use presented [facility] 05/25/2025 with several days of episodiclightheadedness that occur mostly with changes in position. Yesterday shortly after getting up from a seated position and ambulating he developed tunnel vision, lightheadedness, and subsequently fell. Denies hitting his head or any trauma from the fall. At baseline has swollen ankles [facility] Patient has a poor diet, there is a bedbug noted in the ED. In the ED temp 97.9, heart rate initially 133 with blood pressure 161/101, respiratory rate 18 pulse ox 91% on room air. Orthostats unable to be obtained due to patient beingtoo concerned to stand. CBC in the ED with white blood cell count 8.2, hemoglobin 12.1. BMP with a sodium of 141, potassium 3.6, normal bicarb, anion gap reported at 20, BUN of 4 and creatinine 0.61. Troponin of 9 and proBNP lessthan 36. Brain CT with chronic findings but no acute findings. Chest x-ray with no acute findings. D-dimer 1.21 so patient had CTA which revealed fractures of left humeral neck, left inferior scapula, and left lateral ribs as well as numerous groundglass and part solid pulmonary nodules throughout bilateral lungs which could be pneumonitis/pneumonia but cannot rule out neoplasm and follow-up CT in 2 to 3 months was recommended. UA not suggestive of infection. Patient had no bruising or pain over any of the areas that reported fractures it was felt that these were more likely chronic in nature. Hospitalist contacted for admission. Patient evaluated at bedside, reports thathe stopped his blood pressure medicine with a dose of 3.1253 days ago because hethought it was causing the swelling in his legs and since that time has been dizzy and lightheaded when he stands up to move around. Does not think this washappening before then. Did have syncopal episode yesterday when he stood up to move and he woke up on the ground, denies falling on his left side or any specific trauma. Denies any chest pain, shortness of breath, cough. Notes thathe has some swelling in his lower extremities that he has [facility] and has been very bothersome to him. Of note patient has escalated his drinking recently and will drink up to half a gallon of vodka a day. Last drinkwas yesterday. He denies any focal tenderness on his arm, shoulder, or rib cage. Notes that he will intermittently get some pain in his ribs on both sidesfrom trauma to ribs multiple times but this has not changed in the past 24 hoursand is not having any right now [facility] Medical History Alcohol abuse Anemia Hypertension Smoker Substance abuse Home Medications ?Medication ?Instructions ?Recorded ?Last Taken ?Type atenolol 25 mg tablet 25 mg PO DAILY BP 08/27/22 1 History 25 mg ascorbic acid (vitamin C) 500 mg 500 mg PO DAILY 30 da ys #30 tabs 08/29/22 Unknown Rx tablet (Vitamin C) ferrous sulfate 325 mg (65 mg 325 mg PO BID 30 days #6 0 tabs 08/29/22 Unknown Rx iron) tablet (Iron (ferrous sulfate)) pantoprazole 40 mg tablet,delayed 40 mg PO BID 30 days #60 tabs 08/29/22 Unknown Rx release sennosides 8.6 mg-docusate sodium 1 tab-cap PO BID PRN constipation 08/29/22 Unknown Rx 50 mg tablet (Senokot-S) 30 days #60 tabs diazepam 2 mg tablet 2 mg PO TID PRN PRN Vertigo #10 07/14/23 Unknown Rx TABLETS Allergy/AdvReac Type Severity Reaction Status Date / Time No Known Allergies Allergy Verified 05/25/25 10:31 Family History Other Heart disease Social History Smoking Status: Current every day smoker tobacco type: cigarettes ROS ROS Narrative General: Denies fever/chills HENT: Denies headache, denies stuffy nose, denies sore throat EYES: Denies changes in vision Resp: Denies cough, denies shortness of breath Cardiac: Denies chest pain GI: Denies abdominal pain, denies changes in bowel, denies nausea/vomiting : Denies changes in urination Extremity: Some bilateral lower extremity swelling MSK: Denies weakness Neuro: Denies any numbness/tingling, lightheaded when he stands up Heme: Denies any bleeding or bruising Skin: Denies rashes Psychiatric: No complaints voiced Vital Signs Vital Signs Vital Signs: 05/25/25 10:29 05/25/25 11:45 05/25/25 12:11 Temperature 97.9 F Temperature Source Oral Pulse Rate 133 H 106 H 105 H Pulse Rate [Lying] Pulse Rate [Sitting (for 1 minute prior to obtaining)] Respiratory Rate 18 28 H 22 H Blood Pressure 161/101 H 170/95 H 155/73 H Blood Pressure [Lying] Blood Pressure [Sitting (for 1 minute prior to obtaining)] Blood Pressure Mean 121 120 100 Blood Pressure Mean [Lying] Blood Pressure Mean [Sitting (for 1 minute prior to obtaining)] Pulse Ox 91 98 95 Oxygen Delivery Method Room Air Room Air 05/25/25 12:18 05/25/25 13:00 05/25/25 14:00 Temperature Temperature Source Pulse Rate 102 H 111 H Pulse Rate [Lying] 101 H Pulse Rate [Sitting (for 1 minute prior to obtaining)] 117 H Respiratory Rate 14 20 H Blood Pressure 160/92 H 154/90 H Blood Pressure [Lying] 155/94 H Blood Pressure [Sitting (for 1 minute prior to obtaining)] 163/97 H Blood Pressure Mean 114 111 Blood Pressure Mean [Lying] 114 Blood Pressure Mean [Sitting (for 1 minute prior to obtaining)] 119 Pulse Ox 97 95 Oxygen Delivery Method Room Air Room Air 05/25/25 15:00 05/25/25 15:16 Temperature 98 F Temperature Source Pulse Rate 104 H 116 H Pulse Rate [Lying] Pulse Rate [Sitting (for 1 minute prior to obtaining)] Respiratory Rate 10 L 17 Blood Pressure 155/100 H 155/100 H Blood Pressure [Lying] Blood Pressure [Sitting (for 1 minute prior to obtaining)] Blood Pressure Mean 118 118 Blood Pressure Mean [Lying] Blood Pressure Mean [Sitting (for 1 minute prior to obtaining)] Pulse Ox 96 98 Oxygen Delivery Method Room Air Weight Weight: 54.431 kg Body Mass Index (BMI) 20.5 Physical Exam Narrative General: Alert, oriented, no apparent distress HEENT: Atraumatic, normocephalic Eyes: Anicteric, normal conjunctiva, extraocular movements grossly intact Neck: Supple Respiratory: normal respiratory effort Cardiovascular: Low-grade sinus tachycardia GI: Soft, nontender, nondistended Extremities: Trace bilateral lower extremity edema Musculoskeletal: Moving all extremities, does not have any focal tenderness on palpating arm, rib cage, shoulder/scapula. Noted with deep palpation may be a little bit in mid humerus but he said it was not pain he just noticed it more, no focal tenderness over ribs but when palpating whole rib cage said maybe he noticed it hurt a little bit however when palpating right side of rib cage he noted the same exact feeling, no pain whatsoever over shoulder or scapula Neuro: No overt focal neurological deficits, does appear shaky and tremulous Skin: No rashes appreciated, no bruising appreciated over humerus or ribs Psych: Cooperative Results Lab / Micro Data 05/25/25 11:45 05/25/25 11:45 Labs: Laboratory Results - last 24 hr 05/25/25 11:45: WBC 8.2, RBC 3.67 L, Hgb 12.1 L, Hct 36.0 L, MCV 98.1 H, MCH 33.0 H, MCHC 33.6, RDW Std Deviation 64.7 H, RDW Coeff of Shauna 17.8 H, Plt Count 296, MPV 9.6, Immature Gran % (Auto) 0.500, Neut % (Auto) 74.8 H, Lymph % (Auto)12.3 L, [place] % (Auto) 9.5, Eos % (Auto) 2.3, Baso % (Auto) 0.6, Absolute Neuts (auto) 6.2, Absolute Lymphs (auto) 1.01, Nucleated RBC % 0, D-Dimer Quant (PE/DVT) 1.21 H*, Sodium 141, Potassium 3.6, Chloride 98, Carbon Dioxide 22.4, Anion Gap 20 H, BUN 4, Creatinine 0.61 L, Estim Creat Clear Calc 97.91, Est GFR (MDRD) Non-Af 109, BUN/Creatinine Ratio 6.4 L, Glucose 81, Calcium 9.3, TroponinT High Sens 8, NT pro BNP II < 36, Ethyl Alcohol 222.0 H 05/25/25 13:15: Troponin T Hi Sens 2 Hr 9 05/25/25 14:00: Urine Color Yellow, Urine Clarity Clear, Urine pH 6.0, Ur Specific [place] 1.020, Urine Protein 30 H, Urine Glucose (UA) Normal, Urine Ketones 50 H, Urine Occult Blood Negative, Urine Nitrite Negative, Urine Bilirubin Negative, Urine Urobilinogen Normal, Ur Leukocyte Esterase Negative, Urine RBC 0 SEEN, Urine WBC 0 SEEN, Ur Squamous Epith Cells 0 SEEN, Urine Bacteria 0 SEEN, Urine Mucus 0 SEEN, Urine Opiates Screen NEGATIVE, U Buprenorphine Qual NEGATIVE, Ur Oxycodone Screen NEGATIVE, Urine Methadone Screen NEGATIVE, Urine Fentanyl Screen NEGATIVE, Ur Barbiturates Screen NEGATIVE, Ur Phencyclidine Scrn NEGATIVE, Ur Amphetamines Screen NEGATIVE, U Benzodiazepines Scrn NEGATIVE, Urine Cocaine Screen NEGATIVE, U Cannabinoids Screen PRESUMPTIVE POSITIVE Imaging Radiology Impression Brain CT 05/25/25 10:53 IMPRESSION: No acute intracranial findings. Chronic findings as described. Reading Location: [facility] Chest X-Ray 05/25/25 11:55 IMPRESSION: NO ACUTE FINDINGS. Reading Location: [facility] Chest CTA 05/25/25 12:13 IMPRESSION: 1. No large central pulmonary embolism. 2. Acute fractures of the left humeral neck, left inferior scapula and left lateral ribs. 3. Numerous ground-glass and part solid, part ground-glass pulmonary nodules throughout the bilateral lungs. Findings are most compatible with pneumonitis/pneumonia, however pulmonary neoplasm could appear similar. Follow-up chest CT in 2-3 months is recommended to evaluate for stability/resolution. PET-CT will not be beneficialas infection and neoplasm both demonstrate FDG avidity. Reading Location: [facility] Humerus X-Ray 05/25/25 14:20 IMPRESSION: No acute fracture or dislocations. Mild degenerative changes of the left shoulder. No acute soft tissue abnormalities. Peripheral IV is noted within the antecubital fossa; otherwise no radiographic foreign body. Reading Location: [facility] Assessment & Plan Assessment/Plan (1) Syncope: PLAN: Plan #Syncopal episode w/ additional lightheadedness and presyncope -admit to telemetry -EGK sinus tach w/ rate 106, no acute ischemic changes -CT head chronic changes but no acute process - Unable to complete orthostatic vital signs as patient is concerned about standing -will obtain echo -Check TSH - Patient does note that the symptoms started after he stopped what sounded to be a low-dose of Coreg, query if he may be getting excessively tachycardic when he is up ambulating and that is causing his symptoms though cannot say definitively, workup as above, will consider restarting a beta-cristhian pending clinical course, think he is presently increasingly tachycardic due to alcohol withdrawal - Will hydrate patient with IV fluids, given his excessive alcohol intake suspect that he is relatively dehydrated, also seems to have poor p.o. intake - Will start thiamine and folate - Check B12 # Alcohol use disorder - Patient reports drinking up to half gallon of vodka a day, noted his last drink was yesterday however alcohol level at 1145 was 222 so either he has not drank since yesterday and had an even higher alcohol level or he did drink earlier today - Does not want detox however suspect his increasing blood pressure and heart rate are due to alcohol withdrawal - Will give a dose of Ativan and start CIWA with Ativan coverage # Rib, humerus, scapular fracture -Seen on CTA however patient with no corresponding pain or bruising as queried chronicity -There was no point tenderness on palpation, he noted some soreness on both sides of ribs but they were equal, no point tenderness over humerus and no pain in scapula -Patient does report multiple falls when he is drunk and history of hurting his ribs so given unclear chronicity - X-ray of humerus also did not note fracture #GERD -Continue PPI #Hypertension - May need to add back the low-dose of what sounded to be Coreg, will obtain echo and further workup as above first # Abnormal CT findings - No cough or shortness of breath/respiratory complaints that would make one think patient had pneumonia - Will need repeat CT scan in 2 to 3 months # Bedbugs - Patient reportedly decontaminated in the ED #Tobacco use -Advise cessation -Nicotine replacement available if desired #DVT ppx: SCDs Valencia Wen MD Charges/Coding Visit Charges Inpatient E&M: 22204 Init Hosp L2 05/25/25 1722 <Electronically signed by Valencia Wen MD> Cosigner Signature (if applicable): CC: Dr. Valencia Wen MD; [facility]~ Signed [facility] Work Phone: [phone] Discharge summary Author Radu Martinez [facility] Note Date/Time May 25, 2025 4:21 pm [facility] Medical Records Department [address] [place] [address] Emergency Department Summary 05/25/25 MR#: [id number] Acct: [id number] Name: MARVIN IZQUIERDO Rep #:[id number] : 1965 59 From: Radu molina DO PCP: [facility] Status:REG ER Location: ED HPI History of Present Illness Chief Complaint: Dizziness Narrative Narrative: Chief complaint and HPI: Episodic lightheadedness. 59-year-old male with past medical history of HTN, GERD presents for evaluation of episodic lightheadedness. Patient follows with the [facility]. Patient states over the last several days he has been having episodic lightheadedness with presyncopal symptoms. He states that it mostly occurs when he changes position. He states yesterday shortly after ambulating after a seating position he developed tunnel vision, lightheadedness, and fell. Did hit his head. Not on blood thinners. Denies any trauma from the fall. States at baseline he has bilateral swollen [facility] He denies any fever, chills, shortness of breath, chest pain, Bao pain, nausea, vomiting, dysuria. States overall he is a poor diet. Currently has bedbugs. Review of systems: See HPI Medications: As listed on the chart Allergies: As listed on the chart PFSH: Per chart Vital signs: As listed on the chart. Reviewed. Physical exam: Gen: A&O x3, NAD, bedbugs on the bed Head: Normocephalic, atraumatic Eyes: No sclera icterus, conjunctiva clear, PERRL ENT: Mildly dry mucous membranes face atraumatic, Neck: Trachea midline, No JVD, full range of motion, nontender CV: RRR, no murmurs, minimal nonpitting bilateral ankle/feet edema Resp: Lungs CTA BL, no w/r/c GI: Abd soft, non-distended, non-tender, no r/r/g Musc: Full ROM, no deformity, no midline spinal tenderness, no bony step-off Skin: Warm, dry Neuro: Alert, oriented, grossly intact, sensation intact Psych: Cooperative, appropriate mood and affect [facility] Medical History Alcohol abuse Anemia Hypertension Smoker Substance abuse Home Medications ?Medication ?Instructions ?Recorded ?Last Taken ?Type atenolol 25 mg tablet 25 mg PO DAILY BP 08/27/22 1 History 25 mg ascorbic acid (vitamin C) 500 mg 500 mg PO DAILY 30 da ys #30 tabs 08/29/22 Unknown Rx tablet (Vitamin C) ferrous sulfate 325 mg (65 mg 325 mg PO BID 30 days #6 0 tabs 08/29/22 Unknown Rx iron) tablet (Iron (ferrous sulfate)) pantoprazole 40 mg tablet,delayed 40 mg PO BID 30 days #60 tabs 08/29/22 Unknown Rx release sennosides 8.6 mg-docusate sodium 1 tab-cap PO BID PRN constipation 08/29/22 Unknown Rx 50 mg tablet (Senokot-S) 30 days #60 tabs diazepam 2 mg tablet 2 mg PO TID PRN PRN Vertigo #10 07/14/23 Unknown Rx TABLETS Allergy/AdvReac Type Severity Reaction Status Date / Time No Known Allergies Allergy Verified 05/25/25 10:31 Family History Other Heart disease Social History Smoking Status: Current every day smoker tobacco type: cigarettes EXAM Physical Exam Const Vital Signs: 05/25/25 10:29 05/25/25 11:45 05/25/25 12:11 Temperature 97.9 F Temperature Source Oral Pulse Rate 133 H 106 H 105 H Pulse Rate [Lying] Pulse Rate [Sitting (for 1 minute prior to obtaining)] Respiratory Rate 18 28 H 22 H Blood Pressure 161/101 H 170/95 H 155/73 H Blood Pressure [Lying] Blood Pressure [Sitting (for 1 minute prior to obtaining)] Blood Pressure Mean 121 120 100 Blood Pressure Mean [Lying] Blood Pressure Mean [Sitting (for 1 minute prior to obtaining)] Pulse Ox 91 98 95 Oxygen Delivery Method Room Air Room Air 05/25/25 12:18 05/25/25 13:00 05/25/25 14:00 Temperature Temperature Source Pulse Rate 102 H 111 H Pulse Rate [Lying] 101 H Pulse Rate [Sitting (for 1 minute prior to obtaining)] 117 H Respiratory Rate 14 20 H Blood Pressure 160/92 H 154/90 H Blood Pressure [Lying] 155/94 H Blood Pressure [Sitting (for 1 minute prior to obtaining)] 163/97 H Blood Pressure Mean 114 111 Blood Pressure Mean [Lying] 114 Blood Pressure Mean [Sitting (for 1 minute prior to obtaining)] 119 Pulse Ox 97 95 Oxygen Delivery Method Room Air Room Air 05/25/25 15:00 05/25/25 15:16 05/25/25 16:00 Temperature 98 F Temperature Source Pulse Rate 104 H 116 H 117 H Pulse Rate [Lying] Pulse Rate [Sitting (for 1 minute prior to obtaining)] Respiratory Rate 10 L 17 21 H Blood Pressure 155/100 H 155/100 H 159/93 H Blood Pressure [Lying] Blood Pressure [Sitting (for 1 minute prior to obtaining)] Blood Pressure Mean 118 118 115 Blood Pressure Mean [Lying] Blood Pressure Mean [Sitting (for 1 minute prior to obtaining)] Pulse Ox 96 98 95 Oxygen Delivery Method Room Air Room Air MDM MDM MDM Narrative Medical decision making narrative: 59-year-old male with past medical history of HTN, GERD presents for evaluation of episodic lightheadedness. Patient follows with [place] [facility]. Patient states over the last several days he has been having episodic lightheadedness with presyncopal symptoms. He states that it mostly occurs when he changes position. He states yesterday shortly after ambulating after a seating position he developed tunnel vision, lightheadedness, and fell. Did hit his head. Not on blood thinners. Denies any trauma from the fall. States at baseline he has bilateral swollen ankles [facility] On presentation, patient was found to have bedbugs. He was decontaminated. Differential diagnosis includes but is not limited to orthostatic hypotension, dehydration, KATIE, electrolyte abnormality, UTI, PE, intracranial abnormality or bleed. EKG and chest x-ray reviewed see below. CT of the head shows no acute intracranial abnormality. Patient does have chronic changes for his age. He is stable previous infarcts. CBC without leukocytosis. Patient is stable anemia with hemoglobin of 12.1. D-dimer elevated 1.21. Cannot rule out PE. CTA chest ordered. BMP relatively unremarkable except for mild dehydration without KAITE. Troponin x 2 negative. BNP unremarkable. UA negative for UTI but positive for ketones, again consistent with mild dehydration. CTA of the chest negative for PE. Acute fractures of the left femoral neck, left inferior scapula and left lateral ribs. Numerous groundglass and part solid/part groundglass pulmonary nodules throughout the bilateral lungs. Findings are most compatible with pneumonitis/pneumonia however cannot rule out neoplasm. Will need follow-up CT scan. Patient is not endorsing any infectious type symptoms. He denies any fever, chills, URI symptoms, Cough. Not consistent with pneumonia. Denies any vomiting. Physical exam is not consistent with acute trauma. He has full rangeof motion of the left upper extremity. No swelling or tenderness. He has no tenderness to the left side of the chest or back. No ecchymosis. Suspect this is likely chronic in nature. Will get x-ray of the humerus to assess. X-ray ofthe humerus was personally viewed interpreted by me, ED physician. No acute fracture or dislocation. Radiology in agreement. Patient denies any alcohol orillicit drugs however HPI is not adding up to physical exam and complaints. Will add urine drug screen and alcohol level. Alcohol level elevated at 222. Urine drug screen positive for marijuana. On reevaluation, patient still endorsing lightheadedness. He is tachycardic. He refuses to ambulate due to his lightheadedness. Symptoms may be secondary to alcohol withdrawal as he later admitted to the hospitalist that he has not drank alcohol in almost 24 hours. Also made changes in his home medication. Given patient's inability to ambulate with frequent falls and tachycardia, he will warrant admission for continued observation. EKG: Interpreted by me/EM physician: EKG shows sinus tachycardia without acute ischemic changes. Heart rate 106 Diagnostic: Interpreted by me/EM physician: Chest x-ray without pneumonia, effusion, cardiomegaly, pneumothorax. Radiology in agreement. Impression: 1. Presyncope/lightheadedness 2. Fall 3. Tachycardia, multifactorial may be secondary to stopping Coreg versus alcohol withdrawal 4. Alcohol intoxication with history of alcohol abuse Lab Data Labs: Laboratory Results - last 24 hr 05/25/25 05/25/25 05/25/25 11:45 13:15 14:00 WBC 8.2 RBC 3.67 L Hgb 12.1 L Hct 36.0 L MCV 98.1 H MCH 33.0 H MCHC 33.6 RDW Std Deviation 64.7 H RDW Coeff of Shauna 17.8 H Plt Count 296 MPV 9.6 Immature Gran % (Auto) 0.500 Neut % (Auto) 74.8 H Lymph % (Auto) 12.3 L [place] % (Auto) 9.5 Eos % (Auto) 2.3 Baso % (Auto) 0.6 Absolute Neuts (auto) 6.2 Absolute Lymphs (auto) 1.01 Nucleated RBC % 0 D-Dimer Quant (PE/DVT) 1.21 H* Sodium 141 Potassium 3.6 Chloride 98 Carbon Dioxide 22.4 Anion Gap 20 H BUN 4 Creatinine 0.61 L Estim Creat Clear Calc 97.91 Est GFR (MDRD) Non-Af 109 BUN/Creatinine Ratio 6.4 L Glucose 81 Calcium 9.3 Troponin T High Sens 8 Troponin T Hi Sens 2 Hr 9 NT pro BNP II < 36 Urine Color Yellow Urine Clarity Clear Urine pH 6.0 Ur Specific [place] 1.020 Urine Protein 30 H Urine Glucose (UA) Normal Urine Ketones 50 H Urine Occult Blood Negative Urine Nitrite Negative Urine Bilirubin Negative Urine Urobilinogen Normal Ur Leukocyte Esterase Negative Urine RBC 0 SEEN Urine WBC 0 SEEN Ur Squamous Epith Cells 0 SEEN Urine Bacteria 0 SEEN Urine Mucus 0 SEEN Urine Opiates Screen NEGATIVE U Buprenorphine Qual NEGATIVE Ur Oxycodone Screen NEGATIVE Urine Methadone Screen NEGATIVE Urine Fentanyl Screen NEGATIVE Ur Barbiturates Screen NEGATIVE Ur Phencyclidine Scrn NEGATIVE Ur Amphetamines Screen NEGATIVE U Benzodiazepines Scrn NEGATIVE Urine Cocaine Screen NEGATIVE U Cannabinoids Screen PRESUMPTIVE POSITIVE Ethyl Alcohol 222.0 H Radiography Diagnostic Testing: Clinical Impression(s) from Imaging Studies Brain CT 05/25/25 10:53 IMPRESSION: No acute intracranial findings. Chronic findings as described. Reading Location: [facility] Chest X-Ray 05/25/25 11:55 IMPRESSION: NO ACUTE FINDINGS. Reading Location: [facility] Chest CTA 05/25/25 12:13 IMPRESSION: 1. No large central pulmonary embolism. 2. Acute fractures of the left humeral neck, left inferior scapula and left lateral ribs. 3. Numerous ground-glass and part solid, part ground-glass pulmonary nodules throughout the bilateral lungs. Findings are most compatible with pneumonitis/pneumonia, however pulmonary neoplasm could appear similar. Follow-up chest CT in 2-3 months is recommended to evaluate for stability/resolution. PET-CT will not be beneficialas infection and neoplasm both demonstrate FDG avidity. Reading Location: [facility] Humerus X-Ray 05/25/25 14:20 IMPRESSION: No acute fracture or dislocations. Mild degenerative changes of the left shoulder. No acute soft tissue abnormalities. Peripheral IV is noted within the antecubital fossa; otherwise no radiographic foreign body. Reading Location: [facility] Discharge Plan Triage Chief Complaint: Dizziness ED Provider: Radu Martinez Dx/Rx/DC Orders Prescriptions: No Action atenolol 25 mg Tablet 25 mg PO DAILY pantoprazole 40 mg tablet,delayed release (DR/EC) 40 mg PO BID 30 Days Qty: 60 0RF ferrous sulfate [Iron (ferrous sulfate)] 325 mg (65 mg iron) tablet 325 mg PO BID 30 Days Qty: 60 0RF ascorbic acid (vitamin C) [Vitamin C] 500 mg tablet 500 mg PO DAILY 30 Days Qty: 30 0RF sennosides-docusate sodium [Senokot-S] 8.6-50 mg tablet 1 tab-cap PO BID PRN (Reason: constipation) 30 Days Qty: 60 0RF diazepam [diazepam] 2 mg tablet 2 mg PO TID PRN PRN (Reason: Vertigo) Qty: 10 0RF Primary Care Provider: [facility] Referrals: [facility] [Primary Care Provider] - Print Language: Mongolian What to do if you have Problems For any increased pain, shortness of breath, bleeding, nausea or vomiting, chestpain, or any unexpected problems, contact your Primary Care Provider. Call [facility] ([phone]) or report to the closest Emergency Room. Call 911 if necessary. 05/25/25 1621 <Electronically signed by Radu Martinez DO> Cosigner Signature (if applicable): CC: [facility] ~ Signed [facility] Work Phone: 1(251) 583-542507-23-2025 Evaluation note* Diagnosis Onset Date Resolution Status Admit Date Alcohol abuse acute May 25, 2025 4:10pm Syncope acute May 25 4:10pm [facility] Work Phone: 1(320) 949-223507-23-2025 History and physical note [facility] Medical Records Department [address] [place] [address] H&P Exam - Hospitalist 05/25/25 1609 MR#: [id number] Acct: [id number] Name: MARVIN IZQUIERDO Rep #:[id number] : 1965 59 From: Valencia Wen MD PCP: [facility] Status:ADM ABRAM Location: [place] [address] HPI - General General Date of Admission: 05/25/25 Date of Service: 05/25/25 Chief Complaint: lightheadedness HPI Narrative MARVIN IZQUIERDO, is a 59-year-old male history of GERD, hypertension, alcohol use presented [facility] 05/25/2025 with several days of episodiclightheadedness that occur mostly with changes in position. Yesterday shortly after getting up from a seated position and ambulating he developed tunnel vision, lightheadedness, and subsequently fell. Denies hitting his head or any trauma from the fall. At baseline has swollen ankles [facility] Patient has a poor diet, there is a bedbug noted in the ED. In the ED temp 97.9, heart rate initially 133 with blood pressure 161/101, respiratory rate 18 pulse ox 91% on room air. Orthostats unable to be obtained due to patient b eingtoo concerned to stand. CBC in the ED with white blood cell count 8.2, hemoglobin 12.1. BMP with a sodium of 141, potassium 3.6, normal bicarb, anion gap reported at 20, BUN of 4 and creatinine 0.61. Troponin of 9 and proBNP lessthan 36. Brain CT with chronic findings but no acute findings. Chest x-ray with no acute findings. D-dimer 1.21 so patient had CTA which revealed fractures of left humeral neck, left inferior scapula, and left lateral ribs as well as numerous groundglass and part solid pulmonary nodules throughout bilateral lungs which could be pneumonitis/pneumonia but cannot rule out neoplasm and follow-up CT in 2 to 3 months was recommended. UA not suggestive of infection. Patient had no bruising or pain over any of the areas that reported fractures it was felt that these were more likely chronic in nature. Hospitalist contacted for admission. Patient evaluated at bedside, reports thathe stopped his blood pressure medicine with a dose of 3.1253 days ago because hethought it was causing the swelling in his legs and since that time has been dizzy and lightheaded when hestands up to move around. Does not think this washappening before then. Did have syncopal episode yesterday when he stood up to move and he woke up on the ground, denies falling on his left side or any specific trauma. Denies any chest pain, shortness of breath, cough. Notes thathe has some swelling in his lower extremities that he has [facility] with and has been very bothersome tohim. Of note patient has escalated his drinking recently and will drink up to half a gallon of vodka a day. Last drinkwas yesterday. He denies any focal tenderness on his arm, shoulder, or rib cage. N otes that he will intermittently get some pain in his ribs on both sidesfrom trauma to ribs multiple times but this has not changed in the past 24 hoursand is not having any right now [facility] Medical History Alcohol abuse Anemia Hypertension Smoker Substance abuse Home Medications ?Medication ?Instructions ?Recorded ?Last Taken ?Type atenolol 25 mg tablet 25 mg PO DAILY BP 08/27/22 1 History 25 mg ascorbic acid (vitamin C) 500 mg 500 mg PO DAILY 30 da ys #30 tabs 08/29/22 Unknown Rx tablet (Vitamin C) ferrous sulfate 325 mg (65 mg 325 mg PO BID 30 days #6 0 tabs 08/29/22 Unknown Rx iron) tablet (Iron (ferrous sulfate)) pantoprazole 40 mg tablet,delayed 40 mg PO BID 30 days #60 tabs 08/29/22 Unknown Rx release sennosides 8.6 mg-docusate sodium 1 tab-cap PO BID PRN constipation 08/29/22 Unknown Rx 50 mg tablet (Senokot-S) 30 days #60 tabs diazepam 2 mg tablet 2 mg PO TID PRN PRN Vertigo #10 07/14/23 Unknown Rx TABLETS Allergy/AdvReac Type Severity Reaction Status Date / Time No Known Allergies Allergy Verified 05/25/25 10:31 Family History Other Heart disease Social History Smoking Status: Current every day smoker tobacco type: cigarettes ROS ROS Narrative General: Denies fever/chills HENT: Denies headache, denies stuffy nose, denies sore throat EYES: Denies changes in vision Resp: Denies cough, denies shortness of breath Cardiac: Denies chest pain GI: Denies abdominal pain, denies changes in bowel, denies nausea/vomiting : Denies changes in urination Extremity: Some bilateral lower extremity swelling MSK: Denies weakness Neuro: Denies any numbness/tingling, lightheaded when he stands up Heme: Denies any bleeding or bruising Skin: Denies rashes Psychiatric: No complaints voiced Vital Signs Vital Signs Vital Signs: 05/25/25 10:29 05/25/25 11:45 05/25/25 12:11 Temperature 97.9 F Temperature Source Oral Pulse Rate 133 H 106 H 105 H Pulse Rate [Lying] Pulse Rate [Sitting (for 1 minute prior to obtaining)] Respiratory Rate 18 28 H 22 H Blood Pressure 161/101 H 170/95 H 155/73 H Blood Pressure [Lying] Blood Pressure [Sitting (for 1 minute prior to obtaining)] Blood Pressure Mean 121 120 100 Blood Pressure Mean [Lying] Blood Pressure Mean [Sitting (for 1 minute prior to obtaining)] Pulse Ox 91 98 95 Oxygen Delivery Method Room Air Room Air 05/25/25 12:18 05/25/25 13:00 05/25/25 14:00 Temperature Temperature Source Pulse Rate 102 H 111 H Pulse Rate [Lying] 101 H Pulse Rate [Sitting (for 1 minute prior to obtaining)] 117 H Respiratory Rate 14 20 H Blood Pressure 160/92 H 154/90 H Blood Pressure [Lying] 155/94 H Blood Pressure [Sitting (for 1 minute prior to obtaining)] 163/97 H Blood Pressure Mean 114 111 Blood Pressure Mean [Lying] 114 Blood Pressure Mean [Sitting (for 1 minute prior to obtaining)] 119 Pulse Ox 97 95 Oxygen Delivery Method Room Air Room Air 05/25/25 15:00 05/25/25 15:16 Temperature 98 F Temperature Source Pulse Rate 104 H 116 H Pulse Rate [Lying] Pulse Rate [Sitting (for 1 minute prior to obtaining)] Respiratory Rate 10 L 17 Blood Pressure 155/100 H 155/100 H Blood Pressure [Lying] Blood Pressure [Sitting (for 1 minute prior to obtaining)] Blood Pressure Mean 118 118 Blood Pressure Mean [Lying] Blood Pressure Mean [Sitting (for 1 minute prior to obtaining)] Pulse Ox 96 98 Oxygen Delivery Method Room Air Weight Weight: 54.431 kg Body Mass Index (BMI) 20.5 Physical Exam Narrative General: Alert, oriented, no apparent distress HEENT: Atraumatic, normocephalic Eyes: Anicteric, normal conjunctiva, extraocular movements grossly intact Neck: Supple Respiratory: normal respiratory effort Cardiovascular: Low-grade sinus tachycardia GI: Soft, nontender, nondistended Extremities: Trace bilateral lower extremity edema Musculoskeletal: Moving all extremities, does not have any focal tenderness on palpating arm, rib cage, shoulder/scapula. Noted with deep palpation may be a little bit in mid humerus but he said it was not pain he just noticed it more, no focal tenderness over ribs but when palpating whole rib cagesaid maybe he noticed it hurt a little bit however when palpating right side of rib cage he noted the same exact feeling, no pain whatsoever over shoulder or scapula Neuro: No overt focal neurological deficits, does appear shaky and tremulous Skin: No rashes appreciated, no bruising appreciated over humerus or ribs Psych: Cooperative Results Lab / Micro Data 05/25/25 11:45 05/25/25 11:45 Labs: Laboratory Results - last 24 hr 05/25/25 11:45: WBC 8.2, RBC 3.67 L, Hgb 12.1 L, Hct 36.0 L, MCV 98.1 H, MCH 33.0 H, MCHC 33.6, RDWStd Deviation 64.7 H, RDW Coeff of Shauna 17.8 H, Plt Count 296, MPV 9.6, Immature Gran % (Auto) 0.500, Neut % (Auto) 74.8 H, Lymph % (Auto)12.3 L, [place] % (Auto) 9.5, Eos % (Auto) 2.3, Baso % (Auto) 0.6, Absolute Neuts (auto) 6.2, Absolute Lymphs (auto) 1.01, Nucleated RBC % 0, D-Dimer Quant (PE/DVT) 1.21 H*, Sodium 141, Potassium 3.6, Chloride 98, Carbon Dioxide 22.4, Anion Gap 20 H, BUN 4, Creatinine 0.61 L, Estim Creat Clear Calc 97.91, Est GFR (MDRD) Non-Af 109, BUN/Creatinine Ratio 6.4 L, Glucose 81, Calcium 9.3, TroponinT High Sens 8, NT pro BNP II < 36, Ethyl Alcohol 222.0 H 05/25/25 13:15: Troponin T Hi Sens 2 Hr 9 05/25/25 14:00: Urine Color Yellow, Urine Clarity Clear, Urine pH 6.0, Ur Specific [place] 1.020, Urine Protein 30 H, Urine Glucose (UA) Normal, Urine Ketones 50 H, Urine Occult Blood Negative, UrineNitrite Negative, Urine Bilirubin Negative, Urine Urobilinogen Normal, Ur Leukocyte Esterase Negative, Urine RBC 0 SEEN, Urine WBC 0 SEEN, Ur Squamous Epith Cells 0 SEEN, Urine Bacteria 0 SEEN, UrineMucus 0 SEEN, Urine Opiates Screen NEGATIVE, U Buprenorphine Qual NEGATIVE, Ur Oxycodone Screen NEGATIVE, Urine Methadone Screen NEGATIVE, Urine Fentanyl Screen NEGATIVE, Ur Barbiturates Screen NEGATI VE, Ur Phencyclidine Scrn NEGATIVE, Ur Amphetamines Screen NEGATIVE, U Benzodiazepines Scrn NEGATIVE, Urine Cocaine Screen NEGATIVE, U Cannabinoids Screen PRESUMPTIVE POSITIVE Imaging Radiology Impression Brain CT 05/25/25 10:53 IMPRESSION: No acute intracranial findings. Chronic findings as described. Reading Location: [facility] Chest X-Ray 05/25/25 11:55 IMPRESSION: NO ACUTE FINDINGS. Reading Location: [facility] Chest CTA 05/25/25 12:13 IMPRESSION: 1. No large central pulmonary embolism. 2. Acute fractures of the left humeral neck, left inferior scapula and left lateral ribs. 3. Numerous ground-glass and part solid, part ground-glass pulmonary nodules throughout the bilateral lungs. Findings are most compatible with pneumonitis/pneumonia, however pulmonary neoplasm could appear similar. Follow-up chest CT in 2-3 months is recommended to evaluate for stability/resolution. PET-CT will not be beneficialas infection and neoplasm both demonstrate FDG avidity. Reading Location: [facility] Humerus X-Ray 05/25/25 14:20 IMPRESSION: No acute fracture or dislocations. Mild degenerative changes of the left shoulder. No acute soft tissue abnormalities. Peripheral IV is noted within the antecubital fossa; otherwise no radiographic foreign body. Reading Location: [facility] Assessment & Plan Assessment/Plan (1) Syncope: PLAN: Plan #Syncopal episode w/ additional lightheadedness and presyncope -admit to telemetry -EGK sinus tach w/ rate 106, no acute ischemic changes -CT head chronic changes but no acute process - Unable to complete orthostatic vital signs as patient is concerned about standing -will obtain echo -Check TSH - Patient does note that the symptoms started after he stopped what sounded to be a low-dose of Coreg, query if he may be getting excessively tachycardic when he is up ambulating and that is causing his symptoms though cannot say definitively, workup as above, will consider restarting a beta-cristhian pending clinical course, think he is presently increasingly tachycardic due to alcohol withdrawal - Will hydrate patient with IV fluids, given his excessive alcohol intake suspect that he is relatively dehydrated, also seems to have poor p.o. intake - Will start thiamine and folate - Check B12 # Alcohol use disorder - Patient reports drinking up to half gallon of vodka a day, noted his last drink was yesterday however alcohol level at 1145 was 222 so either he has not drank since yesterday and had an even higheralcohol level or he did drink earlier today - Does not want detox however suspect his increasing blood pressure and heart rate are due to alcohol withdrawal - Will give a dose of Ativan and start CIWA with Ativan coverage # Rib, humerus, scapular fracture -Seen on CTA however patient with no corresponding pain or bruising as queried chronicity -There was no point tenderness on palpation, he noted some soreness on both sides of ribs but they were equal, no point tenderness over humerus and no pain in scapula -Patient does report multiple falls when he is drunk and history of hurting his ribs so given unclear chronicity - X-ray of humerus also did not note fracture #GERD -Continue PPI #Hypertension - May need to add back the low-dose of what sounded to be Coreg, will obtain echo and further workup as above first # Abnormal CT findings - No cough or shortness of breath/respiratory complaints that would make one think patient had pneumonia - Will need repeat CT scan in 2 to 3 months # Bedbugs - Patient reportedly decontaminated in the ED #Tobacco use -Advise cessation -Nicotine replacement available if desired #DVT ppx: SCDs Valencia Wen MD Charges/Coding Visit Charges Inpatient E&M: 82576 Init Hosp L2 05/25/25 1722 Cosigner Signature (if applicable): CC: Dr. Valencia Wen MD; [facility]~ Signed [facility]07-23-2025 Discharge summary [facility] Medical Records Department [address] [place] [address] Emergency Department Summary 05/25/25 MR#: [id number] Acct: [id number] Name: MARVIN IZQUIERDO Rep #:[id number] : 1965 59 From: Radu molina DO PCP: [facility] Status:REG ER Location: ED HPI History of Present Illness Chief Complaint: Dizziness Narrative Narrative: Chief complaint and HPI: Episodic lightheadedness. 59-year-old male with past medical history of HTN, GERD presents for evaluation of episodic lightheadedness. [facility] Patient states over the last several days he has been having episodic lightheadedness with presyncopal symptoms. He states that it mostly occurs when he changes position. He states yesterday shortly after ambulating after a seating position he developed tunnel vision, lightheadedness, and fell. Did hit his head. Not on blood thinners. Denies any trauma from the fall. States at baseline he has bilateral swollen ankles which [facility]. He denies any fever, chills, shortness of breath, chest pain, Bao pain, nausea, vomiting, dysuria. States overall he is a poor diet. Currently has bedbugs. Review of systems: See HPI Medications: As listed on the chart Allergies: As listed on the chart PFSH: Per chart Vital signs: As listed on the chart. Reviewed. Physical exam: Gen: A&O x3, NAD, bedbugs on the bed Head: Normocephalic, atraumatic Eyes: No sclera icterus, conjunctiva clear, PERRL ENT: Mildly dry mucous membranes face atraumatic, Neck: Trachea midline, No JVD, full range of motion, nontender CV: RRR, no murmurs, minimal nonpitting bilateral ankle/feet edema Resp: Lungs CTA BL, no w/r/c GI: Abd soft, non-distended, non-tender, no r/r/g Musc: Full ROM, no deformity, no midline spinal tenderness, no bony step-off Skin: Warm, dry Neuro: Alert, oriented, grossly intact, sensation intact Psych: Cooperative, appropriate mood and affect [facility] Medical History Alcohol abuse Anemia Hypertension Smoker Substance abuse Home Medications ?Medication ?Instructions ?Recorded ?Last Taken ?Type atenolol 25 mg tablet 25 mg PO DAILY BP 08/27/22 1 History 25 mg ascorbic acid (vitamin C) 500 mg 500 mg PO DAILY 30 da ys #30 tabs 08/29/22 Unknown Rx tablet (Vitamin C) ferrous sulfate 325 mg (65 mg 325 mg PO BID 30 days #6 0 tabs 08/29/22 Unknown Rx iron) tablet (Iron (ferrous sulfate)) pantoprazole 40 mg tablet,delayed 40 mg PO BID 30 days #60 tabs 08/29/22 Unknown Rx release sennosides 8.6 mg-docusate sodium 1 tab-cap PO BID PRN constipation 08/29/22 Unknown Rx 50 mg tablet (Senokot-S) 30 days #60 tabs diazepam 2 mg tablet 2 mg PO TID PRN PRN Vertigo #10 07/14/23 Unknown Rx TABLETS Allergy/AdvReac Type Severity Reaction Status Date / Time No Known Allergies Allergy Verified 05/25/25 10:31 Family History Other Heart disease Social History Smoking Status: Current every day smoker tobacco type: cigarettes EXAM Physical Exam Const Vital Signs: 05/25/25 10:29 05/25/25 11:45 05/25/25 12:11 Temperature 97.9 F Temperature Source Oral Pulse Rate 133 H 106 H 105 H Pulse Rate [Lying] Pulse Rate [Sitting (for 1 minute prior to obtaining)] Respiratory Rate 18 28 H 22 H Blood Pressure 161/101 H 170/95 H 155/73 H Blood Pressure [Lying] Blood Pressure [Sitting (for 1 minute prior to obtaining)] Blood Pressure Mean 121 120 100 Blood Pressure Mean [Lying] Blood Pressure Mean [Sitting (for 1 minute prior to obtaining)] Pulse Ox 91 98 95 Oxygen Delivery Method Room Air Room Air 05/25/25 12:18 05/25/25 13:00 05/25/25 14:00 Temperature Temperature Source Pulse Rate 102 H 111 H Pulse Rate [Lying] 101 H Pulse Rate [Sitting (for 1 minute prior to obtaining)] 117 H Respiratory Rate 14 20 H Blood Pressure 160/92 H 154/90 H Blood Pressure [Lying] 155/94 H Blood Pressure [Sitting (for 1 minute prior to obtaining)] 163/97 H Blood Pressure Mean 114 111 Blood Pressure Mean [Lying] 114 Blood Pressure Mean [Sitting (for 1 minute prior to obtaining)] 119 Pulse Ox 97 95 Oxygen Delivery Method Room Air Room Air 05/25/25 15:00 05/25/25 15:16 05/25/25 16:00 Temperature 98 F Temperature Source Pulse Rate 104 H 116 H 117 H Pulse Rate [Lying] Pulse Rate [Sitting (for 1 minute prior to obtaining)] Respiratory Rate 10 L 17 21 H Blood Pressure 155/100 H 155/100 H 159/93 H Blood Pressure [Lying] Blood Pressure [Sitting (for 1 minute prior to obtaining)] Blood Pressure Mean 118 118 115 Blood Pressure Mean [Lying] Blood Pressure Mean [Sitting (for 1 minute prior to obtaining)] Pulse Ox 96 98 95 Oxygen Delivery Method Room Air Room Air MDM MDM MDM Narrative Medical decision making narrative: 59-year-old male with past medical history of HTN, GERD presents for evaluation of episodic lightheadedness. [facility] Patient states over the last several days he has been having episodic lightheadedness with presyncopal symptoms. He states that it mostly occurs when he changes position. He states yesterday shortly after ambulating after a seating position he developed tunnel vision, lightheadedness, and fell. Did hit his head. Not on blood thinners. Denies any trauma from the fall. States at baseline he has bilateral swollen ankles which [facility]. On presentation, patient was found to have bedbugs. He was decontaminated. Differential diagnosis includes butis not limited to orthostatic hypotension, dehydration, KATIE, electrolyte abnormality, UTI, PE, intracranial abnormality or bleed. EKG and chest x-ray reviewed see below. CT of the head shows no acuteintracranial abnormality. Patient does have chronic changes for his age. He is stable previous infarcts. CBC without leukocytosis. Patient is stable anemia with hemoglobin of 12.1. D-dimer elevated 1.21. Cannot rule out PE. CTA chest ordered. BMP relatively unremarkable except for mild dehydration without KATIE. Troponin x 2 negative. BNP unremarkable. UA negative for UTI but positive for ketones, again consistent with mild dehydration. CTA of the chest negative for PE. Acute fractures of the left femoral neck, left inferior scapula and left lateral ribs. Numerous groundglass and part solid/part groundglass pulmonary nodules throughout the bilateral lungs. Findings are most compatible with pne umonitis/pneumonia however cannot rule out neoplasm. Will need follow-up CT scan. Patient is not endorsing any infectious type symptoms. He denies any fever, chills, URI symptoms, Cough. Not consistent with pneumonia. Denies any vomiting. Physical exam is not consistent with acute trauma. He has full rangeof motion of the left upper extremity. No swelling or tenderness. He has no tenderness to the left side of the chest or back. No ecchymosis. Suspect this is likely chronic in nature. Will get x-ray of the humerus to assess. X-ray ofthe humerus was personally viewed interpreted by me, ED physician. No acute fracture or dislocation. Radiology in agreement. Patient denies any alcohol orillicit drugs however HPI is not adding up to physical exam and complaints. Will add urine drug screen andalcohol level. Alcohol level elevated at 222. Urine drug screen positive for marijuana. On reevaluation, patient still endorsing lightheadedness. He is tachycardic. He refuses to ambulate due to his l ightheadedness. Symptoms may be secondary to alcohol withdrawal as he later admitted to the hospitalist that he has not drank alcohol in almost 24 hours. Also made changes in his home medication. Given patient's inability to ambulate with frequent falls and tachycardia, he will warrant admission for continued observation. EKG: Interpreted by me/EM physician: EKG shows sinus tachycardia without acute ischemic changes. Heart rate 106 Diagnostic: Interpreted by me/EM physician: Chest x-ray without pneumonia, effusion, cardiomegaly, pneumothorax. Radiology in agreement. Impression: 1. Presyncope/lightheadedness 2. Fall 3. Tachycardia, multifactorial may be secondary to stopping Coreg versus alcohol withdrawal 4. Alcohol intoxication with history of alcohol abuse Lab Data Labs: Laboratory Results - last 24 hr 05/25/25 05/25/25 05/25/25 11:45 13:15 14:00 WBC 8.2 RBC 3.67 L Hgb 12.1 L Hct 36.0 L MCV 98.1 H MCH 33.0 H MCHC 33.6 RDW Std Deviation 64.7 H RDW Coeff of Shauna 17.8 H Plt Count 296 MPV 9.6 Immature Gran % (Auto) 0.500 Neut % (Auto) 74.8 H Lymph % (Auto) 12.3 L [place] % (Auto) 9.5 Eos % (Auto) 2.3 Baso % (Auto) 0.6 Absolute Neuts (auto) 6.2 Absolute Lymphs (auto) 1.01 Nucleated RBC % 0 D-Dimer Quant (PE/DVT) 1.21 H* Sodium 141 Potassium 3.6 Chloride 98 Carbon Dioxide 22.4 Anion Gap 20 H BUN 4 Creatinine 0.61 L Estim Creat Clear Calc 97.91 Est GFR (MDRD) Non-Af 109 BUN/Creatinine Ratio 6.4 L Glucose 81 Calcium 9.3 Troponin T High Sens 8 Troponin T Hi Sens 2 Hr 9 NT pro BNP II < 36 Urine Color Yellow Urine Clarity Clear Urine pH 6.0 Ur Specific [place] 1.020 Urine Protein 30 H Urine Glucose (UA) Normal Urine Ketones 50 H Urine Occult Blood Negative Urine Nitrite Negative Urine Bilirubin Negative Urine Urobilinogen Normal Ur Leukocyte Esterase Negative Urine RBC 0 SEEN Urine WBC 0 SEEN Ur Squamous Epith Cells 0 SEEN Urine Bacteria 0 SEEN Urine Mucus 0 SEEN Urine Opiates Screen NEGATIVE U Buprenorphine Qual NEGATIVE Ur Oxycodone Screen NEGATIVE Urine Methadone Screen NEGATIVE Urine Fentanyl Screen NEGATIVE Ur Barbiturates Screen NEGATIVE Ur Phencyclidine Scrn NEGATIVE Ur Amphetamines Screen NEGATIVE U Benzodiazepines Scrn NEGATIVE Urine Cocaine Screen NEGATIVE U Cannabinoids Screen PRESUMPTIVE POSITIVE Ethyl Alcohol 222.0 H Radiography Diagnostic Testing: Clinical Impression(s) from Imaging Studies Brain CT 05/25/25 10:53 IMPRESSION: No acute intracranial findings. Chronic findings as described. Reading Location: [facility] Chest X-Ray 05/25/25 11:55 IMPRESSION: NO ACUTE FINDINGS. Reading Location: [facility] Chest CTA 05/25/25 12:13 IMPRESSION: 1. No large central pulmonary embolism. 2. Acute fractures of the left humeral neck, left inferior scapula and left lateral ribs. 3. Numerous ground-glass and part solid, part ground-glass pulmonary nodules throughout the bilateral lungs. Findings are most compatible with pneumonitis/pneumonia, however pulmonary neoplasm could appear similar. Follow-up chest CT in 2-3 months is recommended to evaluate for stability/resolution. PET-CT will not be beneficialas infection and neoplasm both demonstrate FDG avidity. Reading Location: [facility] Humerus X-Ray 05/25/25 14:20 IMPRESSION: No acute fracture or dislocations. Mild degenerative changes of the left shoulder. No acute soft tissue abnormalities. Peripheral IV is noted within the antecubital fossa; otherwise no radiographic foreign body. Reading Location: [facility] Discharge Plan Triage Chief Complaint: Dizziness ED Provider: Radu Martinez Dx/Rx/DC Orders Prescriptions: No Action atenolol 25 mg Tablet 25 mg PO DAILY pantoprazole 40 mg tablet,delayed release (DR/EC) 40 mg PO BID 30 Days Qty: 60 0RF ferrous sulfate [Iron (ferrous sulfate)] 325 mg (65 mg iron) tablet 325 mg PO BID 30 Days Qty: 60 0RF ascorbic acid (vitamin C) [Vitamin C] 500 mg tablet 500 mg PO DAILY 30 Days Qty: 30 0RF sennosides-docusate sodium [Senokot-S] 8.6-50 mg tablet 1 tab-cap PO BID PRN (Reason: constipation) 30 Days Qty: 60 0RF diazepam [diazepam] 2 mg tablet 2 mg PO TID PRN PRN (Reason: Vertigo) Qty: 10 0RF Primary Care Provider: [facility] Referrals: [facility] [Primary Care Provider] - Print Language: Mongolian What to do if you have Problems For any increased pain, shortness of breath, bleeding, nausea or vomiting, chestpain, or any unexpected problems, contact your Primary Care Provider. Call [facility] ([phone]) or report tothe closest Emergency Room. Call 911 if necessary. 05/25/25 1621 Cosigner Signature (if applicable): CC: [facility] ~ Signed [facility]07-23-2025 Radiology Diagnostic study note Imaging Services [address] [place] [address] Humerus min 2 Views MR#: [id number] Acct: [id number] Name: MARVIN IZQUIERDO Rep #: [id number] : 1965 M 59 From: Lilian Marquez MD PCP: [facility] Status: REG ER Study:Humerus min 2 Views Date of Exam: 05/25/25 Exam# [id number] Ordering Dr: Radu Murguia DO PROCEDURE: HUMERUS MIN 2 VIEWS 05/25/2025 REASON FOR EXAM: FRACTURE TECHNIQUE: HUMERUS MIN 2 VIEWS COMPARISON: None RAD/Humerus min 2 Views IMPRESSION: No acute fracture or dislocations. Mild degenerative changes of the left shoulder. No acute soft tissue abnormalities. Peripheral IV is noted within the antecubital fossa; otherwise no radiographic foreign body. Reading Location: [facility] CC: Dr. Radu Martinez, DO; [facility] ~ [employer] Professor: Signed [facility]07-23-2025 Radiology Diagnostic study note Imaging Services [address] [place] [address] [id number] CTA Chest W/WO Contrast MR#: [id number] Acct: [id number] Name: MARVIN IZQUIERDO Rep #: [id number] : 1965 M 59 From: Lashae Diane MD PCP: [facility] Status: REG ER Study:CTA Chest W/WO Contrast Date of Exam: 05/25/25 Exam# [id number] Ordering Dr: Radu Murguia DO PROCEDURE: CTA CHEST W/WO CONTRAST 05/25/2025 REASON FOR EXAM: PE TECHNIQUE: CTA axial imaging of the chest with intravenous contrast. Coronal and Sagittal reconstruction series were provided. 3D, 3D post processing, 3D reconstructions, Maximum intensity projection (MIPs) Volume rendering and Shaded surface rendering was provided. PATIENT PREPARATION: Per protocol CONTRAST: Isovue 370 VOLUME: 100mL One or more dose reduction techniques were used (e.g., Automated exposure control, adjustment of the mA and/or kV according to patient size, use of iterative reconstruction technique). RADIATION DOSE SUMMARY: DLP: 200 mGycm COMPARISON: CT chest, abdomen and pelvis 04/01/2023. FINDINGS: Hardware: None. Lymph nodes: No axillary, mediastinal or hilar lymphadenopathy. Visualization of the left axilla islimited by patient positioning. Heart: The heart is normal in size without pericardial effusion. The great vessels are normal in caliber. Moderate coronary artery, aortic valvular and thoracic aortic calcifications. Aberrant right subclavian artery, a normal variant. Pulmonary Vessels: No central filling defect within the segmental pulmonary arteries. Visualizationof the more distal pulmonary arteries is limited by motion artifact. Lungs and Airways: The central airways are patent. Numerous scattered tiny ground-glass and part solid part ground-glass pulmonary nodules throughout the bilateral lungs, greatest in the inferior rightupper lobe (for example series 2, image 141). Mild bronchiectasis. Emphysema and scattered areas of scarring. No pleural effusion or pneumothorax. Upper Abdomen: Hepatic steatosis. Left adrenal gland hyperplasia. Calcific plaque of the abdominal aorta. Bones: Acute, mildly comminuted fracture of the left humeral neck, left inferiorscapular body (sagittal image 264), and left lateral ribs. Mild thoracic spondylosis. CT/CTA Chest W/WO Contrast IMPRESSION: 1. No large central pulmonary embolism. 2. Acute fractures of the left humeral neck, left inferior scapula and left lateral ribs. 3. Numerous ground-glass and part solid, part ground-glass pulmonary nodules throughout the bilateral lungs. Findings are most compatible with pneumonitis/pneumonia, however pulmonary neoplasm could appear similar. Follow-up chest CT in 2-3 months is recommended to evaluate for stability/resolution. PET-CT will not be beneficialas infection and neoplasm both demonstrate FDG avidity. Reading Location: [id number] CC: Dr. Radu Martinez, DO; [facility] ~ [employer] Professor: Signed [facility]07-23-2025 Radiology Diagnostic study note Imaging Services [address] [place] [address] Chest PA and Lateral MR#: [id number] Acct: [id number] Name: MARVIN IZQUIERDO Rep #: [id number] : 1965 M 59 From: Lashae Diane MD PCP: [facility] Status: REG ER Study:Chest PA and Lateral Date of Exam: 05/25/25 Exam# [id number] Ordering Dr: Radu Murguia DO PROCEDURE: CHEST PA AND LATERAL 05/25/2025 REASON FOR EXAM: LIGHTHEADEDNESS TECHNIQUE: CHEST PA AND LATERAL COMPARISON: CT chest, abdomen and pelvis 04/01/2023. Chest radiograph 08/26/2022. FINDINGS: Hardware: None. Heart: The heart size is normal. Mediastinum: The mediastinal contour is unremarkable. Lungs: Bibasilar atelectasis/scarring. No focal consolidation, pleural effusionor pneumothorax. Bones: Degenerative changes are identified within the thoracic spine. RAD/Chest PA and Lateral IMPRESSION: NO ACUTE FINDINGS. Reading Location: [id number] CC: Dr. Radu Martinez DO; [facility] ~ [employer] Professor: Signed [facility]07-23-2025 Radiology Diagnostic study note Imaging Services [address] [place] [id number] Brain/Head without Contrast MR#: [id number] Acct: [id number] Name: MARVIN IZQUIERDO Rep #: [id number] : [id number] M 59 From: Lashae Diane MD PCP: [facility] Status: REG ER Study:Brain/Head without Contrast Date of Exa m: 05/25/25 Exam# [id number] Ordering Dr: Radu Murguia DO EXAM: BRAIN/HEAD WITHOUT CONTRAST CLINICAL HISTORY: 59 y/o M with LIGHTHEADEDNESS, FALL. COMPARISON: CT head 07/14/2023. TECHNIQUE: Routine CT imaging of the head without IV contrast. Additional multiplanar reformats were obtained. Dose reduction techniques were used including intermediate exposure control (AEC),iterative reconstruction technique, and/or mA and/or KV dose adjustments based on patient's size. FINDINGS: The ventricles, sulci and cisterns are normal for patient age. There is no evidence of acute intracranial hemorrhage or herniation. There is no midline shift, mass effect, or extra-axial collection. Mild scattered supratentorial white matter hypodensities, compatible with patient age. 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 The griffin and white matter interfaces are otherwise maintained. The orbits, visualized paranasal sinuses and mastoids are unremarkable. No acute calvarial fracture or scalp hematoma. CT/Brain/Head without Contrast IMPRESSION: No acute intracranial findings. Chronic findings as described. Reading Location: [id number] CC: Dr. Radu Martinez, DO; [facility] ~ [employer] Professor: Signed [facility]02-28-2024 Hospital Discharge instructions Patient Education 12/31/2023 18:10:03 Smoking Cessation How to Quit Smoking Smoking is a hard habit to break. About half of all people who have ever smoked have been able to quit. Most people who still smoke want to quit. Here are some of the best ways to stop smoking. Keep in mind the health benefits of quitting The health benefits of quitting start right away. They keep improving the longer you go without smoking. Knowing this can help inspire you to stay on track. These benefits occur at any age. If you are 17 or 70, quitting is a good choice. Some of the health benefits after your last cigarette include: 20 minutes: Your blood pressure and pulse return to normal. 8 hours: Your oxygen levels return to normal. 2 days: Your ability to smell and taste start to improve as damaged nerves regrow. 2 to 3 weeks: Your circulation and lung function improve. 1 to 9 months: Your coughing, congestion, and shortness of breath decrease. Your tiredness decreases. 1 year: Your risk of heart attack decreases by half. 5 years: Your risk of lung cancer decreases by half. Your risk of stroke becomes the same as a nonsmoker s. Go cold turkey Most former smokers quit cold turkey. This means stopping all at once. Trying to cut back slowly often doesn't work as well. This may be because it continues the habit of smoking. Also, you may inhale more smoke while smoking fewer cigarettes. This leads to the same amount of nicotine in your body. Get support Support programs can be a big help, especially for heavy smokers. These groups offer lectures, waysto change behavior, and peer support. Here are some ways to find a support program: Free national quitline 251-MXGW-BZX (732-269-9022) Hospital quit-smoking programs [employer] [place] [employer] 429-887-7845 [place] [employer] 953-344-8287 Support at home is important too. Family and friends can offer praise and reassurance. If the smoker in your life finds it hard to quit, encourage them to keep trying. Try tufc-ydf-cbptakd medicine Nicotine replacement therapy may make it easier to quit. Some aids are available without a prescription. These include a nicotine patch, gum, and lozenges. But it is best to use these under the care of your healthcare provider. The skin patch gives a steady supply of nicotine. Nicotine gum and lozenges give short- time doses of low levels of nicotine. Both methods reduce the craving for cigarettes. If you have nausea, vomiting, dizziness, weakness, or a fast heartbeat, stop using these products.See your healthcare provider. Ask about prescription medicine After reviewing your smoking patterns and past attempts to quit, your doctor may offer a prescription medicine such as bupropion, varenicline, a nicotine inhaler, or nasal spray. Each has advantages and side effects. Your doctor can review these with you. Keep trying Most smokers make many attempts at quitting before they are successful. It s important not to give up. For more information For more on how to quit smoking, try these online resources: Go to Smokefree.gov. Read Clearing the Air from the National Cancer [place] at smokefree.gov/sites/default/files/pdf/qffqepsu-ydk-pql-accessible.pdf. 9574-4259 [employer]. [address] [place] [address]. All rights reserved. This information is not intended as a substitute for professional medical care. Always follow yourhealthcare professional's instructions. 12/31/2023 18:09:53 High Blood Pressure, Established, Out of Control Uncontrolled High Blood Pressure (Established) Your blood pressure was unusually high today. This can occur if you ve missed doses of your blood pressure medicine. Or it can happen if you are taking other medicines. These include some asthma inhalers, decongestants, diet pills, and street drugs like cocaine and amphetamine. Other causes include: Weight gain More salt in your diet Smoking Caffeine Your blood pressure can also rise if you are emotionally upset or in intense pain. It may go back to normal after a period of rest. Blood pressure measurements are given as 2 numbers. Systolic blood pressure is the upper number. This is the pressure when the heart contracts. Diastolic blood pressure is the lower number. This is the pressure when the heart relaxes between beats. You will see your blood pressure readings written together. For example, a person with a systolic pressure of 118 and a diastolic pressure of 78 will have 118/78 written in the medical record. To be high blood pressure, the numbers must be higher when tested over a period of time. Blood pressure is categorized as normal, elevated, or stage 1 or stage 2 high blood pressure: Normal blood pressure is systolic of less than 120 and diastolic of less than 80 (120/80) Elevated blood pressure is systolic of 120 to 129 and diastolic less than 80 Stage 1 high blood pressure is systolic is 130 to 139 or diastolic between 80 to 89 Stage 2 high blood pressure is when systolic is 140 or higher or the diastolic is 90 or higher Uncontrolled high blood pressure can cause serious health problems. It raises your risk for heart attack, stroke, and heart failure. In general, if you have high blood pressure, keeping your blood pressure below 130/80 mmHg may help prevent these problems. Your healthcare provider may prescribe medicine to help control blood pressure if lifestyle changes are not enough. Home care It s important to take steps to lower your blood pressure. If you are taking blood pressure medicine, the guidelines below may help you need less or no medicines in the future. Start a weight-loss program if you are overweight. Cut back on the amount of salt in your diet: oAvoid high-salt foods like olives, pickles, smoked meats, and salted potato chips. oDon t add salt to your food at the table. oUse only small amounts of salt when cooking. Start an exercise program. Talk with your healthcare provider about what exercise program is best for you. It doesn t have to be difficult. Even brisk walking for 20 minutes 3 times a week is a good form of exercise. Avoid medicines that stimulates the heart. This includes many deby-zur-cdennyh cold and sinus decongestant pills and sprays, as well as diet pills. Check the warnings about high blood pressure on thelabel. Before purchasing any fuih-jgv-wsbqahy medicines or supplements, always ask the pharmacist about the product's potential interaction with your high blood pressure and your medicines. Stimulants such as amphetamine or cocaine could be lethal for someone with high blood pressure. Never take these. Limit how much caffeine you drink. Or switch to noncaffeinated beverages. Stop smoking. If you are a long-time smoker, this can be hard. Enroll in a stop- smoking program to make it more likely that you will succeed. Talk with your provider about ways to quit. Learn how to handle stress better. This is an important part of any program to lower blood pressure. Learn ways to relax. These include meditation, yoga, and biofeedback. If medicines were prescribed, take them exactly as directed. Missing doses may cause your blood pressure to get out of control. If you miss a dose or doses of your medicines, check with your healthcare provider or pharmacist about what to do. Consider buying an automatic blood pressure machine. Your provider may recommend a certain type. You can get one of these at most pharmacies. Measure your blood pressure twice a day, in the morning, and in the late afternoon. Keep a written record of your home blood pressure readings and take the record to your medical appointments. Here are some additional guidelines on home blood pressure monitoring from the [place] [employer]. Don't smoke or drink coffee for 30 minutes Go to the bathroom before the test. Relax for 5 minutes before taking the measurement. Sit correctly. Be sure your back is supported. Don't sit on a couch or soft chair. Uncross your feet and place them flat on the floor. Place your arm on a solid, flat surface like a table with the upper arm at heart level. Make certain the middle of the cuff is directly above the bend of the elbow.Check the monitor's instruction manual for an illustration. Take multiple readings. When you measure, take 2 or 3 readings one minute apart and record all of the results. Take your blood pressure at the same time every day, or as your healthcare provider recommends. Record the date, time, and blood pressure reading. Take the record with you to your next appointment. If your blood pressure monitor has a built-in memory, simply take the monitor with you to your next appointment. Call your provider if you have several high readings. Don't be frightened by a single high reading,but if you get several high readings, check in with your healthcare provider. Note: When blood pressure reaches a systolic (top number) of 180 or higher or a diastolic (bottom number) of 110 or higher, emergency medical treatment is required. Call your healthcare provider immediately. Follow-up care Regular visits to your own healthcare provider for blood pressure and medicine checks are an important part of your care. Make a follow-up appointment as directed. Bring the record of your home bloodpressure readings to the appointment. When to seek medical advice Call your healthcare provider right away if any of these occur: Blood pressure reaches a systolic (top number) of 180 or higher or diastolic (bottom number) of 110or higher, emergency medical treatment is required. Chest, arm, shoulder, neck, or upper back pain Shortness of breath Severe headache Throbbing or rushing sound in the ears Nosebleed Extreme drowsiness, confusion, or fainting Dizziness or dizziness with spinning sensation (vertigo) Weakness in an arm or leg or on one side of the face Trouble speaking or seeing [phone] [employer]. [address] [place] [address]. All rights reserved. This information is not intended as a substitute for professional medical care. Always follow yourhealthcare professional's instructions. 12/31/2023 18:09:39 Viral Syndrome (Adult) Viral Syndrome (Adult) A viral illness may cause a number of symptoms such as fever. Other symptoms depend on the part of the body that the virus affects. If it settles in your nose, throat, and lungs, it may cause cough, sore throat, congestion, runny nose, headache, earache and other ear symptoms, or shortness of breath. If it settles in your stomach and intestinal tract, it may cause nausea, vomiting, cramping, and diarrhea. Sometimes it causes generalized symptoms like aching all over, feeling tired, loss of energy, or loss of appetite. A viral illness usually lasts anywhere from several days to several weeks, but sometimes it lasts longer. In some cases, a more serious infection can look like a viral syndrome in the first few days of the illness. You may need another exam and additional tests to know the difference. Watch for thewarning signs listed below for when to seek medical advice. Home care Follow these guidelines for taking care of yourself at home: If symptoms are severe, rest at home for the first 2 to 3 days. Stay away from cigarette smoke - both your smoke and the smoke from others. You may use uoup-xur-ppqrkts acetaminophen or ibuprofen for fever, muscle aching, and headache, unless another medicine was prescribed for this. If you have chronic liver or kidney disease or ever had a stomach ulcer or gastrointestinal bleeding, talk with your healthcare provider before using these medicines. No one who is younger than 18 and ill with a fever should take aspirin. It may cause severe disease or . Your appetite may be poor, so a light diet is fine. Avoid dehydration by drinking 8 to 12, 8-ounce glasses of fluids each day. This may include water; orange juice; lemonade; apple, grape, and cranberry juice; clear fruit drinks; electrolyte replacement and sports drinks; and decaffeinated teas andcoffee. If you have been diagnosed with a kidney disease, ask your healthcare provider how much andwhat types of fluids you should drink to prevent dehydration. If you have kidney disease, drinking too much fluid can cause it build up in the your body and be dangerous to your health. Efvc-gnu-jtwbczh remedies won't shorten the length of the illness but may be helpful for symptoms such as cough, sore throat, nasal and sinus congestion, or diarrhea. Don't use decongestants if you have high blood pressure. Follow-up care Follow up with your healthcare provider if you do not improve over the next week. Call 911 Call 911 if any of the following occur: Convulsion Feeling weak, dizzy, or like you are going to faint Chest pain, or more than mild shortness of breath When to seek medical advice Call your healthcare provider right away if any of these occur: Cough with lots of colored sputum (mucus) or blood in your sputum Chest pain, shortness of breath, wheezing, or trouble breathing Severe headache; face, neck, or ear pain Severe, constant pain in the lower right side of your belly (abdominal) Continued vomiting (can t keep liquids down) Frequent diarrhea (more than 5 times a day); blood (red or black color) or mucus in diarrhea Feeling weak, dizzy, or like you are going to faint Extreme thirst Fever of 100.4 F (38 C) or higher, or as directed by your healthcare provider [phone] [employer]. [address] [place] [address], [place] [address]. All rights reserved. This information is not intended as a substitute for professional medical care. Always follow yourhealthcare professional's instructions. Follow Up Care 12/31/2023 17:47:25 With:MARY MAYEN Address: [facility] [address] [place] [phone] (1) When:2-4 days Comments:Schedule appointment for close follow-up.Push fluids and rest.Do not smoke.Vaporizer at bedside.UseTylenol, Advil or Aleve for fever and discomfort as needed.Use albuterol inhaler for shortness of breath/wheezing, Tessalon for cough and Zofran for nausea and vomiting as needed.Use blood pressure medicine (atenolol) as prescribed.Return to the ED if symptoms worsen. [facility] 02-28-2024 Emergency department Discharge summary Discharge Instructions Thank you for allowing [facility] to assist you with your healthcare needs. The following is importantdischarge information regarding your hospital visit. Diagnosis from Today's Visit Cough Dizziness What to Do Next Instructions from Your Care Team No qualifying data available. Post Acute Orders No qualifying data available. You Need to Schedule the Following Appointments Follow Up with MARY MAYEN When Within 2-4 days Why: Schedule appointment for close follow-up. Push fluids and rest. Do not smoke. Vaporizer at bedside. Use Tylenol, Advil or Aleve for fever and discomfort as needed. Use albuterol inhaler for shortness of breath/wheezing, Tessalon for cough and Zofran for nausea and vomiting as needed. Use blood pressure medicine (atenolol) as prescribed. Return to the ED if symptoms worsen. Where: [facility] [address] [place] [phone] Business (1) Allergies NKA Medications Please ask your primary doctor or pharmacist before taking any other medication not listed, including over the counter drugs, herbal medications, vitamins and or supplements as they may interact withyour home medications. What How Much When Instructions Last Dose New albuterol (albuterol MDI (90 mcg/ inh) CFC free inhalation aerosol) 2 puff(s) by inhalation Every 6 hours Printed Prescription New benzonatate (Tessalon Perles 100 mg oral capsule) 1 cap by mouth Three (3) times a day Duration: 7 Days Printed Prescription New ondansetron (Zofran 4 mg oral tablet) 1 tab(s) by mouth Every 6 hours as needed for As needed for nausea and vomiting Duration: 3 Days Printed Prescription Changed atenolol by mouth Once a day Changed atenolol (atenolol 50 mg oral tablet) 1 tab(s) by mouth Once a day Duration: 14 Days Printed Prescription Please take this list to your next doctor s visit. Bring all medications you take, including over the counter medications, herbals and other supplements with you to your doctor s visit. Patients and families are reminded to discard old lists and to update any records with all medication providers or retail pharmacies. Medication Leaflets albuterol inhalation (al BYOO ter all) ProAir HFA, ProAir RespiClick, Proventil HFA, Ventolin HFA What is the most important information I should know about albuterol inhalation? Follow all directions on your medicine label and package. Tell each of your healthcare providers about all your medical conditions, allergies, and all medicines you use. What is albuterol inhalation? Albuterol inhalation is a bronchodilator that is used to treat or prevent bronchospasm in people with reversible obstructive airway disease. Albuterol is also used to prevent exercise-induced bronchospasm. Albuterol inhalation is for use in adults and children at least 4 years old. Albuterol inhalation may also be used for purposes not listed in this medication guide. What should I discuss with my healthcare provider before using albuterol inhalation? You should not use this medicine if you are allergic to albuterol. You should not use ProAir RespiClick if you are allergic to milk proteins. Tell your doctor if you have ever had: heart disease, high blood pressure; a thyroid disorder; seizures; diabetes; or low levels of potassium in your blood. Tell your doctor if you are or plan to become . It is not known whether albuterol will harm an unborn baby. However, having uncontrolled asthma during may increase the riskof premature , low weight, or eclampsia (dangerously high blood pressure that can lead to medical problems in both mother and baby). The benefit of preventing bronchospasm may outweigh any risks to the baby. If you are , your name may be listed on a registry to track the effects of albuterol on the baby. It may not be safe to breastfeed while using this medicine. Ask your doctor about any risk. How should I use albuterol inhalation? Follow all directions on your prescription label and read all medication guides. Use the medicine exactly as directed. Do not allow a young child to use albuterol inhalation without help from an adult. To prevent exercise-induced bronchospasm, use this medicine 15 to 30 minutes before you exercise. The effects of albuterol inhalation should last about 4 to 6 hours. Seek medical attention if your breathing problems get worse quickly, or if you think your asthma medications are not working as well. Read and carefully follow any Instructions for Use provided with your medicine. Ask your doctor or pharmacist if you do not understand these instructions. ProAir HFA, Proventil HFA, or Ventolin HFA must be shaken before each use. You do not need to shakeProAir RespiClick before using. Do not try to clean or take apart the ProAir RespiClick inhaler device. Always use the new inhaler device provided with your refill. Do not float a medicine canister in water to see if it is empty. Your dose needs may change due to surgery, illness, stress, or a recent asthma attack. Do not change your dose or dosing schedule without your doctor's advice. Store at room temperature away from moisture, heat, or cold temperatures. Keep the cover on your ProAir RespiClick inhaler when not in use. Store Proventil or Ventolin with the mouthpiece down. Keep the inhaler canister away from open flame or high heat. The canister may explode if it gets too hot. Do not puncture or burn an empty inhaler canister. What happens if I miss a dose? Use the medicine as soon as you can, but skip the missed dose if it is almost time for your next dose. Do not use two doses at one time. Get your prescription refilled before you run out of medicine completely. What happens if I overdose? Seek emergency medical attention or call the Poison Help line at . An overdose of albuterol can be fatal. Overdose symptoms may include dry mouth, tremors, chest pain, fast heartbeats, nausea, general ill feeling, seizure, feeling light-headed or fainting. What should I avoid while using albuterol inhalation? Rinse with water if this medicine gets in your eyes. What are the possible side effects of albuterol inhalation? Get emergency medical help if you have signs of an allergic reaction: hives; difficult breathing; swelling of your face, lips, tongue, or throat. Call your doctor at once if you have: wheezing, choking, or other breathing problems after using this medicine; chest pain, fast heart rate, pounding heartbeats or fluttering in your chest; severe headache, pounding in your neck or ears; pain or burning when you urinate; high blood sugar--increased thirst, increased urination, dry mouth, fruity breath odor; or low potassium--leg cramps, constipation, irregular heartbeats, increased thirst or urination, numbness or tingling, muscle weakness or limp feeling. Common side effects may include: chest pain, fast or pounding heartbeats; upset stomach, vomiting; painful urination; dizziness; feeling shaky or nervous; headache, back pain, body aches; or cough, sore throat, sinus pain, runny or stuffy nose. This is not a complete list of side effects and others may occur. Call your doctor for medical advice about side effects. You may report side effects to FDA at 1-559-OLG-3668. What other drugs will affect albuterol inhalation? Tell your doctor about all your other medicines, especially: any other inhaled medicines or bronchodilators; digoxin; a diuretic or 'water pill'; an antidepressant--amitriptyline, desipramine, imipramine, doxepin, nortriptyline, and others; a beta cristhian--atenolol, carvedilol, labetalol, metoprolol, propranolol, sotalol, and others; or an MAO inhibitor--isocarboxazid, linezolid, methylene blue injection, phenelzine, rasagiline, selegiline, tranylcypromine, and others. This list is not complete. Other drugs may affect albuterol inhalation, including prescription and kbaw-lii-rurdkpw medicines, vitamins, and herbal products. Not all possible drug interactions are listed here. Where can I get more information? Your pharmacist can provide more information about albuterol inhalation. Remember, keep this and all other medicines out of the reach of children, never share your medicines with others, and use this medication only for the indication prescribed. Every effort has been made to ensure that the information provided by [employer]. [employer]') is accurate, up-to-date, and complete, but no guarantee is made to that effect. Drug information contained herein may be time sensitive. Personally information has been compiled for use by healthcare practitioners and consumers in the [place] and therefore Personally does not warrant that uses outside of the [place] are appropriate, unless specifically indicated otherwise. [employer] drug information does not endorse drugs, diagnose patients or recommend therapy. [employer] drug information isan informational resource designed to assist licensed healthcare practitioners in caring for their p atients and/or to serve consumers viewing this service as a supplement to, and not a substitute for, the expertise, skill, knowledge and judgment of healthcare practitioners. The absence of a warningfor a given drug or drug combination in no way should be construed to indicate that the drug or drug combination is safe, effective or appropriate for any given patient. Personally does not assume any responsibility for any aspect of healthcare administered with the aid of information Personally provides. The information contained herein is not intended to cover all possible uses, directions, precautions, warnings, drug interactions, allergic reactions, or adverse effects. If you have questions about the drugs you are taking, check with your doctor, nurse or pharmacist. Copyright [id number] [employer]. Version: .. Revision Date: 09/20/2020. atenolol (a TEN oh lol) Tenormin What is the most important information I should know about atenolol? Use only as directed. Tell your doctor if you use other medicines or have other medical conditions or allergies. What is atenolol? Atenolol is used to treat angina (chest pain) and hypertension (high blood pressure). Atenolol is also used to lower the risk of after a heart attack. Atenolol may also be used for purposes not listed in this medication guide. What should I discuss with my healthcare provider before taking atenolol? You should not use atenolol if you are allergic to it, or if you have: a serious heart condition such as 'AV block' (second or third degree); slow heartbeats; heart failure; or if your heart cannot pump blood properly. Tell your doctor if you have ever had: congestive heart failure; coronary artery disease (hardened arteries); asthma, bronchitis, emphysema; diabetes; overactive thyroid; liver or kidney disease; pheochromocytoma (tumor of the adrenal gland); peripheral vascular disease such as Raynaud's syndrome; or allergies (or if you are undergoing allergy treatments or skin-testing). May harm an unborn baby. Tell your doctor if you are or if you become while usingthis medicine. Atenolol can pass into breast milk and may harm a nursing baby. Tell your doctor if you are a baby. Atenolol is not approved for use by anyone younger than 18 years old. How should I take atenolol? Follow all directions on your prescription label and read all medication guides or instruction sheets. Your doctor may occasionally change your dose. Use the medicine exactly as directed. Your blood pressure will need to be checked often. If you need surgery, tell the surgeon ahead of time that you are using atenolol. You may need to stop using the medicine for a short time. Keep using the medication as directed and tell your doctor if your symptoms do not improve. You should not stop taking atenolol suddenly. Stopping suddenly may make your condition worse. If you are being treated for high blood pressure: Keep using this medicine even if you feel well. High blood pressure often has no symptoms. You may need to use blood pressure medicine for the rest of your life. Your condition may need to be treated with a combination of drugs. Use all medications as directed by your doctor. Read the medication guide or patient instructions provided with each medication. Do not change your doses or medication schedule without your doctor's advice. Store at room temperature away from moisture, heat, and light. Keep the bottle tightly closed when not in use. What happens if I miss a dose? Take the medicine as soon as you can, but skip the missed dose if it is almost time for your next dose. Do not take two doses at one time. What happens if I overdose? Seek emergency medical attention or call the Poison Help line at . Overdose symptoms may include extreme weakness or lack of energy, very slow heart rate, shortness of breath, or fainting. What should I avoid while taking atenolol? Follow your doctor's instructions about any restrictions on food, beverages, or activity. What are the possible side effects of atenolol? Get emergency medical help if you have signs of an allergic reaction: hives; difficult breathing; swelling of your face, lips, tongue, or throat. Call your doctor at once if you have: new or worsening chest pain; slow or uneven heartbeats; a light-headed feeling, like you might pass out; shortness of breath (even with mild exertion), swelling, rapid weight gain; or a cold feeling in your hands and feet. Common side effects may include: cold hands or feet; dizziness; tiredness; or depressed mood. This is not a complete list of side effects and others may occur. Call your doctor for medical advice about side effects. You may report side effects to FDA at 9-769-EJZ-8194. What other drugs will affect atenolol? Tell your doctor about all your current medicines and any you start or stop using, especially: digoxin, digitalis; indomethacin; any other beta-rcisthian--bisoprolol, carvedilol, labetalol, metoprolol, nebivolol, propranolol, sotalol, timolol, and others; or heart or blood pressure medication--amiodarone, clonidine, diltiazem, disopyramide, nicardipine, nifedipine, reserpine, verapamil, and others. This list is not complete. Other drugs may affect atenolol, including prescription and xkkq-rck-dgodfjj medicines, vitamins, and herbal products. Not all possible drug interactions are listed here. Where can I get more information? Your doctor or pharmacist can provide more information about atenolol. Remember, keep this and all other medicines out of the reach of children, never share your medicines with others, and use this medication only for the indication prescribed. Every effort has been made to ensure that the information provided by [employer]. [employer]') is accurate, up-to-date, and complete, but no guarantee is made to that effect. Drug information contained herein may be time sensitive. Personally information has been compiled for use by healthcare practitioners and consumers in the [place] and therefore Personally does not warrant that uses outside of the [place] are appropriate, unless specifically indicated otherwise. Personally's drug information does not endorse drugs, diagnose patients or recommend therapy. [employer] drug information isan informational resource designed to assist licensed healthcare practitioners in caring for their p atients and/or to serve consumers viewing this service as a supplement to, and not a substitute for, the expertise, skill, knowledge and judgment of healthcare practitioners. The absence of a warningfor a given drug or drug combination in no way should be construed to indicate that the drug or drug combination is safe, effective or appropriate for any given patient. [facility] does not assume any responsibility for any aspect of healthcare administered with the aid of information [facility] provides. The information contained herein is not intended to cover all possible uses, directions, precautions, warnings, drug interactions, allergic reactions, or adverse effects. If you have questions about the drugs you are taking, check with your doctor, nurse or pharmacist. Copyright 6258-6332 [facility]. Version: 09.03. Revision Date: 11/23/2021. benzonatate (michael morgan) What is the most important information I should know about benzonatate? Never suck or chew on a benzonatate capsule. Swallow the pill whole. Sucking or chewing the capsulemay cause serious side effects. Benzonatate is not approved for use by anyone younger than 10 years old. An overdose of benzonatatecan be fatal to a young child. What is benzonatate? Benzonatate is used to relieve coughing. Benzonatate is a non-narcotic cough medicine that numbs the throat and lungs, making the cough reflex less active. Benzonatate may also be used for purposes not listed in this medication guide. What should I discuss with my healthcare provider before taking benzonatate? You should not use this medicine if you are allergic to benzonatate or topical numbing medicines such as tetracaine or procaine (found in some insect bite and sunburn creams). Tell your doctor if you are or . Benzonatate is not approved for use by anyone younger than 10 years old. An overdose of benzonatatecan be fatal, especially to a young child who has accidentally swallowed the medicine. How should I take benzonatate? Follow all directions on your prescription label and read all medication guides or instruction sheets. Use the medicine exactly as directed. Never suck or chew on a benzonatate capsule. Swallow the pill whole. Sucking or chewing the capsulemay cause serious side effects. Store at room temperature away from moisture, heat, and light. What happens if I miss a dose? Skip the missed dose and use your next dose at the regular time. Do not use two doses at one time. What happens if I overdose? Seek emergency medical attention or call the Poison Help line at . An overdose of benzonatate can be fatal, especially to a child. Accidental has occurred in children under 10 years old. Overdose symptoms may include tremors, feeling restless, seizure (convulsions), slow heart rate, weak pulse, fainting, and slow breathing (breathing may stop). What should I avoid while taking benzonatate? Avoid eating or drinking anything while you feel numbness or tingling in your mouth or throat. What are the possible side effects of benzonatate? Stop taking this medicine and get emergency medical help if you have signs of an allergic reaction:hives; difficult breathing; swelling of your face, lips, tongue, or throat. Call your doctor at once if you have: severe drowsiness or dizziness; confusion, hallucinations. ongoing numbness or tingling in your mouth, throat, or face; numbness in your chest; a choking feeling; chills; or burning in your eyes. Some of these side effects may result from chewing or sucking on a benzonatate capsule. Common side effects may include: headache, dizziness; nausea, upset stomach; constipation; itching, rash; or stuffy nose. This is not a complete list of side effects and others may occur. Call your doctor for medical advice about side effects. You may report side effects to FDA at 9-408-KWX-8408. What other drugs will affect benzonatate? Using benzonatate with other drugs that make you drowsy can worsen this effect. Ask your doctor before using opioid medication, a sleeping pill, a muscle relaxer, or medicine for anxiety or seizures. Other drugs may affect benzonatate, including prescription and zdpl-xad-wkvmuqx medicines, vitamins, and herbal products. Tell your doctor about all your current medicines and any medicine you start or stop using. Where can I get more information? Your pharmacist can provide more information about benzonatate. Remember, keep this and all other medicines out of the reach of children, never share your medicines with others, and use this medication only for the indication prescribed. Every effort has been made to ensure that the information provided by [employer]. [employer]') is accurate, up-to-date, and complete, but no guarantee is made to that effect. Drug information contained herein may be time sensitive. Personally information has been compiled for use by healthcare practitioners and consumers in the [place] and therefore Personally does not warrant that uses outside of the [place] are appropriate, unless specifically indicated otherwise. [employer] drug information does not endorse drugs, diagnose patients or recommend therapy. [employer] drug information isan informational resource designed to assist licensed healthcare practitioners in caring for their p atients and/or to serve consumers viewing this service as a supplement to, and not a substitute for, the expertise, skill, knowledge and judgment of healthcare practitioners. The absence of a warningfor a given drug or drug combination in no way should be construed to indicate that the drug or drug combination is safe, effective or appropriate for any given patient. Personally does not assume any responsibility for any aspect of healthcare administered with the aid of information Personally provides. The information contained herein is not intended to cover all possible uses, directions, precautions, warnings, drug interactions, allergic reactions, or adverse effects. If you have questions about the drugs you are taking, check with your doctor, nurse or pharmacist. Copyright 2090-4169 [employer]. Version: 09.03. Revision Date: 06/05/2023. ondansetron (oral) (on SABINA se marguerite) What is the most important information I should know about ondansetron? You should not use ondansetron if you are also using apomorphine (Apokyn). What is ondansetron? Ondansetron blocks the actions of chemicals in the body that can trigger nausea and vomiting. Ondansetron is used to prevent nausea and vomiting that may be caused by surgery, cancer chemotherapy, or radiation treatment. Ondansetron may be used for purposes not listed in this medication guide. What should I discuss with my health care provider before taking ondansetron? You should not use ondansetron if: you are also using apomorphine (Apokyn); or you are allergic to ondansetron or similar medicines (dolasetron, granisetron, palonosetron). To make sure ondansetron is safe for you, tell your doctor if you have: liver disease; an electrolyte imbalance (such as low levels of potassium or magnesium in your blood); congestive heart failure, slow heartbeats; a personal or family history of long QT syndrome; or a blockage in your digestive tract (stomach or intestines). Ondansetron is not expected to harm an unborn baby. Tell your doctor if you are . It is not known whether ondansetron passes into breast milk or if it could harm a nursing baby. Tell your doctor if you are breast-feeding a baby. Ondansetron is not approved for use by anyone younger than 4 years old. Ondansetron orally disintegrating tablets may contain phenylalanine. Tell your doctor if you have phenylketonuria (PKU). How should I take ondansetron? Follow all directions on your prescription label. Do not take this medicine in larger or smaller amounts or for longer than recommended. Ondansetron can be taken with or without food. The first dose of ondansetron is usually taken before the start of your surgery, chemotherapy, or radiation treatment. Follow your doctor's dosing instructions very carefully. Take the ondansetron regular tablet with a full glass of water. To take the orally disintegrating tablet (Zofran ODT): Keep the tablet in its blister pack until you are ready to take it. Open the package and peel back the foil. Do not push a tablet through the foil or you may damage the tablet. Use dry hands to remove the tablet and place it in your mouth. Do not swallow the tablet whole. Allow it to dissolve in your mouth without chewing. Swallow several times as the tablet dissolves. To use ondansetron oral soluble film (strip) (Zuplenz): Keep the strip in the foil pouch until you are ready to use the medicine. Using dry hands, remove the strip and place it on your tongue. It will begin to dissolve right away. Do not swallow the strip whole. Allow it to dissolve in your mouth without chewing. Swallow several times after the strip dissolves. If desired, you may drink liquid to help swallow the dissolved strip. Wash your hands after using Zuplenz. Measure liquid medicine with the dosing syringe provided, or with a special dose-measuring spoon ormedicine cup. If you do not have a dose-measuring device, ask your pharmacist for one. Store at room temperature away from moisture, heat, and light. Store liquid medicine in an upright position. What happens if I miss a dose? Take the missed dose as soon as you remember. Skip the missed dose if it is almost time for your next scheduled dose. Do not take extra medicine to make up the missed dose. What happens if I overdose? Seek emergency medical attention or call the Poison Help line at . Overdose symptoms may include sudden loss of vision, severe constipation, feeling light-headed, or fainting. What should I avoid while taking ondansetron? Ondansetron may impair your thinking or reactions. Be careful if you drive or do anything that requires you to be alert. What are the possible side effects of ondansetron? Get emergency medical help if you have signs of an allergic reaction: rash, hives; fever, chills, difficult breathing; swelling of your face, lips, tongue, or throat. Call your doctor at once if you have: severe constipation, stomach pain, or bloating; headache with chest pain and severe dizziness, fainting, fast or pounding heartbeats; fast or pounding heartbeats; jaundice (yellowing of the skin or eyes); blurred vision or temporary vision loss (lasting from only a few minutes to several hours); high levels of serotonin in the body--agitation, hallucinations, fever, fast heart rate, overactivereflexes, nausea, vomiting, diarrhea, loss of coordination, fainting. Common side effects may include: diarrhea or constipation; headache; drowsiness; or tired feeling. This is not a complete list of side effects and others may occur. Call your doctor for medical advice about side effects. You may report side effects to FDA at 2-662-NNX-8239. What other drugs will affect ondansetron? Ondansetron can cause a serious heart problem, especially if you use certain medicines at the same time, including antibiotics, antidepressants, heart rhythm medicine, antipsychotic medicines, and medicines to treat cancer, malaria, HIV or AIDS. Tell your doctor about all medicines you use, and those you start or stop using during your treatment with ondansetron. Taking ondansetron while you are using certain other medicines can cause high levels of serotonin to build up in your body, a condition called 'serotonin syndrome,' which can be fatal. Tell your doctor if you also use: medicine to treat depression; medicine to treat a psychiatric disorder; a narcotic (opioid) medication; or medicine to prevent nausea and vomiting. This list is not complete and many other drugs can interact with ondansetron. This includes prescription and glka-ths-ohxgulx medicines, vitamins, and herbal products. Give a list of all your medicines to any healthcare provider who treats you. Where can I get more information? Your pharmacist can provide more information about ondansetron. Remember, keep this and all other medicines out of the reach of children, never share your medicines with others, and use this medication only for the indication prescribed. Every effort has been made to ensure that the information provided by [employer]. [employer] is accurate, up-to-date, and complete, but no guarantee is made to that effect. Drug information contained herein may be time sensitive. Personally information has been compiled for use by healthcare practitioners and consumers in the [place] and therefore Personally does not warrant that uses outside of the [place] are appropriate, unless specifically indicated otherwise. [employer] drug information does not endorse drugs, diagnose patients or recommend therapy. [employer] drug information isan informational resource designed to assist licensed healthcare practitioners in caring for their p atients and/or to serve consumers viewing this service as a supplement to, and not a substitute for, the expertise, skill, knowledge and judgment of healthcare practitioners. The absence of a warningfor a given drug or drug combination in no way should be construed to indicate that the drug or drug combination is safe, effective or appropriate for any given patient. Personally does not assume any responsibility for any aspect of healthcare administered with the aid of information Personally provides. The information contained herein is not intended to cover all possible uses, directions, precautions, warnings, drug interactions, allergic reactions, or adverse effects. If you have questions about the drugs you are taking, check with your doctor, nurse or pharmacist. Copyright 5392-4520 [employer]. Version: 16.. Revision Date: 06/05/2023. Education Materials How to Quit Smoking Smoking is a hard habit to break. About half of all people who have ever smoked have been able to quit. Most people who still smoke want to quit. Here are some of the best ways to stop smoking. Keep in mind the health benefits of quitting The health benefits of quitting start right away. They keep improving the longer you go without smoking. Knowing this can help inspire you to stay on track. These benefits occur at any age. If you are 17 or 70, quitting is a good choice. Some of the health benefits after your last cigarette include: 20 minutes: Your blood pressure and pulse return to normal. 8 hours: Your oxygen levels return to normal. 2 days: Your ability to smell and taste start to improve as damaged nerves regrow. 2 to 3 weeks: Your circulation and lung function improve. 1 to 9 months: Your coughing, congestion, and shortness of breath decrease. Your tiredness decreases. 1 year: Your risk of heart attack decreases by half. 5 years: Your risk of lung cancer decreases by half. Your risk of stroke becomes the same as a nonsmoker s. Go cold turkey Most former smokers quit cold turkey. This means stopping all at once. Trying to cut back slowly often doesn't work as well. This may be because it continues the habit of smoking. Also, you may inhale more smoke while smoking fewer cigarettes. This leads to the same amount of nicotine in your body. Get support Support programs can be a big help, especially for heavy smokers. These groups offer lectures, waysto change behavior, and peer support. Here are some ways to find a support program: Free national quitline 870-NTMB-IPM (614-658-8075) [facility] quit-smoking programs [employer] [place] [employer] 059-947-3065 [employer] [place] [employer] 752-332-1142 Support at home is important too. Family and friends can offer praise and reassurance. If the smoker in your life finds it hard to quit, encourage them to keep trying. Try mdee-fna-ttlhbsz medicine Nicotine replacement therapy may make it easier to quit. Some aids are available without a prescription. These include a nicotine patch, gum, and lozenges. But it is best to use these under the care of your healthcare provider. The skin patch gives a steady supply of nicotine. Nicotine gum and lozenges give short- time doses of low levels of nicotine. Both methods reduce the craving for cigarettes. If you have nausea, vomiting, dizziness, weakness, or a fast heartbeat, stop using these products.See your healthcare provider. Ask about prescription medicine After reviewing your smoking patterns and past attempts to quit, your doctor may offer a prescription medicine such as bupropion, varenicline, a nicotine inhaler, or nasal spray. Each has advantages and side effects. Your doctor can review these with you. Keep trying Most smokers make many attempts at quitting before they are successful. It s important not to give up. For more information For more on how to quit smoking, try these online resources: Go to Smokefree.gov. Read Clearing the Air from the [employer] [place] at smokefree.gov/sites/default/files/pdf/sngywsbl-obq-ncu-accessible.pdf. 2670-9766 [employer]. [address] [place] [address]. All rights reserved. This information is not intended as a substitute for professional medical care. Always follow yourhealthcare professional's instructions. Uncontrolled High Blood Pressure (Established) Your blood pressure was unusually high today. This can occur if you ve missed doses of your blood pressure medicine. Or it can happen if you are taking other medicines. These include some asthma inhalers, decongestants, diet pills, and street drugs like cocaine and amphetamine. Other causes include: Weight gain More salt in your diet Smoking Caffeine Your blood pressure can also rise if you are emotionally upset or in intense pain. It may go back to normal after a period of rest. Blood pressure measurements are given as 2 numbers. Systolic blood pressure is the upper number. This is the pressure when the heart contracts. Diastolic blood pressure is the lower number. This is the pressure when the heart relaxes between beats. You will see your blood pressure readings written together. For example, a person with a systolic pressure of 118 and a diastolic pressure of 78 will have 118/78 written in the medical record. To be high blood pressure, the numbers must be higher when tested over a period of time. Blood pressure is categorized as normal, elevated, or stage 1 or stage 2 high blood pressure: Normal blood pressure is systolic of less than 120 and diastolic of less than 80 (120/80) Elevated blood pressure is systolic of 120 to 129 and diastolic less than 80 Stage 1 high blood pressure is systolic is 130 to 139 or diastolic between 80 to 89 Stage 2 high blood pressure is when systolic is 140 or higher or the diastolic is 90 or higher Uncontrolled high blood pressure can cause serious health problems. It raises your risk for heart attack, stroke, and heart failure. In general, if you have high blood pressure, keeping your blood pressure below 130/80 mmHg may help prevent these problems. Your healthcare provider may prescribe medicine to help control blood pressure if lifestyle changes are not enough. Home care It s important to take steps to lower your blood pressure. If you are taking blood pressure medicine, the guidelines below may help you need less or no medicines in the future. Start a weight-loss program if you are overweight. Cut back on the amount of salt in your diet: oAvoid high-salt foods like olives, pickles, smoked meats, and salted potato chips. oDon t add salt to your food at the table. oUse only small amounts of salt when cooking. Start an exercise program. Talk with your healthcare provider about what exercise program is best for you. It doesn t have to be difficult. Even brisk walking for 20 minutes 3 times a week is a good form of exercise. Avoid medicines that stimulates the heart. This includes many vewx-hlc-aqehjlf cold and sinus decongestant pills and sprays, as well as diet pills. Check the warnings about high blood pressure on thelabel. Before purchasing any amxs-fab-dbwmnba medicines or supplements, always ask the pharmacist about the product's potential interaction with your high blood pressure and your medicines. Stimulants such as amphetamine or cocaine could be lethal for someone with high blood pressure. Never take these. Limit how much caffeine you drink. Or switch to noncaffeinated beverages. Stop smoking. If you are a long-time smoker, this can be hard. Enroll in a stop- smoking program to make it more likely that you will succeed. Talk with your provider about ways to quit. Learn how to handle stress better. This is an important part of any program to lower blood pressure. Learn ways to relax. These include meditation, yoga, and biofeedback. If medicines were prescribed, take them exactly as directed. Missing doses may cause your blood pressure to get out of control. If you miss a dose or doses of your medicines, check with your healthcare provider or pharmacist about what to do. Consider buying an automatic blood pressure machine. Your provider may recommend a certain type. You can get one of these at most pharmacies. Measure your blood pressure twice a day, in the morning, and in the late afternoon. Keep a written record of your home blood pressure readings and take the record to your medical appointments. Here are some additional guidelines on home blood pressure monitoring from the [place] [employer]. Don't smoke or drink coffee for 30 minutes Go to the bathroom before the test. Relax for 5 minutes before taking the measurement. Sit correctly. Be sure your back is supported. Don't sit on a couch or soft chair. Uncross your feet and place them flat on the floor. Place your arm on a solid, flat surface like a table with the upper arm at heart level. Make certain the middle of the cuff is directly above the bend of the elbow.Check the monitor's instruction manual for an illustration. Take multiple readings. When you measure, take 2 or 3 readings one minute apart and record all of the results. Take your blood pressure at the same time every day, or as your healthcare provider recommends. Record the date, time, and blood pressure reading. Take the record with you to your next appointment. If your blood pressure monitor has a built-in memory, simply take the monitor with you to your next appointment. Call your provider if you have several high readings. Don't be frightened by a single high reading,but if you get several high readings, check in with your healthcare provider. Note: When blood pressure reaches a systolic (top number) of 180 or higher or a diastolic (bottom number) of 110 or higher, emergency medical treatment is required. Call your healthcare provider immediately. Follow-up care Regular visits to your own healthcare provider for blood pressure and medicine checks are an important part of your care. Make a follow-up appointment as directed. Bring the record of your home bloodpressure readings to the appointment. When to seek medical advice Call your healthcare provider right away if any of these occur: Blood pressure reaches a systolic (top number) of 180 or higher or diastolic (bottom number) of 110or higher, emergency medical treatment is required. Chest, arm, shoulder, neck, or upper back pain Shortness of breath Severe headache Throbbing or rushing sound in the ears Nosebleed Extreme drowsiness, confusion, or fainting Dizziness or dizziness with spinning sensation (vertigo) Weakness in an arm or leg or on one side of the face Trouble speaking or seeing [phone] [employer]. [address] [facility], [place] [address]. All rights reserved. This information is not intended as a substitute for professional medical care. Always follow yourhealthcare professional's instructions. Viral Syndrome (Adult) A viral illness may cause a number of symptoms such as fever. Other symptoms depend on the part of the body that the virus affects. If it settles in your nose, throat, and lungs, it may cause cough, sore throat, congestion, runny nose, headache, earache and other ear symptoms, or shortness of breath. If it settles in your stomach and intestinal tract, it may cause nausea, vomiting, cramping, and diarrhea. Sometimes it causes generalized symptoms like aching all over, feeling tired, loss of energy, or loss of appetite. A viral illness usually lasts anywhere from several days to several weeks, but sometimes it lasts longer. In some cases, a more serious infection can look like a viral syndrome in the first few days of the illness. You may need another exam and additional tests to know the difference. Watch for thewarning signs listed below for when to seek medical advice. Home care Follow these guidelines for taking care of yourself at home: If symptoms are severe, rest at home for the first 2 to 3 days. Stay away from cigarette smoke - both your smoke and the smoke from others. You may use wnaf-uko-vxlteis acetaminophen or ibuprofen for fever, muscle aching, and headache, unless another medicine was prescribed for this. If you have chronic liver or kidney disease or ever had a stomach ulcer or gastrointestinal bleeding, talk with your healthcare provider before using these medicines. No one who is younger than 18 and ill with a fever should take aspirin. It may cause severe disease or . Your appetite may be poor, so a light diet is fine. Avoid dehydration by drinking 8 to 12, 8-ounce glasses of fluids each day. This may include water; orange juice; lemonade; apple, grape, and cranberry juice; clear fruit drinks; electrolyte replacement and sports drinks; and decaffeinated teas andcoffee. If yo (more content not included)... [facility]02-28-2024 Note ORIGINAL EXAMINATION: ONE XRAY VIEW OF THE CHEST 12/31/2023 6:39 pm COMPARISON: Chest x-ray, 03/28/2023 HISTORY: ORDERING SYSTEM PROVIDED HISTORY: Reason for Exam: SOB/cough/fever FINDINGS: The cardiomediastinal contours are stable. The lungs are clear bilaterally. There is no evidence of focal consolidation, pulmonary edema, pleural effusion or pneumothorax. IMPRESSION: Stable chest with no acute cardiopulmonary process. Interpreted by: Pillo Jerez MD Preliminary Report By: Pillo Jerez MD Electronically signed By Pillo Jerez MD Dictated Date: 12/31/2023 6:43:10 PM Prelim Date: 12/31/2023 6:43:22 PM Sign Date: 12/31/2023 6:43:22 PM [facility] Sinus rhythm Probable left ventricular hypertrophy Borderline prolonged QT interval Electronic Signature: BRIAN WALKER MD 12/31/2023 18:05:37[facility] 10-13-2022 Hospital Discharge instructions Patient Education 08/15/2022 18:29:13 Smoking Cessation How to Quit Smoking Smoking is a hard habit to break. About half of all people who have ever smoked have been able to quit. Most people who still smoke want to quit. Here are some of the best ways to stop smoking. Keep in mind the health benefits of quitting The health benefits of quitting start right away. They keep improving the longer you go without smoking. Knowing this can help inspire you to stay on track. These benefits occur at any age. If you are 17 or 70, quitting is a good choice. Some of the health benefits after your last cigarette include: 20 minutes: Your blood pressure and pulse return to normal. 8 hours: Your oxygen levels return to normal. 2 days: Your ability to smell and taste start to improve as damaged nerves regrow. 2 to 3 weeks: Your circulation and lung function improve. 1 to 9 months: Your coughing, congestion, and shortness of breath decrease. Your tiredness decreases. 1 year: Your risk of heart attack decreases by half. 5 years: Your risk of lung cancer decreases by half. Your risk of stroke becomes the same as a nonsmoker s. Go cold turkey Most former smokers quit cold turkey. This means stopping all at once. Trying to cut back slowly often doesn't work as well. This may be because it continues the habit of smoking. Also, you may inhale more smoke while smoking fewer cigarettes. This leads to the same amount of nicotine in your body. Get support Support programs can be a big help, especially for heavy smokers. These groups offer lectures, waysto change behavior, and peer support. Here are some ways to find a support program: Free national quitline 106-VOMF-OZO (406-478-4094) [facility] quit-smoking programs [place] [employer] [phone] [place] [employer] [phone] Support at home is important too. Family and friends can offer praise and reassurance. If the smoker in your life finds it hard to quit, encourage them to keep trying. Try oaqe-izl-wfqogds medicine Nicotine replacement therapy may make it easier to quit. Some aids are available without a prescription. These include a nicotine patch, gum, and lozenges. But it is best to use these under the care of your healthcare provider. The skin patch gives a steady supply of nicotine. Nicotine gum and lozenges give short- time doses of low levels of nicotine. Both methods reduce the craving for cigarettes. If you have nausea, vomiting, dizziness, weakness, or a fast heartbeat, stop using these products.See your healthcare provider. Ask about prescription medicine After reviewing your smoking patterns and past attempts to quit, your doctor may offer a prescription medicine such as bupropion, varenicline, a nicotine inhaler, or nasal spray. Each has advantages and side effects. Your doctor can review these with you. Keep trying Most smokers make many attempts at quitting before they are successful. It s important not to give up. For more information For more on how to quit smoking, try these online resources: Go to Smokefree.gov. Read Clearing the Air from the [employer] [place] at smokefree.gov/sites/default/files/pdf/vntdjnnv-vyq-hwz-accessible.pdf. 8570-1667 [employer]. [address] [place] [address]. All rights reserved. This information is not intended as a substitute for professional medical care. Always follow yourhealthcare professional's instructions. 08/15/2022 18:29:07 Viral Syndrome (Adult) Viral Syndrome (Adult) A viral illness may cause a number of symptoms such as fever. Other symptoms depend on the part of the body that the virus affects. If it settles in your nose, throat, and lungs, it may cause cough, sore throat, congestion, runny nose, headache, earache and other ear symptoms, or shortness of breath. If it settles in your stomach and intestinal tract, it may cause nausea, vomiting, cramping, and diarrhea. Sometimes it causes generalized symptoms like aching all over, feeling tired, loss of energy, or loss of appetite. A viral illness usually lasts anywhere from several days to several weeks, but sometimes it lasts longer. In some cases, a more serious infection can look like a viral syndrome in the first few days of the illness. You may need another exam and additional tests to know the difference. Watch for thewarning signs listed below for when to seek medical advice. Home care Follow these guidelines for taking care of yourself at home: If symptoms are severe, rest at home for the first 2 to 3 days. Stay away from cigarette smoke - both your smoke and the smoke from others. You may use adjt-jee-hhjwebb acetaminophen or ibuprofen for fever, muscle aching, and headache, unless another medicine was prescribed for this. If you have chronic liver or kidney disease or ever had a stomach ulcer or gastrointestinal bleeding, talk with your healthcare provider before using these medicines. No one who is younger than 18 and ill with a fever should take aspirin. It may cause severe disease or . Your appetite may be poor, so a light diet is fine. Avoid dehydration by drinking 8 to 12, 8-ounce glasses of fluids each day. This may include water; orange juice; lemonade; apple, grape, and cranberry juice; clear fruit drinks; electrolyte replacement and sports drinks; and decaffeinated teas andcoffee. If you have been diagnosed with a kidney disease, ask your healthcare provider how much andwhat types of fluids you should drink to prevent dehydration. If you have kidney disease, drinking too much fluid can cause it build up in the your body and be dangerous to your health. Tvop-qzg-mygjiyh remedies won't shorten the length of the illness but may be helpful for symptoms such as cough, sore throat, nasal and sinus congestion, or diarrhea. Don't use decongestants if you have high blood pressure. Follow-up care Follow up with your healthcare provider if you do not improve over the next week. Call 911 Call 911 if any of the following occur: Convulsion Feeling weak, dizzy, or like you are going to faint Chest pain, or more than mild shortness of breath When to seek medical advice Call your healthcare provider right away if any of these occur: Cough with lots of colored sputum (mucus) or blood in your sputum Chest pain, shortness of breath, wheezing, or trouble breathing Severe headache; face, neck, or ear pain Severe, constant pain in the lower right side of your belly (abdominal) Continued vomiting (can t keep liquids down) Frequent diarrhea (more than 5 times a day); blood (red or black color) or mucus in diarrhea Feeling weak, dizzy, or like you are going to faint Extreme thirst Fever of 100.4 F (38 C) or higher, or as directed by your healthcare provider [phone] [employer]. [address] [place] [address]. All rights reserved. This information is not intended as a substitute for professional medical care. Always follow yourhealthcare professional's instructions. Follow Up Care 08/15/2022 16:19:50 With:MARY MAYEN Address: [facility] [address] [place], [place] [id number]- Business (1) When:2-4 days Comments:Schedule appointment for follow-up.Quarantine at home until you get the results of your COVID test.Do not smoke.Push fluids and rest.Continue albuterol inhaler for shortness of breath as needed.Use Tylenol, Advil or Aleve for fever, body aches and pain as needed.May use vmls-buc-jmpsnfe cough and cold medicines for symptomatic relief as needed.Return to the ED if symptoms worsen. [facility] 10-13-2022 Note Discharge Instructions Thank you for allowing [facility] to assist you with your healthcare needs. The following is importantdischarge information regarding your hospital visit. Diagnosis from Today's Visit Viral syndrome Body aches What to Do Next Instructions from Your Care Team No qualifying data available. Post Acute Orders No qualifying data available. You Need to Schedule the Following Appointments Follow Up with MARY MAYEN When Within 2-4 days Why: Schedule appointment for follow-up. Quarantine at home until you get the results of your COVID test. Do not smoke. Push fluids and rest. Continue albuterol inhaler for shortness of breath as needed. Use Tylenol, Advil or Aleve for fever, body aches and pain as needed. May use bzmm-iiw-gasyfpn cough and cold medicines for symptomatic relief as needed. Return to the ED if symptoms worsen. Where: [facility] [address] [place] [address] [facility] (1) Allergies NKA Medications Please ask your primary doctor or pharmacist before taking any other medication not listed, including over the counter drugs, herbal medications, vitamins and or supplements as they may interact withyour home medications. What How Much When Instructions Last Dose Unchanged atenolol by mouth Once a day Unchanged dicyclomine (Bentyl 20 mg oral tablet) 1 tab(s) by mouth Four (4) times a day as needed for as needed for abd pain Duration: 5 Days Unchanged omeprazole (NF) (omeprazole 20 mg oral delayed release capsule (NF)) 1 cap by mouth Two (2) times daily before meals Please take this list to your next doctor s visit. Bring all medications you take, including over the counter medications, herbals and other supplements with you to your doctor s visit. Patients and families are reminded to discard old lists and to update any records with all medication providers or retail pharmacies. Education Materials How to Quit Smoking Smoking is a hard habit to break. About half of all people who have ever smoked have been able to quit. Most people who still smoke want to quit. Here are some of the best ways to stop smoking. Keep in mind the health benefits of quitting The health benefits of quitting start right away. They keep improving the longer you go without smoking. Knowing this can help inspire you to stay on track. These benefits occur at any age. If you are 17 or 70, quitting is a good choice. Some of the health benefits after your last cigarette include: 20 minutes: Your blood pressure and pulse return to normal. 8 hours: Your oxygen levels return to normal. 2 days: Your ability to smell and taste start to improve as damaged nerves regrow. 2 to 3 weeks: Your circulation and lung function improve. 1 to 9 months: Your coughing, congestion, and shortness of breath decrease. Your tiredness decreases. 1 year: Your risk of heart attack decreases by half. 5 years: Your risk of lung cancer decreases by half. Your risk of stroke becomes the same as a nonsmoker s. Go cold turkey Most former smokers quit cold turkey. This means stopping all at once. Trying to cut back slowly often doesn't work as well. This may be because it continues the habit of smoking. Also, you may inhale more smoke while smoking fewer cigarettes. This leads to the same amount of nicotine in your body. Get support Support programs can be a big help, especially for heavy smokers. These groups offer lectures, waysto change behavior, and peer support. Here are some ways to find a support program: Free national quitline 656-YOYJ-ECR (387-715-0700) [facility] quit-smoking programs [employer] [place] [employer] 335-580-4035 [employer] [place] [employer] [phone] Support at home is important too. Family and friends can offer praise and reassurance. If the smoker in your life finds it hard to quit, encourage them to keep trying. Try wdzn-pcw-wkypqre medicine Nicotine replacement therapy may make it easier to quit. Some aids are available without a prescription. These include a nicotine patch, gum, and lozenges. But it is best to use these under the care of your healthcare provider. The skin patch gives a steady supply of nicotine. Nicotine gum and lozenges give short- time doses of low levels of nicotine. Both methods reduce the craving for cigarettes. If you have nausea, vomiting, dizziness, weakness, or a fast heartbeat, stop using these products.See your healthcare provider. Ask about prescription medicine After reviewing your smoking patterns and past attempts to quit, your doctor may offer a prescription medicine such as bupropion, varenicline, a nicotine inhaler, or nasal spray. Each has advantages and side effects. Your doctor can review these with you. Keep trying Most smokers make many attempts at quitting before they are successful. It s important not to give up. For more information For more on how to quit smoking, try these online resources: Go to Smokefree.gov. Read Clearing the Air from the [employer] [place] at smokefree.gov/sites/default/files/pdf/ollvszvn-trk-rek-accessible.pdf. 0834-9600 [employer]. [address] [place] [address], [place] [address]. All rights reserved. This information is not intended as a substitute for professional medical care. Always follow yourhealthcare professional's instructions. Viral Syndrome (Adult) A viral illness may cause a number of symptoms such as fever. Other symptoms depend on the part of the body that the virus affects. If it settles in your nose, throat, and lungs, it may cause cough, sore throat, congestion, runny nose, headache, earache and other ear symptoms, or shortness of breath. If it settles in your stomach and intestinal tract, it may cause nausea, vomiting, cramping, and diarrhea. Sometimes it causes generalized symptoms like aching all over, feeling tired, loss of energy, or loss of appetite. A viral illness usually lasts anywhere from several days to several weeks, but sometimes it lasts longer. In some cases, a more serious infection can look like a viral syndrome in the first few days of the illness. You may need another exam and additional tests to know the difference. Watch for thewarning signs listed below for when to seek medical advice. Home care Follow these guidelines for taking care of yourself at home: If symptoms are severe, rest at home for the first 2 to 3 days. Stay away from cigarette smoke - both your smoke and the smoke from others. You may use qpuf-dyt-jyqbprb acetaminophen or ibuprofen for fever, muscle aching, and headache, unless another medicine was prescribed for this. If you have chronic liver or kidney disease or ever had a stomach ulcer or gastrointestinal bleeding, talk with your healthcare provider before using these medicines. No one who is younger than 18 and ill with a fever should take aspirin. It may cause severe disease or . Your appetite may be poor, so a light diet is fine. Avoid dehydration by drinking 8 to 12, 8-ounce glasses of fluids each day. This may include water; orange juice; lemonade; apple, grape, and cranberry juice; clear fruit drinks; electrolyte replacement and sports drinks; and decaffeinated teas andcoffee. If you have been diagnosed with a kidney disease, ask your healthcare provider how much andwhat types of fluids you should drink to prevent dehydration. If you have kidney disease, drinking too much fluid can cause it build up in the your body and be dangerous to your health. Nntj-kld-sxduedw remedies won't shorten the length of the illness but may be helpful for symptoms such as cough, sore throat, nasal and sinus congestion, or diarrhea. Don't use decongestants if you have high blood pressure. Follow-up care Follow up with your healthcare provider if you do not improve over the next week. Call 911 Call 911 if any of the following occur: Convulsion Feeling weak, dizzy, or like you are going to faint Chest pain, or more than mild shortness of breath When to seek medical advice Call your healthcare provider right away if any of these occur: Cough with lots of colored sputum (mucus) or blood in your sputum Chest pain, shortness of breath, wheezing, or trouble breathing Severe headache; face, neck, or ear pain Severe, constant pain in the lower right side of your belly (abdominal) Continued vomiting (can t keep liquids down) Frequent diarrhea (more than 5 times a day); blood (red or black color) or mucus in diarrhea Feeling weak, dizzy, or like you are going to faint Extreme thirst Fever of 100.4 F (38 C) or higher, or as directed by your healthcare provider 4723-[address] [employer] [place] [address]. All rights reserved. This information is not intended as a substitute for professional medical care. Always follow yourhealthcare professional's instructions. Additional Information VACCINATE! IT SAVES LIVES! Members of the community who have not yet received the COVID-19 vaccine and would like to receive it can visit one of [facility] vaccine clinics. There are many vaccine clinic locations within the [facility]. For locations and available times, please visit [email or web address]. It is important to note that some COVID mobile vaccine clinics are held outdoors and may be canceled in rainy orstormy conditions. To learn more about pediatric vaccinations (ages 5-11), we invite you to visit the [facility] webpage. [email or web address] [email or web address] learn more about the COVID-19 vaccine, we invite you to visit the [facility] website for a list of frequently asked questions. [email or web address] [facility] Patient Portal Access Instructions: Stay connected with your healthcare team and access your personal medical information anytime with the [facility] Patient Portal. If you would like a full copy of your medical records please contact the [facility] Medical Records Department Friday through Friday between 8a.m. and 4:30p.m. Please follow the directions below to access the portal: 1.Access the email account you provided upon registration to the hospital.2.Look for an invitation email from [facility].3.Open the email and access the invitation link: Accept Invitation to [facility]4.Fill in the required hutson to create your account. Sign into [email or web address] with your username and password that you created in the above steps to stay up to date. You can then view a summary of results, a summary of your visits, and the ability to download your summaries to your computer or send the information securely to a physician. Remember that your healthcare information is confidential, so carefully consider who you will allow to register on the [facility] Patient Portal for access to your information. You can also access the [facility] Patient Portal on the [employer]. Simply click on Health Records under [place] and then click on the [facility] logo. HOW TO SAFELY DISPOSE OF PRESCRIPTION MEDICATIONS Please use one of the following methods to safely dispose of your unused medications. 1.Use a drug disposal kit: the drug disposal pouch allows you to safely discard your old and unuseddrugs. Ask your nurse to give you one when you are discharged.2.Visit a local take-back location: Many local pharmacies and police departments have programs that collect old and unwanted prescriptiondrugs. Call your local pharmacy or go to http://[employer]/9W5Fn6t to find one close to you.3.Make use of household items: Use cat litter or old coffee grounds to dispose medications if other options arenot available. Mix your drugs with these household products, seal them in an airtight container andthrow it into the garbage. Call [facility]: [phone] to be sure your drugs can be disposed of in this way. Some medicines may require a different approach.4.Never flush your medications down the toilet. IF YOU HAVE BEEN PRESCRIBED AN OPIOIDS FOR PAIN If you have been prescribed an opioid (such as hydrocodone, oxycodone or morphine), it is critical to understand the possible side effects and risks of opioid pain medications. Even when taken as directed, opioids can have several side effects including: Tolerance, meaning you might need to take more of a medication for the same pain relief. Nausea, vomiting and/or constipation. Sleepiness, dizziness, dry mouth, confusion, depression or itching. Physical dependence, meaning you have withdrawal symptoms when a medication is stopped ? this can develop within a few days. KNOW YOUR RESPONSIBILITIES It is important to know exactly how much and how often to take the opioid pain medications you are prescribed. Never take opioids in higher amounts or more often than prescribed. Do not combine opioids with alcohol or other drugs that cause drowsiness, such as benzodiazepines, also known as benzos,including diazepam and alprazolam, muscle relaxants or sleep aids. Never sell or share prescriptionopioids. This is illegal. Store opioids in a secure place and out of reach of others (including children, family, friends and visitors). The last page(s) of this document has been signed and retained as a CHART COPY Signatures Patient Education Materials Smoking Cessation Viral Syndrome (Adult) Medication Leaflets My discharge plan and instructions have been reviewed and explained to me and ITIMBO STEVE Dunderstand my current condition and have read and understand these discharge instructions. I have received a written copy of the plan/instructions. If I have questions, I am aware that I should contact my doctor. 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 HISTORY: ORDERING SYSTEM PROVIDED HISTORY: Reason for Exam: SOB/Cough/Fever FINDINGS: The cardiomediastinal silhouette is normal. No focal consolidation, vascular congestion, large pleural effusion or pneumothorax. Posterior left 8th rib deformity. Mild degenerative changes throughout the spine. IMPRESSION: No acute process. I have personally reviewed the images of this examination and agree with the resident's findings and interpretation. Interpreted by: Jorge Llanos MD Preliminary Report By: Dorita Perez Electronically signed By Jorge Llanos MD Dictated Date: 08/15/2022 5:53:06 PM Prelim Date: 08/15/2022 5:54:10 PM Sign Date: 08/15/2022 6:08:02 PM Ordering Provider: [facility]10-13-2022 Note ORIGINAL EXAMINATION: ONE XRAY VIEW OF THE CHEST 08/15/2022 5:32 pm COMPARISON: None. HISTORY: ORDERING SYSTEM PROVIDED HISTORY: Reason for Exam: SOB/Cough/Fever FINDINGS: The cardiomediastinal silhouette is normal. No focal consolidation, vascular congestion, large pleural effusion or pneumothorax. Posterior left 8th rib deformity. Mild degenerative changes throughout the spine. IMPRESSION: No acute process. I have personally reviewed the images of this examination and agree with the resident's findings and interpretation. Interpreted by: Jorge Llanos MD Preliminary Report By: Dorita Perez Electronically signed By Jorge Llanos MD Dictated Date: 08/15/2022 5:53:06 PM Prelim Date: 08/15/2022 5:54:10 PM Sign Date: 08/15/2022 6:08:02 PM Ordering Provider: [facility]10-13-2022 SARS-CoV-2 (COVID-19) RNA PENNY+probe Ql (Nph)Negative *NA* (08/15/22 5:17 PM)AO Auto Urine SSDischarge summary Author Sheron Dumont [facility] Note Date/Time May 27, 2025 9:39 am [facility] Medical Records Department [address] [place] [address] Instructions for Home/Discharge Instructions 05/27/25 0938 MR#: [id number] Acct: [id number] Name: MARVIN IZQUIERDO Rep #:[id number] : 1965 59 From: Sheron Dumont MD PCP: [facility] Status:ADM ABRAM Discharge Instructions DC O2, CPAP, BIPAP needs Home O2 Discharge instructions: No Dressing / Incision Discharge Activity: Return to Normal Activity Weight Bearing Status: Weight bearing as tolerated Dressing / Incision Call your doctor if you observe: Fever of 101 or Higher, Shortness of breath andSwelling in the ankles Follow Up Care Test Results: Test results from this visit will be discussed in further detail at your follow- up appointment, if applicable. Discharge Plan Admission Admit Date/Time: 05/25/25 16:10 Primary Reason for Your Visit: mechanical fall Attending Provider: Sheron Dumont Primary Care Provider: [facility],[place] Consulting Providers: Valencia Wen Instructions Patient Instructions: ED Mechanical Fall Discharge Orders/Prescriptions Prescriptions: New acetaminophen 325 mg Tablet 650 mg PO Q6H PRN PRN (Reason: Pain 1-10 Or Fever >100.7) Qty: 30 0RF Continued atenolol 25 mg Tablet 25 mg PO DAILY pantoprazole 40 mg tablet,delayed release (DR/EC) 40 mg PO BID 30 Days Qty: 60 0RF ferrous sulfate [Iron (ferrous sulfate)] 325 mg (65 mg iron) tablet 325 mg PO BID 30 Days Qty: 60 0RF ascorbic acid (vitamin C) [Vitamin C] 500 mg tablet 500 mg PO DAILY 30 Days Qty: 30 0RF sennosides-docusate sodium [Senokot-S] 8.6-50 mg tablet 1 tab-cap PO BID PRN (Reason: constipation) 30 Days Qty: 60 0RF diazepam 2 mg tablet 2 mg PO TID PRN PRN (Reason: Vertigo) Qty: 10 0RF Referrals / Follow Up: [facility],[place] [Primary Care Provider] - Within 1 Week Disposition Disposition (needs filled in before D/C Order can be placed): Home, Self Care 05/27/25 8336<Electronically signed by Sheron Dumont MD>Sheron Dumont MD CC: Dr. Valencia Wen MD; [facility] ~ Signed [facility] Work Phone: Emergency department Discharge summary* Daiana Suh RN: PERFORM Event Display: Depart Summary ED Authored Date: [id number] Discharge Instructions Thank you for allowing [facility] to assist you with your healthcare needs. The following is importantdischarge information regarding your hospital visit. Diagnosis from Today's Visit Cough Dizziness What to Do Next Instructions from Your Care Team No qualifying data available. Post Acute Orders No qualifying data available. You Need to Schedule the Following Appointments Follow Up with MARY MAYEN When Within 2-4 days Why: Schedule appointment for close follow-up. Push fluids and rest. Do not smoke. Vaporizer at bedside. Use Tylenol, Advil or Aleve for fever and discomfort as needed. Use albuterol inhaler for shortness of breath/wheezing, Tessalon for cough and Zofran for nausea and vomiting as needed. Use blood pressure medicine (atenolol) as prescribed. Return to the ED if symptoms worsen. Where: [facility] [address] [place] [address] Business (1) Allergies NKA Medications Please ask your primary doctor or pharmacist before taking any other medication not listed, including over the counter drugs, herbal medications, vitamins and or supplements as they may interact withyour home medications. What How Much When Instructions Last Dose New albuterol (albuterol MDI (90 mcg/ inh) CFC free inhalation aerosol) 2 puff(s) by inhalation Every 6 hours Printed Prescription New benzonatate (Tessalon Perles 100 mg oral capsule) 1 cap by mouth Three (3) times a day Duration: 7 Days Printed Prescription New ondansetron (Zofran 4 mg oral tablet) 1 tab(s) by mouth Every 6 hours as needed for As needed for nausea and vomiting Duration: 3 Days Printed Prescription Changed atenolol by mouth Once a day Changed atenolol (atenolol 50 mg oral tablet) 1 tab(s) by mouth Once a day Duration: 14 Days Printed Prescription Please take this list to your next doctor s visit. Bring all medications you take, including over the counter medications, herbals and other supplements with you to your doctor s visit. Patients and families are reminded to discard old lists and to update any records with all medication providers or retail pharmacies. Medication Leaflets albuterol inhalation (al BYOO ter all) ProAir HFA, ProAir RespiClick, Proventil HFA, Ventolin HFA What is the most important information I should know about albuterol inhalation? Follow all directions on your medicine label and package. Tell each of your healthcare providers about all your medical conditions, allergies, and all medicines you use. What is albuterol inhalation? Albuterol inhalation is a bronchodilator that is used to treat or prevent bronchospasm in people with reversible obstructive airway disease. Albuterol is also used to prevent exercise-induced bronchospasm. Albuterol inhalation is for use in adults and children at least 4 years old. Albuterol inhalation may also be used for purposes not listed in this medication guide. What should I discuss with my healthcare provider before using albuterol inhalation? You should not use this medicine if you are allergic to albuterol. You should not use ProAir RespiClick if you are allergic to milk proteins. Tell your doctor if you have ever had: heart disease, high blood pressure; a thyroid disorder; seizures; diabetes; or low levels of potassium in your blood. Tell your doctor if you are or plan to become . It is not known whether albuterol will harm an unborn baby. However, having uncontrolled asthma during may increase the riskof premature , low weight, or eclampsia (dangerously high blood pressure that can lead to medical problems in both mother and baby). The benefit of preventing bronchospasm may outweigh any risks to the baby. If you are , your name may be listed on a registry to track the effects of albuterol on the baby. It may not be safe to breastfeed while using this medicine. Ask your doctor about any risk. How should I use albuterol inhalation? Follow all directions on your prescription label and read all medication guides. Use the medicine exactly as directed. Do not allow a young child to use albuterol inhalation without help from an adult. To prevent exercise-induced bronchospasm, use this medicine 15 to 30 minutes before you exercise. The effects of albuterol inhalation should last about 4 to 6 hours. Seek medical attention if your breathing problems get worse quickly, or if you think your asthma medications are not working as well. Read and carefully follow any Instructions for Use provided with your medicine. Ask your doctor or pharmacist if you do not understand these instructions. ProAir HFA, Proventil HFA, or Ventolin HFA must be shaken before each use. You do not need to shakeProAir RespiClick before using. Do not try to clean or take apart the ProAir RespiClick inhaler device. Always use the new inhaler device provided with your refill. Do not float a medicine canister in water to see if it is empty. Your dose needs may change due to surgery, illness, stress, or a recent asthma attack. Do not change your dose or dosing schedule without your doctor's advice. Store at room temperature away from moisture, heat, or cold temperatures. Keep the cover on your ProAir RespiClick inhaler when not in use. Store Proventil or Ventolin with the mouthpiece down. Keep the inhaler canister away from open flame or high heat. The canister may explode if it gets too hot. Do not puncture or burn an empty inhaler canister. What happens if I miss a dose? Use the medicine as soon as you can, but skip the missed dose if it is almost time for your next dose. Do not use two doses at one time. Get your prescription refilled before you run out of medicine completely. What happens if I overdose? Seek emergency medical attention or call the Poison Help line at . An overdose of albuterol can be fatal. Overdose symptoms may include dry mouth, tremors, chest pain, fast heartbeats, nausea, general ill feeling, seizure, feeling light-headed or fainting. What should I avoid while using albuterol inhalation? Rinse with water if this medicine gets in your eyes. What are the possible side effects of albuterol inhalation? Get emergency medical help if you have signs of an allergic reaction: hives; difficult breathing; swelling of your face, lips, tongue, or throat. Call your doctor at once if you have: wheezing, choking, or other breathing problems after using this medicine; chest pain, fast heart rate, pounding heartbeats or fluttering in your chest; severe headache, pounding in your neck or ears; pain or burning when you urinate; high blood sugar--increased thirst, increased urination, dry mouth, fruity breath odor; or low potassium--leg cramps, constipation, irregular heartbeats, increased thirst or urination, numbness or tingling, muscle weakness or limp feeling. Common side effects may include: chest pain, fast or pounding heartbeats; upset stomach, vomiting; painful urination; dizziness; feeling shaky or nervous; headache, back pain, body aches; or cough, sore throat, sinus pain, runny or stuffy nose. This is not a complete list of side effects and others may occur. Call your doctor for medical advice about side effects. You may report side effects to FDA at 4-405-YPT-9015. What other drugs will affect albuterol inhalation? Tell your doctor about all your other medicines, especially: any other inhaled medicines or bronchodilators; digoxin; a diuretic or 'water pill'; an antidepressant--amitriptyline, desipramine, imipramine, doxepin, nortriptyline, and others; a beta cristhian--atenolol, carvedilol, labetalol, metoprolol, propranolol, sotalol, and others; or an MAO inhibitor--isocarboxazid, linezolid, methylene blue injection, phenelzine, rasagiline, selegiline, tranylcypromine, and others. This list is not complete. Other drugs may affect albuterol inhalation, including prescription and ekmu-xyj-caecwib medicines, vitamins, and herbal products. Not all possible drug interactions are listed here. Where can I get more information? Your pharmacist can provide more information about albuterol inhalation. Remember, keep this and all other medicines out of the reach of children, never share your medicines with others, and use this medication only for the indication prescribed. Every effort has been made to ensure that the information provided by [employer]. [employer]') is accurate, up-to-date, and complete, but no guarantee is made to that effect. Drug information contained herein may be time sensitive. Personally information has been compiled for use by healthcare practitioners and consumers in the [place] and therefore Personally does not warrant that uses outside of the [place] are appropriate, unless specifically indicated otherwise. [employer] drug information does not endorse drugs, diagnose patients or recommend therapy. [employer] drug information isan informational resource designed to assist licensed healthcare practitioners in caring for their p atients and/or to serve consumers viewing this service as a supplement to, and not a substitute for, the expertise, skill, knowledge and judgment of healthcare practitioners. The absence of a warningfor a given drug or drug combination in no way should be construed to indicate that the drug or drug combination is safe, effective or appropriate for any given patient. Personally does not assume any responsibility for any aspect of healthcare administered with the aid of information Personally provides. The information contained herein is not intended to cover all possible uses, directions, precautions, warnings, drug interactions, allergic reactions, or adverse effects. If you have questions about the drugs you are taking, check with your doctor, nurse or pharmacist. Copyright 9219-8108 [facility]. Version: 08.03. Revision Date: 09/20/2020. atenolol (a TEN oh lol) Tenormin What is the most important information I should know about atenolol? Use only as directed. Tell your doctor if you use other medicines or have other medical conditions or allergies. What is atenolol? Atenolol is used to treat angina (chest pain) and hypertension (high blood pressure). Atenolol is also used to lower the risk of after a heart attack. Atenolol may also be used for purposes not listed in this medication guide. What should I discuss with my healthcare provider before taking atenolol? You should not use atenolol if you are allergic to it, or if you have: a serious heart condition such as 'AV block' (second or third degree); slow heartbeats; heart failure; or if your heart cannot pump blood properly. Tell your doctor if you have ever had: congestive heart failure; coronary artery disease (hardened arteries); asthma, bronchitis, emphysema; diabetes; overactive thyroid; liver or kidney disease; pheochromocytoma (tumor of the adrenal gland); peripheral vascular disease such as Raynaud's syndrome; or allergies (or if you are undergoing allergy treatments or skin-testing). May harm an unborn baby. Tell your doctor if you are or if you become while usingthis medicine. Atenolol can pass into breast milk and may harm a nursing baby. Tell your doctor if you are a baby. Atenolol is not approved for use by anyone younger than 18 years old. How should I take atenolol? Follow all directions on your prescription label and read all medication guides or instruction sheets. Your doctor may occasionally change your dose. Use the medicine exactly as directed. Your blood pressure will need to be checked often. If you need surgery, tell the surgeon ahead of time that you are using atenolol. You may need to stop using the medicine for a short time. Keep using the medication as directed and tell your doctor if your symptoms do not improve. You should not stop taking atenolol suddenly. Stopping suddenly may make your condition worse. If you are being treated for high blood pressure: Keep using this medicine even if you feel well. High blood pressure often has no symptoms. You may need to use blood pressure medicine for the rest of your life. Your condition may need to be treated with a combination of drugs. Use all medications as directed by your doctor. Read the medication guide or patient instructions provided with each medication. Donot change your doses or medication schedule without your doctor's advice. Store at room temperature away from moisture, heat, and light. Keep the bottle tightly closed when not in use. What happens if I miss a dose? Take the medicine as soon as you can, but skip the missed dose if it is almost time for your next dose. Do not take two doses at one time. What happens if I overdose? Seek emergency medical attention or call the Poison Help line at . Overdose symptoms may include extreme weakness or lack of energy, very slow heart rate, shortness of breath, or fainting. What should I avoid while taking atenolol? Follow your doctor's instructions about any restrictions on food, beverages, or activity. What are the possible side effects of atenolol? Get emergency medical help if you have signs of an allergic reaction: hives; difficult breathing; swelling of your face, lips, tongue, or throat. Call your doctor at once if you have: new or worsening chest pain; slow or uneven heartbeats; a light-headed feeling, like you might pass out; shortness of breath (even with mild exertion), swelling, rapid weight gain; or a cold feeling in your hands and feet. Common side effects may include: cold hands or feet; dizziness; tiredness; or depressed mood. This is not a complete list of side effects and others may occur. Call your doctor for medical advice about side effects. You may report side effects to FDA at 9-977-BSR-6305. What other drugs will affect atenolol? Tell your doctor about all your current medicines and any you start or stop using, especially: digoxin, digitalis; indomethacin; any other beta-cristhian--bisoprolol, carvedilol, labetalol, metoprolol, nebivolol, propranolol, sotalol, timolol, and others; or heart or blood pressure medication--amiodarone, clonidine, diltiazem, disopyramide, nicardipine, nifedipine, reserpine, verapamil, and others. This list is not complete. Other drugs may affect atenolol, including prescription and qzrs-gxg-chqoswx medicines, vitamins, and herbal products. Not all possible drug interactions are listed here. Where can I get more information? Your doctor or pharmacist can provide more information about atenolol. Remember, keep this and all other medicines out of the reach of children, never share your medicines with others, and use this medication only for the indication prescribed. Every effort has been made to ensure that the information provided by [employer]. ('[employer]') is accurate, up-to-date, and complete, but no guarantee is made to that effect. Drug information contained herein may be time sensitive. Personally information has been compiled for use by healthcare practitioners and consumers in the [place] and therefore Personally does not warrant that uses outside of the [place] are appropriate, unless specifically indicated otherwise. [employer] drug information does not endorse drugs, diagnose patients or recommend therapy. [employer] drug information isan informational resource designed to assist licensed healthcare practitioners in caring for their p atients and/or to serve consumers viewing this service as a supplement to, and not a substitute for, the expertise, skill, knowledge and judgment of healthcare practitioners. The absence of a warningfor a given drug or drug combination in no way should be construed to indicate that the drug or drug combination is safe, effective or appropriate for any given patient. Personally does not assume any responsibility for any aspect of healthcare administered with the aid of information Personally provides. The information contained herein is not intended to cover all possible uses, directions, precautions, warnings, drug interactions, allergic reactions, or adverse effects. If you have questions about the drugs you are taking, check with your doctor, nurse or pharmacist. Copyright 5808-3769 [employer]. Version: 09.03. Revision Date: 11/23/2021. benzonatate (michael MILLIE na morgan) What is the most important information I should know about benzonatate? Never suck or chew on a benzonatate capsule. Swallow the pill whole. Sucking or chewing the capsulemay cause serious side effects. Benzonatate is not approved for use by anyone younger than 10 years old. An overdose of benzonatatecan be fatal to a young child. What is benzonatate? Benzonatate is used to relieve coughing. Benzonatate is a non-narcotic cough medicine that numbs the throat and lungs, making the cough reflex less active. Benzonatate may also be used for purposes not listed in this medication guide. What should I discuss with my healthcare provider before taking benzonatate? You should not use this medicine if you are allergic to benzonatate or topical numbing medicines such as tetracaine or procaine (found in some insect bite and sunburn creams). Tell your doctor if you are or . Benzonatate is not approved for use by anyone younger than 10 years old. An overdose of benzonatatecan be fatal, especially to a young child who has accidentally swallowed the medicine. How should I take benzonatate? Follow all directions on your prescription label and read all medication guides or instruction sheets. Use the medicine exactly as directed. Never suck or chew on a benzonatate capsule. Swallow the pill whole. Sucking or chewing the capsulemay cause serious side effects. Store at room temperature away from moisture, heat, and light. What happens if I miss a dose? Skip the missed dose and use your next dose at the regular time. Do not use two doses at one time. What happens if I overdose? Seek emergency medical attention or call the Poison Help line at . An overdose of benzonatate can be fatal, especially to a child. Accidental has occurred in children under 10 years old. Overdose symptoms may include tremors, feeling restless, seizure (convulsions), slow heart rate, weak pulse, fainting, and slow breathing (breathing may stop). What should I avoid while taking benzonatate? Avoid eating or drinking anything while you feel numbness or tingling in your mouth or throat. What are the possible side effects of benzonatate? Stop taking this medicine and get emergency medical help if you have signs of an allergic reaction:hives; difficult breathing; swelling of your face, lips, tongue, or throat. Call your doctor at once if you have: severe drowsiness or dizziness; confusion, hallucinations. ongoing numbness or tingling in your mouth, throat, or face; numbness in your chest; a choking feeling; chills; or burning in your eyes. Some of these side effects may result from chewing or sucking on a benzonatate capsule. Common side effects may include: headache, dizziness; nausea, upset stomach; constipation; itching, rash; or stuffy nose. This is not a complete list of side effects and others may occur. Call your doctor for medical advice about side effects. You may report side effects to FDA at 1-450-KBV-8980. What other drugs will affect benzonatate? Using benzonatate with other drugs that make you drowsy can worsen this effect. Ask your doctor before using opioid medication, a sleeping pill, a muscle relaxer, or medicine for anxiety or seizures. Other drugs may affect benzonatate, including prescription and ldbk-jdk-oxszitq medicines, vitamins, and herbal products. Tell your doctor about all your current medicines and any medicine you start or stop using. Where can I get more information? Your pharmacist can provide more information about benzonatate. Remember, keep this and all other medicines out of the reach of children, never share your medicines with others, and use this medication only for the indication prescribed. Every effort has been made to ensure that the information provided by [employer]. ('[employer]') is accurate, up-to-date, and complete, but no guarantee is made to that effect. Drug information contained herein may be time sensitive. Personally information has been compiled for use by healthcare practitioners and consumers in the [place] and therefore Personally does not warrant that uses outside of the [place] are appropriate, unless specifically indicated otherwise. [employer] drug information does not endorse drugs, diagnose patients or recommend therapy. [employer] drug information isan informational resource designed to assist licensed healthcare practitioners in caring for their p atients and/or to serve consumers viewing this service as a supplement to, and not a substitute for, the expertise, skill, knowledge and judgment of healthcare practitioners. The absence of a warningfor a given drug or drug combination in no way should be construed to indicate that the drug or drug combination is safe, effective or appropriate for any given patient. Personally does not assume any responsibility for any aspect of healthcare administered with the aid of information Personally provides. The information contained herein is not intended to cover all possible uses, directions, precautions, warnings, drug interactions, allergic reactions, or adverse effects. If you have questions about the drugs you are taking, check with your doctor, nurse or pharmacist. Copyright 5745-2703 [employer]. Version: 09.03. Revision Date: 06/05/2023. ondansetron (oral) (on SABINA se marguerite) What is the most important information I should know about ondansetron? You should not use ondansetron if you are also using apomorphine (Apokyn). What is ondansetron? Ondansetron blocks the actions of chemicals in the body that can trigger nausea and vomiting. Ondansetron is used to prevent nausea and vomiting that may be caused by surgery, cancer chemotherapy, or radiation treatment. Ondansetron may be used for purposes not listed in this medication guide. What should I discuss with my health care provider before taking ondansetron? You should not use ondansetron if: you are also using apomorphine (Apokyn); or you are allergic to ondansetron or similar medicines (dolasetron, granisetron, palonosetron). To make sure ondansetron is safe for you, tell your doctor if you have: liver disease; an electrolyte imbalance (such as low levels of potassium or magnesium in your blood); congestive heart failure, slow heartbeats; a personal or family history of long QT syndrome; or a blockage in your digestive tract (stomach or intestines). Ondansetron is not expected to harm an unborn baby. Tell your doctor if you are . It is not known whether ondansetron passes into breast milk or if it could harm a nursing baby. Tell your doctor if you are breast-feeding a baby. Ondansetron is not approved for use by anyone younger than 4 years old. Ondansetron orally disintegrating tablets may contain phenylalanine. Tell your doctor if you have phenylketonuria (PKU). How should I take ondansetron? Follow all directions on your prescription label. Do not take this medicine in larger or smaller amounts or for longer than recommended. Ondansetron can be taken with or without food. The first dose of ondansetron is usually taken before the start of your surgery, chemotherapy, or radiation treatment. Follow your doctor's dosing instructions very carefully. Take the ondansetron regular tablet with a full glass of water. To take the orally disintegrating tablet (Zofran ODT): Keep the tablet in its blister pack until you are ready to take it. Open the package and peel back the foil. Do not push a tablet through the foil or you may damage the tablet. Use dry hands to remove the tablet and place it in your mouth. Do not swallow the tablet whole. Allow it to dissolve in your mouth without chewing. Swallow several times as the tablet dissolves. To use ondansetron oral soluble film (strip) (Zuplenz): Keep the strip in the foil pouch until you are ready to use the medicine. Using dry hands, remove the strip and place it on your tongue. It will begin to dissolve right away. Do not swallow the strip whole. Allow it to dissolve in your mouth without chewing. Swallow several times after the strip dissolves. If desired, you may drink liquid to help swallow the dissolved strip. Wash your hands after using Zuplenz. Measure liquid medicine with the dosing syringe provided, or with a special dose-measuring spoon ormedicine cup. If you do not have a dose-measuring device, ask your pharmacist for one. Store at room temperature away from moisture, heat, and light. Store liquid medicine in an upright position. What happens if I miss a dose? Take the missed dose as soon as you remember. Skip the missed dose if it is almost time for your next scheduled dose. Do not take extra medicine to make up the missed dose. What happens if I overdose? Seek emergency medical attention or call the Poison Help line at . Overdose symptoms may include sudden loss of vision, severe constipation, feeling light-headed, or fainting. What should I avoid while taking ondansetron? Ondansetron may impair your thinking or reactions. Be careful if you drive or do anything that requires you to be alert. What are the possible side effects of ondansetron? Get emergency medical help if you have signs of an allergic reaction: rash, hives; fever, chills, difficult breathing; swelling of your face, lips, tongue, or throat. Call your doctor at once if you have: severe constipation, stomach pain, or bloating; headache with chest pain and severe dizziness, fainting, fast or pounding heartbeats; fast or pounding heartbeats; jaundice (yellowing of the skin or eyes); blurred vision or temporary vision loss (lasting from only a few minutes to several hours); high levels of serotonin in the body--agitation, hallucinations, fever, fast heart rate, overactivereflexes, nausea, vomiting, diarrhea, loss of coordination, fainting. Common side effects may include: diarrhea or constipation; headache; drowsiness; or tired feeling. This is not a complete list of side effects and others may occur. Call your doctor for medical advice about side effects. You may report side effects to FDA at 9-089-MAE-2450. What other drugs will affect ondansetron? Ondansetron can cause a serious heart problem, especially if you use certain medicines at the same time, including antibiotics, antidepressants, heart rhythm medicine, antipsychotic medicines, and medicines to treat cancer, malaria, HIV or AIDS. Tell your doctor about all medicines you use, and those you start or stop using during your treatment with ondansetron. Taking ondansetron while you are using certain other medicines can cause high levels of serotonin to build up in your body, a condition called 'serotonin syndrome,' which can be fatal. Tell your doctor if you also use: medicine to treat depression; medicine to treat a psychiatric disorder; a narcotic (opioid) medication; or medicine to prevent nausea and vomiting. This list is not complete and many other drugs can interact with ondansetron. This includes prescription and qjve-oha-aivqmgp medicines, vitamins, and herbal products. Give a list of all your medicines to any healthcare provider who treats you. Where can I get more information? Your pharmacist can provide more information about ondansetron. Remember, keep this and all other medicines out of the reach of children, never share your medicines with others, and use this medication only for the indication prescribed. Every effort has been made to ensure that the information provided by [employer]. ('[employer]') is accurate, up-to-date, and complete, but no guarantee is made to that effect. Drug information contained herein may be time sensitive. Personally information has been compiled for use by healthcare practitioners and consumers in the [place] and therefore Personally does not warrant that uses outside of the [place] are appropriate, unless specifically indicated otherwise. [employer] drug information does not endorse drugs, diagnose patients or recommend therapy. [employer] drug information isan informational resource designed to assist licensed healthcare practitioners in caring for their p atients and/or to serve consumers viewing this service as a supplement to, and not a substitute for, the expertise, skill, knowledge and judgment of healthcare practitioners. The absence of a warningfor a given drug or drug combination in no way should be construed to indicate that the drug or drug combination is safe, effective or appropriate for any given patient. Personally does not assume any responsibility for any aspect of healthcare administered with the aid of information Personally provides. The information contained herein is not intended to cover all possible uses, directions, precautions, warnings, drug interactions, allergic reactions, or adverse effects. If you have questions about the drugs you are taking, check with your doctor, nurse or pharmacist. Copyright 9038-8626 [employer]. Version: 16.. Revision Date: 06/05/2023. Education Materials How to Quit Smoking Smoking is a hard habit to break. About half of all people who have ever smoked have been able to quit. Most people who still smoke want to quit. Here are some of the best ways to stop smoking. Keep in mind the health benefits of quitting The health benefits of quitting start right away. They keep improving the longer you go without smoking. Knowing this can help inspire you to stay on track. These benefits occur at any age. If you are 17 or 70, quitting is a good choice. Some of the health benefits after your last cigarette include: 20 minutes: Your blood pressure and pulse return to normal. 8 hours: Your oxygen levels return to normal. 2 days: Your ability to smell and taste start to improve as damaged nerves regrow. 2 to 3 weeks: Your circulation and lung function improve. 1 to 9 months: Your coughing, congestion, and shortness of breath decrease. Your tiredness decreases. 1 year: Your risk of heart attack decreases by half. 5 years: Your risk of lung cancer decreases by half. Your risk of stroke becomes the same as a nonsmoker s. Go cold turkey Most former smokers quit cold turkey. This means stopping all at once. Trying to cut back slowly often doesn't work as well. This may be because it continues the habit of smoking. Also, you may inhale more smoke while smoking fewer cigarettes. This leads to the same amount of nicotine in your body. Get support Support programs can be a big help, especially for heavy smokers. These groups offer lectures, waysto change behavior, and peer support. Here are some ways to find a support program: Free national quitline 045-LNTJ-APE (639-962-6978) [facility] quit-smoking programs [employer] [place] [employer] 474-930-2716 [employer] [place] [employer] [phone] Support at home is important too. Family and friends can offer praise and reassurance. If the smoker in your life finds it hard to quit, encourage them to keep trying. Try ribq-pcb-bpamftp medicine Nicotine replacement therapy may make it easier to quit. Some aids are available without a prescription. These include a nicotine patch, gum, and lozenges. But it is best to use these under the care of your healthcare provider. The skin patch gives a steady supply of nicotine. Nicotine gum and lozenges give short- time doses of low levels of nicotine. Both methods reduce the craving for cigarettes. If you have nausea, vomiting, dizziness, weakness, or a fast heartbeat, stop using these products.See your healthcare provider. Ask about prescription medicine After reviewing your smoking patterns and past attempts to quit, your doctor may offer a prescription medicine such as bupropion, varenicline, a nicotine inhaler, or nasal spray. Each has advantages and side effects. Your doctor can review these with you. Keep trying Most smokers make many attempts at quitting before they are successful. It s important not to give up. For more information For more on how to quit smoking, try these online resources: Go to Smokefree.gov. Read Clearing the Air from the National [employer] [place] at smokefree.gov/sites/default/files/pdf/okktgzei-ypw-fxr-accessible.pdf. 8193-2157 [employer]. [address] [place] [address], [place] [address]. All rights reserved. This information is not intended as a substitute for professional medical care. Always follow yourhealthcare professional's instructions. Uncontrolled High Blood Pressure (Established) Your blood pressure was unusually high today. This can occur if you ve missed doses of your blood pressure medicine. Or it can happen if you are taking other medicines. These include some asthma inhalers, decongestants, diet pills, and street drugs like cocaine and amphetamine. Other causes include: Weight gain More salt in your diet Smoking Caffeine Your blood pressure can also rise if you are emotionally upset or in intense pain. It may go back to normal after a period of rest. Blood pressure measurements are given as 2 numbers. Systolic blood pressure is the upper number. This is the pressure when the heart contracts. Diastolic blood pressure is the lower number. This is the pressure when the heart relaxes between beats. You will see your blood pressure readings written together. For example, a person with a systolic pressure of 118 and a diastolic pressure of 78 will have 118/78 written in the medical record. To be high blood pressure, the numbers must be higher when tested over a period of time. Blood pressure is categorized as normal, elevated, or stage 1 or stage 2 high blood pressure: Normal blood pressure is systolic of less than 120 and diastolic of less than 80 (120/80) Elevated blood pressure is systolic of 120 to 129 and diastolic less than 80 Stage 1 high blood pressure is systolic is 130 to 139 or diastolic between 80 to 89 Stage 2 high blood pressure is when systolic is 140 or higher or the diastolic is 90 or higher Uncontrolled high blood pressure can cause serious health problems. It raises your risk for heart attack, stroke, and heart failure. In general, if you have high blood pressure, keeping your blood pressure below 130/80 mmHg may help prevent these problems. Your healthcare provider may prescribe medicine to help control blood pressure if lifestyle changes are not enough. Home care It s important to take steps to lower your blood pressure. If you are taking blood pressure medicine, the guidelines below may help you need less or no medicines in the future. Start a weight-loss program if you are overweight. Cut back on the amount of salt in your diet: oAvoid high-salt foods like olives, pickles, smoked meats, and salted potato chips. oDon t add salt to your food at the table. oUse only small amounts of salt when cooking. Start an exercise program. Talk with your healthcare provider about what exercise program is best for you. It doesn t have to be difficult. Even brisk walking for 20 minutes 3 times a week is a good form of exercise. Avoid medicines that stimulates the heart. This includes many dwua-uea-nluilou cold and sinus decongestant pills and sprays, as well as diet pills. Check the warnings about high blood pressure on thelabel. Before purchasing any kegb-sed-tjkfrwi medicines or supplements, always ask the pharmacist about the product's potential interaction with your high blood pressure and your medicines. Stimulants such as amphetamine or cocaine could be lethal for someone with high blood pressure. Never take these. Limit how much caffeine you drink. Or switch to noncaffeinated beverages. Stop smoking. If you are a long-time smoker, this can be hard. Enroll in a stop- smoking program to make it more likely that you will succeed. Talk with your provider about ways to quit. Learn how to handle stress better. This is an important part of any program to lower blood pressure. Learn ways to relax. These include meditation, yoga, and biofeedback. If medicines were prescribed, take them exactly as directed. Missing doses may cause your blood pressure to get out of control. If you miss a dose or doses of your medicines, check with your healthcare provider or pharmacist about what to do. Consider buying an automatic blood pressure machine. Your provider may recommend a certain type. You can get one of these at most pharmacies. Measure your blood pressure twice a day, in the morning, and in the late afternoon. Keep a written record of your home blood pressure readings and take the record to your medical appointments. Here are some additional guidelines on home blood pressure monitoring from the [employer] [place] [employer]. Don't smoke or drink coffee for 30 minutes Go to the bathroom before the test. Relax for 5 minutes before taking the measurement. Sit correctly. Be sure your back is supported. Don't sit on a couch or soft chair. Uncross your feet and place them flat on the floor. Place your arm on a solid, flat surface like a table with the upper arm at heart level. Make certain the middle of the cuff is directly above the bend of the elbow.Check the monitor's instruction manual for an illustration. Take multiple readings. When you measure, take 2 or 3 readings one minute apart and record all of the results. Take your blood pressure at the same time every day, or as your healthcare provider recommends. Record the date, time, and blood pressure reading. Take the record with you to your next appointment. If your blood pressure monitor has a built-in memory, simply take the monitor with you to your next appointment. Call your provider if you have several high readings. Don't be frightened by a single high reading,but if you get several high readings, check in with your healthcare provider. Note: When blood pressure reaches a systolic (top number) of 180 or higher or a diastolic (bottom number) of 110 or higher, emergency medical treatment is required. Call your healthcare provider immediately. Follow-up care Regular visits to your own healthcare provider for blood pressure and medicine checks are an important part of your care. Make a follow-up appointment as directed. Bring the record of your home bloodpressure readings to the appointment. When to seek medical advice Call your healthcare provider right away if any of these occur: Blood pressure reaches a systolic (top number) of 180 or higher or diastolic (bottom number) of 110or higher, emergency medical treatment is required. Chest, arm, shoulder, neck, or upper back pain Shortness of breath Severe headache Throbbing or rushing sound in the ears Nosebleed Extreme drowsiness, confusion, or fainting Dizziness or dizziness with spinning sensation (vertigo) Weakness in an arm or leg or on one side of the face Trouble speaking or seeing [id number] [employer]. [address] [place] [address]. All rights reserved. This information is not intended as a substitute for professional medical care. Always follow yourhealthcare professional's instructions. Viral Syndrome (Adult) A viral illness may cause a number of symptoms such as fever. Other symptoms depend on the part of the body that the virus affects. If it settles in your nose, throat, and lungs, it may cause cough, sore throat, congestion, runny nose, headache, earache and other ear symptoms, or shortness of breath. If it settles in your stomach and intestinal tract, it may cause nausea, vomiting, cramping, and diarrhea. Sometimes it causes generalized symptoms like aching all over, feeling tired, loss of energy, or loss of appetite. A viral illness usually lasts anywhere from several days to several weeks, but sometimes it lasts longer. In some cases, a more serious infection can look like a viral syndrome in the first few days of the illness. You may need another exam and additional tests to know the difference. Watch for thewarning signs listed below for when to seek medical advice. Home care Follow these guidelines for taking care of yourself at home: If symptoms are severe, rest at home for the first 2 to 3 days. Stay away from cigarette smoke - both your smoke and the smoke from others. You may use xsia-evw-gmucfqk acetaminophen or ibuprofen for fever, muscle aching, and headache, unless another medicine was prescribed for this. If you have chronic liver or kidney disease or ever had a stomach ulcer or gastrointestinal bleeding, talk with your healthcare provider before using these medicines. No one who is younger than 18 and ill with a fever should take aspirin. It may cause severe disease or . Your appetite may be poor, so a light diet is fine. Avoid dehydration by drinking 8 to 12, 8-ounce glasses of fluids each day. This may include water; orange juice; lemonade; apple, grape, and cranberry juice; clear fruit drinks; electrolyte replacement and sports drinks; and decaffeinated teas andcoffee. If you have been diagnosed with a kidney disease, ask your healthcare provider how much andwhat types of fluids you should drink to prevent dehydration. If you have kidney disease, drinking too much fluid can cause it build up in the your body and be dangerous to your health. Zzip-mfl-nncduay remedies won't shorten the length of the illness but may be helpful for symptoms such as cough, sore throat, nasal and sinus congestion, or diarrhea. Don't use decongestants if you have high blood pressure. Follow-up care Follow up with your healthcare provider if you do not improve over the next week. Call 911 Call 911 if any of the following occur: Convulsion Feeling weak, dizzy, or like you are going to faint Chest pain, or more than mild shortness of breath When to seek medical advice Call your healthcare provider right away if any of these occur: Cough with lots of colored sputum (mucus) or blood in your sputum Chest pain, shortness of breath, wheezing, or trouble breathing Severe headache; face, neck, or ear pain Severe, constant pain in the lower right side of your belly (abdominal) Continued vomiting (can t keep liquids down) Frequent diarrhea (more than 5 times a day); blood (red or black color) or mucus in diarrhea Feeling weak, dizzy, or like you are going to faint Extreme thirst Fever of 100.4 F (38 C) or higher, or as directed by your healthcare provider [id number] [employer]. [address] [place] [address], [place] [address]. All rights reserved. This information is not intended as a substitute for professional medical care. Always follow yourhealthcare professional's instructions. Additional Information VACCINATE! IT SAVES LIVES! Members of the community who have not yet received the COVID-19 vaccine and would like to receive it can visit one of [facility] vaccine clinics. There are many vaccine clinic locations within the [facility]. For locations and available times, please visit www.[email or web address].[email or web address]/. It is important to note that some COVID mobile vaccine clinics are held outdoors and may be canceled in rainy or stormy conditions. To learn more about pediatric vaccinations (ages 5-11), we invite you to visit the [employer] webpage. [email or web address]/[email or web address] [email or web address] learn more about the COVID-19 vaccine, we invite you to visit the CDC website for a list of frequently asked questions. https://www.cdc.gov/coronavirus/2019-ncov/vaccines/faq.html [facility] Patient Portal Access Instructions: Stay connected with your healthcare team and access your personal medical information anytime with the [facility] Patient Portal. If you would like a full copy of your medical records please contact the [facility] Medical Records Department Friday through Friday between 8a.m. and 4:30p.m. Please follow the directions below to access the portal: 1.Access the email account you provided upon registration to the hospital.2.Look for an invitation email from [facility].3.Open the email and access the invitation link: Accept Invitation to [facility]4.Fill in the required hutson to create your account. Sign into www.[employer] with your username and password that you created in the above steps to stay up to date. You can then view a summary of results, a summary of your visits, and the ability to download your summaries to your computer or send the information securely to a physician. Remember that your healthcare information is confidential, so carefully consider who you will allow to register on the [facility] Patient Portal for access to your information. You can also access the [employer] Patient Portal on the [employer]. Simply click on Health Records under HealthData and then click on the [email or web address] logo. HOW TO SAFELY DISPOSE OF PRESCRIPTION MEDICATIONS Please use one of the following methods to safely dispose of your unused medications. 1.Use a drug disposal kit: the drug disposal pouch allows you to safely discard your old and unuseddrugs. Ask your nurse to give you one when you are discharged.2.Visit a local take-back location: Many local pharmacies and police departments have programs that collect old and unwanted prescriptiondrugs. Call your local pharmacy or go to http://[employer]oo[employer]/5N7Iv1e to find one close to you.3.Make use of household items: Use cat litter or old coffee grounds to dispose medications if other options arenot available. Mix your drugs with these household products, seal them in an airtight container andthrow it into the garbage. Call [facility]: [phone] to be sure your drugs can be disposed of in this way. Some medicines may require a different approach.4.Never flush your medications down the toilet. IF YOU HAVE BEEN PRESCRIBED AN OPIOIDS FOR PAIN If you have been prescribed an opioid (such as hydrocodone, oxycodone or morphine), it is critical to understand the possible side effects and risks of opioid pain medications. Even when taken as directed, opioids can have several side effects including: Tolerance, meaning you might need to take more of a medication for the same pain relief. Nausea, vomiting and/or constipation. Sleepiness, dizziness, dry mouth, confusion, depression or itching. Physical dependence, meaning you have withdrawal symptoms when a medication is stopped ? this can develop within a few days. KNOW YOUR RESPONSIBILITIES It is important to know exactly how much and how often to take the opioid pain medications you are prescribed. Never take opioids in higher amounts or more often than prescribed. Do not combine opioids with alcohol or other drugs that cause drowsiness, such as benzodiazepines, also known as benzos,including diazepam and alprazolam, muscle relaxants or sleep aids. Never sell or share prescriptionopioids. This is illegal. Store opioids in a secure place and out of reach of others (including children, family, friends and visitors). The last page(s) of this document has been signed and retained as a CHART COPY Signatures Patient Education Materials Smoking Cessation High Blood Pressure, Established, Out of Control Viral Syndrome (Adult) Medication Leaflets albuterol inhalation, atenolol, benzonatate, ondansetron (oral) My discharge plan and instructions have been reviewed and explained to me and I,CHARLINE IZQUIERDOd my current condition and have read and understand these discharge instructions. I have received a written copy of the plan/instructions. If I have questions, I am aware that I should contact my doctor. Patient/[employer] Color [employer]er Signature: Date/Time: Relationship to Patient: Witness Name/Signature: Date/Time: [facility] Evaluation + Plan note No data available for this section [facility] Evaluation note* Diagnosis Onset Date Resolution Status Acute hypokalemia acute Alcohol abuse acute Anemia acute [facility] Work Phone: Evaluation noteNo assessment information available [facility] Work Phone: Reason for referral (narrative)No reason for [facility]: Chief Complaint and Reason for Visit Chief Complaint GI BLEED Reason for Visit Acute hypokalemia Alcohol abuse Anemia Chief Complaint GI BLEED GI BLEED GI BLEED GI BLEED Reason for Visit Acute hypokalemia Alcohol abuse Anemia Chief Complaint ABNORMAL WEIGHT LOSS Chief Complaint ABNORMAL WEIGHT LOSS SOB Chief Complaint Admit Date PRESYNCOPE May 25, 2025 4:10 pm Chief Complaint Admit Date PRESYNCOPE May 25, 2025 4:10 pm PRESYNCOPE May 26, 2025 11:5 4am Reason for Visit Admit Date Alcohol abuse May 25, 2025 4:10 pm Syncope Sahra 23rd, 2025 4:10 pm Chief Complaint Admit Date PRESYNCOPE May 25, 2025 4:10 pm PRESYNCOPE May 26, 2025 11:5 4am PRESYNCOPE May 27, 2025 9:39 am weakness June 02, 2025 7:02 pm Advance Directives No Advanced Directives Records Found Advance Directive Response Recorded Date/ Time Living Will No August 26 1:58pm Power of Automatic Casting Machine Operator No August 26, 2022 1:58pm Advance Directive Response Recorded Date/ Time Living Will No August 26 5:56pm Power of Automatic Casting Machine Operator No August 26, 2022 5:56pm Advance Directive Response Recorded Date/ Time Living Will No July 14, 2023 10:34am Power of Automatic Casting Machine Operator No July 10:34am Advance Directive Response Recorded Date/ Time Do you have a Healthcare Power of Automatic Casting Machine Operator? No May 25, 2025 11:46am Advance Directive Response Recorded Date/ Time Do you have a Healthcare Power of Automatic Casting Machine Operator? No May 25, 2025 5:06pm Advance Directive Response Recorded Date/ Time Do you have a Healthcare Power of Automatic Casting Machine Operator? No May 25, 2025 5:06pm Do you have a Healthcare Power of Automatic Casting Machine Operator? No June 02, 2025 7:11pm Summary Purpose Family History No Family History Records Found Additional Source Comments Care Team (unrecognized sect ion and content) Care Team Related Persons Name: REFUSED, Goals (unrecognized section and content) Goals may be documented in a n alternate section Care Teams (unrecognized sec tion and content) Team Status: Active Member Role/Relationship Status Dates [facility] Primary Care Provider Active Team Status: Inactive Member Role/Relationship Status [facility]ates [facility] Primary Care Provider Active Start: May 25, 2025 End: May 27, 2025 Dr. Radu Martinez , Emergency Provider Activ e Start: May 25, 2025 End: May 27, 2025 Dr. Valencia Wen MD Admit Provider Active Star t: May 25, 2025 End: May 27, 2025 Dr. Valencia Wen MD Other Provider Active Star t: May 25, 2025 End: May 27, 2025 Dr. Sheron Dumont MD Attending Provider Active Start: May 25, 2025 End: May 27, 2025 Team Status: Active Member Role/Relationship Status [facility] Primary Care Provider Active Start: May 26, 2025 Dr. Corey Fong MD Attending Provider Activ e Start: May 26, 2025 Team Status: Active Member Role/Relationship Status Dates [facility] Primary Care Provider Active Start: May 26, 2025 Dr. Radu Martinez , DO Emergency Provider Activ e Start: May 26, 2025 Dr. Valencia Wen MD Admit Provider Active Star t: May 26, 2025 Dr. Valencia Wen MD Other Provider Active Star t: May 26, 2025 Dr. Sheron Dumont MD Attending Provider Active Start: May 26, 2025 Dr. Sheron Dumont MD Other Provider Active St art: May 26, 2025 Team Status: Active Member Role Status D[facility] Family Provider Active [facility] Primary Care Provider Active Team Status: Inactive Member Role Status Dates [facility] Primary Care Provider Active BETTYE BELL Attending Provider, Referring Provider Active Team Status: Inactive Member Role Status Dates [facility] Primary Care Provider Active Dr. Nolan Redman , DO Emergency Provider Active Team Status: Active Member Role/Relationship Status Dates [facility] Primary Care Provider Active Start: May 25, 2025 Dr. Radu Martinez , DO Emergency Provider Activ e Start: May 25, 2025 Dr. Valencia Wen MD Admit Provider Active Star t: May 25, 2025 Dr. Valencia eWn MD Attending Provider Active Start: May 25, 2025 Team Status: Active Member Role/Relationship Status Dates [facility] Primary Care Provider Active Start: May 27, 2025 Dr. Radu Martinez DO Emergency Provider Activ e Start: May 27, 2025 Dr. Valencia Wen MD Admit Provider Active Star t: May 27, 2025 Dr. Valencia Wen MD Other Provider Active Star t: May 27, 2025 Dr. Sheron Dumont MD Attending Provider Active Start: May 27, 2025 Dr. Sheron Dumont MD Other Provider Active St art: May 27, 2025 Team Status: Inactive Member Role/Relationship Status [facility]ates [facility] Primary Care Provider Active Start: June 02, 2025 End: June 03, 2025 Michael Saldivar MD Emergency Provider Active Star t: June 02, 2025 End: June 03, 2025 (unrecognized sect ion and content) No Status Records FoundNo Status Records Found INFORMATION SOURCE (unrecogn ized section and content) DATE CREATED AUTHOR 06/24/2024 [facility] ([place]) DATE CREATED AUTHOR AUTHOR'S LAURYN ATBYRON 06/16/2025 [facility] FOR RECORDS PERTAINING TO PATIENTS WHO ARE OR HAVE BEEN ENROLLED IN A CHEMICAL DEPENDENCY/SUBSTANCEABUSE PROGRAM, SOME INFORMATION MAY BE OMITTED. This clinical summary was aggregated from multiple sources. Caution should be exercised in using it in the provision of clinical care. This summary normalizes information from multiple sources, and as a consequence, information in this document may materially change the coding, format and clinical context of patient data. In addition, data may be omitted in some cases. CLINICAL DECISIONS SHOULD BE BASED ON THE PRIMARY CLINICAL RECORDS. [employer] [facility]. provides no warranty or guarantee of the accuracy or completeness of information in this document.
--- NOTE | 2025-06-18 14:37 | ED.RN ---
Recieved phone call from Myrtle for update on Pt. Pt asked for permission to share information with Myrtle. Per pt ok to give information.
[2025-06-18 14:50] LABS: Anion Gap 17 (5-15); BUN 5 mg/dL (4-19); BUN/Creat Ratio 7.8 RATIO (10-20); Calcium,Total 9.3 mg/dL (7.6-11.0); Carbon Dioxide 22.8 mmol/L (21.0-32.0); Chloride 103 mmol/L (98-108); Estimated Creatinine Clearance 97.16 ml/min (50-250); Glucose 97 mg/dL (70-99); Potassium 4.0 mmol/L (3.3-5.1)
[2025-06-18 15:18] VITALS: BP 125/80; PULSE 109; O2SAT 98
[2025-06-18 15:34] VITALS: BP 148/97; PULSE 113; RESP 24; TEMP 36.8; O2SAT 98
--- NOTE | 2025-06-18 15:52 | ED.RN ---
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
== END 2025-06-18 16:13 | disposition home or self-care (01) ==
PROVIDERS: Emergency Provider Emergency Medicine; Visit Provider Emergency Medicine
DX: S70.02XA Contusion of left hip, initial encounter (principal); S50.312A Abrasion of left elbow, initial encounter; R00.0 Tachycardia, unspecified; I10 Essential (primary) hypertension; E86.0 Dehydration; W17.89XA Other fall from one level to another, initial encounter; Y93.89 Activity, other specified; Z79.899 Other long term (current) drug therapy; F17.200 Nicotine dependence, unspecified, uncomplicated
CPT/HCPCS: 73502; 80048; 96360; 96361; 99285; A4216

== ENCOUNTER 2025-09-23 09:08 | Emergency (ER) | payer MEDICAID, SELFPAY ==
[2025-09-23 08:42] VITALS: BP 177/98; PULSE 104; RESP 24; TEMP 36.9; O2SAT 99; BMI 21.3
--- NOTE | 2025-09-23 08:46 | EKG12_ITS ---
Test Reason : Blood Pressure : */* mmHG Vent. Rate : 101 BPM Atrial Rate : 101 BPM P-R Int : 134 ms QRS Dur : 86 ms QT Int : 364 ms P-R-T Axes : 45 -20 63 degrees QTcB Int : 471 ms Sinus tachycardia Otherwise normal ECG Confirmed by BUZZ TERRY, TALITA ([id number]), photography editor RYLEE DOW ([id number]) on 09/26/2025 1:19:40 PM Referred By: ANUSHKA Confirmed By: TALIAT GERBER MD
--- NOTE | 2025-09-23 08:54 | CT_ITS ---
PROCEDURE: ABDOMEN/PELVIS W IV CONT ONLY 09/23/2025 REASON FOR EXAM: EPIGASTRIC PAIN, HX OF ALCOHOL USE, N/V 3 DAYS TECHNIQUE: Procedure Code: CTABDPELIV Modality: CT Procedure: ABDOMEN/PELVIS W IV CONT ONLY Coronal and Sagittal reconstruction series were provided. CONTRAST: Isovue-300 VOLUME: 100 mL One or more dose reduction techniques were used (e.g., Automated exposure control, adjustment of the mA and/or kV according to patient size, use of iterative reconstruction technique. RADIATION DOSE SUMMARY: CTDlvol: 8.8 mGy DLP: 408.88 mGycm COMPARISON: April 01, 2023. FINDINGS: Lung bases: The lung bases are clear. Coronary artery calcification. Liver: Diffuse fatty infiltration. Hepatomegaly. Gallbladder: The gallbladder is distended. No definite gallstones seen. Spleen: Normal size. Pancreas: Normal size without evidence of mass surrounding inflammation or ductal dilation. Adrenals: Unremarkable Kidneys: 1.8 cm cyst in the mid posterior portion of the right kidney. Bladder: Unremarkable Bowel: Circumferential wall thickening with haustral thickening in the right hemicolon. Colitis should be ruled out. Appendix: Unremarkable Lymph nodes: Unremarkable. Vasculature: Mild diffuse atherosclerotic calcifications are noted. Peritoneum / Retroperitoneum: Unremarkable Bones: Mild degree of degenerative changes. CT/Abdomen/Pelvis W IV Cont ONLY IMPRESSION: Hepatomegaly and diffuse fatty infiltration of the liver. The gallbladder is distended. Small cyst in the right kidney. Circumferential wall thickening with haustral thickening of the right hemicolon . Colitis should be ruled out. Reading Location: [facility]
--- NOTE | 2025-09-23 08:59 | EX.ED.DYSGE1 ---
HPI History of Present Illness Chief Complaint: Nausea/Vomiting Narrative Narrative: Patient is a 60-year-old male with past medical history of alcohol use fifth of vodka daily, anemia, pretension, substance abuse who presented to the emergency department chief complaint of nausea vomiting for the last 3 days. He denies recent sick contacts and he states that he has diffuse abdominal pain. Patient states that he is having some diarrhea as well denies any previous abdominal surgeries. [facility] Medical History Alcohol abuse Anemia Substance abuse Alcohol abuse Smoker Hypertension Home Medications ?Medication ?Instructions ?Recorded ?Last Taken ?Type atenolol 25 mg tablet 25 mg PO DAILY BP 08/27/22 06/17/25 History dicyclomine 20 mg tablet 20 mg PO TID PRN abdominal pain 09/23/25 Unknown Rx #30 tabs ondansetron 4 mg disintegrating 4 mg PO Q6H PRN nausea and 09/23/25 Unknown Rx tablet vomiting #20 tabs Allergy/AdvReac Type Severity Reaction Status Date / Time No Known Allergies Allergy Verified 06/18/25 13:19 Family History Other Heart disease Social History Smoking Status: Heavy Smoker (>10/day) alcohol intake: current ROS ROS ED ROS Narrative Constitutional: Complains of chills denies any fevers Eyes: Denies double vision Cardiovascular: Denies chest pain Respiratory: Denies shortness of breath complaints cough Abdomen: Complains of abdominal pain nausea vomit diarrhea as noted above : Denies urinary symptoms Neurological: Denies any numbness, weakness, tingling Musculoskeletal: Denies back pain Skin: Denies any rashes or lesions EXAM Physical Exam Narrative Exam Narrative: General: Patient was lying in bed rest comfortably did not appear to be in acute distress Head: Atraumatic, normocephalic Eyes: PERRL bilaterally, EOMI bilaterally, no conjunctival injection noted Neck: Soft, supple, trachea midline Cardiovascular: Patient tachycardic with a regular rhythm Respiratory: Clear to auscultation bilaterally Abdomen: Soft, nondistended, tenderness to palpation epigastric region no rebound or guarding on exam Extremities: +5/5 strength noted in the bilateral lower extremities Neurological: Patient following commands knew that he was at [facility] the year is 2024 Skin: Warm, dry, intact no rashes or lesions noted Const Vital Signs: 09/23/25 08:42 09/23/25 09:30 09/23/25 09:45 Temperature 98.5 F 98.5 F Temperature Source Oral Oral Pulse Rate 104 H 95 Respiratory Rate 24 H 18 Blood Pressure 177/98 H 149/89 H 149/89 H Blood Pressure Mean 124 109 109 Pulse Ox 99 97 Oxygen Delivery Method Room Air Room Air Oxygen Flow Rate (L/min) 09/23/25 11:00 09/23/25 11:00 09/23/25 12:28 Temperature 98.5 F 98.4 F Temperature Source Oral Oral Pulse Rate 74 74 103 H Respiratory Rate 16 16 19 H Blood Pressure 130/68 H 130/68 H 118/72 Blood Pressure Mean 88 88 87 Pulse Ox 96 96 98 Oxygen Delivery Method Room Air Nasal Cannula Room Air Oxygen Flow Rate (L/min) 6 MDM MDM MDM Narrative Medical decision making narrative: Patient is a 60-year-old male who presented to the emergency department with a chief complaint of abdominal pain nausea vomiting diarrhea. On the differential diagnosis includes, to viral gastroenteritis, pancreatitis, bowel obstruction. Once workup is obtained reviewed he will be reevaluated. Patient be given 30 cc/kg bolus of IV fluids which was ordered at 8:45 AM. Patient also given Zofran for his nausea. Reperfusion reassessment at 10:45 AM patient remained normotensive no vasopressors indicated. Patient's CBC reviewed showed no evidence of leukocytosis white blood count normal at 7.2, he was 13.4, plate count of 213. Patient INR normal 1.1, PT 13.9. Patient sodium was 132, potassium normal at 4.5, creatinine was 0.73. Patient lactic acid normal at 1.4, glucose was noted be 113. Patient AST and ALT were 66 and 34 respectively total bilirubin normal 1.21. Patient lipase normal 25, urinalysis reviewed and showed 150 ketones no evidence of infection. Patient CT ab pelvis IV contrast reviewed and showed hepatomegaly and diffuse fatty infiltration of the liver. Gallbladder distended. Small cyst in the right kidney circumferential wall thickening with haustral thickening of the right hemicolon colitis should be ruled out. Patient EKG showed sinus tachycardia the rate of 101 bpm multiple areas of artifact noted. On reevaluation the patient he states that he is still having some nausea therefore he will be given Reglan and we will give him a liter of D5 NS. I reevaluated the patient and he was feeling better he was given crackers here in the emergency department which he tolerated without vomiting. He would like to go home at this point time. He is vies follow-up his doctor in outpatient setting and return with worsening symptoms or concerns. Patient will be given Bentyl and Zofran. Lab Data Labs: Laboratory Results - last 24 hr 09/23/25 09/23/25 09/23/25 09:02 10:06 10:17 WBC 7.2 RBC 4.00 L Hgb 13.4 Hct 38.1 L MCV 95.3 H MCH 33.5 H MCHC 35.2 RDW Std Deviation 54.3 H RDW Coeff of Shauna 15.5 H Plt Count 213 MPV 9.3 Immature Gran % (Auto) 0.400 Neut % (Auto) 82.6 H Lymph % (Auto) 7.5 L [place] % (Auto) 9.1 Eos % (Auto) 0.1 Baso % (Auto) 0.3 Absolute Neuts (auto) 5.9 Absolute Lymphs (auto) 0.54 L Nucleated RBC % 0 PT Cancelled 13.9 INR Cancelled 1.1 APTT Cancelled 31.7 Sodium 132 L Potassium 4.5 Chloride 88 L Carbon Dioxide 22.3 Anion Gap 21 H BUN 16 Creatinine 0.73 Estim Creat Clear Calc 81.18 Est GFR (MDRD) Non-Af 103 BUN/Creatinine Ratio 21.3 H Glucose 113 H Lactic Acid 1.4 Calcium 9.7 Total Bilirubin 1.21 AST 66 H ALT 34 Alkaline Phosphatase 108 Total Protein 7.7 Albumin 4.4 Globulin 3.3 Albumin/Globulin Ratio 1.4 Lipase 25 Urine Color Yellow Urine Clarity Clear Urine pH 6.0 Ur Specific Carmi 1.015 Urine Protein 30 H Urine Glucose (UA) Normal Urine Ketones 150 A* Urine Occult Blood 10 H Urine Nitrite Negative Urine Bilirubin 1 H Urine Urobilinogen 1 H Ur Leukocyte Esterase Negative Urine RBC 0 SEEN Urine WBC 0 SEEN Ur Squamous Epith Cells 0 SEEN Urine Bacteria 0 SEEN Urine Mucus 0 SEEN Radiography Diagnostic Testing: Clinical Impression(s) from Imaging Studies Abdomen/Pelvis CT 09/23/25 08:54 IMPRESSION: Hepatomegaly and diffuse fatty infiltration of the liver. The gallbladder is distended. Small cyst in the right kidney. Circumferential wall thickening with haustral thickening of the right hemicolon. Colitis should be ruled out. Reading Location: [id number] Discharge Plan Triage Chief Complaint: Nausea/Vomiting ED Provider: Ed Eduardo Dx/Rx/DC Orders Clinical Impression: Nausea & vomiting, Alcohol use, History of anemia Prescriptions: New ondansetron 4 mg tablet,disintegrating 4 mg PO Q6H PRN (Reason: nausea and vomiting) Qty: 20 0RF dicyclomine 20 mg tablet 20 mg PO TID PRN (Reason: abdominal pain) Qty: 30 0RF No Action atenolol 25 mg Tablet 25 mg PO DAILY Primary Care Provider: [facility] Referrals: [facility] [Primary Care Provider, None] Activity Restrictions/Additional Instructions: Use prescription as prescribed. Follow-up your doctor in the outpatient setting. Return with worsening symptoms or other concerns Print Language: Indonesian Disposition Disposition: Home, Self Care
[2025-09-23 09:12] LABS: Hematocrit 38.1 % (40-54); Hemoglobin 13.4 g/dL (13.0-16.5); Immature Granulocytes Count 0.030 X10^3/uL (0.0-0.0); Mean Corp Hgb Conc 35.2 g/dL (32-36); Mean Corpuscular Volume 95.3 fL (80-94); Mean Platelet Vol. 9.3 fl (6.2-12.0); NRBC Flagged by Analyzer 0 % (0-5); POSITIVE DIFFERENTIAL YES; Platelet Count 213 K/mm3 (150-450); RBC Distribution Width CV 15.5 % (11.6-14.6); RBC Distribution Width SD 54.3 fl (35.1-43.9); Red Blood Count 4.00 M/mm3 (4.6-6.2); White Blood Count 7.2 K/mm3 (4.4-11.0)
[2025-09-23] MEDS: 0.9% Normal Saline (1000mL) 1,000 ML 999 ML IV ×2 (09:15→10:25)
[2025-09-23 09:30] VITALS: BP 149/89
[2025-09-23 09:45] VITALS: BP 149/89; PULSE 95; RESP 18; TEMP 36.9; O2SAT 97
[2025-09-23 09:58] LABS: AST(SGOT) 66 U/L (<=37); Alanine Aminotransfer ALT/SGPT 34 U/L (<=46); Albumin, Serum 4.4 g/dL (3.4-4.8); Alkaline Phosphatase 108 U/L (40-129); Anion Gap 21 (5-15); BUN 16 mg/dL (4-19); BUN/Creat Ratio 21.3 RATIO (10-20); Calcium,Total 9.7 mg/dL (7.6-11.0); Carbon Dioxide 22.3 mmol/L (21.0-32.0); Chloride 88 mmol/L (98-108); Estimated Creatinine Clearance 81.18 ml/min (50-250); Globulin 3.3 g/dL (2.2-4.2); Glucose 113 mg/dL (70-99); Lipase 25 U/L (13-75); Potassium 4.5 mmol/L (3.3-5.1)
[2025-09-23 10:21] LABS: Color, Urine Yellow (Yellow); Glucose, Dipstick Normal (Normal); Leukocyte Esterase-Dipstick Negative /ul (Negative); Nitrite-Dipstick Negative (Negative); Occult Blood-Urine 10 /ul (Negative); Protein-Dipstick 30 mg/dl (Negative); Specific Gravity, Urine 1.015 (1.002-1.030)
[2025-09-23 10:22] LABS: Mucous, Urine 0 SEEN /hpf (<or=2+); Red Blood Cells-Urine 0 SEEN /hpf (0-5); Squamous Epithelial Cells - UA 0 SEEN /hpf (0-5)
[2025-09-23 10:23] LABS: Ketone-Dipstick 150 mg/dl (Negative); Urine Bilirubin Dipstick 1 mg/dL (Negative)
[2025-09-23 10:25] LABS: Prothrombin Time (Protime)PT. 13.9 SECONDS (11.7-14.9)
[2025-09-23 10:26] LABS: Partial Thromboplast Time 31.7 Seconds (24.1-36.2)
[2025-09-23 11:00] VITALS: BP 130/68; PULSE 74; RESP 16; TEMP 36.9; O2SAT 96
[2025-09-23] MEDS: Dextrose 5%/0.9% NaCl 1,000 ML 999 ML IV (11:23)
[2025-09-23 12:28] VITALS: BP 118/72; PULSE 103; RESP 19; O2SAT 98
[2025-09-23 15:00] VITALS: BP 148/79; PULSE 103; RESP 19; TEMP 36.9; O2SAT 98
== END 2025-09-23 15:00 | disposition home or self-care (01) ==
PROVIDERS: Emergency Provider Emergency Medicine; Visit Provider Emergency Medicine
DX: R11.2 Nausea with vomiting, unspecified (principal); I10 Essential (primary) hypertension; F10.90 Alcohol use, unspecified, uncomplicated; F17.210 Nicotine dependence, cigarettes, uncomplicated; R19.7 Diarrhea, unspecified; R10.9 Unspecified abdominal pain; Z86.2 Personal history of diseases of the blood and blood-forming organs and certain disorders involving the immune mechanism
CPT/HCPCS: 74177; 80053; 81001; 83605; 83690; 85025; 85610; 85730; 87040; 87086; 93005; 96361; 96365; 96375; 96376; 99285; Q9967; A4216; J2405